=== PATIENT | male | born 1955 | race Caucasian/White ===

== ENCOUNTER 2018-03-16 06:50 | Inpatient (IN) | payer MEDICARE ==
--- NOTE | 2018-03-16 07:34 | ED ---
General Adult HPI - General Chief complaint: Shortness of Breath Stated complaint: SOB Source: patient, EMS Mode of arrival: EMS Limitations: no limitations - History of Present Illness Initial comments: Dictation was produced using [employer] dictation software. please excuse any grammatical, word or spelling errors. Chief Complaint: 62-year-old male past medical history of COPD, CHF, coronary artery disease, hypertension presents with shortness of breath times several days. History of Present Illness: She is 62-year-old male with chief complaint of shortness of breath. Patient states his symptoms have been ongoing for 4 days. Patient has history of CHF, COPD. Patient reports that his shortness of breath has been progressively worse prompting him all 911 today. Patient denies any pain complaints. He transferred to emergency department. EMS staff provide patient with treatment and Solu-Medrol. He does report that his symptoms improved after breathing treatment and steroid administration. Patient currently feels well at this time. Denies any pain complaints. Denies any constitutional symptoms. The ROS documented in this emergency department record has been reviewed and confirmed by me. Those systems with pertinent positive or negative responses have been documented in the HPI. All other systems are other negative and/or noncontributory. - Related Data Home Medications Medication Instructions Recorded Confirmed Albuterol Inhaler [Ventolin Hfa 2 puff INHALATION RT-Q4H PRN 01/21/15 03/16/18 Inhaler] Atorvastatin [Lipitor] 40 mg PO HS 01/21/15 03/16/18 Digoxin [Lanoxin] 125 mcg PO DAILY 01/21/15 03/16/18 Budesonide-Formot 160-4.5 Mcg 2 puff INHALATION RT-BID 03/16/18 03/16/18 [Symbicort 160-4.5 Mcg Inhaler] Captopril [Capoten] 25 mg PO BID 03/16/18 03/16/18 Carvedilol 25 mg PO BID 03/16/18 03/16/18 Cholecalciferol (Vitamin D3) 2,000 unit PO DAILY 03/16/18 03/16/18 [Vitamin D3] Divalproex [Depakote] 250 mg PO BID 03/16/18 03/16/18 Escitalopram [Lexapro] 20 mg PO DAILY 03/16/18 03/16/18 Furosemide [Lasix] 20 mg PO DAILY 03/16/18 03/16/18 Loratadine [Claritin] 10 mg PO DAILY 03/16/18 03/16/18 Allergies Allergy/AdvReac Type Severity Reaction Status Date / Time No Known Allergies Allergy Verified 03/16/18 08:32 Review of Systems ROS Statement: Those systems with pertinent positive or pertinent negative responses have been documented in the HPI. ROS Other: All systems not noted in ROS Statement are negative. Past Medical History Past Medical History: Asthma, Coronary Artery Disease (CAD), Heart Failure, COPD , Hypertension, Myocardial Infarction ([place]) Additional Past Medical History / Comment(s): SEE DR CAMPOVERDE'S H&P Last Myocardial Infarction Date:: 05/18/2000 History of Any Multi-Drug Resistant Organisms: None Reported Past Surgical History: AICD, Heart Catheterization With Stent Additional Past Surgical History / Comment(s): RT REVERSE SHOULDER REPLACEMENT, HT CATH X3 Past Anesthesia/Blood Transfusion Reactions: No Reported Reaction Date of Last Stent Placement:: UNKNOWN Type of Cardiac Device: AICD Device Placement Date:: 2005 Past Psychological History: Anxiety Smoking Status: Current some day smoker Past Alcohol Use History: Occasional Past Drug Use History: None Reported - Past Family History Father Family Medical History: Cancer Additional Family Medical History / Comment(s): LUNG General Exam - General Exam Comments Initial Comments: PHYSICAL EXAM: General Impression: Alert and oriented x3, not in acute distress HEENT: Normocephalic atraumatic, extra-ocular movements intact, pupils equal and reactive to light bilaterally, mucous membranes moist. Cardiovascular: Heart regular rate and rhythm, S1&S2 audible, no murmurs, rubs or gallops Chest: Bilateral lung wheezing worse in the left Abdomen: Bowel sounds present, abdomen soft, non-tender, non-distended, no organomegaly Musculoskeletal: Pulses present and equal in all extremities, no peripheral edema Motor: Power 5/5 bilaterally, no focal deficits noted Neurological: CN II-XII grossly intact, no focal motor or sensory deficits noted Skin: Intact with no visualized rashes Psych: Normal affect and mood Limitations: no limitations Course Vital Signs 03/16/18 03/16/18 03/16/18 06:58 08:44 08:52 Temperature 98.6 F Pulse Rate 78 78 82 Respiratory 18 Rate Blood Pressure 109/72 O2 Sat by Pulse 97 Oximetry Medical Decision Making - Medical Decision Making ED course:-year-old male with past medical history of COPD, CHF, coronary artery disease presents with acute dyspnea for 4 days. Vital signs upon arrival are within acceptable limits.Laboratory evaluation obtained. Patient is hemoglobin 11.2, MCV of 121.6, platelet 1 week, INR within acceptable limits. Metabolic panel shows normalkalemia, glucose of 71, magnesium 1.3, 0.058, brain natruretic peptide of 6000. Chest x-ray shows CHF exacerbation over there is findings of acute infiltrate. Given clinical presentation suspect CHF exacerbation instead of COPD exacerbation. Patient also has hypomagnesemia with prolonged QT. Patient given IV magnesium. Aspirin administered. Patient be admitted for the chocolate replacement, cardiac monitoring. Cardiology consulted. I believe the elevated troponin is likely secondary to troponin leak two-view history of CHF. Patient has her for serial troponins. At this point we will withhold any heparin at this time. EKG interpretation: Ventricular rate 71, H fibrillation, QRS 104, QTC 510. No VT prolongation, , no ST or T-wave changes noted. - Lab Data Result diagrams: 03/16/18 07:45 03/16/18 07:45 Lab Results 03/16/18 03/16/18 03/16/18 Range/Units 07:45 07:45 07:45 WBC 4.2 (3.8-10.6) k/uL RBC 2.87 L (4.30-5.90) m/uL Hgb 11.2 L (13.0-17.5) gm/dL Hct 34.9 L (39.0-53.0) % MCV 121.6 H (80.0-100.0) fL MCH 38.9 H (25.0-35.0) pg MCHC 32.0 (31.0-37.0) g/dL RDW 14.5 (11.5-15.5) % Plt Count 108 L (150-450) k/uL Neutrophils % 81 % Lymphocytes % 11 % Monocytes % 5 % Eosinophils % 2 % Basophils % 1 % Neutrophils # 3.4 (1.3-7.7) k/uL Lymphocytes # 0.5 L (1.0-4.8) k/uL Monocytes # 0.2 (0-1.0) k/uL Eosinophils # 0.1 (0-0.7) k/uL Basophils # 0.0 (0-0.2) k/uL Manual Slide Review Performed Macrocytosis Marked PT (9.0-12.0) sec INR (<1.2) APTT (22.0-30.0) sec Sodium 137 (137-145) mmol/L Potassium 4.1 (3.5-5.1) mmol/L Chloride 99 (98-107) mmol/L Carbon Dioxide 25 (22-30) mmol/L Anion Gap 13 mmol/L BUN 15 (9-20) mg/dL Creatinine 0.92 (0.66-1.25) mg/dL Est GFR (CKD-EPI)AfAm >90 (>60 ml/min/1.73 sqM) Est GFR (CKD-EPI)NonAf 88 (>60 ml/min/1.73 sqM) Glucose 71 L (74-99) mg/dL Calcium 8.8 (8.4-10.2) mg/dL Magnesium 1.3 L (1.6-2.3) mg/dL Total Bilirubin 3.7 H (0.2-1.3) mg/dL AST 135 H (17-59) U/L ALT 60 (21-72) U/L Alkaline Phosphatase 169 H (38-126) U/L Total Creatine Kinase 277 H (55-170) U/L CK-MB (CK-2) 4.9 H (0.0-2.4) ng/mL CK-MB (CK-2) Rel Index 1.8 Troponin I 0.058 H* (0.000-0.034) ng/mL NT-Pro-B Natriuret Pep pg/mL Total Protein 6.3 (6.3-8.2) g/dL Albumin 3.4 L (3.5-5.0) g/dL 03/16/18 03/16/18 Range/Units 07:45 07:45 WBC (3.8-10.6) k/uL RBC (4.30-5.90) m/uL Hgb (13.0-17.5) gm/dL Hct (39.0-53.0) % MCV (80.0-100.0) fL MCH (25.0-35.0) pg MCHC (31.0-37.0) g/dL RDW (11.5-15.5) % Plt Count (150-450) k/uL Neutrophils % % Lymphocytes % % Monocytes % % Eosinophils % % Basophils % % Neutrophils # (1.3-7.7) k/uL Lymphocytes # (1.0-4.8) k/uL Monocytes # (0-1.0) k/uL Eosinophils # (0-0.7) k/uL Basophils # (0-0.2) k/uL Manual Slide Review Macrocytosis PT 13.3 H (9.0-12.0) sec INR 1.3 H (<1.2) APTT 28.1 (22.0-30.0) sec Sodium (137-145) mmol/L Potassium (3.5-5.1) mmol/L Chloride (98-107) mmol/L Carbon Dioxide (22-30) mmol/L Anion Gap mmol/L BUN (9-20) mg/dL Creatinine (0.66-1.25) mg/dL Est GFR (CKD-EPI)AfAm (>60 ml/min/1.73 sqM) Est GFR (CKD-EPI)NonAf (>60 ml/min/1.73 sqM) Glucose (74-99) mg/dL Calcium (8.4-10.2) mg/dL Magnesium (1.6-2.3) mg/dL Total Bilirubin (0.2-1.3) mg/dL AST (17-59) U/L ALT (21-72) U/L Alkaline Phosphatase (38-126) U/L Total Creatine Kinase (55-170) U/L CK-MB (CK-2) (0.0-2.4) ng/mL CK-MB (CK-2) Rel Index Troponin I (0.000-0.034) ng/mL NT-Pro-B Natriuret Pep 6140 pg/mL Total Protein (6.3-8.2) g/dL Albumin (3.5-5.0) g/dL Disposition Clinical Impression: Congestive heart failure Disposition: ADMITTED IP TO THIS HOSP Condition: Fair Referrals: Bill Mari DO [Primary Care Provider] - 1-2 days Decision Time: 10:07
[2018-03-16] MEDS ORDERED: IPRATROPIUM-ALBUTEROL 3 ML NEB INHALATION STA (08:08)
--- NOTE | 2018-03-16 08:27 | XR ---
EXAMINATION TYPE: XR chest 2V DATE OF EXAM: 03/16/2018 COMPARISON: Chest x-ray from May 25, 2015 HISTORY: History of COPD and CHF presents with difficulty in breathing TECHNIQUE: Frontal and lateral views of the chest are obtained. FINDINGS: Metallic hardware from right shoulder surgery is partially imaged. There is cardiomegaly w ith single lead pacemaker/AICD. Small bilateral pleural effusions are felt present with blunting of p osterior costophrenic angles. Bibasilar opacity is noted. Mild central vascular congestion is seen. U pper lungs are clear without pneumothorax.. IMPRESSION: Suspect CHF exacerbation as there is cardiomegaly with mild central vascular congestion and small bilateral pleural effusions identified. Cannot exclude underlying bibasilar acute infiltrat e and/or atelectasis.
[2018-03-16 08:45] LABS: Basophils % (A) 1 %; Eosinophils # (A) 0.1 k/uL (0-0.7); Eosinophils % (A) 2 %; HCT 34.9 % (39.0-53.0); HGB 11.2 gm/dL (13.0-17.5); Lymphocytes # (A) 0.5 k/uL (1.0-4.8); Lymphocytes % (A) 11 %; MCH 38.9 pg (25.0-35.0); MCV 121.6 fL (80.0-100.0); Macrocytosis Marked; Mean Platelet Volume 8.7; Monocytes # (A) 0.2 k/uL (0-1.0); Monocytes % (A) 5 %; Neutrophils # (A) 3.4 k/uL (1.3-7.7); Neutrophils % (A) 81 %; Platelet Count 108 k/uL (150-450); RBC 2.87 m/uL (4.30-5.90); RDW 14.5 % (11.5-15.5); WBC 4.2 k/uL (3.8-10.6)
[2018-03-16 08:57] LABS: ALT 60 U/L (21-72); AST 135 U/L (17-59); Albumin 3.4 g/dL (3.5-5.0); Alkaline Phosphatase 169 U/L (38-126); Anion Gap 13 mmol/L; Blood Urea Nitrogen 15 mg/dL (9-20); Calcium 8.8 mg/dL (8.4-10.2); Carbon Dioxide 25 mmol/L (22-30); Chloride 99 mmol/L (98-107); Glucose 71 mg/dL (74-99); Magnesium 1.3 mg/dL (1.6-2.3); Potassium 4.1 mmol/L (3.5-5.1); Sodium 137 mmol/L (137-145); Total Bilirubin 3.7 mg/dL (0.2-1.3); Total Protein 6.3 g/dL (6.3-8.2)
[2018-03-16 09:00] LABS: INR 1.3 (<1.2)
[2018-03-16 09:01] LABS: Partial Thromboplastin Time 28.1 sec (22.0-30.0); Prothrombin Time 13.3 sec (9.0-12.0)
[2018-03-16 09:20] LABS: Creatine Kinase MB 4.9 ng/mL (0.0-2.4)
[2018-03-16 09:29] LABS: Troponin I 0.058 ng/mL (0.000-0.034)
[2018-03-16] MEDS ORDERED: FUROSEMIDE 10 MG/ML 4 ML VIAL IV STA (10:03)
[2018-03-16] MEDS ORDERED: NALOXONE 0.4 MG/ML 1 ML VIAL IV PRN (10:03)
[2018-03-16] MEDS: MAGNESIUM SULFATE-D5W PMX 1 GM in DEXTROSE/WATER 1 100ML.BAG IVPB SCH ×2 (11:14→19:32)
[2018-03-16] MEDS ORDERED: LORazepam 2 MG/ML INJ IV PRN (14:54)
[2018-03-16] MEDS: LORazepam 2 MG/ML INJ IV PRN ×2 (15:09→19:46)
[2018-03-16] MEDS ORDERED: IPRATROPIUM-ALBUTEROL 3 ML NEB INHALATION PRN (15:16)
[2018-03-16] MEDS ORDERED: HYDROcodone/APAP 5-325MG 1 EACH TAB PO PRN (15:17)
[2018-03-16] MEDS ORDERED: TEMAZEPAM 15 MG CAP PO PRN (15:17)
--- NOTE | 2018-03-16 16:39 | HP ---
HISTORY AND PHYSICAL CHIEF COMPLAINT: Shortness of breath. HISTORY OF PRESENT ILLNESS: This 62-year-old gentleman with a past medical history of multiple medical problems, CAD, history of CHF, COPD, history of AICD, myocardial infarction, CAD, stent being followed by Dr. Mari in the outpatient setting is apparently also drinking heavily. The patient was complaining of some shortness of breath with abdominal distention, bilateral leg edema. The patient came to [facility] and was admitted for further evaluation and treatment. The patient called 911 and the EMS administered some breathing treatments of Solu-Medrol with some improvement in symptoms. There is no history of fever, rigors or chills. No history of headache, loss of consciousness, seizures at this time. PAST MEDICAL HISTORY: History of COPD, CHF; myocardial infarction, CAD, stent, history of EtOH, history of AICD, anxiety. MEDICATIONS: Prior to admission include home medications are: 1. Claritin 10 mg p.o. daily. 2. Vitamin D3 2000 daily. 3. Lexapro 20 mg p.o. daily. 4. Symbicort 160/4.5 two puffs b.i.d. 5. Lasix 20 mg daily. 6. Depakote 250 mg b.i.d. 7. Lanoxin 180 mcg p.o. daily. 8. Coreg 25 mg p.o. b.i.d. 9. Capoten 25 mg p.o. b.i.d. 10.Lipitor 40 mg q.h.s. 11.Ventolin HFA 2 puffs q.4h p.r.n. ALLERGIES: None. FAMILY HISTORY: History of lung cancer in the family. SOCIAL HISTORY: History of smoking. History of alcohol as mentioned. REVIEW OF SYSTEMS: ENT: Diminished hearing and vision. CARDIOVASCULAR: As mentioned earlier. RESPIRATORY: As mentioned earlier. GI: No nausea or vomiting. no dysuria. Nervous system: No numbness, weakness. Allergy/immunology: No asthma or hayfever. MUSCULOSKELETAL as mentioned earlier. HEMATOLOGY/ONCOLOGY: No history of anemia. ENDOCRINE: No history of diabetes or hypothyroidism. CONSTITUTIONAL: As mentioned earlier. Dermatology: Negative. Rheumatology: Negative. Psychiatry: As mentioned earlier. PHYSICAL EXAMINATION: GENERAL: The patient is alert and oriented times three. Pulse is 78, blood pressure 119/84, respiration 18, temperature is normal, pulse ox 97% on 2 L. HEENT: Conjunctivae normal. Oral mucosa moist. NECK : Jugular venous distention at the root of the neck. Cardiovascular system: S1, S2. Ejection systolic murmur. No S3, no S4. RESPIRATORY: Breath sounds diminished in the bases. Bilateral scattered rhonchi and crackles. Breathing efforts are markedly increased. ABDOMEN: Soft, obese, tense. Ascites present. LEGS: Bilateral leg edema. Pulses diminished bilaterally. NERVOUS SYSTEM: Higher functions as mentioned earlier. Moves all four limbs. No focal motor or sensory deficits. LYMPHATICS: No lymph nodes palpable in the neck, axillae or groin. SKIN as mentioned earlier. JOINTS: No active deforming arthropathy. LAB STUDIES: WBC 4.8, hemoglobin 11.2, INR 1.33. Magnesium is 1.3. AST is 135, troponin 0.58. ASSESSMENT: 1. Shortness of breath, possibly congestive heart failure acute exacerbation with acute on chronic systolic dysfunction, ejection fraction 30-35 percent. 2. Chronic obstructive pulmonary disease acute exacerbation. 3. History of ETOH. 4. Troponin 0.05 indeterminate. 5. Alcohol intoxication, alcohol withdrawal, early delirium tremens. 6. Hypomagnesemia. 7. Alcoholic hepatitis with elevated bilirubin and as well as increased AST. 8. Mild coagulopathy secondary to chronic liver disease. 9. Thrombocytopenia. 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 11.History of coronary artery disease, stent. 12.History of AICD. 13.History of chronic obstructive pulmonary disease. 14.Hypertension. 15.Hyperlipidemia. 16.History of ischemic cardiomyopathy. 17.History of cellulitis. 18.History of anxiety. 19.History of nicotine dependence. 20.FULL CODE. RECOMMENDATIONS AND DISCUSSION: In this 62-year-old gentleman who presented with multiple complex medical issues, we will monitor the patient closely, continue the current medications, management and symptomatic treatment. We will initiate IV diuretics and also bronchodilators. We will also obtain Cardiology and pulmonology consultations. Otherwise monitor fluid and electrolytes balance closely. Fluid restriction about 100 mL for 24 hours. CIWA protocol. Continue the rest of medications. Ultrasound of the abdomen and possible abdomen tap if there is enough fluid for therapeutic and diagnostic purposes. Otherwise, overall prognosis guarded because of multiple complex medical issues as listed above. Further recommendations to follow. Copy of dictation being forwarded to Dr. Mari who is the primary physician. MMODL / IJN: [id number] /
[2018-03-16] MEDS: NICOTINE 14MG/24HR PATCH TRANSDERM SCH (17:53)
[2018-03-16] MEDS: FUROSEMIDE 10 MG/ML 4 ML VIAL IV SCH ×2 (17:53→23:15)
[2018-03-16] MEDS: methylPREDNISolone SOD SUCCI 125 MG/2 ML VIAL IV SCH ×2 (17:53→23:15)
[2018-03-16] MEDS: INSULIN ASPART 100 UNIT/ML 1 ML 10 ML VIAL SQ SCH ×2 (17:54→23:11)
[2018-03-16] MEDS: THIAMINE 100 MG TAB PO SCH (19:32)
[2018-03-16] MEDS: CARVEDILOL 12.5 MG TAB PO SCH (19:45)
[2018-03-16] MEDS: DIVALPROEX 250 MG TABLET.DR PO SCH (19:45)
[2018-03-16] MEDS: HEPARIN SODIUM,PORCINE 5,000 UNIT/ML 1 ML VIAL SQ SCH (19:45)
[2018-03-16] MEDS: ATORVASTATIN 40 MG TAB PO SCH (19:45)
[2018-03-16] MEDS: SYMBICORT 160-4.5 MCG INHALER INHALATION SCH (19:59)
[2018-03-16] MEDS: IPRATROPIUM-ALBUTEROL 3 ML NEB INHALATION SCH (19:59)
[2018-03-16 20:53] LABS: Glucose,Whole Blood 173 mg/dL (75-99)
[2018-03-16] MEDS ORDERED: SPIRONOLACTONE 25 MG TAB PO SCH (21:00)
[2018-03-16] MEDS: CAPTOPRIL 25 MG TAB PO SCH (23:11)
[2018-03-16 23:48] LABS: Appearance,Urine Clear (Clear); Bilirubin,Urine Negative (Negative); Blood,Urine Negative (Negative); Color,Urine Yellow; Glucose,Urine (UA) Negative (Negative); Ketones,Urine Negative (Negative); Leukocyte Esterase,Urine Negative (Negative); Nitrite,Urine Negative (Negative); PH, Urine 6.5 (5.0-8.0); Protein,Urine Negative (Negative); Specific Gravity,Urine 1.005 (1.001-1.035)
[2018-03-17] MEDS: LORazepam 2 MG/ML INJ IV PRN ×6 (02:30→22:32)
[2018-03-17] MEDS: TAMSULOSIN 0.4 MG CAP.ER.24H PO SCH (03:21)
[2018-03-17 03:52] LABS: Hemoglobin A1C 4.7 % (4.0-6.0)
[2018-03-17 05:36] LABS: Glucose,Whole Blood 221 mg/dL (75-99)
[2018-03-17] MEDS: PANTOPRAZOLE 40 MG TABLET PO SCH (05:37)
[2018-03-17] MEDS: methylPREDNISolone SOD SUCCI 125 MG/2 ML VIAL IV SCH ×4 (05:37→22:31)
[2018-03-17] MEDS: INSULIN ASPART 100 UNIT/ML 1 ML 10 ML VIAL SQ SCH ×4 (05:37→20:23)
[2018-03-17 06:31] LABS: Basophils % (A) 0 %; Eosinophils # (A) 0.1 k/uL (0-0.7); Eosinophils % (A) 1 %; HCT 35.6 % (39.0-53.0); HGB 11.9 gm/dL (13.0-17.5); Lymphocytes # (A) 0.3 k/uL (1.0-4.8); Lymphocytes % (A) 6 %; MCH 40.4 pg (25.0-35.0); MCHC 33.4 g/dL (31.0-37.0); MCV 121.1 fL (80.0-100.0); Macrocytosis Marked; Mean Platelet Volume 8.7; Monocytes # (A) 0.2 k/uL (0-1.0); Monocytes % (A) 3 %; Neutrophils # (A) 4.6 k/uL (1.3-7.7); Neutrophils % (A) 89 %; Platelet Count 118 k/uL (150-450); RBC 2.94 m/uL (4.30-5.90); RDW 14.2 % (11.5-15.5); WBC 5.2 k/uL (3.8-10.6)
[2018-03-17 06:45] LABS: ALT 58 U/L (21-72); AST 85 U/L (17-59); Albumin 3.1 g/dL (3.5-5.0); Alkaline Phosphatase 141 U/L (38-126); Anion Gap 9 mmol/L; Blood Urea Nitrogen 34 mg/dL (9-20); Calcium 7.9 mg/dL (8.4-10.2); Carbon Dioxide 34 mmol/L (22-30); Chloride 91 mmol/L (98-107); Glucose 180 mg/dL (74-99); Magnesium 1.5 mg/dL (1.6-2.3); Potassium 3.8 mmol/L (3.5-5.1); Sodium 134 mmol/L (137-145); Total Bilirubin 3.4 mg/dL (0.2-1.3); Total Protein 5.9 g/dL (6.3-8.2)
[2018-03-17] MEDS ORDERED: Magnesium Replacement Protocol 1 EACH MISC MISCELLANE PRN (06:48)
[2018-03-17] MEDS: IPRATROPIUM-ALBUTEROL 3 ML NEB INHALATION SCH ×3 (07:51→20:44)
[2018-03-17] MEDS: SYMBICORT 160-4.5 MCG INHALER INHALATION SCH ×2 (07:51→20:44)
[2018-03-17] MEDS ORDERED: DIGOXIN 125 MCG TAB PO SCH (09:00)
[2018-03-17] MEDS: MULTIVITAMINS, THERA 1 EACH TAB PO SCH (10:52)
[2018-03-17] MEDS: LORATADINE 10 MG TAB PO SCH (10:52)
[2018-03-17] MEDS: ESCITALOPRAM 20 MG TAB PO SCH (10:52)
[2018-03-17] MEDS: FUROSEMIDE 10 MG/ML 4 ML VIAL IV SCH (10:52)
[2018-03-17] MEDS: THIAMINE 100 MG TAB PO SCH ×2 (10:52→17:38)
[2018-03-17] MEDS: CHOLECALCIFEROL 1,000 UNIT TAB PO SCH (10:53)
[2018-03-17] MEDS: MAGNESIUM SULFATE-D5W PMX 1 GM in DEXTROSE/WATER 1 100ML.BAG IVPB SCH ×2 (10:53→12:11)
[2018-03-17] MEDS: CARVEDILOL 12.5 MG TAB PO SCH ×2 (10:53→20:49)
[2018-03-17] MEDS: SPIRONOLACTONE 25 MG TAB PO SCH (11:10)
[2018-03-17] MEDS: LOSARTAN 50 MG TAB PO SCH (11:10)
[2018-03-17] MEDS: APIXABAN 5 MG TAB PO SCH ×2 (11:11→20:49)
[2018-03-17] MEDS: DIVALPROEX 250 MG TABLET.DR PO SCH ×2 (11:18→20:49)
[2018-03-17] MEDS: CAPTOPRIL 25 MG TAB PO SCH (11:19)
[2018-03-17 11:52] LABS: Glucose,Whole Blood 191 mg/dL (75-99)
[2018-03-17] MEDS ORDERED: LIDOCAINE URO-JET JELLY 2% 5 ML KIT URETHRAL ONE (13:11)
--- NOTE | 2018-03-17 15:31 | CONS ---
CONSULTATION Mr. Yash Land is a 62-year-old gentleman who is very noncompliant with followups. He has ischemic cardiomyopathy, prior stenting of RCA. However, he has not followed up. He had a pulse generator change performed in March or so 2014 from a [employer] to [employer] device, but he has not had a check of the device since that time. 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 He came into the hospital with increasing episodes of shortness of breath going on for a week, progressively getting worse, culminating in his visit to the hospital. He was found to be in congestive heart failure with QT prolongation. He is also in atrial fibrillation and I went and looked at the previous records as far back as 2015 and I noted that he was in atrial fibrillation at that time, but patient is not on any anticoagulation and it is unclear as to the reason for his not being on anticoagulation. EKG from May of 2015 also revealed atrial fibrillation with a controlled ventricular rate with evidence of old anterior and inferior NC. After arrival to the hospital, he has received Lasix. He feels better. His breathing is easier. He denies any chest discomfort at the time of my evaluation. Patient continues to smoke on a regular basis and also drinks alcohol on a regular basis at least 3-4 drinks of whiskey on a daily basis. The patient's breathing has improved since arrival. PAST MEDICAL HISTORY: 1. Ischemic cardiomyopathy with previous stenting of LAD and RCA performed in 2000 with bare metal stents. Ejection fraction less than 35%. 2. History of AICD placement last was a pulse generator change in March 2015. 3. Bronchial asthma. 4. Smoking and chronic obstructive pulmonary disease. 5. Hypertension. 6. Alcoholism. MEDICATIONS: At home that he takes from his primary care physician include Lipitor 40 mg daily, digoxin 125 mcg daily, Capoten 25 mg b.i.d., Coreg 25 mg b.i.d., vitamin supplements, Lexapro, Lasix 20 mg daily, and Claritin. ALLERGIES: None. REVIEW OF SYSTEMS: Unremarkable other than above-mentioned facts. EKG performed in the emergency room revealed atrial fibrillation, controlled ventricular rate, evidence of old inferior and anterior NC with Q-waves seen in leads V1 to V5 and also in 2, 3 and AVF. There are no anterior forces. PHYSICAL EXAMINATION: Blood pressure is 120/70, pulse rate is about 84 per minute, irregular. HEENT: Unremarkable. Fundus was not examined by me. NECK: Supple, there is JVD of at least 1 cm or more. There is no carotid bruit. Heart exam reveals S1, S2 heard normally with a short systolic murmur. Irregularity in rhythm noted. There is a short systolic murmur audible. LUNGS: Revealed bilateral scattered rhonchi. There is evidence of fine rales over both bases. Abdomen is soft, nontender. Lower extremities reveal diminished pulses. There is bilateral trace, mild edema. Central nervous system is grossly within normal limits. IMPRESSION: 1. Exacerbation of systolic congestive heart failure. 2. Exacerbation of chronic obstructive pulmonary disease in a patient with known history of smoking. 3. Atrial fibrillation which is a chronic persistent rhythm abnormality which was noted as far back as 2016. 4. Alcoholism. 5. Ischemic cardiomyopathy with a prior multivessel stenting and ICD, which has not been checked for at least 3 years. 6. Hypomagnesemia with some QT prolongation, which I do not believe is clinically significant at this time. RECOMMENDATIONS: I explained to the patient that we will supplement his magnesium and potassium. I have counseled him regarding the need to quit smoking and alcohol, but he does not seem motivated or interested in doing this. I will reduce the Aldactone to 25 mg b.i.d., switch him to oral Lasix at 40 mg b.i.d., initiate Eliquis 5 mg b.i.d., discontinue Capoten and use losartan 100 mg daily and discontinue digoxin. We will perform a 12- lead EKG tomorrow and an echocardiogram today and based on clinical progress, I will make further recommendations. I would try and see if he can get his device interrogated today since it does not been done for at least 3 years. I discussed my thoughts and concerns and issues that patient has with him. He seems to comprehend them to some extent and wishes to take care of himself. Thank you very much for the consult. MMNALINIL / JENIFERN: [id number] /
[2018-03-17] MEDS: HEPARIN SODIUM,PORCINE 5,000 UNIT/ML 1 ML VIAL SQ SCH (15:57)
--- NOTE | 2018-03-17 15:59 | P.GSCN ---
History of Present Illness Consult date: 03/17/18 Reason for Consult: Urinary retention Requesting physician: Quincy Spann (\) History of present illness: The patient is a 62-year-old male admitted with congestive heart failure. He has a history of alcohol abuse. He has an unremarkable urologic history. He was straight catheterized overnight, and she reportedly had difficulty removing the catheter. Since that time, he has experienced voiding difficulty and urinary incontinence. I'm consulted for this reason. Bladder scan suggests that he is in urinary retention at this time. Review of Systems - Constitutional Denies chills, Denies fever - Respiratory Reports dyspnea - Gastrointestinal Denies nausea, Denies vomiting - Genitourinary Reports incontinence Past Medical History Past Medical History: Coronary Artery Disease (CAD), Heart Failure, COPD, Eye Disorder, Hearing Disorder / Deafness, Hyperlipidemia, Hypertension, Myocardial Infarction ([place]) Additional Past Medical History / Comment(s): Cardiomyopathy, bilateral pleural effusions, bilateral ear tinnitis/[place], bilateral cataracts, past R arm cellulitis, gait dysfunction, sinus problems, lower leg numbness and discolorated. Last Myocardial Infarction Date:: 05/18/2000 History of Any Multi-Drug Resistant Organisms: None Reported Past Surgical History: AICD, Heart Catheterization, Heart Catheterization With Stent Additional Past Surgical History / Comment(s): AICD, DFTs, PCI with stenting, cardiac cath, has had 5 R shoulder surgery and eventually had a reverse total shoulder-has metal in this arm, R leg surgery x 3 with marco, L wrist surgery, colonoscopy with benign polypectomy. Past Anesthesia/Blood Transfusion Reactions: No Reported Reaction Date of Last Stent Placement:: 2000 Type of Cardiac Device: AICD Device Placement Date:: 2005 Smoking Status: Light tobacco smoker - Past Family History Mother Family Medical History: Cancer, Dementia Additional Family Medical History / Comment(s): Mother is 91 yrs old. She has bowel cancer. Father Family Medical History: Cancer Additional Family Medical History / Comment(s): Father of lung cancer at the age of 73 yrs. Medications and Allergies Home Medications Medication Instructions Recorded Confirmed Type Albuterol Inhaler [Ventolin Hfa 2 puff INHALATION RT-Q4H PRN 01/21/15 03/16/18 History Inhaler] Atorvastatin [Lipitor] 40 mg PO HS 01/21/15 03/16/18 History Digoxin [Lanoxin] 125 mcg PO DAILY 10/20/15 12/13/18 History Budesonide-Formot 160-4.5 Mcg 2 puff INHALATION RT-BID 03/16/18 03/16/18 History [Symbicort 160-4.5 Mcg Inhaler] Captopril [Capoten] 25 mg PO BID 03/16/18 03/16/18 History Carvedilol 25 mg PO BID 03/16/18 03/16/18 History Cholecalciferol (Vitamin D3) 2,000 unit PO DAILY 03/16/18 03/16/18 History [Vitamin D3] Divalproex [Depakote] 250 mg PO BID 03/16/18 03/16/18 History Escitalopram [Lexapro] 20 mg PO DAILY 03/16/18 03/16/18 History Furosemide [Lasix] 20 mg PO DAILY 03/16/18 03/16/18 History Loratadine [Claritin] 10 mg PO DAILY 03/16/18 03/16/18 History Allergies Allergy/AdvReac Type Severity Reaction Status Date / Time No Known Allergies Allergy Verified 03/16/18 08:32 Surgical - Exam Vital Signs Temp Pulse Resp BP Pulse Ox 98.6 F 78 18 109/72 97 03/16/18 06:58 03/16/18 06:58 03/16/18 06:58 03/16/18 06:58 03/16/18 06:58 - General well developed, well nourished, no distress - Respiratory normal respiratory effort - Abdomen Abdomen: soft, non tender, no guarding, no rigid, no rebound - Genitourinary normal penis with no external lesions, testicles non-tender left: scrotal mass/hydrocele (3 cm left spermatocele) - Rectum Rectum: normal sphincter tone, no masses, other (Prostate 20-25 grams and smooth ) - Psychiatric oriented to time, oriented to person, oriented to place, speech is normal, memory intact Results - Labs 03/17/18 06:15 03/17/18 06:15 Abnormal Lab Results - Last 24 Hours (Table) 03/16/18 03/16/18 03/16/18 Range/Units 14:26 19:26 20:45 RBC (4.30-5.90) m/uL Hgb (13.0-17.5) gm/dL Hct (39.0-53.0) % MCV (80.0-100.0) fL MCH (25.0-35.0) pg Plt Count (150-450) k/uL Lymphocytes # (1.0-4.8) k/uL Sodium (137-145) mmol/L Chloride (98-107) mmol/L Carbon Dioxide (22-30) mmol/L BUN (9-20) mg/dL Glucose (74-99) mg/dL POC Glucose (mg/dL) 173 H (75-99) mg/dL Calcium (8.4-10.2) mg/dL Magnesium (1.6-2.3) mg/dL Total Bilirubin (0.2-1.3) mg/dL AST (17-59) U/L Alkaline Phosphatase (38-126) U/L Troponin I 0.047 H* 0.038 H* (0.000-0.034) ng/mL Total Protein (6.3-8.2) g/dL Albumin (3.5-5.0) g/dL 03/17/18 03/17/18 03/17/18 Range/Units 05:34 06:15 06:15 RBC 2.94 L (4.30-5.90) m/uL Hgb 11.9 L (13.0-17.5) gm/dL Hct 35.6 L (39.0-53.0) % MCV 121.1 H (80.0-100.0) fL MCH 40.4 H (25.0-35.0) pg Plt Count 118 L (150-450) k/uL Lymphocytes # 0.3 L (1.0-4.8) k/uL Sodium 134 L (137-145) mmol/L Chloride 91 L (98-107) mmol/L Carbon Dioxide 34 H (22-30) mmol/L BUN 34 H (9-20) mg/dL Glucose 180 H (74-99) mg/dL POC Glucose (mg/dL) 221 H (75-99) mg/dL Calcium 7.9 L (8.4-10.2) mg/dL Magnesium 1.5 L (1.6-2.3) mg/dL Total Bilirubin 3.4 H (0.2-1.3) mg/dL AST 85 H (17-59) U/L Alkaline Phosphatase 141 H (38-126) U/L Troponin I (0.000-0.034) ng/mL Total Protein 5.9 L (6.3-8.2) g/dL Albumin 3.1 L (3.5-5.0) g/dL 03/17/18 Range/Units 11:49 RBC (4.30-5.90) m/uL Hgb (13.0-17.5) gm/dL Hct (39.0-53.0) % MCV (80.0-100.0) fL MCH (25.0-35.0) pg Plt Count (150-450) k/uL Lymphocytes # (1.0-4.8) k/uL Sodium (137-145) mmol/L Chloride (98-107) mmol/L Carbon Dioxide (22-30) mmol/L BUN (9-20) mg/dL Glucose (74-99) mg/dL POC Glucose (mg/dL) 191 H (75-99) mg/dL Calcium (8.4-10.2) mg/dL Magnesium (1.6-2.3) mg/dL Total Bilirubin (0.2-1.3) mg/dL AST (17-59) U/L Alkaline Phosphatase (38-126) U/L Troponin I (0.000-0.034) ng/mL Total Protein (6.3-8.2) g/dL Albumin (3.5-5.0) g/dL Diabetes panel 03/16/18 03/17/18 Range/Units 07:45 06:15 Sodium 134 L (137-145) mmol/L Potassium 3.8 (3.5-5.1) mmol/L Chloride 91 L (98-107) mmol/L Carbon Dioxide 34 H (22-30) mmol/L BUN 34 H (9-20) mg/dL Creatinine 0.96 (0.66-1.25) mg/dL Glucose 180 H (74-99) mg/dL Hemoglobin A1c 4.7 (4.0-6.0) % Calcium 7.9 L (8.4-10.2) mg/dL AST 85 H (17-59) U/L ALT 58 (21-72) U/L Alkaline Phosphatase 141 H (38-126) U/L Total Protein 5.9 L (6.3-8.2) g/dL Albumin 3.1 L (3.5-5.0) g/dL Calcium panel 03/17/18 Range/Units 06:15 Calcium 7.9 L (8.4-10.2) mg/dL Albumin 3.1 L (3.5-5.0) g/dL Pituitary panel 03/17/18 Range/Units 06:15 Sodium 134 L (137-145) mmol/L Potassium 3.8 (3.5-5.1) mmol/L Chloride 91 L (98-107) mmol/L Carbon Dioxide 34 H (22-30) mmol/L BUN 34 H (9-20) mg/dL Creatinine 0.96 (0.66-1.25) mg/dL Glucose 180 H (74-99) mg/dL Calcium 7.9 L (8.4-10.2) mg/dL Adrenal panel 03/17/18 Range/Units 06:15 Sodium 134 L (137-145) mmol/L Potassium 3.8 (3.5-5.1) mmol/L Chloride 91 L (98-107) mmol/L Carbon Dioxide 34 H (22-30) mmol/L BUN 34 H (9-20) mg/dL Creatinine 0.96 (0.66-1.25) mg/dL Glucose 180 H (74-99) mg/dL Calcium 7.9 L (8.4-10.2) mg/dL Total Bilirubin 3.4 H (0.2-1.3) mg/dL AST 85 H (17-59) U/L ALT 58 (21-72) U/L Alkaline Phosphatase 141 H (38-126) U/L Total Protein 5.9 L (6.3-8.2) g/dL Albumin 3.1 L (3.5-5.0) g/dL Assessment and Plan (1) Urinary retention Current Visit: Yes Status: Acute Code(s): R33.9 - RETENTION OF URINE, UNSPECIFIED SNOMED Code(s): 529263374 Plan: The penis was prepped and draped sterilely. 2% lidocaine gel was administered intraurethrally. A 16-Tamazight coud-tip Fenton catheter was then placed, with return of 400-500 mL of clear yellow urine. It would be my recommendation that the catheter remain in place for a minimum of 48 hours. It may be removed when no longer medically needed. Please notify me if I can be of any further assistance.
[2018-03-17 16:41] LABS: Glucose,Whole Blood 200 mg/dL (75-99)
[2018-03-17] MEDS: NICOTINE 14MG/24HR PATCH TRANSDERM SCH (17:10)
--- NOTE | 2018-03-17 17:15 | P.CNPUL ---
History of Present Illness Consult date: 03/17/18 Requesting physician: Quincy Spann Reason for consult: dyspnea Chief complaint: Shortness of breath History of present illness: This is 62-year-old white male patient of Dr. Pacheco, who presented to the emergency department on 03/16/2018 or evaluation of worsening shortness of breath the past 4 days. Symptoms were progressive in nature. He denies any fever or chills, denied any chest pain. Patient was brought in by an ambulance. En route to the hospital patient was given treatment and IV Solu- Medrol, to which she started to respond. Patient is a current smoker, although he is down to 1 or 2 cigarettes per day, used to smoke up to 3 packs a day for last 50 years. Has daily EtOH use, he states he only has 2 drinks of gin and tonic a day, used to be a heavier drinker in the past. Patient was also complaining of abdominal distention, bilateral leg edema. Patient has a history of ischemic cardiomyopathy with previous stenting of LAD and RCA, with the ejection fraction of less than 35%, COPD, hypertension, chronic A. fib, patient is not on anticoagulation. Chest x-ray showed cardiac megaly with single-lead pacemaker/AICD. Small bilateral pleural effusions, mild central vascular congestion. Labs were negative for leukocytosis, WBC is 4.2, hemoglobin of 11.2, INR of 1.3, electrolytes and renal profile are within normal limits. ProBNP was 6140, troponins were elevated at 0.058, 0.047, and 0.038. UA was negative, serum alcohol level was 86. Patient was was given a dose of IV Lasix in the emergency department, started on oral Lasix, nebulized bronchodilators, and IV steroids, and admitted for further management. Review of Systems All systems: negative Constitutional: Denies chills, Denies fever Eyes: denies blurred vision, denies pain Ears, nose, mouth and throat: Denies headache, Denies sore throat Cardiovascular: Reports dyspnea on exertion, Reports edema, Reports leg edema, Denies chest pain, Denies shortness of breath Respiratory: Reports dyspnea, Denies cough Gastrointestinal: Denies abdominal pain, Denies diarrhea, Denies nausea, Denies vomiting Musculoskeletal: Denies myalgias Integumentary: Denies pruritus, Denies rash Neurological: Denies numbness, Denies weakness Psychiatric: Denies anxiety, Denies depression Endocrine: Denies fatigue, Denies weight change Past Medical History Past Medical History: Coronary Artery Disease (CAD), Heart Failure, COPD, Eye Disorder, Hearing Disorder / Deafness, Hyperlipidemia, Hypertension, Myocardial Infarction ([place]) Additional Past Medical History / Comment(s): Cardiomyopathy, bilateral pleural effusions, bilateral ear tinnitis/[place], bilateral cataracts, past R arm cellulitis, gait dysfunction, sinus problems, lower leg numbness and discolorated. Last Myocardial Infarction Date:: 05/18/2000 History of Any Multi-Drug Resistant Organisms: None Reported Past Surgical History: AICD, Heart Catheterization, Heart Catheterization With Stent Additional Past Surgical History / Comment(s): AICD, DFTs, PCI with stenting, cardiac cath, has had 5 R shoulder surgery and eventually had a reverse total shoulder-has metal in this arm, R leg surgery x 3 with marco, L wrist surgery, colonoscopy with benign polypectomy. Past Anesthesia/Blood Transfusion Reactions: No Reported Reaction Date of Last Stent Placement:: 2000 Type of Cardiac Device: AICD Device Placement Date:: 2005 Smoking Status: Light tobacco smoker - Past Family History Mother Family Medical History: Cancer, Dementia Additional Family Medical History / Comment(s): Mother is 91 yrs old. She has bowel cancer. Father Family Medical History: Cancer Additional Family Medical History / Comment(s): Father of lung cancer at the age of 73 yrs. Medications and Allergies Home Medications Medication Instructions Recorded Confirmed Type Albuterol Inhaler [Ventolin Hfa 2 puff INHALATION RT-Q4H PRN 01/21/15 03/16/18 History Inhaler] Atorvastatin [Lipitor] 40 mg PO HS 01/21/15 03/16/18 History Digoxin [Lanoxin] 125 mcg PO DAILY 01/21/15 03/16/18 History Budesonide-Formot 160-4.5 Mcg 2 puff INHALATION RT-BID 03/16/18 03/16/18 History [Symbicort 160-4.5 Mcg Inhaler] Captopril [Capoten] 25 mg PO BID 03/16/18 03/16/18 History Carvedilol 25 mg PO BID 03/16/18 03/16/18 History Cholecalciferol (Vitamin D3) 2,000 unit PO DAILY 03/16/18 03/16/18 History [Vitamin D3] Divalproex [Depakote] 250 mg PO BID 03/16/18 03/16/18 History Escitalopram [Lexapro] 20 mg PO DAILY 03/16/18 03/16/18 History Furosemide [Lasix] 20 mg PO DAILY 03/16/18 03/16/18 History Loratadine [Claritin] 10 mg PO DAILY 03/16/18 03/16/18 History Allergies Allergy/AdvReac Type Severity Reaction Status Date / Time No Known Allergies Allergy Verified 03/16/18 08:32 Physical Exam Vitals: Vital Signs Temp Pulse Pulse Resp BP Pulse Ox 03/17/18 16:00 96.9 F L 79 18 100/65 92 L 03/17/18 12:00 96.9 F L 70 16 111/60 97 03/17/18 08:08 88 03/17/18 08:00 96.9 F L 93 16 124/74 93 L 03/17/18 07:54 84 03/17/18 03:44 97.5 F L 95 18 129/78 96 03/16/18 23:21 97 F L 79 18 132/87 93 L 03/16/18 21:00 77 18 127/72 93 L 03/16/18 20:09 89 03/16/18 20:00 90 99 03/16/18 19:56 157/106 03/16/18 19:44 97.7 F 126 H 18 145/109 98 Intake and Output 03/17/18 03/17/18 03/17/18 06:59 14:59 22:59 Intake Total 90 480 Output Total 1025 474 Balance -935 6 Intake: IV 90 0.9 90 Oral 480 Output: Urine 1025 Post Void Residual 474 Other: Voiding Method Diaper Diaper Diaper Incontinent Incontinent Incontinent # Voids 3 Weight 72.2 kg GENERAL EXAM: Alert, 62-year-old white male comfortable in no apparent distress , fatigued and weak HEAD: Normocephalic/atraumatic. EYES: Normal reaction of pupils, equal size. Conjunctiva pink, sclera white. NOSE: Clear with pink turbinates. THROAT: No erythema or exudates. NECK: No masses, no JVD, no thyroid enlargement, no adenopathy. CHEST: No chest wall deformity. Symmetrical expansion. LUNGS: Equal air with bibasilar crackles CVS: Regular rate and rhythm, normal S1 and S2, no gallops, no murmurs, no rubs ABDOMEN: Soft, nontender. No hepatosplenomegaly, normal bowel sounds, no guarding or rigidity. EXTREMITIES: No clubbing, no edema, no cyanosis, 2+ pulses and upper and lower extremities. MUSCULOSKELETAL: Muscle strength and tone normal. SPINE: No scoliosis or deformity SKIN: No rashes CENTRAL NERVOUS SYSTEM: Alert and oriented -3. No focal deficits, tone is normal in all 4 extremities. PSYCHIATRIC: Alert and oriented -3. Appropriate affect. Intact judgment and insight. Results - Laboratory Findings CBC and BMP: 03/17/18 06:15 03/17/18 06:15 PT/INR, D-dimer PT 13.3 sec (9.0-12.0) H 03/16/18 07:45 INR 1.3 (<1.2) H 03/16/18 07:45 Abnormal lab findings: Abnormal Labs 03/16/18 03/16/18 03/16/18 07:45 07:45 07:45 RBC 2.87 L Hgb 11.2 L Hct 34.9 L MCV 121.6 H MCH 38.9 H Plt Count 108 L Lymphocytes # 0.5 L PT INR Sodium Chloride Carbon Dioxide BUN Glucose 71 L POC Glucose (mg/dL) Calcium Magnesium 1.3 L Total Bilirubin 3.7 H AST 135 H Alkaline Phosphatase 169 H Total Creatine Kinase 277 H CK-MB (CK-2) 4.9 H Troponin I 0.058 H* Total Protein Albumin 3.4 L 03/16/18 03/16/18 03/16/18 07:45 14:26 19:26 RBC Hgb Hct MCV MCH Plt Count Lymphocytes # PT 13.3 H INR 1.3 H Sodium Chloride Carbon Dioxide BUN Glucose POC Glucose (mg/dL) Calcium Magnesium Total Bilirubin AST Alkaline Phosphatase Total Creatine Kinase CK-MB (CK-2) Troponin I 0.047 H* 0.038 H* Total Protein Albumin 03/16/18 03/17/18 03/17/18 20:45 05:34 06:15 RBC 2.94 L Hgb 11.9 L Hct 35.6 L MCV 121.1 H MCH 40.4 H Plt Count 118 L Lymphocytes # 0.3 L PT INR Sodium Chloride Carbon Dioxide BUN Glucose POC Glucose (mg/dL) 173 H 221 H Calcium Magnesium Total Bilirubin AST Alkaline Phosphatase Total Creatine Kinase CK-MB (CK-2) Troponin I Total Protein Albumin 03/17/18 03/17/18 03/17/18 06:15 11:49 16:33 RBC Hgb Hct MCV MCH Plt Count Lymphocytes # PT INR Sodium 134 L Chloride 91 L Carbon Dioxide 34 H BUN 34 H Glucose 180 H POC Glucose (mg/dL) 191 H 200 H Calcium 7.9 L Magnesium 1.5 L Total Bilirubin 3.4 H AST 85 H Alkaline Phosphatase 141 H Total Creatine Kinase CK-MB (CK-2) Troponin I Total Protein 5.9 L Albumin 3.1 L - Diagnostic Findings Chest x-ray: report reviewed, image reviewed Additional studies: EKG reviewed Assessment and Plan Plan: Assessment: #1. Acute hypoxemic respiratory failure secondary to acute exacerbation of congestive heart failure with systolic dysfunction #2. Mild COPD exacerbation #3. Ischemic cardiomyopathy with previously documented left ventricular ejection fraction of less than 35% #4. Coronary artery disease with previous stenting #5. Chronic and ongoing nicotine dependence, carries [id number] smoking history of up to 3 packs a day, currently down to 2 cigarettes per day #6. Daily EtOH use #7. Urinary retention #8. Chronic atrial fibrillation not on any chronic anticoagulation #9. Retention, hyperlipidemia #10. Previous myocardial infarction Plan: Continue the oral diuretics, continue the IV steroids, nebulized bronchodilators , nicotine cessation counseling was done. She was started on oral anticoagulation by cardiology, rate is controlled. Continue following, patient already reports improvement with his breathing. Continue to follow I performed a history & physical examination of the patient and discussed their management with my nurse practitioner, Bing Ewing. I reviewed the nurse practitioner's note and agree with the documented findings and plan of care. Lung sounds are bilateral bases crackles. The findings and the impression was discussed with the patient. I attest to the documentation by the nurse practitioner. Time with Patient: Greater than 30
--- NOTE | 2018-03-17 17:29 | ECHOF ---
Referral Reason:Isch CM, assess LV Fx MEASUREMENTS -------- HEIGHT: 175.3 cm WEIGHT: 72.1 kg BP: RVIDd: 2.6 cm (< 3.3) IVSd: 0.8 cm (0.6 - 1.1) LVIDd: 5.7 cm (3.9 - 5.3) LVPWd: 1.1 cm (0.6 - 1.1) IVSs: 1.2 cm LVIDs: 4.7 cm LVPWs: 1.1 cm LA Diam: 3.9 cm (2.7 - 3.8) Ao Diam: 2.8 cm (2.0 - 3.7) AV Cusp: 1.4 cm (1.5 - 2.6) LA Diam: 4.4 cm (2.7 - 3.8) MV EXCURSION: 17.701 mm (> 18.000) MV EF SLOPE: 109 mm/s (70 - 150) EPSS: 1.7 cm MV E [place]mo: 0.99 m/s MV DecT: 167 ms MV A [place]mo: 0.35 m/s MV E/A Ratio: 2.81 RAP: 5.00 mmHg RVSP: 28.48 mmHg FINDINGS -------- Atrial fibrillation. Pacerwire seen in RV and RA. This was a techncally difficult study with suboptimal views, , Lumason utilized for enhancement of im ages. The left ventricular size is normal. Overall left ventricular systolic function is severely impaire d with, an EF < 20%. Mid anterior LV wall motion is akinetic. Mid anteroseptal LV wall motion is akinetic. Apical anterior LV wall motion is akinetic. Apical lateral LV wall motion is akineti c. Apical inferior LV wall motion is akinetic. Apical septum LV wall motion is akinetic. The right ventricle is normal in size. The left atrial size is normal. The right atrial size is normal. 5.0mg OF Lumason UTLIZED: 2 OR MORE WALL SEGMENTS NOT VISUALIZED. There is mild aortic valve sclerosis. Mild mitral annular calcification present. Mild mitral regurgitation is present. Mild tricuspid regurgitation present. Right ventricular systolic pressure is normal at < 35 mmHg. The right ventricular systolic pressure, as measured by Doppler, is 28.48mmHg. The pulmonic valve was not well visualized. The aortic root size is normal. There is no pericardial effusion. CONCLUSIONS -------- 1. Atrial fibrillation. 2. Pacerwire seen in RV and RA. 3. This was a techncally difficult study with suboptimal views, , Lumason utilized for enhancement of images. 4. The left ventricular size is normal. 5. Overall left ventricular systolic function is severely impaired with, an EF < 20%. 6. Mid anterior LV wall motion is akinetic. 7. Mid anteroseptal LV wall motion is akinetic. 8. Apical anterior LV wall motion is akinetic. 9. Apical lateral LV wall motion is akinetic. 10. Apical inferior LV wall motion is akinetic. 11. Apical septum LV wall motion is akinetic. 12. The left atrial size is normal. 13. 5.0mg OF Lumason UTLIZED: 2 OR MORE WALL SEGMENTS NOT VISUALIZED. 14. There is mild aortic valve sclerosis. 15. Mild mitral annular calcification present. 16. Mild mitral regurgitation is present. 17. Mild tricuspid regurgitation present. 18. Right ventricular systolic pressure is normal at < 35 mmHg. 19. The pulmonic valve was not well visualized. 20. The aortic root size is normal. 21. There is no pericardial effusion. GREASER OPERATOR: Ann Marie Govea RDCS
[2018-03-17] MEDS: FUROSEMIDE 40 MG TAB PO SCH (17:39)
--- NOTE | 2018-03-17 18:34 | PN ---
PROGRESS NOTE DATE OF SERVICE: 03/17/2018 This 62-year-old gentleman admitted with shortness of breath had possible CHF, acute exacerbation, with acute and chronic systolic dysfunction as well as COPD, acute exacerbation also. The patient is being closely monitored at this time. The patient was seen by Cardiology. The patient had ischemic cardiomyopathy and prior cardiac stents in cardiac history also. The patient has extensive EtOH history, also. The patient had urinary retention overnight. Urology is following the patient closely. Past medical history reviewed. Review of systems could not be taken; the patient is confused. CURRENT MEDICATIONS: Reviewed. They include: 1. [place] 5 mg q.6 p.r.n. 2. DuoNeb q.i.d. and p.r.n. 3. Eliquis 5 mg b.i.d. 4. Lipitor 40 mg at bedtime. 5. Symbicort 160/4.5 two puffs b.i.d. 6. Coreg. 7. Vitamin D3. 8. Depakote. 9. Lexapro. 10.Ativan. 11.CIWA protocol. 12.Solu-Medrol 60 IV q.6. 13.Multivitamins. 14.Habitrol 14. 15.Protonix. 16.Flomax. 17.Restoril. 18.Vitamin B1. PHYSICAL EXAMINATION: Patient is alert, oriented x2. Pulse 79, blood pressure 100/65, respiration 18, temperature 96.9, pulse ox 92% on 4 L. HEENT: Conjunctivae normal. Oral mucosa moist. NECK: No jugular venous distention. No carotid bruit. No lymph node enlargement. CARDIOVASCULAR SYSTEM: S1, S2 muffled. RESPIRATORY SYSTEM: Breath sounds diminished at the bases. A few scattered rhonchi and crackles. ABDOMEN: Soft, non-tender. No mass palpable. LEGS: No edema. No swelling. NERVOUS SYSTEM: Diffusely weak. LABS: WBC 5.2, hemoglobin 11.9, sodium 134, magnesium 1.5. Total bilirubin is 3.4. ASSESSMENT: 1. Shortness of breath, multifactorial, with congestive heart failure, acute exacerbation, with acute on chronic systolic dysfunction, ejection fraction 30% to 35%. 2. Chronic obstructive pulmonary disease, acute exacerbation. 3. History of ETOH. 4. Troponin 0.05, indeterminate. 5. Acute alcohol intoxication and delirium tremens. 6. Hypomagnesemia. 7. Alcoholic hepatitis with elevated bilirubin as well as increased AST. 8. Mild coagulopathy secondary to chronic liver disease, possibly. 9. Thrombocytopenia. 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 11.History of coronary artery disease and stent. 12.History of automated implantable cardioverter defibrillator. 13.Urinary retention. 14.History of chronic obstructive pulmonary disease. 15.Hypertension. 16.Hyperlipidemia. 17.History of ischemic cardiomyopathy. 18.History of cellulitis. 19.History of anxiety. 20.History of nicotine dependence. 21.FULL CODE. RECOMMENDATIONS AND DISCUSSION: I recommend to continue current medication, continue with the monitoring, symptomatic treatment. Continue with diuretics. Continue the bronchodilators. Continue the steroids. Continue the rest of the medications. Continue with Fenton catheter. Otherwise, DVT prophylaxis. Repeat labs. Guarded prognosis because of multiple complex medical issues. Further recommendations to follow. NICKOLAS / JESSICA: [id number] /
[2018-03-17 20:08] LABS: Glucose,Whole Blood 181 mg/dL (75-99)
[2018-03-17] MEDS: ATORVASTATIN 40 MG TAB PO SCH (20:49)
[2018-03-18] MEDS: LORazepam 2 MG/ML INJ IV PRN ×8 (03:19→23:24)
[2018-03-18] MEDS: methylPREDNISolone SOD SUCCI 125 MG/2 ML VIAL IV SCH ×4 (06:08→22:32)
[2018-03-18] MEDS: PANTOPRAZOLE 40 MG TABLET PO SCH (06:10)
[2018-03-18 06:11] LABS: Glucose,Whole Blood 239 mg/dL (75-99)
[2018-03-18] MEDS: INSULIN ASPART 100 UNIT/ML 1 ML 10 ML VIAL SQ SCH ×4 (06:17→20:58)
[2018-03-18 06:35] LABS: Basophils % (A) 0 %; Eosinophils % (A) 0 %; HCT 36.8 % (39.0-53.0); HGB 11.9 gm/dL (13.0-17.5); Lymphocytes # (A) 0.3 k/uL (1.0-4.8); Lymphocytes % (A) 4 %; MCH 39.7 pg (25.0-35.0); MCHC 32.5 g/dL (31.0-37.0); Macrocytosis Marked; Mean Platelet Volume 8.6; Monocytes # (A) 0.2 k/uL (0-1.0); Monocytes % (A) 3 %; Neutrophils # (A) 6.3 k/uL (1.3-7.7); Neutrophils % (A) 93 %; RDW 14.3 % (11.5-15.5); WBC 6.8 k/uL (3.8-10.6)
[2018-03-18 06:45] LABS: MCV 122.4 fL (80.0-100.0)
[2018-03-18 06:53] LABS: ALT 49 U/L (21-72); AST 59 U/L (17-59); Albumin 3.2 g/dL (3.5-5.0); Alkaline Phosphatase 138 U/L (38-126); Anion Gap 9 mmol/L; Blood Urea Nitrogen 33 mg/dL (9-20); Calcium 7.9 mg/dL (8.4-10.2); Carbon Dioxide 37 mmol/L (22-30); Chloride 87 mmol/L (98-107); Magnesium 1.5 mg/dL (1.6-2.3); Potassium 2.9 mmol/L (3.5-5.1); Sodium 133 mmol/L (137-145); Total Bilirubin 2.5 mg/dL (0.2-1.3); Total Protein 5.9 g/dL (6.3-8.2)
[2018-03-18 07:09] LABS: Glucose 147 mg/dL (74-99)
[2018-03-18] MEDS: SYMBICORT 160-4.5 MCG INHALER INHALATION SCH ×2 (08:45→21:24)
[2018-03-18] MEDS: IPRATROPIUM-ALBUTEROL 3 ML NEB INHALATION SCH ×3 (08:45→21:23)
[2018-03-18 09:02] LABS: Platelet Count 98 k/uL (150-450)
[2018-03-18] MEDS: POTASSIUM CHLORIDE ER 20 MEQ TAB.ER PO SCH ×3 (09:21→14:58)
[2018-03-18] MEDS: APIXABAN 5 MG TAB PO SCH (09:22)
[2018-03-18] MEDS: CARVEDILOL 12.5 MG TAB PO SCH ×2 (09:22→19:41)
[2018-03-18] MEDS: CHOLECALCIFEROL 1,000 UNIT TAB PO SCH (09:22)
[2018-03-18] MEDS: TAMSULOSIN 0.4 MG CAP.ER.24H PO SCH (09:22)
[2018-03-18] MEDS: FUROSEMIDE 40 MG TAB PO SCH ×2 (09:22→14:59)
[2018-03-18] MEDS: ESCITALOPRAM 20 MG TAB PO SCH (09:22)
[2018-03-18] MEDS: LOSARTAN 50 MG TAB PO SCH (09:22)
[2018-03-18] MEDS: LORATADINE 10 MG TAB PO SCH (09:23)
[2018-03-18] MEDS: DIVALPROEX 250 MG TABLET.DR PO SCH ×2 (09:24→19:41)
[2018-03-18] MEDS: MAGNESIUM SULFATE-D5W PMX 1 GM in DEXTROSE/WATER 1 100ML.BAG IVPB SCH ×2 (09:38→11:42)
[2018-03-18] MEDS ORDERED: POTASSIUM CHLORIDE 40 MEQ in WATER FOR INJECTION 1 100ML.BAG IVPB STA (11:21)
[2018-03-18] MEDS: MULTIVITAMINS, THERA 1 EACH TAB PO SCH (11:42)
[2018-03-18] MEDS: THIAMINE 100 MG TAB PO SCH ×2 (11:42→17:33)
[2018-03-18] MEDS: SPIRONOLACTONE 25 MG TAB PO SCH (11:46)
[2018-03-18 11:49] LABS: Glucose,Whole Blood 150 mg/dL (75-99)
[2018-03-18] MEDS: POTASSIUM CHLORIDE 20 MEQ in WATER FOR INJECTION 1 100ML.BAG IVPB SCH ×2 (12:32→14:54)
--- NOTE | 2018-03-18 14:20 | P.PN ---
Subjective Progress Note Date: 03/18/18 Principal diagnosis: Acute hypoxemic respiratory failure secondary to an acute exacerbation of systolic congestive heart failure. Ejection fraction 35% This is 62-year-old white male patient of Dr. Pacheco, who presented to the emergency department on 03/16/2018 or evaluation of worsening shortness of breath the past 4 days. Symptoms were progressive in nature. He denies any fever or chills, denied any chest pain. Patient was brought in by an ambulance. En route to the hospital patient was given treatment and IV Solu- Medrol, to which she started to respond. Patient is a current smoker, although he is down to 1 or 2 cigarettes per day, used to smoke up to 3 packs a day for last 50 years. Has daily EtOH use, he states he only has 2 drinks of gin and tonic a day, used to be a heavier drinker in the past. Patient was also complaining of abdominal distention, bilateral leg edema. Patient has a history of ischemic cardiomyopathy with previous stenting of LAD and RCA, with the ejection fraction of less than 35%, COPD, hypertension, chronic A. fib, patient is not on anticoagulation. Chest x-ray showed cardiac megaly with single-lead pacemaker/AICD. Small bilateral pleural effusions, mild central vascular congestion. Labs were negative for leukocytosis, WBC is 4.2, hemoglobin of 11.2, INR of 1.3, electrolytes and renal profile are within normal limits. ProBNP was 6140, troponins were elevated at 0.058, 0.047, and 0.038. UA was negative, serum alcohol level was 86. Patient was was given a dose of IV Lasix in the emergency department, started on oral Lasix, nebulized bronchodilators, and IV steroids, and admitted for further management. The patient is seen again today 03/18/2018 in follow-up on the selective care unit. He is awake and alert in no acute distress. He is breathing a bit better today compared to yesterday. Still not quite back to his baseline. He is maintaining O2 saturations in the mid 90s on 3 L high flow nasal cannula. He is afebrile. Hemodynamically stable. White count 6.8. Hemoglobin 11.9. Potassium 2.9. Bicarb 37. Creatinine 0.79. He remains on DuoNeb inhalations, Symbicort, IV Solu-Medrol. He is on a Habitrol patch. Objective - Vital Signs Vital signs: Vital Signs Temp 97.9 F 03/18/18 12:00 Pulse 70 03/18/18 13:12 Resp 18 03/18/18 12:00 BP 119/69 03/18/18 12:00 Pulse Ox 96 03/18/18 12:00 Intake & Output 03/17/18 03/18/18 03/18/18 18:59 06:59 18:59 Intake Total 480 180 120 Output Total 474 2725 Balance 6 -2545 120 Weight 60.1 kg Intake: Oral 480 180 120 Output: Urine 2725 Post Void Residual 474 Other: Voiding Method Diaper Indwelling Catheter Indwelling Catheter Incontinent # Voids 3 1 - Exam GENERAL EXAM: Alert, male appears older than his stated age, comfortable in no apparent distress, fatigued and weak HEAD: Normocephalic/atraumatic. EYES: Normal reaction of pupils, equal size. Conjunctiva pink, sclera white. NOSE: Clear with pink turbinates. THROAT: No erythema or exudates. NECK: No masses, no JVD, no thyroid enlargement, no adenopathy. CHEST: No chest wall deformity. Symmetrical expansion. LUNGS: Equal air with bibasilar crackles CVS: Regular rate and rhythm, normal S1 and S2, no gallops, no murmurs, no rubs ABDOMEN: Soft, nontender. No hepatosplenomegaly, normal bowel sounds, no guarding or rigidity. EXTREMITIES: No clubbing, no edema, no cyanosis, 2+ pulses and upper and lower extremities. MUSCULOSKELETAL: Muscle strength and tone normal. SPINE: No scoliosis or deformity SKIN: No rashes CENTRAL NERVOUS SYSTEM: Alert and oriented -3. No focal deficits, tone is normal in all 4 extremities. PSYCHIATRIC: Alert and oriented -3. Appropriate affect. Intact judgment and insight. - Labs CBC & Chem 7: 03/18/18 05:23 03/18/18 05:23 Labs: Abnormal Lab Results - Last 24 Hours (Table) 03/17/18 03/17/18 03/18/18 Range/Units 16:33 20:07 05:23 RBC 3.00 L (4.30-5.90) m/uL Hgb 11.9 L (13.0-17.5) gm/dL Hct 36.8 L (39.0-53.0) % MCV 122.4 H (80.0-100.0) fL MCH 39.7 H (25.0-35.0) pg Plt Count 98 L (150-450) k/uL Lymphocytes # 0.3 L (1.0-4.8) k/uL Sodium (137-145) mmol/L Potassium (3.5-5.1) mmol/L Chloride (98-107) mmol/L Carbon Dioxide (22-30) mmol/L BUN (9-20) mg/dL Glucose (74-99) mg/dL POC Glucose (mg/dL) 200 H 181 H (75-99) mg/dL Calcium (8.4-10.2) mg/dL Magnesium (1.6-2.3) mg/dL Total Bilirubin (0.2-1.3) mg/dL Alkaline Phosphatase (38-126) U/L Total Protein (6.3-8.2) g/dL Albumin (3.5-5.0) g/dL 03/18/18 03/18/18 03/18/18 Range/Units 05:23 06:10 11:39 RBC (4.30-5.90) m/uL Hgb (13.0-17.5) gm/dL Hct (39.0-53.0) % MCV (80.0-100.0) fL MCH (25.0-35.0) pg Plt Count (150-450) k/uL Lymphocytes # (1.0-4.8) k/uL Sodium 133 L (137-145) mmol/L Potassium 2.9 L (3.5-5.1) mmol/L Chloride 87 L (98-107) mmol/L Carbon Dioxide 37 H (22-30) mmol/L BUN 33 H (9-20) mg/dL Glucose 147 H (74-99) mg/dL POC Glucose (mg/dL) 239 H 150 H (75-99) mg/dL Calcium 7.9 L (8.4-10.2) mg/dL Magnesium 1.5 L (1.6-2.3) mg/dL Total Bilirubin 2.5 H (0.2-1.3) mg/dL Alkaline Phosphatase 138 H (38-126) U/L Total Protein 5.9 L (6.3-8.2) g/dL Albumin 3.2 L (3.5-5.0) g/dL Assessment and Plan Assessment: Assessment: #1. Acute hypoxemic respiratory failure secondary to acute exacerbation of congestive heart failure with systolic dysfunction #2. Mild COPD exacerbation #3. Ischemic cardiomyopathy with previously documented left ventricular ejection fraction of less than 35% #4. Coronary artery disease with previous stenting #5. Chronic and ongoing nicotine dependence, carries [id number] smoking history of up to 3 packs a day, currently down to 2 cigarettes per day #6. Daily EtOH use #7. Urinary retention #8. Chronic atrial fibrillation not on any chronic anticoagulation #9. Retention, hyperlipidemia #10. Previous myocardial infarction Plan: The patient was seen and evaluated by Dr. Hanks. We'll continue with the current treatment plan. He is again educated regarding the importance of complete smoking cessation. Replace electrolytes. Continue CIWAl protocol We will increase his activity. We'll continue to follow make further recommendations based on his clinical status. I, the cosigning physician, performed a history & physical examination of the patient. Lungs sounds with crackles in the bilateral posterior bases. Diminished.. Maintaining good O2 saturations in the 90s on 3 L/m per nasal cannula. I discussed the assessment and plan of care with my nurse practitioner , Asia Vazquez. I attest to the above note as dictated by her.
[2018-03-18] MEDS: NICOTINE 14MG/24HR PATCH TRANSDERM SCH (14:59)
[2018-03-18 17:11] LABS: Glucose,Whole Blood 223 mg/dL (75-99)
[2018-03-18 18:12] LABS: Anion Gap 5 mmol/L; Blood Urea Nitrogen 25 mg/dL (9-20); Calcium 8.2 mg/dL (8.4-10.2); Carbon Dioxide 35 mmol/L (22-30); Chloride 95 mmol/L (98-107); Glucose 138 mg/dL (74-99); Potassium 4.1 mmol/L (3.5-5.1); Sodium 135 mmol/L (137-145)
[2018-03-18] MEDS: ATORVASTATIN 40 MG TAB PO SCH (19:41)
[2018-03-18 19:55] LABS: Glucose,Whole Blood 406 mg/dL (75-99)
--- NOTE | 2018-03-18 20:44 | PN ---
PROGRESS NOTE DATE OF SERVICE: 03/18/2018 This 62-year-old gentleman who was admitted with shortness of breath, CHF acute exacerbation, also had COPD acute exacerbation. The patient is being closely monitored at this time. Patient has significant history of EtOH also. No chest pain. No palpitations. No fever. PAST MEDICAL HISTORY: Reviewed. REVIEW OF SYSTEMS: CARDIOVASCULAR: No angina or palpitations. Respiration: As mentioned earlier. GI as mentioned earlier. : No dysuria. CENTRAL NERVOUS SYSTEM: No numbness, weakness. MEDS: The current medications are reviewed and include [place] 5 mg q.6h p.r.n., DuoNeb q.i.d. and p.r.n., aspirin 81 mg daily, Lipitor 40 mg, Symbicort 160/4.5, Coreg 25 mg b.i.d., Vitamin D3 2000 daily, Depakote 250 mg p.o. b.i.d., Lexapro 20 mg daily, Lasix 40 mg p.o. b.i.d., Norvasc, Claritin, Ativan. [facility] protocol. Solu-Medrol 60 IV q.6h. Multivitamins, Habitrol, Aldactone, Vitamin B1. EXAM: Alert and oriented times three. Pulse 73, blood pressure 147/67, respirations 18, temperature 97.9, pulse ox 98% on 3 L. HEENT is conjunctivae normal. Oral mucosa moist. Neck is no jugular venous distention. Cardiovascular: S1, S2 muffled. Respiratory: Breath sounds diminished in the bases. A few scattered rhonchi and crackles. Abdomen is soft, nontender. Nervous system: No focal deficits. LAB STUDIES: WBC 6.8, hemoglobin 11.9, MCV 22.4. Sodium 133, potassium 2.9, magnesium is 1.5. ASSESSMENT: 1. Shortness of breath, multifactorial, congestive heart failure acute exacerbation with acute on chronic systolic dysfunction ejection fraction 30-35 percent. 2. Severe hypokalemia. 3. Severe hypomagnesemia. 4. Chronic obstructive pulmonary disease acute exacerbation. 5. History of ETOH. 6. Troponin 0.05 indeterminate. 7. Acute alcohol intoxication delirium tremens. 8. Hypomagnesemia. 9. Alcoholic hepatitis with elevated bilirubin as well as increased AST. 10.Mild coagulopathy secondary to chronic liver disease, possibly. 11.Thrombocytopenia. 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 13.History of coronary artery disease stent. 14.History of AICD. 15.History of urinary retention. 16.History of chronic obstructive pulmonary disease. 17.History of hypertension. 18.Hyperlipidemia. 19.History of ischemic cardiomyopathy. 20.History of cellulitis. 21.History of anxiety. 22.Nicotine dependence. 23.FULL CODE. RECOMMENDATIONS AND DISCUSSION: I recommend to continue current medications, management and symptomatic treatment. Otherwise, at this time, I recommend continue current medications, potassium, magnesium supplementation, repeat lytes. Monitor blood sugars closely. Increase ambulation. Continue with CIWA protocol. Prognosis guarded because of multiple complex medical issues. electric utility lineworker to evaluate the home situation. Apparently the sister is planned to take him home to [place] eventually. Further recommendation to follow. MMODL / IJN: [id number] /
[2018-03-18] MEDS ORDERED: INSULIN ASPART 100 UNIT/ML 1 ML 10 ML VIAL SQ ONE (21:00)
[2018-03-18] MEDS: INSULIN DETEMIR 100 UNIT/ML 10 ML VIAL SQ SCH (21:26)
--- NOTE | 2018-03-18 22:29 | PN ---
PROGRESS NOTE Mr. Yash Land is a gentleman with ischemic cardiomyopathy. He has also history of alcoholism. He seems to be going through early alcohol withdrawal type symptoms. This gentleman's alcoholism prevents us from anticoagulating him on a regular basis because of the risk of fall. Patient has had history of alcohol binges and falls and hurt himself on multiple occasions. Given this, I will discontinue Eliquis, place him on aspirin 81 mg daily. His potassium is low. We will supplement the potassium and magnesium aggressively. Ejection fraction is less than 20%. Patient has an ICD that has not been interrogated for 3 years. I will request [employer] to interrogator his pacemaker on Tuesday. We will supplement magnesium and potassium levels and see how he does. Vitals are stable. S1, S2 heard normally with irregular rhythm, short systolic murmur noted. Lungs reveal improved air entry. Abdomen and extremity exam is unchanged. Plan is to continue current medications including Lasix, supplement magnesium, check BMP in the morning and also his alcohol withdrawal is being treated by the admitting doctor. Prognosis remains poor overall for this patient. Pain is MMODL / IJN: [id number] /
[2018-03-18] MEDS ORDERED: HALOPERIDOL LACTATE 5 MG/ML 1 ML VIAL IVP PRN (23:37)
[2018-03-18] MEDS ORDERED: LORazepam 2 MG/ML INJ IV PRN (23:41)
[2018-03-19] MEDS: LORazepam 2 MG/ML INJ IV PRN ×6 (03:25→23:02)
[2018-03-19 05:57] LABS: Glucose,Whole Blood 110 mg/dL (75-99)
[2018-03-19] MEDS: INSULIN ASPART 100 UNIT/ML 1 ML 10 ML VIAL SQ SCH ×4 (06:02→21:35)
[2018-03-19] MEDS: methylPREDNISolone SOD SUCCI 125 MG/2 ML VIAL IV SCH ×2 (06:15→11:16)
[2018-03-19] MEDS: PANTOPRAZOLE 40 MG TABLET PO SCH (06:43)
[2018-03-19 07:08] LABS: Basophils % (A) 0 %; Eosinophils % (A) 0 %; HCT 38.7 % (39.0-53.0); HGB 12.8 gm/dL (13.0-17.5); Lymphocytes # (A) 0.3 k/uL (1.0-4.8); Lymphocytes % (A) 4 %; MCH 40.7 pg (25.0-35.0); MCHC 33.1 g/dL (31.0-37.0); MCV 122.7 fL (80.0-100.0); Macrocytosis Marked; Mean Platelet Volume 8.6; Monocytes # (A) 0.3 k/uL (0-1.0); Monocytes % (A) 3 %; Neutrophils # (A) 6.9 k/uL (1.3-7.7); Neutrophils % (A) 92 %; RBC 3.15 m/uL (4.30-5.90); RDW 14.4 % (11.5-15.5); WBC 7.5 k/uL (3.8-10.6)
[2018-03-19 07:25] LABS: Platelet Count 93 k/uL (150-450)
[2018-03-19 07:54] LABS: ALT 51 U/L (21-72); AST 60 U/L (17-59); Albumin 2.9 g/dL (3.5-5.0); Alkaline Phosphatase 116 U/L (38-126); Anion Gap 4 mmol/L; Blood Urea Nitrogen 25 mg/dL (9-20); Carbon Dioxide 38 mmol/L (22-30); Chloride 95 mmol/L (98-107); Glucose 103 mg/dL (74-99); Magnesium 1.7 mg/dL (1.6-2.3); Potassium 3.6 mmol/L (3.5-5.1); Sodium 137 mmol/L (137-145); Total Protein 5.7 g/dL (6.3-8.2)
[2018-03-19] MEDS: IPRATROPIUM-ALBUTEROL 3 ML NEB INHALATION SCH ×3 (08:28→20:39)
[2018-03-19] MEDS: SYMBICORT 160-4.5 MCG INHALER INHALATION SCH ×2 (08:28→20:41)
[2018-03-19] MEDS: CHOLECALCIFEROL 1,000 UNIT TAB PO SCH (08:58)
[2018-03-19] MEDS: LOSARTAN 50 MG TAB PO SCH (08:58)
[2018-03-19] MEDS: CARVEDILOL 12.5 MG TAB PO SCH ×2 (08:59→23:01)
[2018-03-19] MEDS: ASPIRIN 81 MG PO SCH (08:59)
[2018-03-19] MEDS: TAMSULOSIN 0.4 MG CAP.ER.24H PO SCH (08:59)
[2018-03-19] MEDS: DIVALPROEX 250 MG TABLET.DR PO SCH ×2 (08:59→23:01)
[2018-03-19] MEDS: SPIRONOLACTONE 25 MG TAB PO SCH (08:59)
[2018-03-19] MEDS: ESCITALOPRAM 20 MG TAB PO SCH (08:59)
[2018-03-19] MEDS: FUROSEMIDE 40 MG TAB PO SCH ×2 (08:59→16:08)
[2018-03-19] MEDS: LORATADINE 10 MG TAB PO SCH (08:59)
[2018-03-19] MEDS ORDERED: SPIRONOLACTONE 25 MG TAB PO STA (10:44)
[2018-03-19] MEDS ORDERED: POTASSIUM CHLORIDE ER 20 MEQ TAB.ER PO STA (10:55)
[2018-03-19] MEDS: MULTIVITAMINS, THERA 1 EACH TAB PO SCH (11:19)
[2018-03-19] MEDS: THIAMINE 100 MG TAB PO SCH ×2 (11:19→16:08)
[2018-03-19 11:38] LABS: Glucose,Whole Blood 223 mg/dL (75-99)
[2018-03-19 12:40] LABS: Poikilocytosis (M) Present
--- NOTE | 2018-03-19 13:05 | P.PN ---
Subjective Progress Note Date: 03/19/18 Principal diagnosis: Acute exacerbation of congestive heart failure with systolic dysfunction This is 62-year-old white male patient of Dr. Pacheco, who presented to the emergency department on 03/16/2018 or evaluation of worsening shortness of breath the past 4 days. Symptoms were progressive in nature. He denies any fever or chills, denied any chest pain. Patient was brought in by an ambulance. En route to the hospital patient was given treatment and IV Solu- Medrol, to which she started to respond. Patient is a current smoker, although he is down to 1 or 2 cigarettes per day, used to smoke up to 3 packs a day for last 50 years. Has daily EtOH use, he states he only has 2 drinks of gin and tonic a day, used to be a heavier drinker in the past. Patient was also complaining of abdominal distention, bilateral leg edema. Patient has a history of ischemic cardiomyopathy with previous stenting of LAD and RCA, with the ejection fraction of less than 35%, COPD, hypertension, chronic A. fib, patient is not on anticoagulation. Chest x-ray showed cardiac megaly with single-lead pacemaker/AICD. Small bilateral pleural effusions, mild central vascular congestion. Labs were negative for leukocytosis, WBC is 4.2, hemoglobin of 11.2, INR of 1.3, electrolytes and renal profile are within normal limits. ProBNP was 6140, troponins were elevated at 0.058, 0.047, and 0.038. UA was negative, serum alcohol level was 86. Patient was was given a dose of IV Lasix in the emergency department, started on oral Lasix, nebulized bronchodilators, and IV steroids, and admitted for further management. On 03/19/2018 patient seen in follow-up on selective care unit. He is sedated, patient did receive Ativan last night, for acute alcohol withdrawal symptoms, patient was apparently confused, agitated. Now seems to be calm and comfortable , on 2 L per nasal cannula his pulse ox is 98%, vitals are stable. Today's lab work has been reviewed, WBC is 7.5, hemoglobin is 12.8, serum sodium is 137, potassium 3.6, chloride is 95, CO2 38, and renal profile remains stable, B1 is 25 and creatinine 0.80. Patient is oral Lasix, he is maintaining negative fluid balance. Lung sounds are diminished, with some limited crackles at bilateral bases. Objective - Vital Signs Vital signs: Vital Signs Temp 96.8 F L 03/19/18 11:30 Pulse 72 03/19/18 12:33 Resp 20 03/19/18 11:30 BP 104/73 03/19/18 11:30 Pulse Ox 98 03/19/18 11:30 Intake & Output 03/18/18 03/19/18 03/19/18 18:59 06:59 18:59 Intake Total 240 120 Output Total 1600 1925 Balance -1360 -1925 120 Weight 60.4 kg Intake: Oral 240 120 Output: Urine 1600 1925 Other: Voiding Method Indwelling Catheter Indwelling Catheter Indwelling Catheter - Exam GENERAL EXAM: Alert, male appears older than his stated age, comfortable in no apparent distress, sedated HEAD: Normocephalic/atraumatic. EYES: Normal reaction of pupils, equal size. Conjunctiva pink, sclera white. NOSE: Clear with pink turbinates. THROAT: No erythema or exudates. NECK: No masses, no JVD, no thyroid enlargement, no adenopathy. CHEST: No chest wall deformity. Symmetrical expansion. LUNGS: Equal air with bibasilar crackles CVS: Regular rate and rhythm, normal S1 and S2, no gallops, no murmurs, no rubs ABDOMEN: Soft, nontender. No hepatosplenomegaly, normal bowel sounds, no guarding or rigidity. EXTREMITIES: No clubbing, no edema, no cyanosis, 2+ pulses and upper and lower extremities. MUSCULOSKELETAL: Muscle strength and tone normal. SPINE: No scoliosis or deformity SKIN: No rashes CENTRAL NERVOUS SYSTEM: Alert and oriented -3. No focal deficits, tone is normal in all 4 extremities. PSYCHIATRIC: Alert and oriented -3. Appropriate affect. Intact judgment and insight. - Labs CBC & Chem 7: 03/19/18 06:30 03/19/18 06:30 Labs: Abnormal Lab Results - Last 24 Hours (Table) 03/18/18 03/18/18 03/18/18 Range/Units 17:07 17:27 19:53 RBC (4.30-5.90) m/uL Hgb (13.0-17.5) gm/dL Hct (39.0-53.0) % MCV (80.0-100.0) fL MCH (25.0-35.0) pg Plt Count (150-450) k/uL Lymphocytes # (1.0-4.8) k/uL Sodium 135 L (137-145) mmol/L Chloride 95 L (98-107) mmol/L Carbon Dioxide 35 H (22-30) mmol/L BUN 25 H (9-20) mg/dL Glucose 138 H (74-99) mg/dL POC Glucose (mg/dL) 223 H 406 H (75-99) mg/dL Calcium 8.2 L (8.4-10.2) mg/dL Total Bilirubin (0.2-1.3) mg/dL AST (17-59) U/L Total Protein (6.3-8.2) g/dL Albumin (3.5-5.0) g/dL 03/19/18 03/19/18 03/19/18 Range/Units 05:56 06:30 06:30 RBC 3.15 L (4.30-5.90) m/uL Hgb 12.8 L (13.0-17.5) gm/dL Hct 38.7 L (39.0-53.0) % MCV 122.7 H (80.0-100.0) fL MCH 40.7 H (25.0-35.0) pg Plt Count 93 L (150-450) k/uL Lymphocytes # 0.3 L (1.0-4.8) k/uL Sodium (137-145) mmol/L Chloride 95 L (98-107) mmol/L Carbon Dioxide 38 H (22-30) mmol/L BUN 25 H (9-20) mg/dL Glucose 103 H (74-99) mg/dL POC Glucose (mg/dL) 110 H (75-99) mg/dL Calcium 8.0 L (8.4-10.2) mg/dL Total Bilirubin 2.0 H (0.2-1.3) mg/dL AST 60 H (17-59) U/L Total Protein 5.7 L (6.3-8.2) g/dL Albumin 2.9 L (3.5-5.0) g/dL 03/19/18 Range/Units 11:27 RBC (4.30-5.90) m/uL Hgb (13.0-17.5) gm/dL Hct (39.0-53.0) % MCV (80.0-100.0) fL MCH (25.0-35.0) pg Plt Count (150-450) k/uL Lymphocytes # (1.0-4.8) k/uL Sodium (137-145) mmol/L Chloride (98-107) mmol/L Carbon Dioxide (22-30) mmol/L BUN (9-20) mg/dL Glucose (74-99) mg/dL POC Glucose (mg/dL) 223 H (75-99) mg/dL Calcium (8.4-10.2) mg/dL Total Bilirubin (0.2-1.3) mg/dL AST (17-59) U/L Total Protein (6.3-8.2) g/dL Albumin (3.5-5.0) g/dL Assessment and Plan Plan: Assessment: #1. Acute hypoxemic respiratory failure secondary to acute exacerbation of congestive heart failure with systolic dysfunction #2. Mild COPD exacerbation #3. Delirium, likely due to ACUTE alcohol withdrawal symptoms #4. Ischemic cardiomyopathy with previously documented left ventricular ejection fraction of less than 20% #5. Coronary artery disease with previous stenting #6. Chronic and ongoing nicotine dependence, carries [id number] smoking history of up to 3 packs a day, currently down to 2 cigarettes per day #7. Daily EtOH use #8. Urinary retention #9. Chronic atrial fibrillation not on any chronic anticoagulation #10. Retention, hyperlipidemia #11. Previous myocardial infarction Plan: Continue current medical treatment, continue oral diuretics, bronchodilators, we can transition the IV steroids to oral prednisone. Maintain [facility] protocol, safety precautions. Continue to follow I performed a history & physical examination of the patient and discussed their management with my nurse practitioner, Bing Ewing. I reviewed the nurse practitioner's note and agree with the documented findings and plan of care. Lung sounds are bilateral bases crackles. The findings and the impression was discussed with the patient. I attest to the documentation by the nurse practitioner. Time with Patient: Less than 30
--- NOTE | 2018-03-19 14:29 | PN ---
PROGRESS NOTE Mr. Land is not very communicative today. He is still having alcohol withdrawal. Denies chest pain. He is in a atrial fib rate is controlled yesterday. We made the decision not to anticoagulate him given his fall risk. However, he is not in heart failure. He is tolerating the current medications well. I will give him some potassium supplements and increase Aldactone from 25-50 mg daily. Vital signs stable. S1-S2 heard normally. Irregular rhythm noted. Short systolic murmur noted. Lungs reveal improved air entry. Abdomen and lower extremity exam unchanged. Patient is still going through withdrawal. We will continue current medications. Hopefully we can check his device tomorrow by [employer] MMODL / IJN: [id number] /
[2018-03-19] MEDS: NICOTINE 14MG/24HR PATCH TRANSDERM SCH (16:08)
[2018-03-19 16:58] LABS: Glucose,Whole Blood 168 mg/dL (75-99)
--- NOTE | 2018-03-19 19:03 | PN ---
PROGRESS NOTE DATE OF SERVICE: 03/19/2018 This 62-year-old gentleman who was admitted shortness with multifactorial,is being closely monitored at this time. No chest pain. No palpitations. The patient is much more alert but slightly confused. EXAM: Pulse is78, blood pressure 118/78, respirations 18, temperature 99.9, pulse 76, pulse ox 100% on 2 L. HEENT: Conjunctivae normal. Oral mucosa moist. NECK: No jugular venous distention. No lymph node enlargement. CARDIOVASCULAR: S1, S2. RESPIRATORY: Diminished breath sounds at the bases. Bilateral scattered rhonchi, no crackles. ABDOMEN: Soft, nontender. LEGS: No swelling. NERVOUS SYSTEM: No focal deficits. LABS: At this time WBC 7.2, hemoglobin 12.8. Otherwise, the glucose 223. ASSESSMENT: 1. Shortness of breath multifactorial with congestive heart failure acute exacerbation with acute on chronic systolic dysfunction, EF 30-35 percent as well as chronic obstructive pulmonary disease acute exacerbation. 2. Severe hypokalemia. 3. Severe hypomagnesemia. 4. History of ETOH. 5. Troponin 0.05 indeterminate. 6. Acute alcohol intoxication with delirium tremens. 7. Hypomagnesemia. 8. Alcoholic hepatitis with elevated bilirubin as well as AST. 9. Mild coagulopathy secondary to chronic liver disease, possibly. 10.Gait dysfunction. 11.Thrombocytopenia. 12.History of anemia secondary to alcohol. 13.History of coronary artery disease. 14.History of hypertension. 15.History of hyperlipidemia. 16.History of ischemic cardiomyopathy. 17.History of cellulitis. 18.History of anxiety. 19.History of nicotine dependence. 20.FULL CODE. RECOMMENDATIONS: Recommend to continue current medication, continue to monitor, continue symptomatic treatment. Continue the bronchodilators and monitor fluid status closely. Increase ambulation. Possible ECF rehab. Guarded prognosis. Further recommendations to follow. MMODL / IJN: [id number] /
[2018-03-19 21:04] LABS: Glucose,Whole Blood 227 mg/dL (75-99)
[2018-03-19] MEDS: INSULIN DETEMIR 100 UNIT/ML 10 ML VIAL SQ SCH (21:35)
[2018-03-19] MEDS: ATORVASTATIN 40 MG TAB PO SCH (23:01)
[2018-03-20] MEDS: LORazepam 2 MG/ML INJ IV PRN ×4 (03:59→22:47)
[2018-03-20 06:18] LABS: Glucose,Whole Blood 322 mg/dL (75-99)
[2018-03-20] MEDS: INSULIN ASPART 100 UNIT/ML 1 ML 10 ML VIAL SQ SCH ×4 (06:41→20:45)
[2018-03-20] MEDS: PANTOPRAZOLE 40 MG TABLET PO SCH ×2 (06:41→10:31)
[2018-03-20 08:02] LABS: Basophils % (A) 0 %; Eosinophils % (A) 1 %; HCT 38.2 % (39.0-53.0); Lymphocytes # (A) 0.4 k/uL (1.0-4.8); Lymphocytes % (A) 5 %; MCH 41.3 pg (25.0-35.0); Macrocytosis Marked; Mean Platelet Volume 8.8; Monocytes # (A) 0.4 k/uL (0-1.0); Monocytes % (A) 5 %; Neutrophils # (A) 7.2 k/uL (1.3-7.7); Neutrophils % (A) 89 %; RBC 3.15 m/uL (4.30-5.90); RDW 14.3 % (11.5-15.5); WBC 8.1 k/uL (3.8-10.6)
[2018-03-20] MEDS: IPRATROPIUM-ALBUTEROL 3 ML NEB INHALATION SCH ×3 (08:05→19:53)
[2018-03-20] MEDS: SYMBICORT 160-4.5 MCG INHALER INHALATION SCH ×2 (08:05→19:53)
[2018-03-20 08:09] LABS: MCV 121.5 fL (80.0-100.0); Platelet Count 95 k/uL (150-450)
[2018-03-20 08:13] LABS: ALT 56 U/L (21-72); AST 61 U/L (17-59); Alkaline Phosphatase 110 U/L (38-126); Anion Gap 6 mmol/L; Blood Urea Nitrogen 29 mg/dL (9-20); Calcium 7.7 mg/dL (8.4-10.2); Carbon Dioxide 40 mmol/L (22-30); Chloride 91 mmol/L (98-107); Glucose 101 mg/dL (74-99); Potassium 3.2 mmol/L (3.5-5.1); Sodium 137 mmol/L (137-145); Total Bilirubin 1.8 mg/dL (0.2-1.3); Total Protein 5.8 g/dL (6.3-8.2)
[2018-03-20] MEDS: CHOLECALCIFEROL 1,000 UNIT TAB PO SCH (09:25)
[2018-03-20] MEDS: ESCITALOPRAM 20 MG TAB PO SCH (09:25)
[2018-03-20] MEDS: TAMSULOSIN 0.4 MG CAP.ER.24H PO SCH (09:25)
[2018-03-20] MEDS: CARVEDILOL 12.5 MG TAB PO SCH ×2 (09:25→20:44)
[2018-03-20] MEDS: SPIRONOLACTONE 25 MG TAB PO SCH (09:25)
[2018-03-20] MEDS: LORATADINE 10 MG TAB PO SCH (09:25)
[2018-03-20] MEDS: predniSONE 20 MG TAB PO SCH (09:25)
[2018-03-20] MEDS: LOSARTAN 50 MG TAB PO SCH (09:25)
[2018-03-20] MEDS: FUROSEMIDE 40 MG TAB PO SCH ×2 (09:25→17:10)
[2018-03-20] MEDS: ASPIRIN 81 MG PO SCH (09:25)
[2018-03-20] MEDS: DIVALPROEX 250 MG TABLET.DR PO SCH ×2 (09:26→20:46)
[2018-03-20] MEDS: THIAMINE 100 MG TAB PO SCH ×2 (09:26→17:10)
[2018-03-20] MEDS: MULTIVITAMINS, THERA 1 EACH TAB PO SCH (09:26)
[2018-03-20] MEDS: NICOTINE 14MG/24HR PATCH TRANSDERM SCH (09:27)
[2018-03-20 12:17] LABS: Glucose,Whole Blood 167 mg/dL (75-99)
--- NOTE | 2018-03-20 13:58 | P.PN ---
Subjective Progress Note Date: 03/20/18 Principal diagnosis: Acute exacerbation of congestive heart failure with systolic dysfunction This is 62-year-old white male patient of Dr. Pacheco, who presented to the emergency department on 03/16/2018 or evaluation of worsening shortness of breath the past 4 days. Symptoms were progressive in nature. He denies any fever or chills, denied any chest pain. Patient was brought in by an ambulance. En route to the hospital patient was given treatment and IV Solu- Medrol, to which she started to respond. Patient is a current smoker, although he is down to 1 or 2 cigarettes per day, used to smoke up to 3 packs a day for last 50 years. Has daily EtOH use, he states he only has 2 drinks of gin and tonic a day, used to be a heavier drinker in the past. Patient was also complaining of abdominal distention, bilateral leg edema. Patient has a history of ischemic cardiomyopathy with previous stenting of LAD and RCA, with the ejection fraction of less than 35%, COPD, hypertension, chronic A. fib, patient is not on anticoagulation. Chest x-ray showed cardiac megaly with single-lead pacemaker/AICD. Small bilateral pleural effusions, mild central vascular congestion. Labs were negative for leukocytosis, WBC is 4.2, hemoglobin of 11.2, INR of 1.3, electrolytes and renal profile are within normal limits. ProBNP was 6140, troponins were elevated at 0.058, 0.047, and 0.038. UA was negative, serum alcohol level was 86. Patient was was given a dose of IV Lasix in the emergency department, started on oral Lasix, nebulized bronchodilators, and IV steroids, and admitted for further management. On 03/19/2018 patient seen in follow-up on selective care unit. He is sedated, patient did receive Ativan last night, for acute alcohol withdrawal symptoms, patient was apparently confused, agitated. Now seems to be calm and comfortable , on 2 L per nasal cannula his pulse ox is 98%, vitals are stable. Today's lab work has been reviewed, WBC is 7.5, hemoglobin is 12.8, serum sodium is 137, potassium 3.6, chloride is 95, CO2 38, and renal profile remains stable, B1 is 25 and creatinine 0.80. Patient is oral Lasix, he is maintaining negative fluid balance. Lung sounds are diminished, with some limited crackles at bilateral bases. On 03/20/2018 patient seen in follow-up on selective care unit. He is lethargic , patient has been receiving doses of Ativan for symptoms of alcohol withdrawal. Seems fairly comfortable at rest, no signs of distress, lung sounds are positive for some bibasilar crackles, no use of accessory muscles. Pulse ox on 2 L per nasal cannula is 99%, patient is afebrile, patient continues on oral diuretics, oral prednisone, nebulized bronchodilators. Objective - Vital Signs Vital signs: Vital Signs Temp 96.9 F L 03/20/18 04:00 Pulse 84 03/20/18 08:18 Resp 20 03/20/18 04:00 BP 100/68 03/20/18 04:00 Pulse Ox 99 03/20/18 04:00 Intake & Output 03/19/18 03/20/18 03/20/18 18:59 06:59 18:59 Intake Total 120 240 Output Total 1500 1500 600 Balance -1380 -1500 -360 Weight 60.4 kg Intake: Oral 120 240 Output: Urine 1500 1500 600 Other: Voiding Method Indwelling Catheter Indwelling Catheter - Exam GENERAL EXAM: Alert, male appears older than his stated age, comfortable in no apparent distress, sedated HEAD: Normocephalic/atraumatic. EYES: Normal reaction of pupils, equal size. Conjunctiva pink, sclera white. NOSE: Clear with pink turbinates. THROAT: No erythema or exudates. NECK: No masses, no JVD, no thyroid enlargement, no adenopathy. CHEST: No chest wall deformity. Symmetrical expansion. LUNGS: Equal air with bibasilar crackles CVS: Regular rate and rhythm, normal S1 and S2, no gallops, no murmurs, no rubs ABDOMEN: Soft, nontender. No hepatosplenomegaly, normal bowel sounds, no guarding or rigidity. EXTREMITIES: No clubbing, no edema, no cyanosis, 2+ pulses and upper and lower extremities. MUSCULOSKELETAL: Muscle strength and tone normal. SPINE: No scoliosis or deformity SKIN: No rashes CENTRAL NERVOUS SYSTEM: Alert and oriented -3. No focal deficits, tone is normal in all 4 extremities. PSYCHIATRIC: Alert and oriented -3. Appropriate affect. Intact judgment and insight. - Labs CBC & Chem 7: 03/20/18 07:24 03/20/18 07:24 Labs: Abnormal Lab Results - Last 24 Hours (Table) 03/19/18 03/19/18 03/20/18 Range/Units 16:57 21:02 06:16 RBC (4.30-5.90) m/uL Hct (39.0-53.0) % MCV (80.0-100.0) fL MCH (25.0-35.0) pg Plt Count (150-450) k/uL Lymphocytes # (1.0-4.8) k/uL Potassium (3.5-5.1) mmol/L Chloride (98-107) mmol/L Carbon Dioxide (22-30) mmol/L BUN (9-20) mg/dL Glucose (74-99) mg/dL POC Glucose (mg/dL) 168 H 227 H 322 H (75-99) mg/dL Calcium (8.4-10.2) mg/dL Total Bilirubin (0.2-1.3) mg/dL AST (17-59) U/L Total Protein (6.3-8.2) g/dL Albumin (3.5-5.0) g/dL 03/20/18 03/20/18 03/20/18 Range/Units 07:24 07:24 11:58 RBC 3.15 L (4.30-5.90) m/uL Hct 38.2 L (39.0-53.0) % MCV 121.5 H (80.0-100.0) fL MCH 41.3 H (25.0-35.0) pg Plt Count 95 L (150-450) k/uL Lymphocytes # 0.4 L (1.0-4.8) k/uL Potassium 3.2 L (3.5-5.1) mmol/L Chloride 91 L (98-107) mmol/L Carbon Dioxide 40 H (22-30) mmol/L BUN 29 H (9-20) mg/dL Glucose 101 H (74-99) mg/dL POC Glucose (mg/dL) 167 H (75-99) mg/dL Calcium 7.7 L (8.4-10.2) mg/dL Total Bilirubin 1.8 H (0.2-1.3) mg/dL AST 61 H (17-59) U/L Total Protein 5.8 L (6.3-8.2) g/dL Albumin 3.0 L (3.5-5.0) g/dL Assessment and Plan Plan: Assessment: #1. Acute hypoxemic respiratory failure secondary to acute exacerbation of congestive heart failure with systolic dysfunction #2. Mild COPD exacerbation #3. Delirium, likely due to ACUTE alcohol withdrawal symptoms #4. Ischemic cardiomyopathy with previously documented left ventricular ejection fraction of less than 20% #5. Coronary artery disease with previous stenting #6. Chronic and ongoing nicotine dependence, carries [id number] smoking history of up to 3 packs a day, currently down to 2 cigarettes per day #7. Daily EtOH use #8. Urinary retention #9. Chronic atrial fibrillation not on any chronic anticoagulation #10. Retention, hyperlipidemia #11. Previous myocardial infarction Plan: Patient lethargic on today's exam, on [facility] protocol for acute alcohol withdrawal symptoms. Pulmonary perspective he stable, in no acute distress, maintaining good oxygenation is on 3 L per nasal cannula, vital signs are stable. Patient can continue on oral steroids, nebulized bronchodilators. No significant wheezing or chest congestion. We'll follow on as-needed basis. I performed a history & physical examination of the patient and discussed their management with my nurse practitioner, Bing Ewing. I reviewed the nurse practitioner's note and agree with the documented findings and plan of care. Lung sounds are bilateral bases crackles. The findings and the impression was discussed with the patient. I attest to the documentation by the nurse practitioner. Time with Patient: Less than 30
[2018-03-20] MEDS ORDERED: POTASSIUM CHLORIDE 20 MEQ in WATER FOR INJECTION 1 100ML.BAG IVPB SCH (14:00)
[2018-03-20 16:51] LABS: Glucose,Whole Blood 220 mg/dL (75-99)
[2018-03-20] MEDS: POTASSIUM CHLORIDE 20 MEQ in WATER FOR INJECTION 1 100ML.BAG IVPB SCH ×3 (17:07→22:51)
--- NOTE | 2018-03-20 20:04 | PN ---
PROGRESS NOTE HISTORY: Mr. Land is in atrial fib, rate is controlled, he is breathing better. He is not as tremulous. His alcohol withdrawals seem to have settled down. He has significant LV dysfunction and has ischemic cardiomyopathy. We will try to interrogate his device today which has never been done before. PHYSICAL EXAM: Vital signs are stable. S1 and S2 heard normally. Short systolic murmur noted. Lungs reveal improved air entry. Abdomen and lower extremity exams unchanged. PLAN: Continue current medications, device check and plan for discharge and have social service see the patient so that we can find a place for him. MMODL / IJN: [id number] /
[2018-03-20 20:42] LABS: Glucose,Whole Blood 205 mg/dL (75-99)
[2018-03-20] MEDS: ATORVASTATIN 40 MG TAB PO SCH (20:44)
[2018-03-20] MEDS: INSULIN DETEMIR 100 UNIT/ML 10 ML VIAL SQ SCH (20:49)
[2018-03-21 06:08] LABS: Glucose,Whole Blood 99 mg/dL (75-99)
[2018-03-21] MEDS: INSULIN ASPART 100 UNIT/ML 1 ML 10 ML VIAL SQ SCH ×4 (06:09→21:12)
[2018-03-21] MEDS: PANTOPRAZOLE 40 MG TABLET PO SCH (06:16)
[2018-03-21] MEDS: IPRATROPIUM-ALBUTEROL 3 ML NEB INHALATION SCH ×3 (07:27→19:58)
[2018-03-21] MEDS: SYMBICORT 160-4.5 MCG INHALER INHALATION SCH ×2 (07:27→19:58)
[2018-03-21 08:30] LABS: Basophils % (A) 0 %; Eosinophils % (A) 0 %; HCT 39.5 % (39.0-53.0); HGB 13.2 gm/dL (13.0-17.5); Lymphocytes # (A) 0.8 k/uL (1.0-4.8); Lymphocytes % (A) 10 %; MCH 40.4 pg (25.0-35.0); MCHC 33.5 g/dL (31.0-37.0); MCV 120.4 fL (80.0-100.0); Macrocytosis Marked; Mean Platelet Volume 8.8; Monocytes # (A) 0.5 k/uL (0-1.0); Monocytes % (A) 7 %; Neutrophils # (A) 6.6 k/uL (1.3-7.7); Neutrophils % (A) 82 %; RBC 3.28 m/uL (4.30-5.90); RDW 14.1 % (11.5-15.5)
[2018-03-21 08:36] LABS: Platelet Count 86 k/uL (150-450)
[2018-03-21] MEDS: ESCITALOPRAM 20 MG TAB PO SCH (08:40)
[2018-03-21] MEDS: SPIRONOLACTONE 25 MG TAB PO SCH (08:40)
[2018-03-21] MEDS: LOSARTAN 50 MG TAB PO SCH (08:40)
[2018-03-21] MEDS: predniSONE 20 MG TAB PO SCH (08:40)
[2018-03-21] MEDS: CHOLECALCIFEROL 1,000 UNIT TAB PO SCH (08:40)
[2018-03-21] MEDS: FUROSEMIDE 40 MG TAB PO SCH ×2 (08:40→17:06)
[2018-03-21] MEDS: LORATADINE 10 MG TAB PO SCH (08:40)
[2018-03-21] MEDS: ASPIRIN 81 MG PO SCH (08:40)
[2018-03-21] MEDS: TAMSULOSIN 0.4 MG CAP.ER.24H PO SCH (08:41)
[2018-03-21] MEDS: DIVALPROEX 250 MG TABLET.DR PO SCH ×2 (08:41→21:12)
[2018-03-21] MEDS: THIAMINE 100 MG TAB PO SCH ×2 (08:41→17:06)
[2018-03-21] MEDS: CARVEDILOL 12.5 MG TAB PO SCH ×2 (08:41→21:11)
[2018-03-21] MEDS: MULTIVITAMINS, THERA 1 EACH TAB PO SCH (08:41)
[2018-03-21 08:42] LABS: ALT 60 U/L (21-72); AST 62 U/L (17-59); Albumin 2.8 g/dL (3.5-5.0); Alkaline Phosphatase 120 U/L (38-126); Anion Gap 3 mmol/L; Blood Urea Nitrogen 29 mg/dL (9-20); Calcium 8.4 mg/dL (8.4-10.2); Carbon Dioxide 39 mmol/L (22-30); Chloride 92 mmol/L (98-107); Glucose 86 mg/dL (74-99); Potassium 3.5 mmol/L (3.5-5.1); Sodium 134 mmol/L (137-145); Total Bilirubin 1.6 mg/dL (0.2-1.3); Total Protein 5.6 g/dL (6.3-8.2)
[2018-03-21] MEDS ORDERED: Potassium Replacement Protocol 1 EACH MISC MISCELLANE PRN (09:33)
[2018-03-21] MEDS: LORazepam 2 MG/ML INJ IV PRN (11:50)
[2018-03-21 11:53] LABS: Glucose,Whole Blood 109 mg/dL (75-99)
[2018-03-21] MEDS ORDERED: LORazepam 1 MG TAB PO PRN ×2 (14:06→14:30)
[2018-03-21] MEDS ORDERED: Magnesium Replacement Protocol 1 EACH MISC MISCELLANE PRN (14:50)
--- NOTE | 2018-03-21 14:53 | P.PN ---
Subjective Progress Note Date: 03/20/18 Progress note being dictated for Dr. Spann. Interval history: This is a 62-year-old gentleman admitted with multiple medical issues including acute CHF exacerbation, acute alcohol intoxication with DTs, generalized weakness. Maintained on CIWA protocol, nebulized bronchodilators, oral steroids, diuretics. Recently received IV Ativan, lethargic, arousable. Maintaining O2 sats in the high 90s on 2 L nasal cannula. Afebrile. Receiving supplements for potassium 3.2. Objective - Vital Signs Vital signs: Vital Signs Temp 97.0 F L 03/20/18 08:00 Pulse 74 03/20/18 12:00 Resp 20 03/20/18 12:00 BP 133/84 03/20/18 12:00 Pulse Ox 98 03/20/18 12:00 Intake & Output 03/19/18 03/20/18 03/20/18 18:59 06:59 18:59 Intake Total 120 240 Output Total 1500 1500 600 Balance -1380 -1500 -360 Weight 60.4 kg Intake: Oral 120 240 Output: Urine 1500 1500 600 Other: Voiding Method Indwelling Catheter Indwelling Catheter Indwelling Catheter - Exam PHYSICAL EXAM: VITAL SIGNS: As above GENERAL: Sitting up in bed, no acute distress. Sleepy HEENT: Conjunctivae normal. eyes normal. NECK: No JVD. No thyroid enlargement. No LNs CARDIOVASCULAR: S1, S2 muffled. No murmur RESPIRATION: Breath sounds diminished in the bases with fine bibasilar crackles. No wheezing. ABDOMEN: Soft, nontender . No guarding. no masses palpable.Bowel sounds heard. LEGS: No edema. no swelling PSYCHIATRY: Alert and oriented -3, mood and affect normal. NERVOUS SYSTEM: Cranial N 2-12 grossly normal. Moves all 4 limbs. Diffuse weakness No focal deficits. Skin: no ulcer no rash Joints: No active swelling. No inflammation. Lymphatic system. No LN neck axilla or groin. - Labs CBC & Chem 7: 03/21/18 07:51 03/21/18 07:51 Labs: Abnormal Lab Results - Last 24 Hours (Table) 03/19/18 03/19/18 03/20/18 Range/Units 16:57 21:02 06:16 RBC (4.30-5.90) m/uL Hct (39.0-53.0) % MCV (80.0-100.0) fL MCH (25.0-35.0) pg Plt Count (150-450) k/uL Lymphocytes # (1.0-4.8) k/uL Potassium (3.5-5.1) mmol/L Chloride (98-107) mmol/L Carbon Dioxide (22-30) mmol/L BUN (9-20) mg/dL Glucose (74-99) mg/dL POC Glucose (mg/dL) 168 H 227 H 322 H (75-99) mg/dL Calcium (8.4-10.2) mg/dL Total Bilirubin (0.2-1.3) mg/dL AST (17-59) U/L Total Protein (6.3-8.2) g/dL Albumin (3.5-5.0) g/dL 03/20/18 03/20/18 03/20/18 Range/Units 07:24 07:24 11:58 RBC 3.15 L (4.30-5.90) m/uL Hct 38.2 L (39.0-53.0) % MCV 121.5 H (80.0-100.0) fL MCH 41.3 H (25.0-35.0) pg Plt Count 95 L (150-450) k/uL Lymphocytes # 0.4 L (1.0-4.8) k/uL Potassium 3.2 L (3.5-5.1) mmol/L Chloride 91 L (98-107) mmol/L Carbon Dioxide 40 H (22-30) mmol/L BUN 29 H (9-20) mg/dL Glucose 101 H (74-99) mg/dL POC Glucose (mg/dL) 167 H (75-99) mg/dL Calcium 7.7 L (8.4-10.2) mg/dL Total Bilirubin 1.8 H (0.2-1.3) mg/dL AST 61 H (17-59) U/L Total Protein 5.8 L (6.3-8.2) g/dL Albumin 3.0 L (3.5-5.0) g/dL 03/20/18 Range/Units 16:40 RBC (4.30-5.90) m/uL Hct (39.0-53.0) % MCV (80.0-100.0) fL MCH (25.0-35.0) pg Plt Count (150-450) k/uL Lymphocytes # (1.0-4.8) k/uL Potassium (3.5-5.1) mmol/L Chloride (98-107) mmol/L Carbon Dioxide (22-30) mmol/L BUN (9-20) mg/dL Glucose (74-99) mg/dL POC Glucose (mg/dL) 220 H (75-99) mg/dL Calcium (8.4-10.2) mg/dL Total Bilirubin (0.2-1.3) mg/dL AST (17-59) U/L Total Protein (6.3-8.2) g/dL Albumin (3.5-5.0) g/dL Assessment and Plan Assessment: -Acute on chronic CHF exacerbation, systolic dysfunction, EF 30-35% -Severe hypokalemia, improving -Acute alcohol intoxication with DTs, improving -Severe hypomagnesemia -Troponin 0.05, indeterminate -Alcoholic hepatitis -Gait dysfunction Plan: Continue on current medication regime ,monitoring and symptomatic treatment. Potassium currently being supplemented, close monitoring of electrolytes, renal function with repeat labs ordered for a.m. Maintain CIWA protocol. Increased sedimentation as tolerated. Discharge planning in progress for tomorrow for subacute rehab. Prognosis guarded given multiple complex medical issues. The impression and plan of care has been dictated as directed. : I performed a history and examination of this patient, discussed the same with the dictator. I agree with the dictator's note ,documented as a scribe. Any additional findings or plans will be noted.
--- NOTE | 2018-03-21 15:16 | P.PN ---
Subjective Progress Note Date: 03/21/18 Progress note being dictated for Dr. Spann. Interval history: This is a 62-year-old gentleman admitted with multiple medical issues including acute CHF exacerbation, acute alcohol intoxication with DTs, generalized weakness. Maintained on CIWA protocol, nebulized bronchodilators, oral steroids, diuretics. Recently received IV Ativan, lethargic, arousable. Maintaining O2 sats in the high 90s on 2 L nasal cannula. Afebrile. Receiving supplements for potassium 3.2. 03/21/2018 more alert today, cooperative. Device check ordered, meds adjusted as per cardiology. Currently has Fenton, inserted per urology for urinary retention. Denies chest pain, palpitations or increasing shortness of breath. Afebrile. Objective - Vital Signs Vital signs: Vital Signs Temp 96.1 F L 03/21/18 06:37 Pulse 76 03/21/18 08:00 Resp 16 03/21/18 08:00 BP 116/69 03/21/18 06:37 Pulse Ox 99 03/21/18 06:37 Intake & Output 03/20/18 03/21/18 03/21/18 18:59 06:59 18:59 Intake Total 240 1350 600 Output Total 600 1000 Balance -360 350 600 Intake: Intake, IV Titration 200 Amount Potassium Chloride 20 meq 200 In Water For Injection 1 100ml.bag @ 50 mls/hr IVPB Q2H VICTORIA Rx#: [id number] Oral 240 1150 600 Output: Urine 600 1000 Other: Voiding Method Indwelling Catheter Indwelling Catheter Indwelling Catheter # Voids 1 - Exam PHYSICAL EXAM: VITAL SIGNS: As above GENERAL: Sitting up in bed, no acute distress. Cooperative HEENT: Conjunctivae normal. eyes normal. Oral mucosa moist NECK: No JVD. No thyroid enlargement. No LNs CARDIOVASCULAR: S1, S2 muffled. No murmur RESPIRATION: Breath sounds diminished in the bases with fine bibasilar crackles. Occasional scattered rhonchi ABDOMEN: Soft, nontender . No guarding. no masses palpable.positive bowel sounds. LEGS: No edema. no swelling PSYCHIATRY: Alert and oriented -3, mood and affect normal. NERVOUS SYSTEM: Cranial N 2-12 grossly normal. Moves all 4 limbs. Diffuse weakness No focal deficits. Skin: no ulcer no rash - Labs CBC & Chem 7: 03/21/18 07:51 03/21/18 07:51 Labs: Abnormal Lab Results - Last 24 Hours (Table) 03/20/18 03/20/18 03/21/18 Range/Units 16:40 20:40 07:51 RBC 3.28 L (4.30-5.90) m/uL MCV 120.4 H (80.0-100.0) fL MCH 40.4 H (25.0-35.0) pg Plt Count 86 L (150-450) k/uL Lymphocytes # 0.8 L (1.0-4.8) k/uL Sodium (137-145) mmol/L Chloride (98-107) mmol/L Carbon Dioxide (22-30) mmol/L BUN (9-20) mg/dL POC Glucose (mg/dL) 220 H 205 H (75-99) mg/dL Total Bilirubin (0.2-1.3) mg/dL AST (17-59) U/L Total Protein (6.3-8.2) g/dL Albumin (3.5-5.0) g/dL 03/21/18 03/21/18 Range/Units 07:51 11:51 RBC (4.30-5.90) m/uL MCV (80.0-100.0) fL MCH (25.0-35.0) pg Plt Count (150-450) k/uL Lymphocytes # (1.0-4.8) k/uL Sodium 134 L (137-145) mmol/L Chloride 92 L (98-107) mmol/L Carbon Dioxide 39 H (22-30) mmol/L BUN 29 H (9-20) mg/dL POC Glucose (mg/dL) 109 H (75-99) mg/dL Total Bilirubin 1.6 H (0.2-1.3) mg/dL AST 62 H (17-59) U/L Total Protein 5.6 L (6.3-8.2) g/dL Albumin 2.8 L (3.5-5.0) g/dL Assessment and Plan Assessment: -Acute on chronic CHF exacerbation, systolic dysfunction, EF 30-35% -Severe hypokalemia, improving -Acute alcohol intoxication with DTs, improving -Severe hypomagnesemia -Troponin 0.05, indeterminate -Alcoholic hepatitis -Gait dysfunction -Urinary retention, Fenton catheter inserted as per urology. Plan: Continue on current medication regime ,monitoring and symptomatic treatment. Increase ambulation as tolerated. Obtain O2 sat on room air after ambulation for discharge planning. Close monitoring of electrolytes, renal function with repeat labs ordered for a.m. oral Ativan prn.LINDSEY protocol dc'd. Discharge planning in progress for tomorrow for subacute rehab. Prognosis guarded given multiple complex medical issues. The impression and plan of care has been dictated as directed. : I performed a history and examination of this patient, discussed the same with the dictator. I agree with the dictator's note ,documented as a scribe. Any additional findings or plans will be noted.
[2018-03-21] MEDS: NICOTINE 14MG/24HR PATCH TRANSDERM SCH (17:06)
[2018-03-21 17:34] LABS: Glucose,Whole Blood 164 mg/dL (75-99)
[2018-03-21 20:14] LABS: Glucose,Whole Blood 207 mg/dL (75-99)
[2018-03-21] MEDS: ATORVASTATIN 40 MG TAB PO SCH (21:11)
[2018-03-21] MEDS: INSULIN DETEMIR 100 UNIT/ML 10 ML VIAL SQ SCH (22:37)
[2018-03-22 07:07] LABS: Glucose,Whole Blood 89 mg/dL (75-99)
[2018-03-22] MEDS: IPRATROPIUM-ALBUTEROL 3 ML NEB INHALATION SCH ×3 (07:30→19:32)
[2018-03-22] MEDS: SYMBICORT 160-4.5 MCG INHALER INHALATION SCH ×2 (07:30→19:30)
[2018-03-22] MEDS: INSULIN ASPART 100 UNIT/ML 1 ML 10 ML VIAL SQ SCH ×4 (08:34→21:02)
[2018-03-22] MEDS: SPIRONOLACTONE 25 MG TAB PO SCH (08:34)
[2018-03-22] MEDS: FUROSEMIDE 40 MG TAB PO SCH (08:35)
[2018-03-22] MEDS: ESCITALOPRAM 20 MG TAB PO SCH (08:35)
[2018-03-22] MEDS: DIVALPROEX 250 MG TABLET.DR PO SCH ×2 (08:35→21:02)
[2018-03-22] MEDS: LORATADINE 10 MG TAB PO SCH (08:35)
[2018-03-22] MEDS: LOSARTAN 50 MG TAB PO SCH (08:35)
[2018-03-22] MEDS: CHOLECALCIFEROL 1,000 UNIT TAB PO SCH (08:35)
[2018-03-22] MEDS: predniSONE 20 MG TAB PO SCH (08:35)
[2018-03-22] MEDS: CARVEDILOL 12.5 MG TAB PO SCH (08:35)
[2018-03-22] MEDS: TAMSULOSIN 0.4 MG CAP.ER.24H PO SCH (08:36)
[2018-03-22] MEDS: PANTOPRAZOLE 40 MG TABLET PO SCH (08:36)
[2018-03-22] MEDS: ASPIRIN 81 MG PO SCH (08:36)
--- NOTE | 2018-03-22 10:43 | P.DS ---
Providers Date of admission: 03/16/18 10:05 Expected date of discharge: 03/22/18 Attending physician: Quincy Spann Consults: 03/16/18 10:02 Consult Physician Routine Consulting Provider: [employer] Consult Reason/Comments: chf exacerbation, prolonged qt Do you want consulting provider notified?: Yes 03/16/18 15:20 Consult Physician Routine Consulting Provider: Danny Hanks Consult Reason/Comments: copd Do you want consulting provider notified?: Yes 03/17/18 06:45 Consult Physician Stat Consulting Provider: Migue Guajardo Consult Reason/Comments: Urinary retention; unable to place urinary catheter Do you want consulting provider notified?: Yes [facility] Course: Final Diagnoses: -Acute on chronic CHF exacerbation, systolic dysfunction, EF 30-35% -Severe hypokalemia, improving -Acute alcohol intoxication with DTs, improving -Severe hypomagnesemia -Troponin 0.05, indeterminate -Alcoholic hepatitis -Gait dysfunction -Urinary retention, S/P Fenton catheter inserted as per urology,. Hospital COurse:This is a 62-year-old gentleman admitted with multiple medical issues including acute CHF exacerbation, acute alcohol intoxication with DTs, generalized weakness. Evalulated by Cardiology,Pulmonary, Urology. Maintained on CIWA protocol, nebulized bronchodilators, oral steroids, diuretics. Significant Clinical Improvement. Patient has been cleared by all consults for dc. Patient is being discharged to [facility] sub- acute rehab. in a stable condition with Guarded prognosis. EXAM: GENERAL: Alert & oriented x 2,no acute distress. Cooperative CARDIOVASCULAR: S1, S2 muffled. No murmur RESPIRATION: Breath sounds diminished in the bases with fine bibasilar crackles. Occasional scattered rhonchi ABDOMEN: Soft, nontender . No guarding. no masses palpable.positive bowel sound NERVOUS SYSTEM: No focal deficits. The impression and plan of care has been dictated as directed. : I performed a history and examination of this patient, discussed the same with the dictator. I agree with the dictator's note ,documented as a scribe. Any additional findings or plans will be noted. TIme taken: 35 min Patient Condition at Discharge: Stable Plan - Discharge Summary Discharge Rx Participant: No New Discharge Prescriptions: No Action Digoxin [Lanoxin] 125 mcg PO DAILY Atorvastatin [Lipitor] 40 mg PO HS Albuterol Inhaler [Ventolin Hfa Inhaler] 2 puff INHALATION RT-Q4H PRN PRN Reason: Shortness Of Breath Divalproex [Depakote] 250 mg PO BID Carvedilol 25 mg PO BID Captopril [Capoten] 25 mg PO BID Furosemide [Lasix] 20 mg PO DAILY Loratadine [Claritin] 10 mg PO DAILY Escitalopram [Lexapro] 20 mg PO DAILY Budesonide-Formot 160-4.5 Mcg [Symbicort 160-4.5 Mcg Inhaler] 2 puff INHALATION RT-BID Cholecalciferol (Vitamin D3) [Vitamin D3] 2,000 unit PO DAILY Discharge Medication List Albuterol Inhaler [Ventolin Hfa Inhaler] 2 puff INHALATION RT-Q4H PRN 01/21/15 [ History] Atorvastatin [Lipitor] 40 mg PO HS 01/21/15 [History] Digoxin [Lanoxin] 125 mcg PO DAILY 01/21/15 [History] Budesonide-Formot 160-4.5 Mcg [Symbicort 160-4.5 Mcg Inhaler] 2 puff INHALATION RT-BID 03/16/18 [History] Captopril [Capoten] 25 mg PO BID 03/16/18 [History] Carvedilol 25 mg PO BID 03/16/18 [History] Cholecalciferol (Vitamin D3) [Vitamin D3] 2,000 unit PO DAILY 03/16/18 [History] Divalproex [Depakote] 250 mg PO BID 03/16/18 [History] Escitalopram [Lexapro] 20 mg PO DAILY 03/16/18 [History] Furosemide [Lasix] 20 mg PO DAILY 03/16/18 [History] Loratadine [Claritin] 10 mg PO DAILY 03/16/18 [History] Follow up Appointment(s)/Referral(s): Bill Mari DO [Primary Care Provider] - 1-2 days Activity/Diet/Wound Care/Special Instructions: possible ecf
[2018-03-22 11:45] LABS: Glucose,Whole Blood 148 mg/dL (75-99)
[2018-03-22] MEDS: THIAMINE 100 MG TAB PO SCH ×2 (12:51→19:00)
[2018-03-22] MEDS: MULTIVITAMINS, THERA 1 EACH TAB PO SCH (12:51)
[2018-03-22 17:20] LABS: Glucose,Whole Blood 296 mg/dL (75-99)
[2018-03-22] MEDS: NICOTINE 14MG/24HR PATCH TRANSDERM SCH (17:37)
[2018-03-22] MEDS: MAGNESIUM SULFATE-D5W PMX 1 GM in DEXTROSE/WATER 1 100ML.BAG IVPB SCH ×2 (17:37→19:00)
[2018-03-22 20:44] LABS: Glucose,Whole Blood 172 mg/dL (75-99)
[2018-03-22] MEDS: INSULIN DETEMIR 100 UNIT/ML 10 ML VIAL SQ SCH (21:02)
[2018-03-22] MEDS: ATORVASTATIN 40 MG TAB PO SCH (21:02)
--- NOTE | 2018-03-22 23:50 | P.PN ---
Subjective Progress Note Date: 03/22/18 Progress note being dictated for Dr. Spann. Interval history: This is a 62-year-old gentleman admitted with multiple medical issues including acute CHF exacerbation, acute alcohol intoxication with DTs, generalized weakness. Maintained on CIWA protocol, nebulized bronchodilators, oral steroids, diuretics. Recently received IV Ativan, lethargic, arousable. Maintaining O2 sats in the high 90s on 2 L nasal cannula. Afebrile. Receiving supplements for potassium 3.2. 03/21/2018 more alert today, cooperative. Device check ordered, meds adjusted as per cardiology. Currently has Fenton, inserted per urology for urinary retention. Denies chest pain, palpitations or increasing shortness of breath. Afebrile. 03/22/2018 has not required any Ativan today. Alert and oriented x 2, conversing appropriately. Cooperative. Hypertensive earlier today.Coreg and Cozaar doses decreased. Fenton catheter DC'd yesterday, tolerating well with minimal postvoid residuals reported. Afebrile. Maintaining O2 sats of 100% on room air. Review of systems: CONSTITUTIONAL: No fever, mild fatigue. HEENT: No recent visual problems or hearing problems. Denied any sore throat. CARDIOVASCULAR: No chest pain, orthopnea, PND, no palpitations, no syncope. PULMONARY: No shortness of breath, no cough, no hemoptysis. GASTROINTESTINAL: No diarrhea, no nausea, no vomiting, no abdominal pain. Normoactive bowel sounds. NEUROLOGICAL: No headaches, no weakness, no numbness. HEMATOLOGICAL: Denies any bleeding or petechiae. GENITOURINARY: Denies any burning micturition, frequency, or urgency. MUSCULOSKELETAL/RHEUMATOLOGICAL: Denies any joint pain, swelling, or any muscle pain. ENDOCRINE: Denies any polyuria or polydipsia. PSYCHIATRIC: No anxiety, no depression The rest of the 14 point review of systems is negative Active Medications Hydrocodone Bitart/Acetaminophen ([place] 5-325) 1 each PO Q6HR PRN PRN Reason: Pain Albuterol/Ipratropium (Duoneb 0.5 Mg-3 Mg/3 Ml Soln) 3 ml INHALATION RT-TID [facility] Last Admin: 03/22/18 19:32 Dose: 3 ml Albuterol/Ipratropium (Duoneb 0.5 Mg-3 Mg/3 Ml Soln) 3 ml INHALATION RT-TID PRN PRN Reason: Shortness Of Breath Or Wheezing Aspirin (Aspirin) 81 mg PO DAILY [facility] Last Admin: 03/22/18 08:36 Dose: 81 mg Atorvastatin Calcium (Lipitor) 40 mg PO HS [facility] Last Admin: 03/22/18 21:02 Dose: 40 mg Budesonide/Formoterol Fumarate (Symbicort 160-4.5 Mcg Inhaler) 2 puff INHALATION RT-BID [facility] Last Admin: 03/22/18 19:30 Dose: 2 puff Carvedilol (Coreg) 6.25 mg PO BID-W/MEALS [facility] Cholecalciferol (Vitamin D3) 2,000 unit PO DAILY [facility] Last Admin: 03/22/18 08:35 Dose: 2,000 unit Divalproex Sodium (Depakote) 250 mg PO BID [facility] Last Admin: 03/22/18 21:02 Dose: 250 mg Escitalopram Oxalate (Lexapro) 20 mg PO DAILY [facility] Last Admin: 03/22/18 08:35 Dose: 20 mg Furosemide (Lasix) 20 mg PO DAILY [facility] Insulin Aspart (Novolog) 0 unit SQ [facility]; Protocol Last Admin: 03/22/18 21:02 Dose: 2 unit Insulin Detemir (Levemir) 10 unit SQ [facility] Last Admin: 03/22/18 21:02 Dose: 10 unit Loratadine (Claritin) 10 mg PO DAILY [facility] Last Admin: 03/22/18 08:35 Dose: 10 mg Lorazepam (Ativan) 1 mg PO Q6H PRN PRN Reason: Anxiety Last Admin: 03/21/18 22:27 Dose: 1 mg Losartan Potassium (Cozaar) 50 mg PO DAILY [facility] Miscellaneous Information (Magnesium Per Protocol) 1 each MISCELLANE DAILY PRN ; Protocol PRN Reason: Per Protocol Miscellaneous Information (Potassium Per Protocol) 1 each MISCELLANE DAILY PRN ; Protocol PRN Reason: Per Protocol Miscellaneous Information (Magnesium Per Protocol) 1 each MISCELLANE DAILY PRN ; Protocol PRN Reason: Per Protocol Multivitamins (Theragran) 1 each PO DAILY@1200 [facility] Last Admin: 03/22/18 12:51 Dose: 1 each Naloxone HCl (Narcan) 0.2 mg IV Q2M PRN PRN Reason: Opioid Reversal Nicotine (Habitrol 14mg/24hr Patch) 1 patch TRANSDERM Q24H [facility] Last Admin: 03/22/18 17:37 Dose: 1 patch Pantoprazole Sodium (Protonix) 40 mg PO AC-BRKFST [facility] Last Admin: 03/22/18 08:36 Dose: 40 mg Prednisone () 40 mg PO DAILY [facility] Last Admin: 03/22/18 08:35 Dose: 40 mg Spironolactone (Aldactone) 50 mg PO DAILY [facility] Last Admin: 03/22/18 08:34 Dose: 50 mg Tamsulosin HCl (Flomax) 0.4 mg PO PC-BRKFST [facility] Last Admin: 03/22/18 08:36 Dose: 0.4 mg Temazepam (Restoril) 15 mg PO HS PRN PRN Reason: Insomnia Last Admin: 03/20/18 23:15 Dose: 15 mg Thiamine HCl (Vitamin B-1) 100 mg PO BID@1200,1700 [facility] Last Admin: 03/22/18 19:00 Dose: 100 mg Objective - Vital Signs Vital signs: Vital Signs Temp 97.6 F 03/22/18 21:00 Pulse 82 03/22/18 21:00 Resp 18 03/22/18 21:00 BP 108/59 03/22/18 21:00 Pulse Ox 100 03/22/18 21:00 Intake & Output 03/22/18 03/22/18 03/23/18 06:59 18:59 06:59 Intake Total 680 Output Total 38 Balance 680 -38 Intake: Oral 680 Output: Post Void Residual 38 Other: Voiding Method Indwelling Catheter Bedside Commode Bedside Commode # Voids 1 1 1 # Bowel Movements 1 - Exam PHYSICAL EXAM: VITAL SIGNS: As above GENERAL: Sitting up in bed, alert and oriented 2 ,no acute distress. HEENT: Conjunctivae normal. eyes normal. Oral mucosa moist NECK: No JVD. No thyroid enlargement. No LNs CARDIOVASCULAR: S1, S2 muffled. Regular, No murmur RESPIRATION: Bilateral bases diminished with fine bibasilar crackles. ABDOMEN: Soft, nontender . No guarding. no masses palpable.positive bowel sounds. LEGS: No edema. no swelling PSYCHIATRY: Alert and oriented -2, mood and affect normal. NERVOUS SYSTEM: Cranial N 2-12 grossly normal. Moves all 4 limbs. Diffuse weakness No focal deficits. Skin: no rash - Labs CBC & Chem 7: 03/21/18 07:51 03/21/18 07:51 Labs: Abnormal Lab Results - Last 24 Hours (Table) 03/22/18 03/22/18 03/22/18 Range/Units 07:53 11:43 17:18 POC Glucose (mg/dL) 148 H 296 H (75-99) mg/dL Magnesium 1.5 L (1.6-2.3) mg/dL 03/22/18 Range/Units 20:43 POC Glucose (mg/dL) 172 H (75-99) mg/dL Magnesium (1.6-2.3) mg/dL Assessment and Plan Assessment: -Acute on chronic CHF exacerbation, systolic dysfunction, EF 30-35% -Severe hypokalemia, improved -Acute alcohol intoxication with DTs, improving -Severe hypomagnesemia, improved -Troponin 0.05, indeterminate -Alcoholic hepatitis -Gait dysfunction -Urinary retention,S/P Fenton catheter inserted as per urology. Plan: Continue on current medication regime ,monitoring and symptomatic treatment. Continue with post void residuals.Increase ambulation as tolerated. Close monitoring of electrolytes with repeat labs ordered for a.m. Initially had planned for discharge today; meds further adjusted for mild asymptomatic hypotension. Continue monitoring overnight. Discharge planning in progress for tomorrow for subacute rehab. The impression and plan of care has been dictated as directed. : I performed a history and examination of this patient, discussed the same with the dictator. I agree with the dictator's note ,documented as a scribe. Any additional findings or plans will be noted.
[2018-03-23 07:13] LABS: Glucose,Whole Blood 121 mg/dL (75-99)
[2018-03-23] MEDS: IPRATROPIUM-ALBUTEROL 3 ML NEB INHALATION SCH ×3 (07:20→19:29)
[2018-03-23] MEDS: SYMBICORT 160-4.5 MCG INHALER INHALATION SCH ×2 (07:20→19:29)
[2018-03-23] MEDS: INSULIN ASPART 100 UNIT/ML 1 ML 10 ML VIAL SQ SCH ×4 (07:53→20:26)
[2018-03-23] MEDS: LORATADINE 10 MG TAB PO SCH (07:54)
[2018-03-23] MEDS: predniSONE 20 MG TAB PO SCH (07:54)
[2018-03-23] MEDS: SPIRONOLACTONE 25 MG TAB PO SCH (07:54)
[2018-03-23] MEDS: DIVALPROEX 250 MG TABLET.DR PO SCH ×2 (07:55→20:23)
[2018-03-23] MEDS: CARVEDILOL 6.25 MG TAB PO SCH ×2 (07:55→18:59)
[2018-03-23] MEDS: TAMSULOSIN 0.4 MG CAP.ER.24H PO SCH (07:55)
[2018-03-23] MEDS: CHOLECALCIFEROL 1,000 UNIT TAB PO SCH (07:55)
[2018-03-23] MEDS: ASPIRIN 81 MG PO SCH (07:55)
[2018-03-23] MEDS: ESCITALOPRAM 20 MG TAB PO SCH (07:55)
[2018-03-23] MEDS: PANTOPRAZOLE 40 MG TABLET PO SCH (07:55)
[2018-03-23 08:05] LABS: Basophils % (A) 0 %; Eosinophils # (A) 0.1 k/uL (0-0.7); Eosinophils % (A) 1 %; HCT 38.7 % (39.0-53.0); Lymphocytes # (A) 1.2 k/uL (1.0-4.8); Lymphocytes % (A) 14 %; MCH 39.9 pg (25.0-35.0); MCHC 33.5 g/dL (31.0-37.0); MCV 119.2 fL (80.0-100.0); Macrocytosis Marked; Mean Platelet Volume 9.1; Monocytes # (A) 0.6 k/uL (0-1.0); Monocytes % (A) 7 %; Neutrophils # (A) 6.6 k/uL (1.3-7.7); Neutrophils % (A) 77 %; RBC 3.25 m/uL (4.30-5.90); RDW 13.7 % (11.5-15.5); WBC 8.6 k/uL (3.8-10.6)
[2018-03-23 08:06] LABS: Platelet Count 81 k/uL (150-450)
[2018-03-23 08:21] LABS: Anion Gap 5 mmol/L; Blood Urea Nitrogen 39 mg/dL (9-20); Calcium 8.9 mg/dL (8.4-10.2); Carbon Dioxide 37 mmol/L (22-30); Chloride 90 mmol/L (98-107); Glucose 87 mg/dL (74-99); Magnesium 1.7 mg/dL (1.6-2.3); Potassium 3.2 mmol/L (3.5-5.1); Sodium 132 mmol/L (137-145)
[2018-03-23] MEDS ORDERED: FUROSEMIDE 20 MG TAB PO SCH (09:00)
[2018-03-23] MEDS ORDERED: LOSARTAN 50 MG TAB PO SCH (09:00)
[2018-03-23] MEDS: POTASSIUM CHLORIDE ER 20 MEQ TAB.ER PO SCH ×2 (10:29→12:14)
[2018-03-23] MEDS: MAGNESIUM SULFATE-D5W PMX 1 GM in DEXTROSE/WATER 1 100ML.BAG IVPB SCH ×2 (10:29→12:13)
[2018-03-23 11:49] LABS: Glucose,Whole Blood 135 mg/dL (75-99)
[2018-03-23] MEDS: MULTIVITAMINS, THERA 1 EACH TAB PO SCH (12:14)
[2018-03-23] MEDS: THIAMINE 100 MG TAB PO SCH ×2 (12:14→17:42)
[2018-03-23 14:21] VITALS: BMI 19.6
[2018-03-23 17:39] LABS: Glucose,Whole Blood 160 mg/dL (75-99)
[2018-03-23] MEDS: NICOTINE 14MG/24HR PATCH TRANSDERM SCH (17:42)
--- NOTE | 2018-03-23 18:51 | P.PN ---
Subjective Progress Note Date: 03/23/18 Progress note being dictated for Dr. Arrington Interval history: This is a 62-year-old gentleman admitted with multiple medical issues including acute CHF exacerbation, acute alcohol intoxication with DTs, generalized weakness. Maintained on CIWA protocol, nebulized bronchodilators, oral steroids, diuretics. Recently received IV Ativan, lethargic, arousable. Maintaining O2 sats in the high 90s on 2 L nasal cannula. Afebrile. Receiving supplements for potassium 3.2. 03/21/2018 more alert today, cooperative. Device check ordered, meds adjusted as per cardiology. Currently has Fenton, inserted per urology for urinary retention. Denies chest pain, palpitations or increasing shortness of breath. Afebrile. 03/22/2018 has not required any Ativan today. Alert and oriented x 2, conversing appropriately. Cooperative. Hypertensive earlier today.Coreg and Cozaar doses decreased. Fenton catheter DC'd yesterday, tolerating well with minimal postvoid residuals reported. Afebrile. Maintaining O2 sats of 100% on room air. 03/23/2018 has not required Ativan in nearly 48 hours. Yesterday became hypotensive, meds adjusted. Developed re-current hypotension again this morning , symptomatic. Tired appearing. Discontinued Lasix, Aldactone, decreased Cozaar dose further. Cardiology notified, further recommendations pending. Denies chest pain, palpitations or increased shortness of breath. Maintaining O2 sats in the high 90s on room air. Potassium 3.2, magnesium 1.7, receiving supplementation. Consumed 100% of breakfast, 0% at lunch. Sodium trending down , 132. Objective - Vital Signs Vital signs: Vital Signs Temp 98.3 F 03/23/18 11:31 Pulse 78 03/23/18 18:11 Resp 16 03/23/18 11:31 BP 114/67 03/23/18 18:11 Pulse Ox 96 03/23/18 13:54 Intake & Output 03/22/18 03/23/18 03/23/18 18:59 06:59 18:59 Intake Total 360 Output Total 38 Balance -38 360 Weight 60.4 kg Intake: Oral 360 Output: Post Void Residual 38 Other: Voiding Method Bedside Commode Bedside Commode Bedside Commode # Voids 1 4 3 # Bowel Movements 1 - Exam PHYSICAL EXAM: VITAL SIGNS: As above GENERAL: Sitting up in bed, sleepy, tired appearing, no acute distress HEENT: Conjunctivae normal. eyes normal. Oral mucosa moist NECK: No JVD. No thyroid enlargement. No LNs CARDIOVASCULAR: S1, S2 muffled. Regular, No murmur RESPIRATION: Bilateral bases diminished with fine bibasilar crackles. ABDOMEN: Soft, nontender . No guarding. no masses palpable.positive bowel sounds. LEGS: No edema. no swelling PSYCHIATRY: Alert and oriented -2, mood and affect normal. NERVOUS SYSTEM: Cranial N 2-12 grossly normal. Diffuse weakness No focal deficits. - Labs CBC & Chem 7: 03/23/18 06:53 03/23/18 06:53 Labs: Abnormal Lab Results - Last 24 Hours (Table) 03/22/18 03/23/18 03/23/18 Range/Units 20:43 06:53 06:53 RBC 3.25 L (4.30-5.90) m/uL Hct 38.7 L (39.0-53.0) % MCV 119.2 H (80.0-100.0) fL MCH 39.9 H (25.0-35.0) pg Plt Count 81 L (150-450) k/uL Sodium 132 L (137-145) mmol/L Potassium 3.2 L (3.5-5.1) mmol/L Chloride 90 L (98-107) mmol/L Carbon Dioxide 37 H (22-30) mmol/L BUN 39 H (9-20) mg/dL POC Glucose (mg/dL) 172 H (75-99) mg/dL 03/23/18 03/23/18 03/23/18 Range/Units 07:01 11:37 17:36 RBC (4.30-5.90) m/uL Hct (39.0-53.0) % MCV (80.0-100.0) fL MCH (25.0-35.0) pg Plt Count (150-450) k/uL Sodium (137-145) mmol/L Potassium (3.5-5.1) mmol/L Chloride (98-107) mmol/L Carbon Dioxide (22-30) mmol/L BUN (9-20) mg/dL POC Glucose (mg/dL) 121 H 135 H 160 H (75-99) mg/dL Assessment and Plan Assessment: -Acute on chronic CHF exacerbation, systolic dysfunction, EF 30-35% -Severe hypokalemia, improved -Acute alcohol intoxication with DTs, improving -Severe hypomagnesemia, improved -Troponin 0.05, indeterminate -Alcoholic hepatitis -Gait dysfunction -Urinary retention,S/P Fenton catheter inserted as per urology. Plan: Continue on current medication regime ,monitoring and symptomatic treatment. Encourage oral intake .recurrent hypotension, med regime further adjusted, cardiology notified with further recommendations pending. Potassium and magnesium being supplemented with replacement protocols. Close monitoring of electrolytes with repeat labs ordered for a.m. Continue monitoring overnight. Discharge planning in progress for tomorrow for subacute rehab. The impression and plan of care has been dictated as directed. : I performed a history and examination of this patient, discussed the same with the dictator. I agree with the dictator's note ,documented as a scribe. Any additional findings or plans will be noted.
[2018-03-23 20:14] LABS: Glucose,Whole Blood 125 mg/dL (75-99)
[2018-03-23] MEDS: ATORVASTATIN 40 MG TAB PO SCH (20:23)
[2018-03-23] MEDS: INSULIN DETEMIR 100 UNIT/ML 10 ML VIAL SQ SCH (20:23)
[2018-03-24] MEDS: IPRATROPIUM-ALBUTEROL 3 ML NEB INHALATION SCH (08:40)
[2018-03-24] MEDS: SYMBICORT 160-4.5 MCG INHALER INHALATION SCH (08:41)
[2018-03-24] MEDS ORDERED: LOSARTAN 25 MG TAB PO SCH (09:00)
[2018-03-24] MEDS: INSULIN ASPART 100 UNIT/ML 1 ML 10 ML VIAL SQ SCH ×2 (09:15→12:39)
[2018-03-24] MEDS: CARVEDILOL 6.25 MG TAB PO SCH (09:15)
[2018-03-24] MEDS: PANTOPRAZOLE 40 MG TABLET PO SCH (09:19)
[2018-03-24] MEDS: TAMSULOSIN 0.4 MG CAP.ER.24H PO SCH (09:19)
[2018-03-24] MEDS: CHOLECALCIFEROL 1,000 UNIT TAB PO SCH (09:19)
[2018-03-24] MEDS: DIVALPROEX 250 MG TABLET.DR PO SCH (09:20)
[2018-03-24] MEDS: ESCITALOPRAM 20 MG TAB PO SCH (09:20)
[2018-03-24] MEDS: ASPIRIN 81 MG PO SCH (09:20)
[2018-03-24] MEDS: predniSONE 20 MG TAB PO SCH (09:21)
[2018-03-24] MEDS: LORATADINE 10 MG TAB PO SCH (09:25)
[2018-03-24 09:28] LABS: Glucose,Whole Blood 97 mg/dL (75-99)
[2018-03-24 11:53] LABS: Glucose,Whole Blood 89 mg/dL (75-99)
[2018-03-24] MEDS: THIAMINE 100 MG TAB PO SCH (12:44)
--- NOTE | 2018-03-24 12:45 | P.DS ---
Providers Date of admission: 03/16/18 10:05 Attending physician: Quincy Spann Consults: 03/16/18 10:02 Consult Physician Routine Consulting Provider: [employer] Consult Reason/Comments: chf exacerbation, prolonged qt Do you want consulting provider notified?: Yes 03/16/18 15:20 Consult Physician Routine Consulting Provider: Danny Hanks Consult Reason/Comments: copd Do you want consulting provider notified?: Yes 03/17/18 06:45 Consult Physician Stat Consulting Provider: Migue Guajardo Consult Reason/Comments: Urinary retention; unable to place urinary catheter Do you want consulting provider notified?: Yes Primary care physician: [facility] Course: 61-year-old gentleman admitted with the acute hypoxic and hypercapnic respiratory failure secondary to CHF and COPD exacerbations. Patient was treated for these 2. Patient is clinically doing well off oxygen at this time. Patient's Lasix was held yesterday because of severe hyponatremia do not have any labs from today basic metabolic profile need to be repeated in the about 3 days. I will resume his Lasix at a low dose of 20 mg patient is not in heart failure exacerbation. Patient blood pressure is borderline and low at around 90 systolic because of which losartan dose was decreased to 25 mg. Beta pau was switched to metoprolol from Coreg because of the low blood pressure. If his blood pressure improves we can optimize Lasix dose to little higher than 20 mg depending on his volume status and increase the dose of losartan along with beta pau. patient need to be eventually started on Aldactone if his blood pressure can tolerate that eventually as an outpatient. She was also treated for alcohol withdrawal no more withdrawals will not require any Ativan at this time. Patient is also being discharged on weaning doses of steroids patient doesn't have any symptoms of shortness of breath lightheadedness at this time. Patient's last ejection fraction was less than 20 % PHYSICAL EXAMINATION: GENERAL: The patient is alert and oriented x3, not in any acute distress. Well developed, well nourished. HEENT: Pupils are round and equally reacting to light. EOMI. No scleral icterus. No conjunctival pallor. Normocephalic, atraumatic. No pharyngeal erythema. No thyromegaly. CARDIOVASCULAR: S1 and S2 present. No murmurs, rubs, or gallops. PULMONARY: Chest is clear to auscultation, no wheezing or crackles. ABDOMEN: Soft, nontender, nondistended, normoactive bowel sounds. No palpable organomegaly. MUSCULOSKELETAL: No joint swelling or deformity. EXTREMITIES: No cyanosis, clubbing, or pedal edema. NEUROLOGICAL: Gross neurological examination did not reveal any focal deficits. SKIN: No rashes. Assessment and Plan -Acute on chronic CHF exacerbation, systolic dysfunction, EF is than 20% -Severe hypokalemia, improved -Acute alcohol intoxication with DTs, improved -Severe hypomagnesemia, improved -Troponin 0.05, indeterminate -Alcoholic hepatitis -Gait dysfunction Patient Condition at Discharge: Stable Plan - Discharge Summary Discharge Rx Participant: No New Discharge Prescriptions: New Aspirin 81 mg PO DAILY chew Insulin Detemir [Levemir] 10 unit SQ HS syr INSULIN LISPRO (HumaLOG) [humaLOG] 0 unit SQ ACHS #1 vial Ipratropium-Albuterol Nebulize [Duoneb 0.5 mg-3 mg/3 ml Soln] 3 ml INHALATION RT-TID ampul.neb Ipratropium-Albuterol Nebulize [Duoneb 0.5 mg-3 mg/3 ml Soln] 3 ml INHALATION Q4H PRN ampul.neb PRN Reason: Shortness Of Breath Or Wheezing Multivitamins, Thera [Multivitamin (formulary)] 1 each PO DAILY@1200 tab Nicotine 14Mg/24Hr Patch [Habitrol] 1 patch TRANSDERM Q24H patch Pantoprazole [Protonix] 40 mg PO AC-BRKFST tablet.dr predniSONE 10 mg PO DIRECTED #30 tab Tamsulosin [Flomax] 0.4 mg PO PC-BRKFST cap.er.24h Thiamine [Vitamin B-1] 100 mg PO DAILY #1 tab Metoprolol Tartrate [Lopressor] 25 mg PO BID #30 tablet Furosemide [Lasix] 20 mg PO DAILY #30 tab Continue Atorvastatin [Lipitor] 40 mg PO HS Divalproex [Depakote] 250 mg PO BID Loratadine [Claritin] 10 mg PO DAILY Escitalopram [Lexapro] 20 mg PO DAILY Budesonide-Formot 160-4.5 Mcg [Symbicort 160-4.5 Mcg Inhaler] 2 puff INHALATION RT-BID Cholecalciferol (Vitamin D3) [Vitamin D3] 2,000 unit PO DAILY Discontinued Digoxin [Lanoxin] 125 mcg PO DAILY Albuterol Inhaler [Ventolin Hfa Inhaler] 2 puff INHALATION RT-Q4H PRN PRN Reason: Shortness Of Breath Carvedilol 25 mg PO BID Captopril [Capoten] 25 mg PO BID Furosemide [Lasix] 20 mg PO DAILY Discharge Medication List Atorvastatin [Lipitor] 40 mg PO HS 01/21/15 [History] Budesonide-Formot 160-4.5 Mcg [Symbicort 160-4.5 Mcg Inhaler] 2 puff INHALATION RT-BID 03/16/18 [History] Cholecalciferol (Vitamin D3) [Vitamin D3] 2,000 unit PO DAILY 03/16/18 [History] Divalproex [Depakote] 250 mg PO BID 03/16/18 [History] Escitalopram [Lexapro] 20 mg PO DAILY 03/16/18 [History] Loratadine [Claritin] 10 mg PO DAILY 03/16/18 [History] Aspirin 81 mg PO DAILY chew 03/22/18 [Rx] INSULIN LISPRO (HumaLOG) [humaLOG] 0 unit SQ ACHS #1 vial 03/22/18 [Rx] Insulin Detemir [Levemir] 10 unit SQ HS syr 03/22/18 [Rx] Ipratropium-Albuterol Nebulize [Duoneb 0.5 mg-3 mg/3 ml Soln] 3 ml INHALATION Q4H PRN ampul.neb 03/22/18 [Rx] Ipratropium-Albuterol Nebulize [Duoneb 0.5 mg-3 mg/3 ml Soln] 3 ml INHALATION RT -TID ampul.neb 03/22/18 [Rx] Multivitamins, Thera [Multivitamin (formulary)] 1 each PO DAILY@1200 tab [Rx] Nicotine 14Mg/24Hr Patch [Habitrol] 1 patch TRANSDERM Q24H patch 03/22/18 [Rx] Pantoprazole [Protonix] 40 mg PO AC-BRKFST tablet. 03/22/18 [Rx] Tamsulosin [Flomax] 0.4 mg PO PC-BRKFST cap.er.24h 03/22/18 [Rx] Thiamine [Vitamin B-1] 100 mg PO DAILY #1 tab 03/22/18 [Rx] predniSONE 10 mg PO DIRECTED #30 tab 03/22/18 [Rx] Furosemide [Lasix] 20 mg PO DAILY #30 tab 03/24/18 [Rx] Metoprolol Tartrate [Lopressor] 25 mg PO BID #30 tablet 03/24/18 [Rx] Follow up Appointment(s)/Referral(s): Danny Hanks MD [STAFF PHYSICIAN] - 2 Weeks Elton Sorenson DO [STAFF PHYSICIAN] - 3 Days Jarod Newman MD [STAFF PHYSICIAN] - As Needed Bill Mari DO [Primary Care Provider] - 1 Week (AFTER DC FROM [facility]) Activity/Diet/Wound Care/Special Instructions: [facility] COnfirm Cardiology F/U visit prior to dc Diet: consist.carb Activity: as tolerated cbc,bmp, magnesium in 3 days
[2018-03-24] MEDS: MULTIVITAMINS, THERA 1 EACH TAB PO SCH (12:46)
[2018-03-24 13:17] LABS: Anion Gap 3 mmol/L; Blood Urea Nitrogen 30 mg/dL (9-20); Calcium 8.9 mg/dL (8.4-10.2); Carbon Dioxide 34 mmol/L (22-30); Chloride 94 mmol/L (98-107); Glucose 71 mg/dL (74-99); Sodium 131 mmol/L (137-145)
[2018-03-24 14:18] VITALS: BP 99/56; PULSE 77; RESP 16; TEMP 97.8
== END 2018-03-24 14:45 | DRG 291 ==
LOC: EC 06:50 → 3SCARD 10:05 → 3NMEDONC 03-21 18:22
PROVIDERS: ADMIT Hospitalist; ATTEND Hospitalist
DX: I11.0 Hypertensive heart disease with heart failure (principal); J96.01 Acute respiratory failure with hypoxia; J96.02 Acute respiratory failure with hypercapnia; J44.1 Chronic obstructive pulmonary disease with (acute) exacerbation; D68.4 Acquired coagulation factor deficiency; E87.1 Hypo-osmolality and hyponatremia; F10.221 Alcohol dependence with intoxication delirium; I50.23 Acute on chronic systolic (congestive) heart failure; I48.2 Chronic atrial fibrillation; I25.5 Ischemic cardiomyopathy; Z96.611 Presence of right artificial shoulder joint; D69.6 Thrombocytopenia, unspecified; E78.5 Hyperlipidemia, unspecified; E83.42 Hypomagnesemia; E87.6 Hypokalemia; F17.210 Nicotine dependence, cigarettes, uncomplicated; H91.90 Unspecified hearing loss, unspecified ear; I25.10 Atherosclerotic heart disease of native coronary artery without angina pectoris; K70.10 Alcoholic hepatitis without ascites; R32 Unspecified urinary incontinence; I25.2 Old myocardial infarction; Z95.810 Presence of automatic (implantable) cardiac defibrillator; Z95.5 Presence of coronary angioplasty implant and graft; Z91.19 Patient's noncompliance with other medical treatment and regimen; Z80.1 Family history of malignant neoplasm of trachea, bronchus and lung; Z79.899 Other long term (current) drug therapy; Z79.51 Long term (current) use of inhaled steroids
CPT/HCPCS: 36415; 71046; 80048; 80053; 80320; 81003; 82550; 82553; 83036; 83735; 83880; 84132; 84484; 85025; 85610; 85730; 93005; 93306; 94640; 94760; 96365; 96375; 99285

== ENCOUNTER 2018-08-22 07:27 | Day surgery (SDC) | payer MEDICARE, OTHER ==
[2018-08-18 11:33] VITALS: BMI 22.8
[~2018-08-22 07:27] MED LIST: LACTATED RINGERS 1,000 ML IV SCH; LIDOCAINE 1% 20 ML VIAL (10MG/ML) FOR IV START INTRADERMA PRN; TOBRA-DEXAMET 0.3-0.1% OPHTH OINT 3.5 GM TUBE OPHTHALMIC ONE
[2018-08-22 07:53] VITALS: RESP 16
[2018-08-22] MEDS: CYCLOPENTOLATE 1% OPHTH SOLN 2 ML BTL OP ONE ×3 (07:56→08:08)
[2018-08-22] MEDS: KETOROLAC 0.5% OPHTH DROPS 5 ML BTL OP ONE ×3 (07:58→08:12)
[2018-08-22] MEDS: PHENYLEPHRINE 10% OPHTH DROPS 5 ML BTL OP ONE ×3 (08:00→08:15)
[2018-08-22] MEDS: TIMOLOL 0.5% OPHTH DROPS 5 ML BTL OP ONE ×2 (08:33→09:03)
[2018-08-22] MEDS: GENTAMICIN/PREDNISOL AC OPHTH OINT 3.5GM OPHTHALMIC ONE ×2 (08:33→09:03)
[2018-08-22] MEDS ORDERED: BALANCED SALT IRRIG SOLN COMB2 15 ML IRRIG.SOLN INTRAOCULA ONE ×2 (08:34→09:04)
[2018-08-22] MEDS ORDERED: HYALURONATE SODIUM INTRAOCULAR 1 EACH SYRINGE (10MG/ML) INTRAOCULA ONE ×2 (08:34→09:04)
[2018-08-22] MEDS: BUPIVACAINE (PF) 0.75% 5 ML, HYALURONIDASE, HUMAN RECOMB 150 UNIT, LIDOCAINE 2% (PF) 10... MISCELLANE ONE ×6 (08:35→09:04)
[2018-08-22] MEDS ORDERED: LIDOCAINE 1% INJ 10MG/ML (20 ML MDV) ONE (08:44)
[2018-08-22] MEDS ORDERED: PROPOFOL 10 MG/ML 20 ML VIAL IV ONE (08:44)
[2018-08-22] MEDS ORDERED: EPINEPHrine (PF) 0.5 ML in BALANCED SALT IRRIG SOLN COMB2 500 ML IRRIGATION ONE (09:03)
--- NOTE | 2018-08-22 09:18 | P.OP ---
Date of Procedure: 08/22/18 Procedure(s) Performed: PREOPERATIVE DIAGNOSIS: Cataract, right eye. POSTOPERATIVE DIAGNOSIS: Cataract, right eye. OPERATION: Phacoemulsification of cataract, intraocular lens placement, right eye. DESCRIPTION OF PROCEDURE: The patient was taken to the operating room. Intravenous Propofol was given so as to bring about sedation. The following mixture was given for local anesthesia: 5 mL of 2% lidocaine, 5 mL of 0.75% Marcaine, and 1 mL of Wydase. Approximately 4 mL was injected in the retrobu lbar space of the surgical eye. Additional 1 mL was then directed to the temporal area of the surgical eye. This was performed to allow adequate neurological block of the facial muscles. The patient was revived. The patient was prepped and draped in the usual sterile manner for the operative eye. A lid speculum was put into position. The conjunctiva was resected back from the limbus in the 12 o'clock position. Bleeding was controlled with electrocautery. A #69 blade was then used and a half-thickness scleral incision approximately 1-mm posterior to the limbus was made on bare sclera. This was shelved in the clear cornea using a crescent knife. Next a 15-degree blade was used to make a stab incision at the 3 o'clock position at the corneolimbal interface. A keratome blade was then used and the superior wound was extended into the anterior chamber. Viscoelastic was injected into the anterior chamber to maintain its form. A cystotome was used and a continuous anterior capsu lotomy was made. Hydrodissection of the lens cortex using a blunt cannula and BSS was performed. A phaco probe was then introduced and a groove extending from 12 to 6 o'clock in the lens was created. A Ashwin wand was used through the stab incision and used to perform a divide and conquer dismantling of the cataract. An irrigation aspiration probe was utilized and any residual cortex was removed from the eye. Again, viscoelastic was injected into the anterior chamber. An Rodrigo posterior chamber lens implant was placed in a delivery cartridge and injected into the anterior chamber. A Sinskey hook was utilized to spin the lens into position within the capsular bag. The irrigation and aspiration probe was again introduced and any residual viscoelastic was removed from the eye. BSS was injected via blunt canula into the limbal stab incision and the anterior chamber was re-inflated. The conjunctiva was reapproximated using electrocautery. One drop of 0.25% Timoptic was placed over the corneal along with an antibiotic ophthalmic ointment. Two sterile patches and a Mejia eye shield were taped into position. The patient was transported to the recovery room in stable condition. Pathology: none sent Condition: stable Disposition: same day
[2018-08-22 09:35] VITALS: PULSE 90
[2018-08-22 09:49] VITALS: BP 152/84
== END 2018-08-22 09:55 | disposition home or self-care (01) ==
LOC: OR 07:27
PROVIDERS: ATTEND Ophthalmology
DX: H25.13 Age-related nuclear cataract, bilateral (principal); J44.9 Chronic obstructive pulmonary disease, unspecified; F41.9 Anxiety disorder, unspecified; N40.0 Benign prostatic hyperplasia without lower urinary tract symptoms; Z83.3 Family history of diabetes mellitus; I25.10 Atherosclerotic heart disease of native coronary artery without angina pectoris; I11.0 Hypertensive heart disease with heart failure; I50.9 Heart failure, unspecified; F17.200 Nicotine dependence, unspecified, uncomplicated; Z95.5 Presence of coronary angioplasty implant and graft; Z95.810 Presence of automatic (implantable) cardiac defibrillator; I25.2 Old myocardial infarction; Z79.82 Long term (current) use of aspirin; Z79.899 Other long term (current) drug therapy
CPT/HCPCS: 66984; V2632; J3470; J2001 ×2; J0171; J2704

== ENCOUNTER 2018-10-17 17:05 | Emergency (ER) | payer MEDICARE, OTHER ==
[2018-10-17 17:08] VITALS: RESP 16
[2018-10-17 18:38] LABS: Basophils % (A) 1 %; Eosinophils # (A) 0.4 k/uL (0-0.7); Eosinophils % (A) 5 %; HCT 45.2 % (39.0-53.0); Lymphocytes # (A) 2.3 k/uL (1.0-4.8); Lymphocytes % (A) 29 %; MCH 35.3 pg (25.0-35.0); MCHC 33.1 g/dL (31.0-37.0); MCV 106.8 fL (80.0-100.0); Macrocytosis Moderate; Mean Platelet Volume 8.1; Monocytes # (A) 0.4 k/uL (0-1.0); Monocytes % (A) 5 %; Neutrophils # (A) 4.6 k/uL (1.3-7.7); Neutrophils % (A) 57 %; Platelet Count 177 k/uL (150-450); RBC 4.23 m/uL (4.30-5.90); RDW 14.7 % (11.5-15.5); WBC 7.9 k/uL (3.8-10.6)
[2018-10-17 18:46] LABS: ALT 18 U/L (21-72); AST 49 U/L (17-59); African American GFR (CKD) >90 (>60 ml/min/1.73 sqM); Albumin 4.2 g/dL (3.5-5.0); Alkaline Phosphatase 69 U/L (38-126); Anion Gap 12 mmol/L; Blood Urea Nitrogen 19 mg/dL (9-20); Calcium 9.6 mg/dL (8.4-10.2); Carbon Dioxide 26 mmol/L (22-30); Chloride 99 mmol/L (98-107); Glucose 77 mg/dL (74-99); Magnesium 1.8 mg/dL (1.6-2.3); Partial Thromboplastin Time 24.8 sec (22.0-30.0); Phosphorus 3.1 mg/dL (2.5-4.5); Potassium 4.4 mmol/L (3.5-5.1); Prothrombin Time 10.5 sec (9.0-12.0); Sodium 137 mmol/L (137-145); Total Bilirubin 0.9 mg/dL (0.2-1.3); Total Protein 6.9 g/dL (6.3-8.2)
[2018-10-17 18:51] LABS: Valproic Acid (Depakene) 84.5 ug/mL
--- NOTE | 2018-10-17 19:30 | ED ---
General Adult HPI - General Chief complaint: Neuro Symptoms/Deficit Stated complaint: Feet numbness Time Seen by Provider: 10/17/18 17:33 Source: patient, EMS Mode of arrival: EMS Limitations: no limitations - History of Present Illness Initial comments: This 63-year-old white male presents complaining of bilateral foot and ankle numbness which is been going on for the past couple of weeks. He states that his legs feel weak at times as well. He denies any actual injuries. There's been no fevers or chills. He does not believe that he is diabetic. He denies any previous similar incidents. There is no chest pain or shortness of breath. No other complaints or modifying factors. - Related Data Home Medications Medication Instructions Recorded Confirmed Atorvastatin [Lipitor] 40 mg PO HS 01/21/15 10/17/18 Cholecalciferol (Vitamin D3) 2,000 unit PO DAILY 03/16/18 10/17/18 [Vitamin D3] Cetirizine HCl [Zyrtec] 10 mg PO DAILY 08/18/18 10/17/18 Fluticasone/Vilanterol [Breo 1 puff INHALATION RT-BID 08/18/18 10/17/18 Ellipta 200-25 Mcg INH] Ipratropium-Albuterol Nebulize 3 ml INHALATION RT-BID 08/18/18 10/17/18 [Duoneb 0.5 mg-3 mg/3 ml Soln] Tamsulosin [Flomax] 0.4 mg PO DAILY 08/18/18 10/17/18 Chlorhexidine Gluconate [Peridex] 15 ml PO BID 10/17/18 10/17/18 Desvenlafaxine [Pristiq ER] 100 mg PO DAILY 10/17/18 10/17/18 Digoxin [Lanoxin] 125 mcg PO DAILY 10/17/18 10/17/18 Divalproex Sodium [Depakote ER] 500 mg PO BID 10/17/18 10/17/18 Lisinopril [Prinivil] 5 mg PO DAILY 10/17/18 10/17/18 Multivitamins, Thera [Multivitamin 1 tab PO DAILY 10/17/18 10/17/18 (formulary)] Previous Rx's Medication Instructions Recorded Aspirin 81 mg PO DAILY chew 03/22/18 Furosemide [Lasix] 20 mg PO DAILY #30 tab 03/24/18 Metoprolol Tartrate [Lopressor] 25 mg PO BID #30 tablet 03/24/18 Allergies Allergy/AdvReac Type Severity Reaction Status Date / Time No Known Allergies Allergy Verified 10/17/18 17:37 Review of Systems ROS Statement: Those systems with pertinent positive or pertinent negative responses have been documented in the HPI. ROS Other: All systems not noted in ROS Statement are negative. Past Medical History Past Medical History: Coronary Artery Disease (CAD), Heart Failure, COPD, Eye Disorder, Hyperlipidemia, Hypertension, Myocardial Infarction ([place]), Osteoarthritis (OA) Additional Past Medical History / Comment(s): Cardiomyopathy, bilateral ear tinnitis/, bilateral cataracts, sinus problems, lower leg numbness Last Myocardial Infarction Date:: 05/18/2000 History of Any Multi-Drug Resistant Organisms: None Reported Past Surgical History: AICD, Heart Catheterization, Heart Catheterization With Stent Additional Past Surgical History / Comment(s): AICD, DFTs, PCI with stenting, Rt shoulder surgery and eventually had a reverse total shoulder-has metal in this arm, R leg surgery x 3 with marco, L wrist surgery, colonoscopy Past Anesthesia/Blood Transfusion Reactions: No Reported Reaction Date of Last Stent Placement:: 2000 Type of Cardiac Device: AICD Device Placement Date:: 2005 Past Psychological History: Anxiety, Depression Smoking Status: Light tobacco smoker - Past Family History Mother Family Medical History: Cancer, Dementia Additional Family Medical History / Comment(s): She has bowel cancer. Father Family Medical History: Cancer General Exam - General Exam Comments Initial Comments: GENERAL: The patient is well nourished and well hydrated. VITAL SIGNS: Heart rate, blood pressure, respiratory rate reviewed as recorded in nurse's notes. EYES: Pupils are round and reactive. Extraocular movements are intact. No conjunctival / lid redness or swelling. ENT: No external evidence of injury, swelling, or ecchymosis. Airway is patent. Throat is clear. NECK: Nontender. No swelling or evidence of injury. No subcutaneous emphysema. Trachea is midline. No thyroid mass. HEART: Regular rate and rhythm. Good peripheral pulses. LUNGS/CHEST: Breath sounds clear and equal bilaterally. No rales, rhonchi, or wheezes. No ecchymosis, subcutaneous emphysema, or tenderness. ABDOMEN: Abdomen soft without tenderness. No palpable masses or organomegaly. No peritoneal signs. No abdominal wall swelling or ecchymosis. EXTREMITIES: No extremity tenderness. Normal muscle tone and function. No thorac olumbar tenderness. NEUROLOGIC: The patient has subjective numbness to his bilateral feet and distal ankle regions. Cranial nerve exam reveals face is symmetrical, tongue is midline, speech is clear. SKIN: No abrasions or ecchymosis is noted. No induration or masses noted. PSYCHIATRIC: Alert and oriented. Appropriate behavior and judgment. Limitations: no limitations Course Vital Signs 10/17/18 10/17/18 17:06 17:10 Temperature 98.6 F 98.6 F Pulse Rate 80 77 Respiratory 16 16 Rate Blood Pressure 115/74 115/74 O2 Sat by Pulse 100 99 Oximetry Medical Decision Making - Medical Decision Making The patient was seen and examined. All diagnostics are reviewed and the labs are unremarkable. The EKG shows atrial fibrillation at a rate of 59. There is no acute ST T-wave changes identified. The QRS duration is 102 and the QTC intervals 429. It is felt as though this is chronic in nature as his last 3 EKGs also show atrial fibrillation or atrial flutter. He does have a long- standing cardiac history. The exact cause of his numbness in lower extremity weakness are not definitively determined. It is felt as though he stable for discharge. He is following up with his doctor tomorrow. He is instructed to stop drinking altogether this potentially concussions deficiencies. He is instructed to follow-up with his doctor tomorrow as scheduled and he may need some additional vitamin B or other supplements. - Lab Data Result diagrams: 10/17/18 18:20 10/17/18 18:20 Lab Results 10/17/18 10/17/18 10/17/18 Range/Units 18:20 18:20 18:20 WBC 7.9 (3.8-10.6) k/uL RBC 4.23 L (4.30-5.90) m/uL Hgb 15.0 (13.0-17.5) gm/dL Hct 45.2 (39.0-53.0) % MCV 106.8 H (80.0-100.0) fL MCH 35.3 H (25.0-35.0) pg MCHC 33.1 (31.0-37.0) g/dL RDW 14.7 (11.5-15.5) % Plt Count 177 (150-450) k/uL Neutrophils % 57 % Lymphocytes % 29 % Monocytes % 5 % Eosinophils % 5 % Basophils % 1 % Neutrophils # 4.6 (1.3-7.7) k/uL Lymphocytes # 2.3 (1.0-4.8) k/uL Monocytes # 0.4 (0-1.0) k/uL Eosinophils # 0.4 (0-0.7) k/uL Basophils # 0.0 (0-0.2) k/uL Macrocytosis Moderate PT 10.5 (9.0-12.0) sec INR 1.0 (<1.2) APTT 24.8 (22.0-30.0) sec Sodium 137 (137-145) mmol/L Potassium 4.4 (3.5-5.1) mmol/L Chloride 99 (98-107) mmol/L Carbon Dioxide 26 (22-30) mmol/L Anion Gap 12 mmol/L BUN 19 (9-20) mg/dL Creatinine 0.91 (0.66-1.25) mg/dL Est GFR (CKD-EPI)AfAm >90 (>60 ml/min/1.73 sqM) Est GFR (CKD-EPI)NonAf 89 (>60 ml/min/1.73 sqM) Glucose 77 (74-99) mg/dL Calcium 9.6 (8.4-10.2) mg/dL Phosphorus 3.1 (2.5-4.5) mg/dL Magnesium 1.8 (1.6-2.3) mg/dL Total Bilirubin 0.9 (0.2-1.3) mg/dL AST 49 (17-59) U/L ALT 18 L (21-72) U/L Alkaline Phosphatase 69 (38-126) U/L Total Protein 6.9 (6.3-8.2) g/dL Albumin 4.2 (3.5-5.0) g/dL TSH 1.870 (0.465-4.680) mIU/L Valproic Acid 84.5 ug/mL Disposition Clinical Impression: Numbness in feet, Lower extremity weakness Disposition: HOME SELF-CARE Condition: Good Instructions (If sedation given, give patient instructions): Peripheral Neuropathy (ED) Is patient prescribed a controlled substance at d/c from ED?: No Referrals: Bill Mari DO [Primary Care Provider] - 1-2 days Time of Disposition: 19:29
[2018-10-17 20:12] VITALS: BP 118/78; PULSE 71; TEMP 98.2
== END 2018-10-17 20:11 | disposition home or self-care (01) ==
LOC: EC 17:05
DX: R20.0 Anesthesia of skin (principal); R29.898 Other symptoms and signs involving the musculoskeletal system; I48.91 Unspecified atrial fibrillation; I25.2 Old myocardial infarction; I25.10 Atherosclerotic heart disease of native coronary artery without angina pectoris; J44.9 Chronic obstructive pulmonary disease, unspecified; I11.0 Hypertensive heart disease with heart failure; I50.9 Heart failure, unspecified; F41.9 Anxiety disorder, unspecified; F32.9 Major depressive disorder, single episode, unspecified; E78.5 Hyperlipidemia, unspecified; F17.200 Nicotine dependence, unspecified, uncomplicated; Z79.51 Long term (current) use of inhaled steroids; Z79.899 Other long term (current) drug therapy; Z95.810 Presence of automatic (implantable) cardiac defibrillator; Z95.5 Presence of coronary angioplasty implant and graft
CPT/HCPCS: 36415; 80053; 80164; 83735; 84100; 84443; 85025; 85610; 85730; 93005; 99284

== ENCOUNTER 2018-11-22 20:26 | Emergency (ER) | payer MEDICARE, OTHER ==
[2018-11-22 20:51] VITALS: BP 111/65; TEMP 98.3
[2018-11-22 21:15] LABS: Basophils % (A) 0 %; Eosinophils # (A) 0.2 k/uL (0-0.7); Eosinophils % (A) 4 %; HCT 43.8 % (39.0-53.0); HGB 14.8 gm/dL (13.0-17.5); Lymphocytes % (A) 17 %; MCH 36.9 pg (25.0-35.0); MCHC 33.9 g/dL (31.0-37.0); Macrocytosis Marked; Mean Platelet Volume 7.7; Monocytes # (A) 0.3 k/uL (0-1.0); Monocytes % (A) 5 %; Neutrophils # (A) 4.1 k/uL (1.3-7.7); Neutrophils % (A) 72 %; Platelet Count 133 k/uL (150-450); RBC 4.02 m/uL (4.30-5.90); RDW 13.8 % (11.5-15.5); WBC 5.6 k/uL (3.8-10.6)
[2018-11-22 21:19] LABS: Albumin 4.2 g/dL (3.5-5.0); Calcium 9.2 mg/dL (8.4-10.2); Magnesium 1.7 mg/dL (1.6-2.3); Potassium 5.4 mmol/L (3.5-5.1); Total Protein 7.3 g/dL (6.3-8.2)
--- NOTE | 2018-11-22 21:25 | XR ---
EXAM: XR Chest, 2 Views CLINICAL HISTORY: syncope TECHNIQUE: Frontal and lateral views of the chest. COMPARISON: 03/16/2018 FINDINGS: Lungs: Unremarkable. No consolidation. Pleural space: Unremarkable. No pneumothorax. Heart: Stable cardiomediastinal silhouette. Mediastinum: See above. Bones/joints: No acute osseous abnormality. Right shoulder arthroplasty. Tubes, lines and devices: Stable left chest wall AICD. Telemetry leads overlie the patient. IMPRESSION: No acute cardiopulmonary process.
[2018-11-22 21:32] LABS: INR 1.1 (<1.2); Prothrombin Time 11.4 sec (9.0-12.0)
[2018-11-22 21:34] LABS: D-Dimer 2.41 mg/L FEU (<0.60); Partial Thromboplastin Time 22.5 sec (22.0-30.0)
--- NOTE | 2018-11-22 21:35 | ED ---
Syncope HPI - General Chief Complaint: Syncope Stated Complaint: Syncope Time Seen by Provider: 11/22/18 20:57 Source: patient, EMS Mode of arrival: EMS Limitations: no limitations - History of Present Illness Initial Comments: Yash is a 63-year-old male with a history of alcohol abuse, significant cardiac history and history of multiple syncopal episodes in the past presents the ED today via EMS after an apparent syncopal episode at the grocery store. Patient reports that he hasn't been eating or drinking well for approximately 2 days, he states that he did drink some water today. He states that this evening he was at the grocery store he was standing in line when he must have passed out. Patient denies any injury. He reports this is happened in the past when he doesn't eat or drink well and he's been told that because his sugar gets low. Patient denies any chest pain palpitations or lightheadedness preceding the event. He reports that he is feeling better now. - Related Data Home Medications Medication Instructions Recorded Confirmed Atorvastatin [Lipitor] 40 mg PO HS 01/21/15 11/22/18 Cholecalciferol (Vitamin D3) 2,000 unit PO DAILY 03/16/18 11/22/18 [Vitamin D3] Cetirizine HCl [Zyrtec] 10 mg PO DAILY 08/18/18 11/22/18 Fluticasone/Vilanterol [Breo 1 puff INHALATION RT-BID 08/18/18 11/22/18 Ellipta 200-25 Mcg INH] Ipratropium-Albuterol Nebulize 3 ml INHALATION RT-BID 08/18/18 11/22/18 [Duoneb 0.5 mg-3 mg/3 ml Soln] Tamsulosin [Flomax] 0.4 mg PO DAILY 08/18/18 11/22/18 Chlorhexidine Gluconate [Peridex] 15 ml PO BID 10/17/18 11/22/18 Desvenlafaxine [Pristiq ER] 100 mg PO DAILY 10/17/18 11/22/18 Digoxin [Lanoxin] 125 mcg PO DAILY 10/17/18 11/22/18 Divalproex Sodium [Depakote ER] 500 mg PO BID 10/17/18 11/22/18 Lisinopril [Prinivil] 5 mg PO DAILY 10/17/18 11/22/18 Multivitamins, Thera [Multivitamin 1 tab PO DAILY 10/17/18 11/22/18 (formulary)] Previous Rx's Medication Instructions Recorded Aspirin 81 mg PO DAILY chew 03/22/18 Furosemide [Lasix] 20 mg PO DAILY #30 tab 03/24/18 Metoprolol Tartrate [Lopressor] 25 mg PO BID #30 tablet 03/24/18 Allergies Allergy/AdvReac Type Severity Reaction Status Date / Time No Known Allergies Allergy Verified 11/22/18 20:42 Review of Systems ROS Statement: Those systems with pertinent positive or pertinent negative responses have been documented in the HPI. ROS Other: All systems not noted in ROS Statement are negative. Past Medical History Past Medical History: Coronary Artery Disease (CAD), Heart Failure, COPD, Eye Disorder, Hyperlipidemia, Hypertension, Myocardial Infarction ([place]), Osteoarthritis (OA) Additional Past Medical History / Comment(s): Cardiomyopathy, bilateral ear tinnitis/, bilateral cataracts, sinus problems, lower leg numbness Last Myocardial Infarction Date:: 05/18/2000 History of Any Multi-Drug Resistant Organisms: None Reported Past Surgical History: AICD, Heart Catheterization, Heart Catheterization With Stent Additional Past Surgical History / Comment(s): AICD, DFTs, PCI with stenting, Rt shoulder surgery and eventually had a reverse total shoulder-has metal in this arm, R leg surgery x 3 with marco, L wrist surgery, colonoscopy Past Anesthesia/Blood Transfusion Reactions: No Reported Reaction Date of Last Stent Placement:: 2000 Type of Cardiac Device: AICD Device Placement Date:: 2005 Past Psychological History: Anxiety, Depression Smoking Status: Light tobacco smoker - Past Family History Mother Family Medical History: Cancer, Dementia Additional Family Medical History / Comment(s): She has bowel cancer. Father Family Medical History: Cancer General Exam - General Exam Comments Initial Comments: Physical Exam GENERAL: Patient is well-developed and well-nourished. Patient is nontoxic and well-hydr ated and is in no distress. Appears older than stated age HENT: Normocephalic, Atraumatic. Poor dentition EYES: PERRL, EOMI PULMONARY: Unlabored respirations. No audible rales rhonchi or wheezing was noted. CARDIOVASCULAR: There is a regular rate and rhythm without any murmurs gallops or rubs. ABDOMEN: Soft and nontender with normal bowel sounds. SKIN: Skin is clear with no lesions or rashes and otherwise unremarkable. : Deferred NEUROLOGIC: Patient is alert and oriented x3. Moving all extremities spontaneously MUSCULOSKELETAL: Normal extremities with adequate strength and full range of motion. No lower extremity swelling or edema. No calf tenderness. PSYCHIATRIC: Normal psychiatric evaluation. Limitations: no limitations Course Vital Signs 11/22/18 20:32 Temperature 98.3 F Pulse Rate 100 Respiratory 18 Rate Blood Pressure 111/65 O2 Sat by Pulse 98 Oximetry EKG Findings - EKG Comments: EKG Findings:: EKG was obtained due to playing of syncope, EKG was obtained at 2040, rate is 96 rhythm is sinus with first-degree AV block, NC is prolonged at 212, QRS is 112, QTC is 480 there is no acute ST elevations or depressions there is no evidence of acute ischemia or infarction. Medical Decision Making - Medical Decision Making The patient was seen and evaluated history is obtained from the patient is a pleasant 63-year-old gentleman presented for evaluation of unprovoked syncopal episode. Patient reports this is happening multiple times in the past especially when he is not eating or drinking well. Patient reports that he hasn't been eating or drinking for 2 days. Patient does admit to being a previous heart but reports he hasn't had any alcohol in about a month. Labs and imaging were ordered, labs resulted with an elevated d-dimer and thus a computed tomography scan was ordered which resulted with no evidence of pulmonary embolism. No evidence of a cardiac arrhythmia such as Brugada, WPW, HOCM, Long or short QT. Neurologic exam is nonfocal, not consistent with CVA or primary neurologic abnormality. Patient was given a meal, lab evaluations were discussed with the patient including elevated transaminases and macrocytosis as well as elevated d-dimer level. This time patient reports he is feeling well and would like to be discharged home. All questions pertaining care were answered the best my ability return parameters were discussed, option for observation for further evaluation by cardiology was offered patient's comfortable with plan for discharge home at this time. - Lab Data Result diagrams: 11/22/18 20:59 11/22/18 20:59 Lab Results 11/22/18 11/22/18 11/22/18 Range/Units 20:59 20:59 20:59 WBC 5.6 (3.8-10.6) k/uL RBC 4.02 L (4.30-5.90) m/uL Hgb 14.8 (13.0-17.5) gm/dL Hct 43.8 (39.0-53.0) % MCV 109.0 H (80.0-100.0) fL MCH 36.9 H (25.0-35.0) pg MCHC 33.9 (31.0-37.0) g/dL RDW 13.8 (11.5-15.5) % Plt Count 133 L (150-450) k/uL Neutrophils % 72 % Lymphocytes % 17 % Monocytes % 5 % Eosinophils % 4 % Basophils % 0 % Neutrophils # 4.1 (1.3-7.7) k/uL Lymphocytes # 1.0 (1.0-4.8) k/uL Monocytes # 0.3 (0-1.0) k/uL Eosinophils # 0.2 (0-0.7) k/uL Basophils # 0.0 (0-0.2) k/uL Manual Slide Review Performed Macrocytosis Marked A PT 11.4 (9.0-12.0) sec INR 1.1 (<1.2) APTT 22.5 (22.0-30.0) sec D-Dimer 2.41 H (<0.60) mg/L FEU Sodium 136 L (137-145) mmol/L Potassium 5.4 H (3.5-5.1) mmol/L Chloride 104 (98-107) mmol/L Carbon Dioxide 22 (22-30) mmol/L Anion Gap 10 mmol/L BUN 16 (9-20) mg/dL Creatinine 1.08 (0.66-1.25) mg/dL Est GFR (CKD-EPI)AfAm 83 (>60 ml/min/1.73 sqM) Est GFR (CKD-EPI)NonAf 72 (>60 ml/min/1.73 sqM) Glucose 109 H (74-99) mg/dL Calcium 9.2 (8.4-10.2) mg/dL Magnesium 1.7 (1.6-2.3) mg/dL Total Bilirubin 2.0 H (0.2-1.3) mg/dL AST 64 H (17-59) U/L ALT 11 L (21-72) U/L Alkaline Phosphatase 77 (38-126) U/L Troponin I (0.000-0.034) ng/mL Total Protein 7.3 (6.3-8.2) g/dL Albumin 4.2 (3.5-5.0) g/dL 11/22/18 Range/Units 20:59 WBC (3.8-10.6) k/uL RBC (4.30-5.90) m/uL Hgb (13.0-17.5) gm/dL Hct (39.0-53.0) % MCV (80.0-100.0) fL MCH (25.0-35.0) pg MCHC (31.0-37.0) g/dL RDW (11.5-15.5) % Plt Count (150-450) k/uL Neutrophils % % Lymphocytes % % Monocytes % % Eosinophils % % Basophils % % Neutrophils # (1.3-7.7) k/uL Lymphocytes # (1.0-4.8) k/uL Monocytes # (0-1.0) k/uL Eosinophils # (0-0.7) k/uL Basophils # (0-0.2) k/uL Manual Slide Review Macrocytosis PT (9.0-12.0) sec INR (<1.2) APTT (22.0-30.0) sec D-Dimer (<0.60) mg/L FEU Sodium (137-145) mmol/L Potassium (3.5-5.1) mmol/L Chloride (98-107) mmol/L Carbon Dioxide (22-30) mmol/L Anion Gap mmol/L BUN (9-20) mg/dL Creatinine (0.66-1.25) mg/dL Est GFR (CKD-EPI)AfAm (>60 ml/min/1.73 sqM) Est GFR (CKD-EPI)NonAf (>60 ml/min/1.73 sqM) Glucose (74-99) mg/dL Calcium (8.4-10.2) mg/dL Magnesium (1.6-2.3) mg/dL Total Bilirubin (0.2-1.3) mg/dL AST (17-59) U/L ALT (21-72) U/L Alkaline Phosphatase (38-126) U/L Troponin I 0.015 (0.000-0.034) ng/mL Total Protein (6.3-8.2) g/dL Albumin (3.5-5.0) g/dL Disposition Clinical Impression: Fainting spell Disposition: HOME SELF-CARE Condition: Stable Instructions (If sedation given, give patient instructions): Syncope (DC) Additional Instructions: HOME CARE INSTRUCTIONS: Have someone stay with you until you feel stable. Do not drive, operate machinery, or play sports until your caregiver says it is okay. Keep all follow-up appointments as directed by your caregiver. Lie down right away if you start feeling like you might faint. Breathe deeply and steadily. Wait until all the symptoms have passed.Drink enough fluids to keep your urine clear or pale yellow. If you are taking blood pressure or heart medicine, get up slowly, taking several minutes to sit and then stand. This can reduce dizziness. SEEK IMMEDIATE MEDICAL CARE IF: You have a severe headache. You have unusual pain in the chest, abdomen, or back. You are bleeding from the mouth or rectum, or you have a black or tarry stool. You have an irregular or very fast heartbeat. You have pain with breathing. You have repeated fainting or seizure- like jerking during an episode. You faint when sitting or lying down. You have confusion. You have difficulty walking. You have severe weakness. You have vision problems. If you fainted, call your local emergency services - do not drive yourself to the hospital. Is patient prescribed a controlled substance at d/c from ED?: No Referrals: Bill Mari DO [Primary Care Provider] - 1-2 days
--- NOTE | 2018-11-22 23:08 | CT ---
EXAM: CT Angiography Chest With Intravenous Contrast CLINICAL HISTORY: Pain TECHNIQUE: Axial computed tomographic angiography images of the chest with intravenous contrast using pulmonary embolism protocol. CTDI is 0.085, 0. 085, 1.5, 1.5 x 5, 9.3 mGy and DLP is 363.2 mGy-cm. This CT exam was performed using one or more of the following dose reduction techniques: automated exposure control, adjustment of the mA and/or kV according to patient size, and/or use of iterative reconstruction technique. MIP reconstructed images were created and reviewed. COMPARISON: No relevant prior studies available. FINDINGS: Artifacts: Motion. Pulmonary arteries: No central pulmonary embolus. Aorta: Aortic atherosclerosis. No thoracic aortic aneurysm or dissection. Lungs: Mild bilateral peribronchial thickening and emphysematous changes. No mass. Pleural space: Unremarkable. No significant effusion. No pneumothorax. Heart: Calcification of the coronary arteries. Bones/joints: Right shoulder arthroplasty. No acute osseous abnormality. Soft tissues: Unremarkable. Lymph nodes: Unremarkable. No enlarged lymph nodes. Tubes, lines and devices: Left chest wall cardiac pacemaker. IMPRESSION: No central pulmonary embolus.
[2018-11-23 02:07] VITALS: PULSE 85; RESP 16
== END 2018-11-23 02:10 | disposition home or self-care (01) ==
LOC: EC 20:26
DX: R55 Syncope and collapse (principal); R74.0 Nonspecific elevation of levels of transaminase and lactic acid dehydrogenase [LDH]; D75.89 Other specified diseases of blood and blood-forming organs; R79.1 Abnormal coagulation profile; I25.10 Atherosclerotic heart disease of native coronary artery without angina pectoris; I11.0 Hypertensive heart disease with heart failure; I42.9 Cardiomyopathy, unspecified; I50.9 Heart failure, unspecified; I25.2 Old myocardial infarction; E78.5 Hyperlipidemia, unspecified; F32.9 Major depressive disorder, single episode, unspecified; J44.9 Chronic obstructive pulmonary disease, unspecified; F17.210 Nicotine dependence, cigarettes, uncomplicated; Z79.51 Long term (current) use of inhaled steroids; Z79.899 Other long term (current) drug therapy; Z95.810 Presence of automatic (implantable) cardiac defibrillator
CPT/HCPCS: 36415; 93005; 85379; 80053; 83735; 84484; 85025; 85610; 85730; 71046; 71275; 99285; Q9967

== ENCOUNTER 2019-03-31 18:24 | Inpatient (IN) | payer MEDICARE, OTHER ==
[2019-03-31] MEDS ORDERED: DILTIAZEM DRIP BOLUS FROM BAG 1 MG SOLN IV ONE (18:35)
[2019-03-31] MEDS ORDERED: MAGNESIUM SULFATE-D5W PMX 1 GM in DEXTROSE/WATER 1 100ML.BAG IVPB STA (18:39)
[2019-03-31] MEDS ORDERED: SODIUM CHLORIDE 0.9% 1,000 ML IV STA (18:39)
[2019-03-31] MEDS ORDERED: DILTIAZEM 125 MG in SODIUM CHLORIDE 0.9% 100 ML IV SCH (18:45)
[2019-03-31 19:17] LABS: Partial Thromboplastin Time 24.3 sec (22.0-30.0); Prothrombin Time 10.6 sec (9.0-12.0)
[2019-03-31 19:22] LABS: ALT 14 U/L (4-49); AST 39 U/L (17-59); African American GFR (CKD) 79 (>60 ml/min/1.73 sqM); Albumin 4.3 g/dL (3.5-5.0); Alcohol <10 mg/dL; Alkaline Phosphatase 111 U/L (38-126); Anion Gap 11 mmol/L; Blood Urea Nitrogen 11 mg/dL (9-20); Calcium 9.6 mg/dL (8.4-10.2); Carbon Dioxide 22 mmol/L (22-30); Chloride 101 mmol/L (98-107); Creatine Kinase 146 U/L (55-170); Glucose 104 mg/dL (74-99); Magnesium 1.8 mg/dL (1.6-2.3); Non-African American GFR(CKD) 69 (>60 ml/min/1.73 sqM); Potassium 4.2 mmol/L (3.5-5.1); Sodium 134 mmol/L (137-145); Total Bilirubin 1.2 mg/dL (0.2-1.3); Total Protein 7.7 g/dL (6.3-8.2)
[2019-03-31 19:24] LABS: Basophils % (A) 0 %; Eosinophils # (A) 0.2 k/uL (0-0.7); Eosinophils % (A) 2 %; HCT 46.4 % (39.0-53.0); HGB 15.9 gm/dL (13.0-17.5); Lymphocytes # (A) 3.1 k/uL (1.0-4.8); Lymphocytes % (A) 28 %; MCH 37.5 pg (25.0-35.0); MCHC 34.2 g/dL (31.0-37.0); MCV 109.6 fL (80.0-100.0); Macrocytosis Marked; Mean Platelet Volume 8.9; Monocytes # (A) 0.7 k/uL (0-1.0); Monocytes % (A) 6 %; Neutrophils # (A) 6.8 k/uL (1.3-7.7); Neutrophils % (A) 61 %; Platelet Count 213 k/uL (150-450); RBC 4.23 m/uL (4.30-5.90); RDW 13.3 % (11.5-15.5); WBC 11.1 k/uL (3.8-10.6)
[2019-03-31 19:27] LABS: Valproic Acid (Depakene) 16.4 ug/mL
--- NOTE | 2019-03-31 19:47 | XR ---
EXAMINATION TYPE: XR chest 2V DATE OF EXAM: 03/31/2019 COMPARISON: 11/22/2018 HISTORY: Syncope There is no heart failure nor confluent pneumonic infiltrate. There is right shoulder prosthesis. The re is left axillary pacemaker. There is no pleural effusion. Thoracic aorta is atheromatous. Bony tho rax is intact. IMPRESSION: No active cardiopulmonary disease. No change.
[2019-03-31 20:11] LABS: Appearance,Urine Clear (Clear); Bilirubin,Urine Negative (Negative); Blood,Urine Negative (Negative); Color,Urine Yellow; Glucose,Urine (UA) Negative (Negative); Ketones,Urine Negative (Negative); Leukocyte Esterase,Urine Negative (Negative); Nitrite,Urine Negative (Negative); Protein,Urine Negative (Negative); Specific Gravity,Urine 1.006 (1.001-1.035); Urobilinogen,Urine <2.0 mg/dL (<2.0)
[2019-03-31 20:22] LABS: Amphetamine Screen,Urine Not Detected (NotDetected); Benzodiazepines Screen,Urine Not Detected (NotDetected); Cocaine Screen,Urine Not Detected (NotDetected); Opiate Screen,Urine Not Detected (NotDetected); Phencyclidine Screen,Urine Not Detected (NotDetected); Urn Cannabinoid Scrn Detected (NotDetected)
[2019-03-31 20:23] LABS: Barbiturate Screen,Urine Not Detected (NotDetected); Methadone Screen, Urine Not Detected (NotDetected); Oxycodone Screen, Urine Not Detected (NotDetected); Tricyclic Antidepressant,Urine Detected (NotDetected)
[2019-03-31] MEDS ORDERED: HEPARIN SODIUM,PORCINE 5,000 UNIT/ML 1 ML VIAL IV PRN (20:37)
[2019-03-31] MEDS ORDERED: HEPARIN SODIUM,PORCINE 5,000 UNIT/ML 1 ML VIAL IV ONE (20:37)
[2019-03-31] MEDS ORDERED: NALOXONE 0.4 MG/ML 1 ML VIAL IV PRN (20:37)
--- NOTE | 2019-03-31 20:37 | ED ---
Arrhythmia/Palpitations HPI - General Chief Complaint: Arrhythmia/Palpitations Stated Complaint: pacemaker firing Time Seen by Provider: 03/31/19 18:25 Source: RN/ Mode of arrival: EMS Limitations: no limitations - History of Present Illness Initial Comments: The patient is a 63-year-old male with past medical history of ischemic cardiomyopathy with AICD placement who presents emergency department after he had onset of palpitations and multiple AICD shocks. He states that around 4:30 he was at home when he had sudden onset of palpitations. His AICD started firing on him and therefore he called EMS. When EMS arrived they noted a heart rate 210. They thought the patient may have been in SVT and therefore provided him with 6 kg of adenosine. The patient did have slowing of his heart rate however did not convert. They followed this by 2 additional 12 mg doses. Patient reports to a history of A. fib. He is on metoprolol and states he has been taking his medications as directed. Denies any missed doses. He is not on any anticoagulation. He admits to associated shortness of breath. No recent illnesses. Admits to chest pressure. Denies any abdominal pain. No ripping or tearing sensation to his back. Denies any nausea or vomiting. Patient does report that he will occasionally drink. Last drink was approximately one week ago. Denies alcohol dependence. No recent fevers or chills. Patient does currently smoke. Denies any calf pain or swelling. No lower extremity edema. There are no alleviating, precipitating or modifying factors - Related Data Home Medications Medication Instructions Recorded Confirmed Atorvastatin [Lipitor] 40 mg PO HS 01/21/15 03/31/19 Cholecalciferol (Vitamin D3) 2,000 unit PO DAILY 03/16/18 03/31/19 [Vitamin D3] Fluticasone/Vilanterol [Breo 1 puff INHALATION RT-BID 08/18/18 03/31/19 Ellipta 200-25 Mcg INH] Ipratropium-Albuterol Nebulize 3 ml INHALATION RT-BID PRN 08/18/18 03/31/19 [Duoneb 0.5 mg-3 mg/3 ml Soln] Tamsulosin [Flomax] 0.4 mg PO HS 08/18/18 03/31/19 Divalproex Sodium [Depakote ER] 500 mg PO BID 10/17/18 03/31/19 Lisinopril [Prinivil] 5 mg PO DAILY 10/17/18 03/31/19 Multivitamins, Thera [Multivitamin 1 tab PO DAILY 10/17/18 03/31/19 (formulary)] Amitriptyline HCl 25 mg PO HS 03/31/19 03/31/19 Gabapentin [Neurontin] 600 mg PO HS 03/31/19 03/31/19 Previous Rx's Medication Instructions Recorded Furosemide [Lasix] 20 mg PO DAILY #30 tab 03/24/18 Metoprolol Tartrate [Lopressor] 25 mg PO BID #30 tablet 03/24/18 Allergies Allergy/AdvReac Type Severity Reaction Status Date / Time No Known Allergies Allergy Verified 03/31/19 21:56 Review of Systems ROS Statement: Those systems with pertinent positive or pertinent negative responses have been documented in the HPI. ROS Other: All systems not noted in ROS Statement are negative. Past Medical History Past Medical History: Coronary Artery Disease (CAD), Heart Failure, COPD, Eye Disorder, Hyperlipidemia, Hypertension, Myocardial Infarction (ND), Osteoarthritis (OA) Additional Past Medical History / Comment(s): Cardiomyopathy, bilateral ear tinnitis/, bilateral cataracts, sinus problems, lower leg numbness Last Myocardial Infarction Date:: 05/18/2000 History of Any Multi-Drug Resistant Organisms: None Reported Past Surgical History: AICD, Heart Catheterization, Heart Catheterization With Stent Additional Past Surgical History / Comment(s): AICD, DFTs, PCI with stenting, Rt shoulder surgery and eventually had a reverse total shoulder-has metal in this arm, R leg surgery x 3 with marco, L wrist surgery, colonoscopy Past Anesthesia/Blood Transfusion Reactions: No Reported Reaction Date of Last Stent Placement:: 2000 Type of Cardiac Device: AICD Device Placement Date:: 2005 Past Psychological History: Anxiety, Depression Smoking Status: Light tobacco smoker Past Alcohol Use History: Occasional Past Drug Use History: None Reported - Past Family History Mother Family Medical History: Cancer, Dementia Additional Family Medical History / Comment(s): She has bowel cancer. Father Family Medical History: Cancer General Exam Limitations: no limitations General appearance: alert, in distress Head exam: Present: atraumatic, normocephalic, normal inspection Eye exam: Present: normal appearance, PERRL, EOMI. Absent: scleral icterus, conjunctival injection, periorbital swelling ENT exam: Present: normal exam, mucous membranes moist Neck exam: Present: normal inspection. Absent: tenderness, meningismus, lymphadenopathy Respiratory exam: Present: normal lung sounds bilaterally. Absent: respiratory distress, wheezes, rales, rhonchi, stridor Cardiovascular Exam: Present: tachycardia, irregular rhythm, normal heart sounds. Absent: systolic murmur, diastolic murmur, rubs, gallop, clicks GI/Abdominal exam: Present: soft, normal bowel sounds. Absent: distended, tenderness, guarding, rebound, rigid Extremities exam: Present: normal inspection, full ROM, normal capillary refill. Absent: tenderness, pedal edema, joint swelling, calf tenderness Back exam: Present: normal inspection Neurological exam: Present: alert, oriented X3, CN II-XII intact Psychiatric exam: Present: normal affect, normal mood Skin exam: Present: warm, dry, intact, normal color. Absent: rash Course Vital Signs 03/31/19 03/31/19 03/31/19 18:28 18:36 18:56 Temperature 98.7 F Pulse Rate 142 H 96 Pulse Rate [ 158 H Piercing Artist ] Respiratory 18 18 Rate Blood Pressure 126/87 131/64 O2 Sat by Pulse 96 100 Oximetry 03/31/19 03/31/19 03/31/19 19:08 19:58 21:45 Temperature 98.1 F 98.2 F Pulse Rate 77 83 76 Pulse Rate [ Piercing Artist ] Respiratory 18 18 18 Rate Blood Pressure 127/68 134/82 119/73 O2 Sat by Pulse 100 98 95 Oximetry 04/01/19 04/01/19 04/01/19 00:01 00:40 01:56 Temperature 97.9 F Pulse Rate 62 59 L 57 L Pulse Rate [ Piercing Artist ] Respiratory 16 16 16 Rate Blood Pressure 98/65 98/67 110/66 O2 Sat by Pulse 99 98 99 Oximetry 04/01/19 04/01/19 04/01/19 04:05 05:30 06:48 Temperature 97.8 F Pulse Rate 56 L 65 61 Pulse Rate [ Piercing Artist ] Respiratory 18 16 Rate Blood Pressure 121/86 120/66 O2 Sat by Pulse 100 98 100 Oximetry 04/01/19 04/01/19 04/01/19 07:23 10:54 12:03 Temperature 97.8 F Pulse Rate 56 L 60 60 Pulse Rate [ Piercing Artist ] Respiratory 18 18 18 Rate Blood Pressure 101/66 114/62 105/78 O2 Sat by Pulse 100 100 100 Oximetry EKG Findings - EKG Comments: EKG Findings:: EKG done at 182 demonstrates atrial flutter with a variable AV block. Rate of 163. QRS 110. QTC of 510. No acute ST segment elevations or depressions. EKG done and its 1901 demonstrates a flutter with a variable block. Rate of 93. QRS 108. QTC of 465. No acute ST segment elevations or depressions. EKG done at 2031 demonstrates a sinus rhythm with first-degree AV block. PACs present. Rate of 83. HI interval 220. QRS was 6. QTC of 453. Q waves in the inferior leads. Mild ST depression 1 [address] aVL. No acute ST segment elevations. EKG done at 1:49 AM demonstrates a sinus bradycardic with a ventricular rate of 59. HI interval is 210. QRS 118. QTC of 455. Q waves persisting in leads 2, 3, aVF. No acute ST segment elevations Medical Decision Making - Medical Decision Making Upon arrival the patient is placed promptly in the trauma bay 2. He is hooked to continuous pulse ox and cardiac monitoring. Peripheral IV had been established by EMS. He was already given 3 doses of adenosine. We did complete a 12-lead EKG which demonstrates a flutter with a rapid ventricular response. The patient does receive 1 AICD shock while in the trauma bay. Because of the patient's A. fib with RVR I did place the patient on a Cardizem drip and gave him a 10 mg He is also heparinized. He has no contraindications. The patient does have near immediate improvement in his heart rate. I did recommend laboratory studies and a chest x-ray. The patient's [employer] devices interrogated. Laboratory studies demonstrate a normal CBC. Coags are normal. CMP shows a glucose of 104. Troponin is mildly elevated at 0.0 88. TSH is 5.1. Urinalysis is negative. Valproic acid is 16.4. UDS detects tricyclic antidepressants and marijuana. Chest x-ray demonstrates no active cardiopulmonary disease. I did reevaluate the patient appears resting comfortab ly in exam room. I did recommend hospital admission. The patient was admitted to Dr. Spann. I will place cardiology consult. The patient's devices interrogated. [employer] faxes not working and therefore they did call the results to me. They state that around 1630 the patient did have an episode of A. fib with rapid ventricular rate for which she received multiple shocks. They were not successful. The patient then had an episode of V. tach which she did receive a shock which was successful in converting him back into A. fib. The patient then had a second episode at 1730 of V. tach for which the patient was successfully cardioverted. The results were discussed to the patient's and he is currently awaiting a bed on the floor - Lab Data Result diagrams: 04/02/19 05:50 04/02/19 05:50 Lab Results 03/31/19 03/31/19 03/31/19 Range/Units 18:32 18:32 18:32 WBC 11.1 H (3.8-10.6) k/uL RBC 4.23 L (4.30-5.90) m/uL Hgb 15.9 (13.0-17.5) gm/dL Hct 46.4 (39.0-53.0) % MCV 109.6 H (80.0-100.0) fL MCH 37.5 H (25.0-35.0) pg MCHC 34.2 (31.0-37.0) g/dL RDW 13.3 (11.5-15.5) % Plt Count 213 (150-450) k/uL Neutrophils % 61 % Lymphocytes % 28 % Monocytes % 6 % Eosinophils % 2 % Basophils % 0 % Neutrophils # 6.8 (1.3-7.7) k/uL Lymphocytes # 3.1 (1.0-4.8) k/uL Monocytes # 0.7 (0-1.0) k/uL Eosinophils # 0.2 (0-0.7) k/uL Basophils # 0.0 (0-0.2) k/uL Manual Slide Review Performed Large Platelets Present Polychromasia Present Anisocytosis (manual) Present Macrocytosis Marked A PT 10.6 (9.0-12.0) sec INR 1.0 (<1.2) APTT 24.3 (22.0-30.0) sec Sodium 134 L (137-145) mmol/L Potassium 4.2 (3.5-5.1) mmol/L Chloride 101 (98-107) mmol/L Carbon Dioxide 22 (22-30) mmol/L Anion Gap 11 mmol/L BUN 11 (9-20) mg/dL Creatinine 1.13 (0.66-1.25) mg/dL Est GFR (CKD-EPI)AfAm 79 (>60 ml/min/1.73 sqM) Est GFR (CKD-EPI)NonAf 69 (>60 ml/min/1.73 sqM) Glucose 104 H (74-99) mg/dL Calcium 9.6 (8.4-10.2) mg/dL Magnesium 1.8 (1.6-2.3) mg/dL Total Bilirubin 1.2 (0.2-1.3) mg/dL AST 39 (17-59) U/L ALT 14 (4-49) U/L Alkaline Phosphatase 111 (38-126) U/L Creatine Kinase 146 (55-170) U/L Troponin I (0.000-0.034) ng/mL Total Protein 7.7 (6.3-8.2) g/dL Albumin 4.3 (3.5-5.0) g/dL TSH 5.170 H (0.465-4.680) mIU/L Urine Color Urine Appearance (Clear) Urine pH (5.0-8.0) Ur Specific [place] (1.001-1.035) Urine Protein (Negative) Urine Glucose (UA) (Negative) Urine Ketones (Negative) Urine Blood (Negative) Urine Nitrite (Negative) Urine Bilirubin (Negative) Urine Urobilinogen (<2.0) mg/dL Ur Leukocyte Esterase (Negative) Urine Opiates Screen (NotDetected) Ur Oxycodone Screen (NotDetected) Urine Methadone Screen (NotDetected) Ur Propoxyphene Screen (NotDetected) Ur Barbiturates Screen (NotDetected) Valproic Acid 16.4 ug/mL U Tricyclic Antidepress (NotDetected) Ur Phencyclidine Scrn (NotDetected) Ur Amphetamines Screen (NotDetected) U Methamphetamines Scrn (NotDetected) U Benzodiazepines Scrn (NotDetected) Urine Cocaine Screen (NotDetected) U Marijuana (THC) Screen (NotDetected) Serum Alcohol <10 mg/dL 03/31/19 03/31/19 Range/Units 18:32 19:55 WBC (3.8-10.6) k/uL RBC (4.30-5.90) m/uL Hgb (13.0-17.5) gm/dL Hct (39.0-53.0) % MCV (80.0-100.0) fL MCH (25.0-35.0) pg MCHC (31.0-37.0) g/dL RDW (11.5-15.5) % Plt Count (150-450) k/uL Neutrophils % % Lymphocytes % % Monocytes % % Eosinophils % % Basophils % % Neutrophils # (1.3-7.7) k/uL Lymphocytes # (1.0-4.8) k/uL Monocytes # (0-1.0) k/uL Eosinophils # (0-0.7) k/uL Basophils # (0-0.2) k/uL Manual Slide Review Large Platelets Polychromasia Anisocytosis (manual) Macrocytosis PT (9.0-12.0) sec INR (<1.2) APTT (22.0-30.0) sec Sodium (137-145) mmol/L Potassium (3.5-5.1) mmol/L Chloride (98-107) mmol/L Carbon Dioxide (22-30) mmol/L Anion Gap mmol/L BUN (9-20) mg/dL Creatinine (0.66-1.25) mg/dL Est GFR (CKD-EPI)AfAm (>60 ml/min/1.73 sqM) Est GFR (CKD-EPI)NonAf (>60 ml/min/1.73 sqM) Glucose (74-99) mg/dL Calcium (8.4-10.2) mg/dL Magnesium (1.6-2.3) mg/dL Total Bilirubin (0.2-1.3) mg/dL AST (17-59) U/L ALT (4-49) U/L Alkaline Phosphatase (38-126) U/L Creatine Kinase (55-170) U/L Troponin I 0.088 H* (0.000-0.034) ng/mL Total Protein (6.3-8.2) g/dL Albumin (3.5-5.0) g/dL TSH (0.465-4.680) mIU/L Urine Color Yellow Urine Appearance Clear (Clear) Urine pH 7.0 (5.0-8.0) Ur Specific [place] 1.006 (1.001-1.035) Urine Protein Negative (Negative) Urine Glucose (UA) Negative (Negative) Urine Ketones Negative (Negative) Urine Blood Negative (Negative) Urine Nitrite Negative (Negative) Urine Bilirubin Negative (Negative) Urine Urobilinogen <2.0 (<2.0) mg/dL Ur Leukocyte Esterase Negative (Negative) Urine Opiates Screen Not Detected (NotDetected) Ur Oxycodone Screen Not Detected (NotDetected) Urine Methadone Screen Not Detected (NotDetected) Ur Propoxyphene Screen Not Detected (NotDetected) Ur Barbiturates Screen Not Detected (NotDetected) Valproic Acid ug/mL U Tricyclic Antidepress Detected H (NotDetected) Ur Phencyclidine Scrn Not Detected (NotDetected) Ur Amphetamines Screen Not Detected (NotDetected) U Methamphetamines Scrn Not Detected (NotDetected) U Benzodiazepines Scrn Not Detected (NotDetected) Urine Cocaine Screen Not Detected (NotDetected) U Marijuana (THC) Screen Detected H (NotDetected) Serum Alcohol mg/dL Critical Care Time Critical Care Time: Yes Total Critical Care Time: 35 (mins) Disposition Clinical Impression: Atrial flutter, Ischemic cardiomyopathy, Ventricular tachyarrhythmia, AICD (automatic cardioverter/defibrillator) present Disposition: ADMITTED IP TO THIS [facility] Condition: Serious Is patient prescribed a controlled substance at d/c from ED?: No Decision to Admit Reason: Admit from EC Decision Date: 03/31/19 Decision Time: 20:37
[2019-03-31 20:43] LABS: Anisocytosis (M) Present
[2019-03-31 20:48] LABS: Large Platelets Present; Polychromasia Present
[2019-03-31] MEDS: HEPARIN SOD,PORK IN 0.45% NACL 25,000 UNIT in 0.45% NACL 1 250ML.BAG IV SCH (21:42)
[2019-03-31] MEDS ORDERED: ACETAMINOPHEN TAB 500 MG TAB PO PRN (21:44)
[2019-03-31] MEDS ORDERED: TEMAZEPAM 15 MG CAP PO PRN (22:00)
[2019-03-31] MEDS ORDERED: HYDROcodone/APAP 5-325MG 1 EACH TAB PO PRN (23:00)
--- NOTE | 2019-04-01 01:16 | HP ---
HISTORY AND PHYSICAL DATE OF SERVICE: 03/31/2019. CHIEF COMPLAINT: Palpitations and pacemaker firings. HISTORY OF PRESENT ILLNESS: This 63-year-old gentleman with a past medical history of multiple medical problems including history of CHF, history of alcoholism, history of alcoholic hepatitis, history of CAD, history of CHF, hypertension, hyperlipidemia, myocardial infarction, cardiomyopathy, history of AICD, history of PTCA stenting, anxiety, depression, being followed by Dr. Bill Mari in the outpatient setting came to [facility] with complaints of palpitations and pacemaker AICD firing. The patient was found to have a possibly atrial flutter with rapid ventricular rate and subsequently rhythm turned into atrial flutter with varying block possibly and subsequently normal sinus rhythm and the patient was admitted for further evaluation and treatment. Patient is on Cardizem drip. There is no history of chest pain. No history of headache, loss of consciousness, seizures. No nausea, vomiting, diarrhea, fever, rigors or chills at this time. PAST MEDICAL HISTORY: History of CAD, CHF, COPD, hypertension, hyperlipidemia, history of cardiomyopathy. MEDICATIONS: Prior to admission: 1. Flomax 0.4 daily. 2. Multivitamins 1 p.o. daily. 3. Lopressor 25 mg p.o. b.i.d. 4. Lisinopril 5 mg p.o. daily. 5. DuoNeb q.i.d. and p.r.n. 6. Lasix 20 mg p.o. daily. 7. Breo Ellipta 1 puff b.i.d. 8. Depakote ER 500 mg p.o. b.i.d. 9. Lanoxin 125 mcg p.o. daily. 10.Pristiq ER 100 mg p.o. daily. 11.Vitamin D3 2000 daily. 12.Peridex 15 mL p.o. b.i.d. 13.Zyrtec 10 mg p.o. daily. 14.Lipitor 40 mg at bedtime. 15.Aspirin 81 mg daily. ALLERGIES: None. FAMILY HISTORY: History of bowel cancer in the family. SOCIAL HISTORY: History of alcohol and light smoking. REVIEW OF SYSTEMS: ENT: Diminished vision, diminished hearing. CARDIOVASCULAR as mentioned earlier. RESPIRATORY: As mentioned earlier. GI no nausea or vomiting. no dysuria. NERVOUS SYSTEM: No numbness or weakness. ALLERGY/IMMUNOLOGY: No asthma or hayfever. MUSCULOSKELETAL: As mentioned earlier. HEMATOLOGY/ONCOLOGY: No history of anemia. ENDOCRINE: No history of diabetes or hypothyroidism. CONSTITUTIONAL: As mentioned earlier. DERMATOLOGY: Negative. RHEUMATOLOGY negative. PSYCHIATRY as mentioned earlier. PHYSICAL EXAM: Patient is alert, oriented times three. Pulse 83, blood pressure 135/82, respiration 18, temperature 98.1, pulse ox 98% on 2 L. HEENT is conjunctivae normal. Oral mucosa moist. NECK is no jugular venous distention. No carotid bruit. No lymph node enlargement. Cardiovascular system: S1, S2 muffled. RESPIRATORY: Breath sounds diminished in the bases. A few scattered rhonchi and crackles. ABDOMEN: Soft, nontender. No mass palpable. LEGS: No edema. No swelling. NERVOUS SYSTEM: Higher functions as mentioned earlier. Moves all four limbs. No focal motor or sensory deficits. Lymphatics: No lymph nodes palpable in the neck, axillae or groin. SKIN: No ulcers. No rashes and no bleeding. JOINTS: No active deforming arthropathy. LABS: WBC 7.1, hemoglobin 15.9, sodium 134. Troponin 0.88. TSH 5.170. Drug screen is positive for THC and as well as tricyclic antidepressants, alcohol less than 10. ASSESSMENT: 1. Cardiac arrhythmia with possibly atrial flutter with rapid ventricular rate. 2. AICD firing. 3. Increased WBC. 4. Increased MCV. 5. Hyponatremia. 6. Troponin 0.0882 of indeterminate nature. 7. History of congestive heart failure with chronic systolic dysfunction, possibly. 8. History of cardiomyopathy. 9. History of coronary artery disease. 10.Chronic obstructive pulmonary disease. 11.Hypertension. 12.Hyperlipidemia. 13.History of myocardial infarction. 14.History of degenerative joint disease. 15.History of coronary artery disease stent. 16.History of degenerative joint disease. 17.History of anxiety, depression. 18.History of nicotine dependence. 19.FULL CODE. 20.History of ETOH. RECOMMENDATIONS AND DISCUSSION: In this 63-year-old gentleman who presented with multiple complex medical issues, we will monitor the patient closely, continue the current medications, management and symptomatic treatment. We will initiate IV heparin. Otherwise cardiology consultation. 2D echo with Doppler. Resume the home medications. Repeat labs. Prognosis guarded because of multiple complex medical issues. Further recommendations to follow. A copy of dictation being forwarded to Dr. Mari who is the primary physician. Discussed with the patient who understands and agrees. MMODL / IJN: [id number] /
[2019-04-01 06:52] LABS: Basophils % (A) 0 %; Eosinophils # (A) 0.3 k/uL (0-0.7); Eosinophils % (A) 3 %; HCT 42.2 % (39.0-53.0); HGB 13.9 gm/dL (13.0-17.5); Lymphocytes # (A) 1.8 k/uL (1.0-4.8); Lymphocytes % (A) 22 %; MCH 36.3 pg (25.0-35.0); MCV 110.1 fL (80.0-100.0); Macrocytosis Marked; Mean Platelet Volume 8.4; Monocytes # (A) 0.5 k/uL (0-1.0); Monocytes % (A) 6 %; Neutrophils # (A) 5.5 k/uL (1.3-7.7); Neutrophils % (A) 66 %; Platelet Count 170 k/uL (150-450); RBC 3.83 m/uL (4.30-5.90); RDW 13.1 % (11.5-15.5); WBC 8.3 k/uL (3.8-10.6)
[2019-04-01 07:23] LABS: Calcium 8.8 mg/dL (8.4-10.2); Potassium 4.5 mmol/L (3.5-5.1)
[2019-04-01] MEDS: PANTOPRAZOLE 40 MG TABLET PO SCH (08:02)
[2019-04-01] MEDS ORDERED: METOPROLOL SUCCINATE (ER) 25 MG TAB.ER.24H PO SCH (11:30)
[2019-04-01] MEDS ORDERED: DEXTROSE 5% IN WATER 100 ML with AMIODARONE 150 MG IV ONE (11:45)
[2019-04-01] MEDS: SPIRONOLACTONE 25 MG TAB PO SCH (11:59)
[2019-04-01] MEDS ORDERED: AMIODARONE 360 MG in DEXTROSE 5% IN WATER 200 ML IV ONE ×2 (12:00)
--- NOTE | 2019-04-01 13:46 | P.CRDCN ---
History of Present Illness Consult date: 04/01/19 Reason for Consult (text): Atrial fibrillation/aflutter Consult reason: atrial flutter Chief complaint: Afib/Aflutter History of present illness: HISTORY OF PRESENT ILLNESS AND PLAN: This is a 63-year-old male with extensive history including insomnia, anxiety, depression, EtOH, current 3/4 PPD smoking, alcoholic hepatitis, neuropathy, asthma/COPD, PAF (since 2015), hypertension, CHF, CAD s/p PCI to RCA, ischemic cardiomyopathy and AICD. Patient presents to ER this a.m. via EMS with onset of palpitations and multiple AICD shocks. Patient states he was home at 0400 when palpitations began and AICD began firing he then called EMS. Pt also had complaints of chest pain with associated shortness of breath during the episode. Heart rate upon EMS arrival was 210 patient was provided with 6 mg of adenosine. Patient was given 2 additional doses of adenosine without conversion. Patient currently has converted to sinus bradycardia on telemetry, heart rate 59. Patient resting comfortably in bed with no acute distress. Patient has no current complaints of chest pain, chest pressure, shortness of breath or palpitations. Pt states he follows with Dr. Cortez in the office. Patient is noncompliant with follow-up, and readily admits to noncompliance. Patient cannot remember last time his device was interrogated. Most recent generator change documented as March 2015. Device interrigated at ER and shows shock/discharging 10 times. ER to obtain device report for review. Patient currently takes no anticoagulation at home with known atrial fibrillation history. Patient states he is not sure why he is not on anticoagulation. Troponins elevated 3. Patient continues on Cardizem drip and IV heparin. Most recent echo in March 2018 shows ejection fraction of less than 20% with global hypokinesis. Patient follows with Dr. Mari, yun. Current three-quarter pack per day smoker. Last EtOH use approximately one week ago. N o DM. SIGNIFICANT PAST MEDICAL HISTORY: Insomnia, anxiety, depression, EtOH, current 3/4 PPD smoking, neuropathy, asthma/COPD, hypertension, CHF, CAD s/p PCI to RCA, ischemic cardiomyopathy and AICD. PAST SURGICAL HISTORY: See list. EKG = Aflutter, HR 163 Troponins POSITIVE x 3. 0.088/4.650/2.910 SIGNIFICANT LABORATORY VALUES: U/A WNL. TSH 5.170 Chest x-ray = No acute process Most recent echo = 03/2018 EF 20%, global hypokinesia. Atrial fibrillation noted. Most recent stress testing = None available at this time REVIEW OF SYSTEMS: CONSTITUTIONAL: Denies fever. Denies chills. EYES: Denies blurred vision. Denies blurred vision or vision changes. Denies eye pain. EARS, NOSE, MOUTH & THROAT: Denies headache. Denies sore throat. Denies ear pain Denies hemoptysis. CARDIOVASCULAR: Complains of prior chest pain. Complains of prior shortness of breath. Denies orthopnea. Denies PND. Denies palpitations. RESPIRATORY: Denies cough. Complains of prior shortness of breath. GASTROINTESTINAL: Denies abdominal pain or distention. Denies diarrhea. Denies constipation. Denies nausea. Denies vomiting. MUSCULOSKELETAL: Complains of myalgias. INTEGUMENTARY: Denies pruitis. Denies rash. ENDOCRINE: Complains of fatigue. Denies weight change. Denies polydipsia. Denies polyurina Denies heat/cold intolerance. GENITOURINARY: Denies burning, hematuria or urgency with micturation. HEMATOLOGIC: Denies history of anemia. Denies bleeding. NEUROLOGIC: Denies numbness. Denies tingling. Complains of weakness. PSYCHIATRIC: Denies anxiety. Denies depression. PHYSICAL EXAM: VITAL SIGNS: 101/66 HR 56. 100% on 2L NC. Afebrile. GENERAL: Well developed, in no acute distress. HEENT: Head is atraumatic, normocephalic. Pupils are equal, round. Extra ocular movements intact. Mucous membranes moist. Neck supple. No JVD. No carotid bruit. No thyromegaly. LUNGS: Diminished to auscultation. No wheezes, rales or rhonchi. No chest wall tenderness on palpation or with deep breathing. HEART: Regular rate and rhythm, no rubs or gallops. S1 and S2 heard. No murmur. ABDOMEN: Abdominal exam, WNL. Bowel sounds x4 quads. Soft, non-tender, without masses, organomegaly, or abdominal aorta enlargement. EXTREMITIES/VASCULAR: Extremities have easily palpable radial, femoral, dorsalis pedis and posterior tibial pulses. No cyanosis, calf tenderness. Scant BLE edema. NEUROLOGIC: Patient is awake, alert and oriented x3. No focal neurologic abnormalities. FINAL IMPRESSION: 1. AICD Discharge 2. Aflutter/Afib with RVR 3. Chest pain 4. CAD s/p PCI to RCA 5. Ischemic Cardiomyopathy PLAN: Discontinue IV Cardizem. Start amiodarone IV 150 mg bolus over one hour then start amiodarone drip over 24 hours per protocol. Start losartan 50 milligrams at bedtime. Start metoprolol tartrate 25 mg twice daily. Start Aldactone 12.5 mg daily. Continue with IV heparin for anticoagulation. Patient to echocardiogram. Will consider cardiac cath. Continue same all other medical/medication regime. Heart healthy diet. Advised on importance of compliance with follow-up, smoking and EtOH cessation. Nurse Practitioner note has been reviewed by the Physician. Signing provider agrees with the documented findings, assessment and plan of care. Past Medical History Past Medical History: Coronary Artery Disease (CAD), Heart Failure, COPD, Eye Disorder, Hyperlipidemia, Hypertension, Myocardial Infarction ([place]), Osteoarthritis (OA) Additional Past Medical History / Comment(s): Cardiomyopathy, bilateral ear tinnitis/, bilateral cataracts, sinus problems, lower leg numbness Last Myocardial Infarction Date:: 05/18/2000 History of Any Multi-Drug Resistant Organisms: None Reported Past Surgical History: AICD, Heart Catheterization, Heart Catheterization With Stent Additional Past Surgical History / Comment(s): AICD, DFTs, PCI with stenting, Rt shoulder surgery and eventually had a reverse total shoulder-has metal in this arm, R leg surgery x 3 with marco, L wrist surgery, colonoscopy Past Anesthesia/Blood Transfusion Reactions: No Reported Reaction Date of Last Stent Placement:: 2000 Type of Cardiac Device: AICD Device Placement Date:: 2005 Past Psychological History: Anxiety, Depression Smoking Status: Light tobacco smoker Past Alcohol Use History: Occasional Past Drug Use History: None Reported - Past Family History Mother Family Medical History: Cancer, Dementia Additional Family Medical History / Comment(s): She has bowel cancer. Father Family Medical History: Cancer Medications and Allergies Home Medications Medication Instructions Recorded Confirmed Type Atorvastatin [Lipitor] 40 mg PO HS 01/21/15 03/31/19 History Cholecalciferol (Vitamin D3) 2,000 unit PO DAILY 03/16/18 03/31/19 History [Vitamin D3] Furosemide [Lasix] 20 mg PO DAILY #30 tab 03/24/18 03/31/19 Rx Metoprolol Tartrate [Lopressor] 25 mg PO BID #30 tablet 03/24/18 03/31/19 Rx Fluticasone/Vilanterol [Breo 1 puff INHALATION RT-BID 08/18/18 03/31/19 History Ellipta 200-25 Mcg INH] Ipratropium-Albuterol Nebulize 3 ml INHALATION RT-BID PRN 08/18/18 03/31/19 History [Duoneb 0.5 mg-3 mg/3 ml Soln] Tamsulosin [Flomax] 0.4 mg PO HS 08/18/18 03/31/19 History Divalproex Sodium [Depakote ER] 500 mg PO BID 10/17/18 03/31/19 History Lisinopril [Prinivil] 5 mg PO DAILY 10/17/18 03/31/19 History Multivitamins, Thera [Multivitamin 1 tab PO DAILY 10/17/18 03/31/19 History (formulary)] Amitriptyline HCl 25 mg PO HS 03/31/19 03/31/19 History Gabapentin [Neurontin] 600 mg PO HS 03/31/19 03/31/19 History Allergies Allergy/AdvReac Type Severity Reaction Status Date / Time No Known Allergies Allergy Verified 03/31/19 21:56 Physical Exam Vitals: Vital Signs Temp Pulse Pulse Resp BP Pulse Ox 04/01/19 12:03 60 18 105/78 100 04/01/19 10:54 60 18 114/62 100 04/01/19 07:23 97.8 F 56 L 18 101/66 100 04/01/19 06:48 97.8 F 61 16 120/66 100 04/01/19 05:30 65 98 04/01/19 04:05 56 L 18 121/86 100 04/01/19 01:56 57 L 16 110/66 99 04/01/19 00:40 59 L 16 98/67 98 04/01/19 00:01 97.9 F 62 16 98/65 99 03/31/19 21:45 98.2 F 76 18 119/73 95 03/31/19 19:58 98.1 F 83 18 134/82 98 03/31/19 19:08 77 18 127/68 100 12/28/19 18:56 96 18 131/64 100 03/31/19 18:36 158 H 03/31/19 18:28 98.7 F 142 H 18 126/87 96 Intake and Output 03/31/19 04/01/19 04/01/19 22:59 06:59 14:59 Intake Total 28.833 Balance 28.833 Intake: Intake, IV Titration 28.833 Amount Diltiazem 125 mg In 28.833 Sodium Chloride 0.9% 100 ml @ 5 MG/HR 5 mls/hr IV .Q24H [facility] Rx#:[id number] Other: # Voids 1 Weight 74.843 kg Results 04/01/19 06:22 04/01/19 06:22 Cardiac Enzymes 03/31/19 03/31/19 04/01/19 Range/Units 18:32 18:32 00:27 AST 39 (17-59) U/L Troponin I 0.088 H* 4.650 H* (0.000-0.034) ng/mL 04/01/19 Range/Units 06:22 AST (17-59) U/L Troponin I 2.910 H* (0.000-0.034) ng/mL Coagulation 03/31/19 04/01/19 Range/Units 18:32 03:05 PT 10.6 (9.0-12.0) sec APTT 24.3 75.4 H (22.0-30.0) sec CBC 03/31/19 04/01/19 Range/Units 18:32 06:22 WBC 11.1 H 8.3 (3.8-10.6) k/uL RBC 4.23 L 3.83 L (4.30-5.90) m/uL Hgb 15.9 13.9 (13.0-17.5) gm/dL Hct 46.4 42.2 (39.0-53.0) % Plt Count 213 170 (150-450) k/uL Comprehensive Metabolic Panel 03/31/19 04/01/19 Range/Units 18:32 06:22 Sodium 134 L 138 (137-145) mmol/L Potassium 4.2 4.5 (3.5-5.1) mmol/L Chloride 101 109 H (98-107) mmol/L Carbon Dioxide 22 23 (22-30) mmol/L BUN 11 14 (9-20) mg/dL Creatinine 1.13 1.02 (0.66-1.25) mg/dL Glucose 104 H 99 (74-99) mg/dL Calcium 9.6 8.8 (8.4-10.2) mg/dL AST 39 (17-59) U/L ALT 14 (4-49) U/L Alkaline Phosphatase 111 (38-126) U/L Total Protein 7.7 (6.3-8.2) g/dL Albumin 4.3 (3.5-5.0) g/dL Current Medications Generic Name Dose Route Start Last Admin Trade Name Freq PRN Reason Stop Dose Admin Acetaminophen 500 mg 03/31/19 21:44 Tylenol Tab PO Q6HR PRN Fever and/ or Pain Hydrocodone Bitart/Acetaminophen 1 each 03/31/19 23:00 [place] 5-325 PO Q6HR PRN Pain Alprazolam 0.25 mg 03/31/19 22:00 Xanax PO TID PRN Anxiety Heparin Sodium (Porcine) 0 unit 03/31/19 20:37 Heparin IV PER PROTOCOL PRN Low PTT Protocol Heparin Sodium/Sodium Chloride 250 mls @ 8.981 mls/hr 03/31/19 20:45 03/31/19 21:42 25,000 unit/ Sodium Chloride IV 12 units/kg/hr .Q24H [facility] 8.981 mls/hr Administration Protocol 12 UNITS/KG/HR Amiodarone HCl 360 mg/ 200 mls @ 33.333 mls/hr 04/01/19 12:00 Dextrose/Water IV 04/01/19 17:59 .Q6H ONE Protocol 1 MG/MIN Amiodarone HCl 300 mg/ 250 mls @ 25 mls/hr 04/01/19 18:00 Dextrose/Water IV 04/02/19 11:59 .Q10H [facility] Protocol 0.5 MG/MIN Losartan Potassium 50 mg 04/01/19 21:00 Cozaar PO HS [facility] Metoprolol Tartrate 25 mg 04/01/19 21:00 Lopressor PO BID [facility] Naloxone HCl 0.2 mg 03/31/19 20:37 Narcan IV Q2M PRN Opioid Reversal Pantoprazole Sodium 40 mg 04/01/19 07:30 04/01/19 08:02 Protonix PO 40 mg AC-BRKFST [facility] Administration Spironolactone 12.5 mg 04/01/19 11:30 04/01/19 11:59 Aldactone PO 12.5 mg DAILY [facility] Administration Temazepam 15 mg 03/31/19 22:00 Restoril PO HS PRN Insomnia Intake and Output 03/31/19 04/01/19 04/01/19 22:59 06:59 14:59 Intake Total 28.833 Balance 28.833 Intake: Intake, IV Titration 28.833 Amount Diltiazem 125 mg In 28.833 Sodium Chloride 0.9% 100 ml @ 5 MG/HR 5 mls/hr IV .Q24H [facility] Rx#:[id number] Other: # Voids 1 Weight 74.843 kg 04/01/19 06:22 04/01/19 06:22
[2019-04-01 14:00] LABS: Poikilocytosis (M) Present
[2019-04-01] MEDS ORDERED: IPRATROPIUM-ALBUTEROL 3 ML NEB INHALATION PRN (17:44)
[2019-04-01] MEDS: MULTIVITAMINS, THERA 1 EACH TAB PO SCH (18:02)
[2019-04-01] MEDS: ASPIRIN 81 MG PO SCH (18:02)
[2019-04-01] MEDS: AMIODARONE 300 MG in DEXTROSE 5% IN WATER 250 ML IV SCH ×2 (19:29)
--- NOTE | 2019-04-01 20:17 | PN ---
PROGRESS NOTE DATE OF SERVICE: 04/01/2019 This 63-year-old gentleman who was admitted with palpitation, also had pacemaker firing prior to admission. The patient is being closely monitor. Recurrent atrial flutter or fibrillation is being considered. No chest pain. No palpitations. No fever. Patient possibly developed acute non ST elevation myocardial infarction also. EXAM: Alert and oriented x3. Pulse 60, blood pressure 131/74, respirations 16, temperature 97.9, pulse ox 100% on room air skin: HEENT: Conjunctivae normal. Oral mucosa moist. NECK: No jugular venous distention. No lymph node enlargement. CARDIOVASCULAR: S1, S2. RESPIRATORY: Diminished breath sounds at the bases. Bilateral scattered rhonchi and crackles. ABDOMEN: Soft, nontender. LEGS: No swelling. NERVOUS SYSTEM: No focal deficits. LABS: WBC 8.2, hemoglobin 13.9. Otherwise, sodium is 138, marked macrocytosis present. Troponins are 4.650 and 2.910. ASSESSMENT: 1. Cardiac arrhythmia with possibly atrial flutter paroxysmal with rapid ventricular rate. 2. Troponin 4.650, rule out possible acute ttr-OC-zwgipci-elevation myocardial infarction. 3. AICD firing. 4. Increased WBC. 5. Increased MCV. 6. Hyponatremia. 7. History of congestive heart failure with chronic systolic dysfunction. 8. History of cardiomyopathy. 9. History of coronary artery disease. 10.History of chronic obstructive pulmonary disease. 11.Hypertension. 12.Hyperlipidemia. 13.History of myocardial infarction. 14.History of degenerative joint disease. 15.History of coronary artery disease, stent. 16.History of anxiety, depression. 17.History of nicotine dependence. 18.Positive THC. 19.FULL CODE. RECOMMENDATIONS AND DISCUSSION: I recommend to continue current medications, continue to monitor, symptomatic treatment, cardiology evaluation. I would recommend antiplatelet agents, beta blockers, continue to monitor. A 2D echo with Doppler also will be ordered. Otherwise, repeat labs. Guarded prognosis because of multiple complex medical issues. Further recommendations to follow. PAST MEDICAL HISTORY: Reviewed. REVIEW OF SYSTEMS: CARDIOVASCULAR SYSTEM: As mentioned earlier. RESPIRATORY: As mentioned earlier. GI: No nausea. : No dysuria. NERVOUS SYSTEM: No numbness or weakness. CURRENT MEDICATIONS: 1. Tylenol p.r.n. 2. [place] 5 mg. 3. Xanax 0.5 t.i.d. 4. Amiodarone drip. 5. Heparin. 6. Losartan. 7. Lopressor 25 mg p.o. b.i.d. 8. Protonix. 9. Aldactone. 10.Restoril. MMAPRIL / IJN: [id number] /
[2019-04-01] MEDS: SYMBICORT 160-4.5 MCG INHALER INHALATION SCH (20:35)
[2019-04-01] MEDS: DIVALPROEX ER 500 MG TAB.ER.24H PO SCH (21:14)
[2019-04-01] MEDS: ATORVASTATIN 40 MG TAB PO SCH (21:14)
[2019-04-01] MEDS: AMITRIPTYLINE HCL 25 MG TAB PO SCH (21:14)
[2019-04-01] MEDS: GABAPENTIN 300 MG CAP PO SCH (21:14)
[2019-04-01] MEDS: METOPROLOL TARTRATE 25 MG TAB PO SCH (21:15)
[2019-04-01] MEDS: TAMSULOSIN 0.4 MG CAP.ER.24H PO SCH (21:15)
[2019-04-01] MEDS: LOSARTAN 50 MG TAB PO SCH (21:15)
[2019-04-01] MEDS: HEPARIN SOD,PORK IN 0.45% NACL 25,000 UNIT in 0.45% NACL 1 250ML.BAG IV SCH (23:13)
[2019-04-02] MEDS: ALPRAZolam 0.25 MG TAB PO PRN ×3 (03:45→22:30)
[2019-04-02 06:33] LABS: Basophils % (A) 0 %; Eosinophils # (A) 0.2 k/uL (0-0.7); Eosinophils % (A) 2 %; HCT 41.4 % (39.0-53.0); HGB 13.6 gm/dL (13.0-17.5); Lymphocytes # (A) 1.9 k/uL (1.0-4.8); Lymphocytes % (A) 24 %; MCH 37.4 pg (25.0-35.0); MCHC 32.8 g/dL (31.0-37.0); Macrocytosis Marked; Mean Platelet Volume 8.4; Monocytes # (A) 0.5 k/uL (0-1.0); Monocytes % (A) 6 %; Neutrophils # (A) 5.4 k/uL (1.3-7.7); Neutrophils % (A) 66 %; Platelet Count 166 k/uL (150-450); RBC 3.64 m/uL (4.30-5.90); RDW 13.1 % (11.5-15.5); WBC 8.2 k/uL (3.8-10.6)
[2019-04-02] MEDS: AMIODARONE 300 MG in DEXTROSE 5% IN WATER 250 ML IV SCH ×2 (06:33)
[2019-04-02] MEDS: PANTOPRAZOLE 40 MG TABLET PO SCH (06:33)
[2019-04-02 06:34] LABS: MCV 113.8 fL (80.0-100.0)
[2019-04-02 07:18] LABS: Calcium 9.1 mg/dL (8.4-10.2); Potassium 4.6 mmol/L (3.5-5.1)
[2019-04-02] MEDS: SYMBICORT 160-4.5 MCG INHALER INHALATION SCH ×2 (07:33→19:01)
[2019-04-02] MEDS: ASPIRIN 81 MG PO SCH (08:08)
[2019-04-02] MEDS: DIVALPROEX ER 500 MG TAB.ER.24H PO SCH ×2 (08:08→19:59)
[2019-04-02] MEDS: MULTIVITAMINS, THERA 1 EACH TAB PO SCH (08:08)
[2019-04-02] MEDS: FUROSEMIDE 20 MG TAB PO SCH (08:08)
[2019-04-02] MEDS: CHOLECALCIFEROL 1,000 UNIT TAB PO SCH (08:08)
[2019-04-02] MEDS: METOPROLOL TARTRATE 25 MG TAB PO SCH ×2 (08:08→19:58)
[2019-04-02] MEDS: SPIRONOLACTONE 25 MG TAB PO SCH (08:08)
--- NOTE | 2019-04-02 11:37 | ECHOF ---
Referral Reason:chf MEASUREMENTS -------- HEIGHT: 175.3 cm WEIGHT: 75.3 kg BP: 108/62 RVIDd: 3.8 cm (< 3.3) IVSd: 0.9 cm (0.6 - 1.1) LVIDd: 6.0 cm (3.9 - 5.3) LVPWd: 1.1 cm (0.6 - 1.1) IVSs: 0.8 cm LVIDs: 5.6 cm LVPWs: 1.2 cm LAESV Index (A-L): 37.23 ml/m Ao Diam: 2.8 cm (2.0 - 3.7) AV Cusp: 1.8 cm (1.5 - 2.6) LA Diam: 4.6 cm (2.7 - 3.8) MV EXCURSION: 14.991 mm (> 18.000) MV EF SLOPE: 130 mm/s (70 - 150) EPSS: 2.4 cm MV E [place]: 0.68 m/s MV DecT: 185 ms MV A [place]: 0.40 m/s MV E/A Ratio: 1.70 RAP: 5.00 mmHg RVSP: 47.57 mmHg FINDINGS -------- Sinus rhythm. Pacerwire seen in RV and RA. This was a technically difficult study with suboptimal apical views. The left ventricle is mildly dilated. Left ventricular wall thickness is normal. There is severe global hypokinesis of LV . Overall left ventricular systolic function is severely impaired with, an EF < 20%. Increased Lap Grade II Diastolic Dysfunction. The right ventricle is mildly enlarged. LA is moderately dilated 34-39 ml/m2 The right atrium is mildly enlarged. Electronic pacemaker lead seen in the right atrial cavity. 5.0mg of Lumason was utilized for enhancement of images Interatrial and interventricular septum intact. There is mild aortic valve sclerosis. Mild mitral annular calcification present. Mild mitral regurgitation is present. Moderate tricuspid regurgitation present. There is moderate pulmonary hypertension. The right ankit tricular systolic pressure, as measured by Doppler, is 47.57mmHg. Trace/mild (physiologic) pulmonic regurgitation. The aortic root size is normal. IVC Not well visulized. There is no pericardial effusion. CONCLUSIONS -------- 1. Sinus rhythm. 2. Pacerwire seen in RV and RA. 3. This was a technically difficult study with suboptimal apical views. 4. The left ventricle is mildly dilated. 5. Left ventricular wall thickness is normal. 6. There is severe global hypokinesis of LV . 7. Overall left ventricular systolic function is severely impaired with, an EF < 20%. 8. Increased Lap Grade II Diastolic Dysfunction. 9. The right ventricle is mildly enlarged. 10. LA is moderately dilated 34-39 ml/m2 11. The right atrium is mildly enlarged. 12. Electronic pacemaker lead seen in the right atrial cavity. 13. 5.0mg of Lumason was utilized for enhancement of images 14. There is mild aortic valve sclerosis. 15. Mild mitral annular calcification present. 16. Mild mitral regurgitation is present. 17. Moderate tricuspid regurgitation present. 18. There is moderate pulmonary hypertension. 19. The right ventricular systolic pressure, as measured by Doppler, is 47.57mmHg. 20. Trace/mild (physiologic) pulmonic regurgitation. 21. There is no pericardial effusion. [employer] MANAGER: Jennifer Mccann RDCS
--- NOTE | 2019-04-02 14:19 | P.PN ---
Subjective Progress Note Date: 04/02/19 this is a 63-year-old gentleman with history of anxiety, depression, prior EtOH use, nicotine dependence, alcoholic hepatitis, neuropathy, asthma and COPD,coronary artery disease with prior stenting, ischemic neuropathy with prior AICD. He initially presented to the hospital after experiencing 9 shocks from his AICD the patient also states that he has significant chest discomfort and palpitations. Heart rate on EMS arrival was 210, patient was given 3 doses of adenosine without conversion. Patient was seen in consultation by Dr. Anamaria Barrow yesterday. According to the documentation from the consult dictated yesterday, the patient's device was interrogated in the ER and showed discharge of 10 times, we do not have a copy of this in our waiting for that from [employer] right now.his blood pressure this morning is 124/50 with a heart rate in the 70s, 96% on room air.White blood cell count 8.2, hemoglobin 13.6, platelet count 166. Sodium 136, potassium 4.6, BUN 19, creatinine 1.1.troponins 0.08, 4.6, 2.9.echocardiogram with Doppler study revealed an ejection fraction of less than 20%. The initial EKG on presentation here. To be a typical atrial flutter with rapid ventricular response. This morning the patient is currently in a normal sinus rhythm. We will start the patient on IV amiodarone. We will also review the interrogation to see what the underlying rhythm was at that time.I pressure 124/58 with a heart rate of 70, 96% on room air.White blood cell count 8.2, hemoglobin 13.6, platelet count 166. Sodium 136, potassium 4.6, BUN 19 and creatinine 1.1. Objective - Vital Signs Vital signs: Vital Signs Temp 97.9 F 04/02/19 11:12 Pulse 72 04/02/19 11:12 Resp 18 04/02/19 11:12 BP 124/58 04/02/19 11:12 Pulse Ox 96 04/02/19 11:12 Intake & Output 04/01/19 04/02/19 04/02/19 18:59 06:59 18:59 Intake Total 225 1199.165 720 Output Total 950 Balance 225 249.165 720 Weight 74.843 kg 75.5 kg Intake: Intake, IV Titration 479.165 Amount Amiodarone 300 mg In 250 Dextrose 5% in Water 250 ml @ 0.5 MG/MIN 25 mls/hr IV .Q10H [facility] Rx#: [id number] Heparin Sod,Pork in 0.45% 229.165 NaCl 25,000 unit In 0.45 % NaCl 1 250ml.bag @ 12 UNITS/KG/HR 8.981 mls/hr IV .Q24H [facility] Rx#: [id number] Oral 225 720 720 Output: Urine 950 - Exam PHYSICAL EXAMINATION: GENERAL:63-year-old gentleman in no acute distress at the time of my examination HEENT: Head is atraumatic, normocephalic. Pupils equal, round. Sclera anicteric. Conjunctiva are clear. Mucous membranes of the mouth are moist. Neck is supple. There is no elevated jugular venous pressure.no carotid bruit is heard. HEART EXAMINATION: [Heart S1, S2 normal. No murmur or gallop heard.] CHEST EXAMINATION:lungs reveal diminished air entry bilaterally ABDOMEN: [ Soft, nontender. Bowel sounds are heard. No organomegaly noted]. EXTREMITIES:[ Doppler to 1+ peripheral pulses with no evidence of peripheral edema and no calf tenderness noted].patient does have a significant black ulceration noted to the second toe on his left foot. NEUROLOGIC [patient is awake, alert and oriented 3.] . - Labs CBC & Chem 7: 04/02/19 05:50 04/02/19 05:50 Labs: Abnormal Lab Results - Last 24 Hours (Table) 04/01/19 04/02/19 04/02/19 Range/Units 20:50 05:50 05:50 RBC 3.64 L (4.30-5.90) m/uL MCV 113.8 H (80.0-100.0) fL MCH 37.4 H (25.0-35.0) pg Macrocytosis Marked A APTT 51.7 H (22.0-30.0) sec Sodium 136 L (137-145) mmol/L Chloride 108 H (98-107) mmol/L Carbon Dioxide 20 L (22-30) mmol/L Glucose 133 H (74-99) mg/dL 04/02/19 Range/Units 05:50 RBC (4.30-5.90) m/uL MCV (80.0-100.0) fL MCH (25.0-35.0) pg Macrocytosis APTT 59.2 H (22.0-30.0) sec Sodium (137-145) mmol/L Chloride (98-107) mmol/L Carbon Dioxide (22-30) mmol/L Glucose (74-99) mg/dL Assessment and Plan Plan: assessment and plan #1 AICD discharge, patient apparently had 10 discharges from his AICD, we will review the interrogation to assess the underlying rhythm #2 typical atrial flutter with rapid ventricular response, currently in normal s inus rhythm #3 chest pain,troponins 0.08, 4.6, 2.9, adjusting possible non-Q-wave [place]. Troponin abnormality could also be secondary to AICD discharge #4 ischemic cardio myopathy #5 coronary artery disease with prior RCA stenting #6 hyperlipidemia #7 hypertension #8 nicotine dependence #9 COPD #10 paroxysmal atrial fibrillation #11 depression Plan We will start the patient on IV amiodarone today, we will also request a vascular study to assess circulation and the patient's lower extremities. Re view the interrogation of the AICD. Further recommendations to follow. DNP note has been reviewed, I agree with a documented findings and plan of care. Patient was seen and examined.
[2019-04-02] MEDS: AMIODARONE 200 MG TAB PO SCH ×2 (17:07→22:30)
[2019-04-02] MEDS: AMITRIPTYLINE HCL 25 MG TAB PO SCH (19:58)
[2019-04-02] MEDS: ATORVASTATIN 40 MG TAB PO SCH (19:58)
[2019-04-02] MEDS: LOSARTAN 50 MG TAB PO SCH (19:59)
[2019-04-02] MEDS: TAMSULOSIN 0.4 MG CAP.ER.24H PO SCH (19:59)
[2019-04-02] MEDS: GABAPENTIN 300 MG CAP PO SCH (19:59)
[2019-04-02] MEDS: HEPARIN SOD,PORK IN 0.45% NACL 25,000 UNIT in 0.45% NACL 1 250ML.BAG IV SCH (22:03)
--- NOTE | 2019-04-02 23:47 | PN ---
PROGRESS NOTE DATE OF SERVICE: 04/02/2019 This 63-year-old gentleman who was admitted with cardiac arrhythmia is being closely monitored. No chest pain. No palpitations. No fever. Cardiology is following the patient closely. A 2D echo with Doppler which was seen by Cardiology showed ejection fraction less than 20%, showing significant cardiomyopathy. Atypical atrial flutter with rapid ventricular response was noted, possible acute non-Q-wave myocardial infarction also considered at this time. Patient being closely monitored. PAST MEDICAL HISTORY: Reviewed. REVIEW OF SYSTEMS: Cardiovascular system: As mentioned earlier. RESPIRATORY: As mentioned earlier. NERVOUS SYSTEM: No numbness or weakness. CURRENT MEDICATIONS ARE: Reviewed and include: 1. Tylenol 500 mg q.6h p.r.n. 2. [place] 5 mg q.6h p.r.n. 3. DuoNeb q.i.d. and p.r.n. 4. Cordarone 200 mg p.o. t.i.d. 5. Elavil 25 mg at bedtime. 6. Aspirin 81 mg. 7. Lipitor 40 mg q.h.s. 8. Symbicort 160/4.5 two puffs b.i.d. 9. Cholecalciferol. 10.Depakote ER 500 mg p.o. b.i.d. 11.Lasix 20 mg p.o. daily. 12.Neurontin 600 mg q.h.s. 13.Heparin. 14.Lopressor 25 mg p.o. b.i.d. 15.Insulin. 16.Narcan. 17.Protonix 40 mg daily. 18.Aldactone 12.5 mg. 19.Flomax 0.4. 20.Restoril 50 mg q.h.s. p.r.n. PHYSICAL EXAM: Patient is alert and oriented x3. Pulse is 60. Blood pressure 129/62, respiration 18, temp 97.9, pulse ox 97% on room air. Conjunctivae normal. Oral mucosa moist. Neck is no jugular venous distention. No carotid bruit. No lymph node enlargement. Cardiovascular system: S1, S2 muffled. RESPIRATORY: Breath sounds diminished in the bases. A few scattered rhonchi and crackles. ABDOMEN: Soft, nontender. No mass palpable. LEGS: No edema. No swelling. Some ulceration in the dorsum of the left foot present. Nervous system: No focal deficits. LAB STUDIES: WBC 8.2, hemoglobin 13.2, MCV 113.8. Otherwise, APTT noted. Troponin is noted. ASSESSMENT: 1. Cardiac arrhythmia, possibly atrial flutter with paroxysmal with rapid ventricular rate. 2. Troponin 4.650 possible acute unx-QZ-rwwqyyd-elevation myocardial infarction. 3. Severe cardiomyopathy, possibly ischemic. Ejection fraction less than 20%. 4. Congestive heart failure with chronic systolic dysfunction. 5. AICD firing. 6. Increased WBC. 7. Increased MCV. 8. Hyponatremia. 9. History of cardiomyopathy. 10.History of coronary artery disease. 11.Chronic obstructive pulmonary disease. 12.Hypertension. 13.Hyperlipidemia. 14.History of myocardial infarction. 15.History of degenerative joint disease. 16.History of coronary artery disease/stent. 17.History of anxiety, depression. 18.History of nicotine dependence. 19.History of THC. 20.Rule out peripheral vascular disease. 21.FULL CODE. RECOMMENDATIONS AND DISCUSSION: Recommend to continue current medications, management and symptomatic treatment. The patient has ejection fraction has worsened at this time. We will continue to monitor. Patient also had elevated troponins. Cardiology is recommending IV amiodarone. AICD interrogation. Overall prognosis guarded because of multiple complex medical issues as listed above. Further recommendations to follow. I have recommended repeat labs in the morning and continue to monitor. Prognosis guarded. Further recommendations to follow. MMODL / IJN: [id number] /
[2019-04-03] MEDS: HEPARIN SOD,PORK IN 0.45% NACL 25,000 UNIT in 0.45% NACL 1 250ML.BAG IV SCH (04:38)
[2019-04-03] MEDS: PANTOPRAZOLE 40 MG TABLET PO SCH (06:17)
[2019-04-03 06:32] LABS: Basophils % (A) 0 %; Eosinophils # (A) 0.2 k/uL (0-0.7); Eosinophils % (A) 2 %; HCT 40.7 % (39.0-53.0); HGB 13.6 gm/dL (13.0-17.5); Lymphocytes # (A) 1.8 k/uL (1.0-4.8); Lymphocytes % (A) 19 %; MCH 37.3 pg (25.0-35.0); MCHC 33.3 g/dL (31.0-37.0); Macrocytosis Marked; Mean Platelet Volume 8.8; Monocytes # (A) 0.5 k/uL (0-1.0); Monocytes % (A) 6 %; Neutrophils # (A) 6.8 k/uL (1.3-7.7); Neutrophils % (A) 71 %; Platelet Count 135 k/uL (150-450); RBC 3.64 m/uL (4.30-5.90); RDW 12.9 % (11.5-15.5); WBC 9.5 k/uL (3.8-10.6)
[2019-04-03 06:35] LABS: MCV 111.9 fL (80.0-100.0)
[2019-04-03 07:23] LABS: Calcium 9.3 mg/dL (8.4-10.2); Potassium 4.7 mmol/L (3.5-5.1)
[2019-04-03] MEDS: SYMBICORT 160-4.5 MCG INHALER INHALATION SCH ×2 (09:31→20:17)
[2019-04-03] MEDS: SPIRONOLACTONE 25 MG TAB PO SCH (09:40)
[2019-04-03] MEDS: FUROSEMIDE 20 MG TAB PO SCH (09:40)
[2019-04-03] MEDS: MULTIVITAMINS, THERA 1 EACH TAB PO SCH (09:40)
[2019-04-03] MEDS: METOPROLOL TARTRATE 25 MG TAB PO SCH ×2 (09:40→20:10)
[2019-04-03] MEDS: AMIODARONE 200 MG TAB PO SCH ×3 (09:40→22:49)
[2019-04-03] MEDS: DIVALPROEX ER 500 MG TAB.ER.24H PO SCH ×2 (09:40→20:10)
[2019-04-03] MEDS: ASPIRIN 81 MG PO SCH (09:40)
[2019-04-03] MEDS: CHOLECALCIFEROL 1,000 UNIT TAB PO SCH (09:41)
[2019-04-03] MEDS: APIXABAN 5 MG TAB PO SCH ×2 (12:27→20:10)
--- NOTE | 2019-04-03 12:44 | P.PN ---
Subjective Progress Note Date: 04/03/19 this is a 63-year-old gentleman with history of anxiety, depression, prior EtOH use, nicotine dependence, alcoholic hepatitis, neuropathy, asthma and COPD,coronary artery disease with prior stenting, ischemic neuropathy with prior AICD. He initially presented to the hospital after experiencing 9 shocks from his AICD the patient also states that he has significant chest discomfort and palpitations. Heart rate on EMS arrival was 210, patient was given 3 doses of adenosine without conversion. Patient was seen in consultation by Dr. Anamaria Barrow yesterday. According to the documentation from the consult dictated yesterday, the patient's device was interrogated in the ER and showed discharge of 10 times, we do not have a copy of this in our waiting for that from [facility] right now.his blood pressure this morning is 124/50 with a heart rate in the 70s, 96% on room air.White blood cell count 8.2, hemoglobin 13.6, platelet count 166. Sodium 136, potassium 4.6, BUN 19, creatinine 1.1.troponins 0.08, 4.6, 2.9.echocardiogram with Doppler study revealed an ejection fraction of less than 20%. The initial EKG on presentation here. To be a typical atrial flutter with rapid ventricular response. This morning the patient is currently in a normal sinus rhythm. We will start the patient on IV amiodarone. We will also review the interrogation to see what the underlying rhythm was at that time.I pressure 124/58 with a heart rate of 70, 96% on room air.White blood cell count 8.2, hemoglobin 13.6, platelet count 166. Sodium 136, potassium 4.6, BUN 19 and creatinine 1.1. 04/03/2019 patient was seen and examined this morning, overall doing well. Continues at this time to be on IV heparin, we will discontinue the IV heparin and initiate him on Eliquis today. From our perspective he may be able to be discharged home once cleared by primary and we will make him a follow-up appointment in the office to see Dr. Cortez. Blood pressure 130/60 with a heart rate in the 60s, currently in normal sinus rhythm. Objective - Vital Signs Vital signs: Vital Signs Temp 98.0 F 04/03/19 08:00 Pulse 63 04/03/19 08:00 Resp 18 04/03/19 08:00 BP 136/73 04/03/19 08:00 Pulse Ox 99 04/03/19 08:00 Intake & Output 04/02/19 04/03/19 04/03/19 18:59 06:59 18:59 Intake Total 960 260 360 Output Total 400 650 Balance 960 -140 -290 Weight 76.8 kg Intake: IV 10 Invasive Line 1 10 Intake, IV Titration 250 Amount Heparin Sod,Pork in 0.45% 250 NaCl 25,000 unit In 0.45 % NaCl 1 250ml.bag @ 12 UNITS/KG/HR 8.981 mls/hr IV .Q24H VICTORIA Rx#: [id number] Oral 960 360 Output: Urine 400 650 Other: Voiding Method Urinal # Voids 1 1 # Bowel Movements 1 - Exam PHYSICAL EXAMINATION: GENERAL:63-year-old gentleman in no acute distress at the time of my examination HEENT: Head is atraumatic, normocephalic. Pupils equal, round. Sclera anicteric. Conjunctiva are clear. Mucous membranes of the mouth are moist. Neck is supple. There is no elevated jugular venous pressure.no carotid bruit is heard. HEART EXAMINATION: [Heart S1, S2 normal. No murmur or gallop heard.] CHEST EXAMINATION:lungs reveal diminished air entry bilaterally ABDOMEN: [ Soft, nontender. Bowel sounds are heard. No organomegaly noted]. EXTREMITIES:[ Doppler to 1+ peripheral pulses with no evidence of peripheral edema and no calf tenderness noted].patient does have a significant black ulceration noted to the second toe on his left foot. NEUROLOGIC [patient is awake, alert and oriented 3.] . - Labs CBC & Chem 7: 04/03/19 05:51 04/03/19 05:51 Labs: Abnormal Lab Results - Last 24 Hours (Table) 04/03/19 04/03/19 04/03/19 Range/Units 05:51 05:51 05:51 RBC 3.64 L (4.30-5.90) m/uL MCV 111.9 H (80.0-100.0) fL MCH 37.3 H (25.0-35.0) pg Plt Count 135 L (150-450) k/uL Macrocytosis Marked A APTT 41.9 H (22.0-30.0) sec Sodium 135 L (137-145) mmol/L Carbon Dioxide 20 L (22-30) mmol/L Glucose 103 H (74-99) mg/dL 04/03/19 Range/Units 11:05 RBC (4.30-5.90) m/uL MCV (80.0-100.0) fL MCH (25.0-35.0) pg Plt Count (150-450) k/uL Macrocytosis APTT 41.7 H (22.0-30.0) sec Sodium (137-145) mmol/L Carbon Dioxide (22-30) mmol/L Glucose (74-99) mg/dL Assessment and Plan Plan: assessment and plan #1 AICD discharge, patient apparently had 10 discharges from his AICD, we will review the interrogation to assess the underlying rhythm #2 typical atrial flutter with rapid ventricular response, currently in normal sinus rhythm #3 chest pain,troponins 0.08, 4.6, 2.9, adjusting possible non-Q-wave [place]. Troponin abnormality could also be secondary to AICD discharge #4 ischemic cardio myopathy #5 coronary artery disease with prior RCA stenting #6 hyperlipidemia #7 hypertension #8 nicotine dependence #9 COPD #10 paroxysmal atrial fibrillation #11 depression Plan We will continue the patient on oral amiodarone, discontinue the IV heparin and start the patient on Eliquis today. From our perspective he may be able to be discharged home today, we'll make him a follow-up appointment to see Dr. Cortez in the office post discharge. DNP note has been reviewed, I agree with a documented findings and plan of care. Patient was seen and examined.
[2019-04-03] MEDS: AMITRIPTYLINE HCL 25 MG TAB PO SCH (20:10)
[2019-04-03] MEDS: LOSARTAN 50 MG TAB PO SCH (20:10)
[2019-04-03] MEDS: ATORVASTATIN 40 MG TAB PO SCH (20:10)
[2019-04-03] MEDS: GABAPENTIN 300 MG CAP PO SCH (20:10)
[2019-04-03] MEDS: TAMSULOSIN 0.4 MG CAP.ER.24H PO SCH (20:11)
--- NOTE | 2019-04-03 21:57 | PN ---
PROGRESS NOTE DATE OF SERVICE: 04/03/2019 This 63-year-old gentleman who was admitted with significant cardiac arrhythmia is being closely monitored at this time. The patient had a 2D echo with Doppler which showed ejection fraction less than 20%. Cardiology has evaluated him and recommended Eliquis and to stop heparin. Atrial arrhythmia has been also noted. Oral amiodarone has been initiated. No chest pain. No palpitations. No fever. PHYSICAL EXAMINATION: Alert, oriented x3. Pulse 60, blood pressure 102/62, respiration 14, temperature 97.2, pulse ox 98% on room air. HEENT: Conjunctivae normal. NECK: No jugular venous distention. CARDIOVASCULAR SYSTEM: S1, S2 muffled. RESPIRATORY SYSTEM: Breath sounds diminished at the bases. A few scattered rhonchi. ABDOMEN: Soft, non-tender. LEGS: No edema. No swelling. NERVOUS SYSTEM: No focal deficit. LABS: WBC 9.2, hemoglobin 13.6. Sodium 135. ASSESSMENT: 1. Cardiac arrhythmia, possibly atrial flutter, with a rapid ventricular rate. 2. Troponin 4.650; possible acute znf-TE-fdnyhsf-elevation myocardial infarction or type 2 myocardial infarction or secondary to arrhythmia. 3. Severe cardiomyopathy with possible ischemia, ejection fraction less than 20%. 4. Status post automated implantable cardioverter defibrillator discharge. 5. Congestive heart failure with chronic systolic dysfunction. 6. Increased white count. 7. Increased mean corpuscular volume. 8. Hyponatremia. 9. History of cardiomyopathy. 10.History of coronary artery disease. 11.Chronic obstructive pulmonary disease. 12.Hypertension. 13.Hyperlipidemia. 14.History of myocardial infarction. 15.History of degenerative joint disease. 16.History of coronary artery disease, stent. 17.History of anxiety, depression. 18.History of nicotine dependence. 19.History of tetrahydrocannabinol. 20.Rule out peripheral vascular disease. 21.FULL CODE. RECOMMENDATIONS AND DISCUSSION: I recommend to continue current medications, continue with the monitoring, symptomatic treatment. Otherwise, continue with antiplatelet agents. Continue with amiodarone. Continue with Eliquis. Guarded prognosis because of multiple complex medical issues. Further recommendations to follow. MMODL / IJN: [id number] /
[2019-04-03] MEDS: ALPRAZolam 0.25 MG TAB PO PRN (22:49)
[2019-04-04 06:13] LABS: Basophils % (A) 0 %; Eosinophils # (A) 0.3 k/uL (0-0.7); Eosinophils % (A) 2 %; HCT 42.1 % (39.0-53.0); HGB 14.3 gm/dL (13.0-17.5); Lymphocytes # (A) 2.5 k/uL (1.0-4.8); Lymphocytes % (A) 21 %; MCH 37.2 pg (25.0-35.0); MCV 109.7 fL (80.0-100.0); Macrocytosis Marked; Mean Platelet Volume 8.8; Monocytes # (A) 0.8 k/uL (0-1.0); Monocytes % (A) 6 %; Neutrophils # (A) 8.2 k/uL (1.3-7.7); Neutrophils % (A) 68 %; Platelet Count 191 k/uL (150-450); RBC 3.84 m/uL (4.30-5.90); WBC 12.2 k/uL (3.8-10.6)
[2019-04-04 06:24] LABS: Calcium 9.8 mg/dL (8.4-10.2); Potassium 4.4 mmol/L (3.5-5.1)
[2019-04-04] MEDS: PANTOPRAZOLE 40 MG TABLET PO SCH (06:39)
[2019-04-04] MEDS: SYMBICORT 160-4.5 MCG INHALER INHALATION SCH (08:41)
[2019-04-04] MEDS: SPIRONOLACTONE 25 MG TAB PO SCH (10:06)
[2019-04-04] MEDS: APIXABAN 5 MG TAB PO SCH (10:07)
[2019-04-04] MEDS: MULTIVITAMINS, THERA 1 EACH TAB PO SCH (10:07)
[2019-04-04] MEDS: AMIODARONE 200 MG TAB PO SCH (10:07)
[2019-04-04] MEDS: CHOLECALCIFEROL 1,000 UNIT TAB PO SCH (10:07)
[2019-04-04] MEDS: ASPIRIN 81 MG PO SCH (10:07)
[2019-04-04] MEDS: DIVALPROEX ER 500 MG TAB.ER.24H PO SCH (10:07)
[2019-04-04] MEDS: FUROSEMIDE 20 MG TAB PO SCH (10:07)
[2019-04-04] MEDS: METOPROLOL TARTRATE 25 MG TAB PO SCH (10:07)
[2019-04-04] MEDS: ALPRAZolam 0.25 MG TAB PO PRN (10:14)
[2019-04-04 11:26] VITALS: BP 123/63; PULSE 66; RESP 16; TEMP 97.9
--- NOTE | 2019-04-04 12:47 | P.PN ---
Subjective Patient is resting comfortably at the edge of the bed sitting up No shortness of breath no dizziness lightheadedness He remains in atrial fibrillation He was admitted with multiple ICD shocks secondary to A. fib with RVR Twelve-lead ECG shows a rapid atrial tachycardia with atrial cycle length of about 350 ms with RVR at 163 beats a minute Upright P waves in V1 and negatively oriented P waves in the inferior leads White count elevated 12,000 hemoglobin 14.3, BUN 25 creatinine 1.36 On examination his heart rate is between 60-80 beats a minute he is afebrile blood pressure 123/63 mmHg Breath sounds are reduced bilaterally no rhonchi no crackles Heart sounds are regular Abdomen soft Extended is warm no edema Impression Known cardiac myopathy Status post ICD implantation A. fib with RVR with it up nicely shocks currently on apixaban and oral amiodarone and beta blockers Suggest May continue amiodarone short-term, would reduce the dose to 200 mg by mouth daily and then further reduce to 100 mg by mouth daily in the next month or 2 Check TSH Maximize beta blockers Consider PVI for A. fib/atrial tachycardia with RVR along with atrial tachycardia ablation (combination cryoablation and RF ablation) as an outpatient Discussed with the patient May go home from a cardiac standpoint and follow-up with with Dr. Cortez Objective - Vital Signs Vital signs: Vital Signs Temp 97.9 F 04/04/19 11:21 Pulse 66 04/04/19 11:21 Resp 16 04/04/19 11:21 BP 123/63 04/04/19 11:21 Pulse Ox 100 04/04/19 11:21 Intake & Output 04/03/19 04/04/19 04/04/19 18:59 06:59 18:59 Intake Total 1080 360 Output Total 650 Balance 430 360 Weight 76.1 kg Intake: Oral 1080 360 Output: Urine 650 Other: Voiding Method Urinal # Voids 1 4 - Labs CBC & Chem 7: 04/04/19 05:41 04/04/19 05:41 Labs: Abnormal Lab Results - Last 24 Hours (Table) 04/04/19 04/04/19 Range/Units 05:41 05:41 WBC 12.2 H (3.8-10.6) k/uL RBC 3.84 L (4.30-5.90) m/uL MCV 109.7 H (80.0-100.0) fL MCH 37.2 H (25.0-35.0) pg Neutrophils # 8.2 H (1.3-7.7) k/uL Macrocytosis Marked A Sodium 134 L (137-145) mmol/L BUN 25 H (9-20) mg/dL Creatinine 1.36 H (0.66-1.25) mg/dL
[2019-04-04 14:52] LABS: T4, Free (Free Thyroxine) 1.23 ng/dL (0.78-2.19)
--- NOTE | 2019-04-05 10:47 | DS ---
DISCHARGE SUMMARY DATE OF SERVICE: 04/04/2019 FINAL DIAGNOSES: 1. Cardiac arrhythmia, possible atrial flutter with rapid ventricular rate. 2. Troponin 4.650 possibly type 2 myocardial infarction or secondary to arrhythmia. 3. Severe cardiomyopathy with possible ischemic cardiomyopathy, ejection fraction less than 20%. 4. Status post automated implantable cardioverter-defibrillator discharge. 5. Congestive heart failure with chronic systolic dysfunction. 6. Increased WBC. 7. Increased MCV. 8. Hyponatremia. 9. History of cardiomyopathy. 10.History of coronary artery disease. 11.Chronic obstructive pulmonary disease. 12.Hypertension. 13.Hyperlipidemia. 14.Myocardial infarction. 15.History of degenerative joint disease. 16.History of coronary artery disease, stent. 17.History of anxiety, depression. 18.History of nicotine dependence. 19.History of THC. 20.Rule out peripheral vascular disease. 21.FULL CODE. DISCHARGE DISPOSITION: The patient will be discharged in stable condition with guarded prognosis. HISTORY OF PRESENT ILLNESS: This 63-year-old gentleman with a past medical history of multiple medical problems admitted with cardiac arrhythmia. The patient also was treated with multiple antiarrhythmic agents and Cardiology saw the patient. Patient improved significantly. Two-D echo as above. Dr. Cifuentes has seen the patient and recommended the patient to be followed up in the outpatient setting with continued amiodarone. Otherwise, consider atrial tachycardia ablation also. On exam, vitals are stable. CARDIOVASCULAR: S1, S2 muffled. ABDOMEN: Soft. NERVOUS SYSTEM: No focal deficit. DISCHARGE ADVICE: 1. Diet is cardiac. 2. Activity limited until followup. 3. Follow up with Dr. Mari in 2 to 3 days. 4. Follow up with Cardiology, Dr. Cifuentes, as recommended. Medications are as follows: 1. Amitriptyline 25 mg at bedtime. 2. Fluticasone, Vilanterol, Breo Ellipta, 1 puff daily. 3. Depakote 500 mg p.o. b.i.d. 4. DuoNeb q.i.d. and p.r.n. 5. Flomax 0.4 at bedtime. 6. Lipitor 40 mg at bedtime. 7. Multivitamins one p.o. daily. 8. Neurontin 600 mg at bedtime. 9. Vitamin D3, 2000 daily. 10.Aldactone 12.5 mg p.o. daily. 11.Aspirin 81 mg p.o. daily. 12.Cozaar 50 mg at bedtime. 13.Eliquis 5 mg p.o. b.i.d. 14.Lasix 20 mg p.o. daily. 15.Lopressor 25 mg p.o. b.i.d. 16.Amiodarone per Cardiology. Once again the patient will be discharged in a stable condition in guarded prognosis. MMODL / IJN: [id number] /
== END 2019-04-04 14:40 | disposition home or self-care (01) | DRG 281 ==
LOC: EC 18:24 → 3SCARD 20:39
PROVIDERS: ADMIT Hospitalist; ATTEND Hospitalist
DX: I48.3 Typical atrial flutter (principal); I21.A1 Myocardial infarction type 2; E87.1 Hypo-osmolality and hyponatremia; I50.22 Chronic systolic (congestive) heart failure; I25.2 Old myocardial infarction; E78.5 Hyperlipidemia, unspecified; F17.210 Nicotine dependence, cigarettes, uncomplicated; F32.9 Major depressive disorder, single episode, unspecified; I11.0 Hypertensive heart disease with heart failure; I25.10 Atherosclerotic heart disease of native coronary artery without angina pectoris; I25.5 Ischemic cardiomyopathy; I47.1 Supraventricular tachycardia; I48.0 Paroxysmal atrial fibrillation; J44.9 Chronic obstructive pulmonary disease, unspecified; Z79.01 Long term (current) use of anticoagulants; Z79.82 Long term (current) use of aspirin; Z79.899 Other long term (current) drug therapy; Z91.19 Patient's noncompliance with other medical treatment and regimen; Z95.5 Presence of coronary angioplasty implant and graft; Z95.810 Presence of automatic (implantable) cardiac defibrillator; G47.00 Insomnia, unspecified; F10.21 Alcohol dependence, in remission; F41.9 Anxiety disorder, unspecified; M19.90 Unspecified osteoarthritis, unspecified site; D72.829 Elevated white blood cell count, unspecified
CPT/HCPCS: 36415; 71046; 80048; 80053; 80164; 80306; 80320; 81003; 82550; 83735; 84439; 84443; 84484; 85025; 85610; 85730; 92960; 93005; 93306; 93923; 94640; 94760; 96361; 96365; 96366; 96367; 96376; 99291

== ENCOUNTER 2021-07-02 01:49 | Observation (INO) | payer MEDICARE, OTHER ==
--- NOTE | 2021-07-02 04:00 | ED ---
Weakness HPI - General Chief complaint: Weakness Stated complaint: Chest Pain Time Seen by Provider: 07/02/21 01:53 Source: patient Mode of arrival: EMS Limitations: no limitations - History of Present Illness Initial comments: This patient is a 65-year-old man who is transferred here from [facility]. The patient had gone there tonight related to some shortness of breath and some generalized weakness. The patient states that he had been having a difficult time getting back up after he had went over. He states that the shortness of breath is been going on since April. He was having cough for months but this cleared up a couple of weeks ago. At the other hospital, the patient had workup that revealed he had a troponin of 0.054. He was found to have bilateral pleural effusions though greater on the right side. The patient also had a CTA performed to rule out PE and this only revealed the effusions. When I interview the patient, he is not having any pains tonight. MD Complaint: generalized weakness -: month(s) Location: generalized Severity scale (1-10): 0 Consistency: constant Improves with: none Worsens with: none Associated Symptoms: denies other symptoms - Related Data Home Medications Medication Instructions Recorded Confirmed Atorvastatin [Lipitor] 40 mg PO HS 01/21/15 03/31/19 Cholecalciferol (Vitamin D3) 2,000 unit PO DAILY 03/16/18 03/31/19 [Vitamin D3] Fluticasone/Vilanterol [Breo 1 puff INHALATION RT-BID 08/18/18 03/31/19 Ellipta 200-25 Mcg Inhaler] Ipratropium-Albuterol Nebulize 3 ml INHALATION RT-BID PRN 08/18/18 03/31/19 [Duoneb 0.5 mg-3 mg/3 ml Soln] Tamsulosin [Flomax] 0.4 mg PO HS 08/18/18 03/31/19 Divalproex Sodium [Depakote ER] 500 mg PO BID 10/17/18 03/31/19 Multivitamins, Thera [Multivitamin 1 tab PO DAILY 10/17/18 03/31/19 (formulary)] Amitriptyline HCl 25 mg PO HS 03/31/19 03/31/19 Gabapentin [Neurontin] 600 mg PO HS 03/31/19 03/31/19 Previous Rx's Medication Instructions Recorded Furosemide [Lasix] 20 mg PO DAILY #30 tab 03/24/18 Metoprolol Tartrate [Lopressor] 25 mg PO BID #30 tablet 03/24/18 Apixaban [Eliquis] 5 mg PO BID #60 tab 04/04/19 Aspirin 81 mg PO DAILY #30 chew 04/04/19 Losartan [Cozaar] 50 mg PO HS #30 tab 04/04/19 Spironolactone [Aldactone] 12.5 mg PO DAILY #30 tab 04/04/19 Allergies Allergy/AdvReac Type Severity Reaction Status Date / Time No Known Allergies Allergy Verified 03/31/19 21:56 Review of Systems ROS Statement: Those systems with pertinent positive or pertinent negative responses have been documented in the HPI. ROS Other: All systems not noted in ROS Statement are negative. Constitutional: Denies: fever, chills Respiratory: Reports: as per HPI, cough, dyspnea Cardiovascular: Denies: chest pain, palpitations Gastrointestinal: Denies: abdominal pain, nausea, vomiting, diarrhea Genitourinary: Denies: dysuria, hematuria Musculoskeletal: Denies: back pain Skin: Denies: rash Neurological: Denies: headache, weakness Past Medical History Past Medical History: Coronary Artery Disease (CAD), Heart Failure, COPD, Eye Disorder, Hyperlipidemia, Hypertension, Myocardial Infarction (IA), Ost eoarthritis (OA) Additional Past Medical History / Comment(s): Cardiomyopathy, bilateral ear tinnitis/, bilateral cataracts, sinus problems, lower leg numbness Last Myocardial Infarction Date:: 05/18/2000 History of Any Multi-Drug Resistant Organisms: None Reported Past Surgical History: AICD, Heart Catheterization, Heart Catheterization With Stent Additional Past Surgical History / Comment(s): AICD, DFTs, PCI with stenting, Rt shoulder surgery and eventually had a reverse total shoulder-has metal in this arm, R leg surgery x 3 with marco, L wrist surgery, colonoscopy Past Anesthesia/Blood Transfusion Reactions: No Reported Reaction Date of Last Stent Placement:: 2000 Type of Cardiac Device: AICD Device Placement Date:: 2005 Past Psychological History: Anxiety, Depression Past Alcohol Use History: Occasional Past Drug Use History: None Reported - Past Family History Mother Family Medical History: Cancer, Dementia Additional Family Medical History / Comment(s): She has bowel cancer. Father Family Medical History: Cancer General Exam General appearance: alert, in no apparent distress Head exam: Present: atraumatic, normocephalic Eye exam: Present: normal appearance. Absent: scleral icterus, conjunctival injection Neck exam: Present: normal inspection, full ROM Respiratory exam: Present: rales (Bases), decreased breath sounds (Right base), other (Dullness to percussion at the right lower field). Absent: respiratory distress, wheezes, rhonchi, stridor Cardiovascular Exam: Present: regular rate, normal rhythm, normal heart sounds. Absent: systolic murmur, diastolic murmur, rubs, gallop GI/Abdominal exam: Present: soft. Absent: distended, tenderness, guarding, rebound, rigid, mass Extremities exam: Present: normal inspection, normal capillary refill. Absent: pedal edema, calf tenderness Back exam: Present: normal inspection Neurological exam: Present: alert Skin exam: Present: warm, dry, intact, normal color. Absent: rash Course Vital Signs 07/02/21 07/02/21 07/02/21 02:00 03:09 03:39 Temperature 97.9 F Pulse Rate 106 H 90 90 Pulse Rate [ Bilateral Radial] Respiratory 18 18 22 Rate Blood Pressure 137/94 128/90 124/88 O2 Sat by Pulse 100 98 97 Oximetry 07/02/21 03:41 Temperature Pulse Rate Pulse Rate [ 90 Bilateral Radial] Respiratory Rate Blood Pressure O2 Sat by Pulse Oximetry EKG Findings - EKG Comments: EKG Findings:: Old septal infarct. - EKG Results: EKG: interpreted by ERMD, sinus rhythm (Rate 100 bpm) - Blocks, Glen, Hypertrophy, ST Abn: AV and intraventricular conduction: right bundle branch block (fixed/intermittent, complete/incomplete) QRS axis and voltage: left axis deviation (-30 to -90) Medical Decision Making - Medical Decision Making Patient is 65-year-old man transferred here from [facility] after he had gone there in been found to have mild elevation of his troponin. Patient also with right pleural effusion. He had been started on IV heparin, patient states that he does take his eliquis as directed and so this is held. Patient denying any chest symptoms here. Disposition Clinical Impression: Pleural effusion, Elevated troponin I level Disposition: ADMITTED IP TO THIS HOSP Condition: Fair Is patient prescribed a controlled substance at d/c from ED?: No Referrals: None,Stated [Primary Care Provider] - 1-2 days
[2021-07-02] MEDS ORDERED: NITROGLYCERIN SL TABS 0.4 MG TAB SUBLINGUAL PRN (04:29)
--- NOTE | 2021-07-02 08:12 | XR ---
EXAMINATION TYPE: XR chest 2V DATE OF EXAM: 07/02/2021 COMPARISON: X-ray dated 03/31/2019 HISTORY: Pleural effusion TECHNIQUE: Frontal and lateral views of the chest are obtained. FINDINGS: Moderate right-sided pleural effusion with adjacent increased lung density/atelectasis. Congested braulio ateral pulmonary vasculature with increased cardiac diameter which may suggest pulmonary edema, possi lindsay secondary to congestive heart failure, please correlate clinically. Left chest wall single lead pacemaker, unchanged in position. Aortic atherosclerotic calcifications. No sizable left-sided pleural effusion. No definite pneumothorax. Unchanged right glenohumeral arthro plasty. Degenerative changes of the thoracic spine. IMPRESSION: Right-sided pleural effusion with pulmonary vascular congestion suggestive of acute pulmonary edema, associated infection is less likely yet cannot be excluded, please correlate clinically.
--- NOTE | 2021-07-02 09:25 | US ---
EXAMINATION TYPE: US chest DATE OF EXAM: 07/02/2021 COMPARISON: NONE CLINICAL HISTORY: Right pleural effusion. TECHNIQUE: Targeted ultrasound of the posterior lower bilateral hemithoraces EXAM MEASUREMENTS: Right Pleural Effusion pocket size: 12.4 cm Right skin surface to fluid distance: 2.9 cm Left Pleural Effusion pocket size: No fluid seen. Right side marked for possible thoracentesis outside the dept. Left side not marked for possible thoracentesis outside the dept. Pulmonologists are able to review the images in the patient?s EMR. IMPRESSIONS: Right-sided pleural effusion as described above.
[2021-07-02] MEDS ORDERED: FUROSEMIDE 40 MG TAB PO SCH (10:20)
--- NOTE | 2021-07-02 10:23 | P.HPIM ---
History of Present Illness This is a pleasant 65 years old male with past medical history of Coronary Artery Disease status post stent), Heart Failure, COPD, Hyperlipidemia, Hypertension, Osteoarthritis , bilateral ear tinnitis/, bilateral cataracts, lower leg numbness, status post AICD. Atrial fibrillation on Eliquis at home. He has no PCP but follow up with sail repair person Dr. edwards Patient was sent from [facility] after he presented there for chest pain. Patient states that is been complaining of from dyspnea for the last 3 months which was gradually getting worse. Yesterday he was working on his motor home when he got more short of breath and he has to lie on the ground for about half an hour before he could not get up. He denies chest pain however his been complaining of from cough and phlegm for the last few days. He denies abdominal pain or nausea vomiting. No dysuria or urgency. No headache or dizziness. No weakness or numbness. He smokes about 5-7 cigarettes per day and he was counseled to quit agree but he declines nicotine patch, he drinks alcohol about 3 times per week but denies illicit drugs. He denies signs and symptoms of depression, delusions or hallucinations. He is hemodynamically stable and saturating 98 % on 2 L oxygen via nasal cannula. Currently he is kept on aspirin 325 mg by mouth daily in the emergency room Cardiology and pulmonary services were consulted Patient denies depressive symptoms or suicidal ideation, no hallucination or delusions. Records from [facility] reviewed EKG showing sinus tachycardia at 100 with right bundle branch block and QTC [address] T changes Chest x-ray showing CHF and right pleural effusion with right lower lobe infiltrate. D-dimer is elevated and CTA of the chest showing no pulmonary embolism, moderate right pleural effusion Covid test and influenza A and B were negative Elevated troponin 0.05 with reference range up to 0.03. Alcohol level was elevated 49.1 WBC is 9.7, hemoglobin 13.8, platelet count 173, sodium 142, potassium 4.2, BUN 16, creatinine 1.0, calcium 9.4, glucose 95. High d-dimer 2.4. INR 1.2. ProBNP is 8410. Review of Systems Review of systems CONSTITUTIONAL: No fever, no malaise, no fatigue. HEENT: No recent visual problems or hearing problems. Denied any sore throat. CARDIOVASCULAR: No orthaopnea, PND, no palpitations, no syncope. PULMONARY: No chest wall tenderness, no hemoptysis. GASTROINTESTINAL: No diarrhea, no nausea, no vomiting, no abdominal pain. Normoactive bowel sounds. NEUROLOGICAL: No headaches, no weakness, no numbness. HEMATOLOGICAL: Denies any bleeding or petechiae. GENITOURINARY: Denies any burning micturition, frequency, or urgency. MUSCULOSKELETAL/RHEUMATOLOGICAL: Denies any joint pain, swelling, or any muscle pain. ENDOCRINE: Denies any polyuria or polydipsia. Past Medical History Past Medical History: Coronary Artery Disease (CAD), Heart Failure, COPD, Eye Disorder, Hyperlipidemia, Hypertension, Myocardial Infarction ([place]), Osteoarthritis ([place]) Additional Past Medical History / Comment(s): Cardiomyopathy, bilateral ear tinnitis/, bilateral cataracts, sinus problems, lower leg numbness Last Myocardial Infarction Date:: 05/18/2000 History of Any Multi-Drug Resistant Organisms: None Reported Past Surgical History: AICD, Heart Catheterization, Heart Catheterization With Stent Additional Past Surgical History / Comment(s): AICD, DFTs, PCI with stenting, Rt shoulder surgery and eventually had a reverse total shoulder-has metal in this arm, R leg surgery x 3 with marco, L wrist surgery, colonoscopy Past Anesthesia/Blood Transfusion Reactions: No Reported Reaction Date of Last Stent Placement:: 2000 Type of Cardiac Device: AICD Device Placement Date:: 2005 Past Psychological History: Anxiety, Depression Past Alcohol Use History: Occasional Past Drug Use History: None Reported - Past Family History Mother Family Medical History: Cancer, Dementia Additional Family Medical History / Comment(s): She has bowel cancer. Father Family Medical History: Cancer Medications and Allergies Home Medications Medication Instructions Recorded Confirmed Type Atorvastatin [Lipitor] 40 mg PO DAILY 01/21/15 07/02/21 History Apixaban [Eliquis] 5 mg PO BID #60 tab 04/04/19 07/02/21 Rx ALPRAZolam [Xanax] 1 mg PO DIRECTED 07/02/21 07/02/21 History Amiodarone HCl [Pacerone] 50 mg PO DAILY 07/02/21 07/02/21 History Ascorbic Acid [Vitamin C] 1,000 mg PO DAILY 07/02/21 07/02/21 History Cholecalciferol (Vitamin D3) 75 mcg PO DAILY 07/02/21 07/02/21 History [Vitamin D3 (3000 Iu)] Cyanocobalamin (Vitamin B-12) 1,000 mcg PO DAILY 07/02/21 07/02/21 History [Vitamin B-12] Losartan [Cozaar] 50 mg PO DAILY 07/02/21 07/02/21 History Allergies Allergy/AdvReac Type Severity Reaction Status Date / Time No Known Allergies Allergy Verified 07/02/21 07:30 Physical Exam Vitals: Vital Signs Temp Pulse Pulse Resp BP Pulse Ox 07/02/21 06:22 84 18 124/78 98 07/02/21 05:22 90 18 157/103 97 07/02/21 04:46 84 18 131/83 97 07/02/21 03:41 90 07/02/21 03:39 90 22 124/88 97 07/02/21 03:09 90 18 128/90 98 07/02/21 02:00 97.9 F 106 H 18 137/94 100 Intake and Output 07/01/21 07/01/21 07/02/21 14:59 22:59 06:59 Other: Weight 68.039 kg GENERAL: The patient is alert and oriented x3, not in any acute distress. Well developed, well nourished. HEENT: Pupils are round and equally reacting to light. EOMI. No scleral icterus. No conjunctival pallor. Normocephalic, atraumatic. No pharyngeal erythema. No thyromegaly. CARDIOVASCULAR: S1 and S2 present. No murmurs, rubs, or gallops. PULMONARY: Chest is clear to auscultation, no wheezing or crackles. ABDOMEN: Soft, nontender, nondistended, normoactive bowel sounds. No palpable organomegaly. MUSCULOSKELETAL: No joint swelling or deformity. EXTREMITIES: No cyanosis, clubbing, or pedal edema. NEUROLOGICAL: Gross neurological examination did not reveal any focal deficits. SKIN: No rashes. no petechiae. Results Labs: Abnormal Lab Results - Last 24 Hours (Table) 07/02/21 Range/Units 02:44 Troponin I 0.126 H* (0.000-0.034) ng/mL Assessment and Plan Assessment: Chest pain with elevated troponin Bilateral pleural effusion History of coronary artery disease status post stenting 3 Hypertension Hyperlipidemia Paroxysmal atrial fibrillation on Eliquis at home. Chronic systolic failure Status post AICD History of osteoarthritis History of anxiety and depression, not in active tissue Plan: This is a pleasant 65 years old male who presents with chest pain, elevated troponin and pleural effusion Continue with aspirin Resume Eliquis Cardiology and pulmonary team on the case Labs and medication were reviewed.. Continue same treatment. Continue with symptomatic treatment. Resume home medication. Monitor lytes and vitals. DVT and GI prophylaxis. Further recommendationsas per clinical course of the patient DVT prophylaxis: Eliquis GI Prophylaxis: Pepcid PT/OT: Pending Prognosis is guarded
[2021-07-02] MEDS: THIAMINE 100 MG TAB PO SCH (11:07)
--- NOTE | 2021-07-02 11:57 | P.CNPUL ---
History of Present Illness Consult date: 07/02/21 Requesting physician: Quincy Spann Reason for consult: dyspnea, COPD, hypoxemia, pleural effusion, abnormal CXR/CT Chief complaint: Shortness of breath. History of present illness: Pulmonary consult dated 07/02/2021. 65-year-old male Who was transferred down from [facility] because of shortness of breath. He's had shortness of breath for some time, maybe 2 or 3 weeks, maybe even longer than that. In addition, and some generalized weakness. I had seen the patient in the past for COPD but has not seen him recently. I asked him to his family doctor was, and he stated that he did not have one. The patient apparently takes amiodarone, L a course, losartan, and Lipitor. The patient apparently was found to have a pleural effusion bilaterally. The CTA, ruled out pulmonary embolism. The patient does continue to smoke. We did ultrasounds of the chest. There is no fluid seen on the left. On the right side, there was a large right pleural effusion, but the pocket site of 12.4 cm. There is limited lab data from this hospital including a troponin that was 0.126, and then 0.252. EKG showed sinus tachycardia, and a right bundle branch block pattern. Review of Systems REVIEW OF SYSTEMS: CONSTITUTIONAL: Weakness. NEUROLOGIC: [ Negative.] HEENT: [ Negative.] CARDIAC: [Negative.] PULMONARY: Shortness of breath. GI: [Negative.] : [Negative.] RHEUMATOLOGIC: [ Negative.] IMMUNOLOGIC: [ Negative.] ENDOCRINE: [Negative. ] DERMATOLOGIC: [Negative.] Past Medical History Past Medical History: Coronary Artery Disease (CAD), Heart Failure, COPD, Eye Disorder, Hyperlipidemia, Hypertension, Myocardial Infarction ([place]), Osteoarthritis (OA) Additional Past Medical History / Comment(s): Cardiomyopathy, bilateral ear tinnitis/, bilateral cataracts, sinus problems, lower leg numbness Last Myocardial Infarction Date:: 05/18/2000 History of Any Multi-Drug Resistant Organisms: None Reported Past Surgical History: AICD, Heart Catheterization, Heart Catheterization With Stent Additional Past Surgical History / Comment(s): AICD, DFTs, PCI with stenting, Rt shoulder surgery and eventually had a reverse total shoulder-has metal in this arm, R leg surgery x 3 with marco, L wrist surgery, colonoscopy Past Anesthesia/Blood Transfusion Reactions: No Reported Reaction Date of Last Stent Placement:: 2000 Type of Cardiac Device: AICD Device Placement Date:: 2005 Smoking Status: Current every day smoker - Past Family History Mother Family Medical History: Cancer, Dementia Additional Family Medical History / Comment(s): She has bowel cancer. Father Family Medical History: Cancer Additional Family Medical History / Comment(s): Father survived colon cancer but from lung cancer. Medications and Allergies Home Medications Medication Instructions Recorded Confirmed Type Atorvastatin [Lipitor] 40 mg PO DAILY 01/21/15 07/02/21 History Apixaban [Eliquis] 5 mg PO BID #60 tab 04/04/19 07/02/21 Rx ALPRAZolam [Xanax] 1 mg PO DIRECTED 07/02/21 07/02/21 History Amiodarone HCl [Pacerone] 50 mg PO DAILY 07/02/21 07/02/21 History Ascorbic Acid [Vitamin C] 1,000 mg PO DAILY 07/02/21 07/02/21 History Cholecalciferol (Vitamin D3) 75 mcg PO DAILY 07/02/21 07/02/21 History [Vitamin D3 (3000 Iu)] Cyanocobalamin (Vitamin B-12) 1,000 mcg PO DAILY 07/02/21 07/02/21 History [Vitamin B-12] Losartan [Cozaar] 50 mg PO DAILY 07/02/21 07/02/21 History Allergies Allergy/AdvReac Type Severity Reaction Status Date / Time No Known Allergies Allergy Verified 07/02/21 07:30 Physical Exam Osteopathic Statement: *. No significant issues noted on an osteopathic structural exam other than those noted in the History and Physical/Consult. Vitals: Vital Signs Temp Pulse Pulse Resp BP Pulse Ox 07/02/21 10:00 86 18 121/75 98 07/02/21 06:22 84 18 124/78 98 07/02/21 05:22 90 18 157/103 97 07/02/21 04:46 84 18 131/83 97 07/02/21 03:41 90 07/02/21 03:39 90 22 124/88 97 07/02/21 03:09 90 18 128/90 98 07/02/21 02:00 97.9 F 106 H 18 137/94 100 Intake and Output 07/01/21 07/02/21 07/02/21 22:59 06:59 14:59 Other: Weight 68.039 kg 68.039 kg No acute distress, oriented 3. Mildly tachypnea. The patient does have some conversational dyspnea. 2 L saturation is 98%. HEENT examination is grossly unremarkable. Neck supple. Full range of motion. No adenopathy thyromegaly or neck vein distention. Cardiovascular examination reveals regular rhythm rate. S1-S2 normal. No S3 or S4. No discernible murmur noted. Heart rate 86 bpm. Lungs reveal bilateral mild to moderate rhonchi. Crackles at the right lung base. Dullness at the right lung base. No wheezes. Breath sounds mostly clear on the left. Abdomen soft bowel sounds are heard. No masses or tenderness. Extremities are intact. No cyanosis clubbing or edema. Skin is without rash or lesion. Neurologic examination is brief but nonfocal. Results - Laboratory Findings Abnormal lab findings: Abnormal Labs 07/02/21 07/02/21 02:44 07:42 Troponin I 0.126 H* 0.252 H* - Diagnostic Findings Chest x-ray: image reviewed Assessment and Plan Assessment: Shortness of breath, likely multifactorial, in part related to CHF, right-sided pleural effusion, and COPD exacerbation. History of ongoing tobacco use with nicotine addiction. History of CAD, status post stent placement. History of hyperlipidemia. History of hypertension. Status post AICD placement. History of chronic atrial fibrillation. Plan: Plan dated 07/02/2021. The patient's blood thinner will be held. We'll plan on doing a thoracentesis on him tomorrow on the right side. No additional recommendations are made. The patient does continue to smoke. He is counseled about the importance of smoking cessation. If not or ready done, we will add some updrafts tend regimen. His prognosis is clearly guarded. We will continue to follow the patient make recommendations where appropriate. Time with Patient: Greater than 30
[2021-07-02] MEDS ORDERED: HEPARIN SODIUM 1,000 UN/ML (10ML VL) IV PRN (13:05)
[2021-07-02] MEDS: ASPIRIN 81 MG PO SCH (14:06)
[2021-07-02] MEDS: FUROSEMIDE 10 MG/ML 4 ML VIAL IV SCH ×2 (14:07→20:16)
[2021-07-02 14:21] LABS: Basophils % (A) 1 %; Eosinophils % (A) 1 %; HCT 41.9 % (39.0-53.0); HGB 13.2 gm/dL (13.0-17.5); Hypochromasia Slight; Lymphocytes # (A) 0.9 k/uL (1.0-4.8); Lymphocytes % (A) 14 %; MCH 36.3 pg (25.0-35.0); MCHC 31.4 g/dL (31.0-37.0); MCV 115.5 fL (80.0-100.0); Macrocytosis Marked; Mean Platelet Volume 9.2; Monocytes # (A) 0.3 k/uL (0-1.0); Monocytes % (A) 4 %; Neutrophils # (A) 5.3 k/uL (1.3-7.7); Neutrophils % (A) 81 %; Platelet Count 135 k/uL (150-450); RBC 3.63 m/uL (4.30-5.90); RDW 13.8 % (11.5-15.5); WBC 6.6 k/uL (3.8-10.6)
[2021-07-02 14:31] LABS: Calcium 8.7 mg/dL (8.4-10.2); INR 1.4 (<1.2); Partial Thromboplastin Time 29.6 sec (22.0-30.0); Potassium 4.2 mmol/L (3.5-5.1); Prothrombin Time 14.2 sec (9.0-12.0)
--- NOTE | 2021-07-02 14:37 | P.CRDCN ---
History of Present Illness History of present illness: HISTORY OF PRESENTING ILLNESS This is a pleasant 65-year-old male past medical history significant for non- compliance, coronary artery disease status post PCI to the distal RCA, proximal RCA, proximal LAD in 05/2000, ischemic cardiomyopathy with an EF of less than 20%, status post single-chamber ICD placement 2005, dyslipidemia, hypertension, chronic nicotine dependence, daily alcohol use, congestive heart failure, COPD, paroxysmal atrial fibrillation on Eliquis. He used to follow with Dr. Cortez the office has not been followed up since 2019.We have been asked to see in consultation for elevated troponin. Patient presents emergency department after being transferred from [place] due to worsening shortness of breath. Over the past 3 months patient endorses exertional dyspnea, symptoms of orthopnea and PND. He states over the past 3 months or shortness of breath with activity has progressively gotten worse. Yesterday patient states that he was outside working on the waterline in his motor home, he states he bent down and had sudden onset shortness of breath, he states that he lowered himself to the ground and was to make him short of breath to stand. EMS was called and patient was initially brought to [facility]. Patient states he has been non-compliant with medications for about 3 months, he ran out of his diuretics, beta pau, and others. He states he has not been able to get prescribed xanax and has been getting Xanax on the street and states hes taking 1mg TID. He drinks 5 vodka drinks per week. Smokes 7 cigarettes a day. At [place], EKG revealed sinus rhythm, right bundle branch block, heart rate 114. Labs, troponin 0.035, 0.054, d-dimer 2.48, sodium 142, potassium 4.2, BUN 16, serum creatinine 1.0 CT chest report revealed no pulmonary embolism, large right pleural effusion, small left pleural effusion DIAGNOSTICS EKG reveals sinus tachycardia, heart rate 100, right bundle branch block, left axis devation Echocardiogram revealed EF of less than 20%, increased G2 diastolic dysfunction, mild mitral regurgitation, tricuspid regurgitation, pulmonary hypertension, RVSP 47 mmHg Chest x-ray revealed right-sided pleural effusion with pulmonary vascular congestion suggestive of acute pulmonary edema. Telemetry tracings indicate sinus tachycardia HR 100 Laboratory reviewed, troponin 0.12, 0.25, 0.2, sodium 135, potassium 4.2, BUN 21 , serum creatinine 1.1, INR 1.4 REVIEW OF SYSTEMS At the time of my exam: CONSTITUTIONAL: Denies fever or chills. CARDIOVASCULAR: Denies chest pain, shortness of breath, orthopnea, PND or palpitations. RESPIRATORY: Denies cough. GASTROINTESTINAL: Denies abdominal pain, diarrhea, constipation, nausea or vomiting. MUSCULOSKELETAL: Denies myalgias. NEUROLOGIC: Denies numbness, tingling, headache or weakness. ENDOCRINE: Denies fatigue, weight change, polydipsia or polyurina. GENITOURINARY: Denies burning, hematuria or urgency with micturation. HEMATOLOGIC: Denies history of anemia or bleeding. PHYSICAL EXAMINATION Blood pressure 132/82, heart rate 80, oxygen saturation 100% on 4 L nasal can nula CONSTITUTIONAL: No apparent distress. HEENT: Head is normocephalic. Pupils are equal, round. Sclerae anicteric. Mucous membranes of the mouth are moist. CHEST EXAMINATION: Lungs crackles bilaterally to auscultation. No chest wall tenderness is noted on palpation or with deep breathing. HEART EXAMINATION: Regular rate and rhythm. S1, S2 heard. Systolic ejection murmur noted. ABDOMEN: Soft, nontender. Positive bowel sounds. EXTREMITIES: 2+ peripheral pulses, no lower extremity edema and no calf tenderness. SKIN: warm, dry NEUROLOGIC EXAMINATION: Patient is awake, alert and oriented x3. ASSESSMENT Acute on chronic heart failure with reduced ejection fraction Right pleural effusion Elevated troponin Coronary artery disease status post PCI to the distal RCA, proximal RCA, proximal LAD in 05/2000 Ischemic cardiomyopathy with an EF of less than 20% Status post single-chamber ICD placement 2005 Dyslipidemia Hypertension Chronic nicotine dependence Daily alcohol use COPD Paroxysmal atrial fibrillation on Eliquis outpatient PLAN Start IV lasix 40mg BID Monitor I/os, daily weights, renal function and electrolytes IV heparin drip Obtain 2D echocardiogram and doppler study to assess cardiac structure and function. Continue aspirin, statin, losartan and beta pau Smoking and alcohol cessation discussed and highly recommended. Further recommendations based on course and evaluation by Dr. Ruano Thank you kindly for this consultation. Nurse practitioner note has been reviewed by physician. Signing provider agrees with the documented findings, assessment, and plan of care. Past Medical History Past Medical History: Coronary Artery Disease (CAD), Heart Failure, COPD, Eye Disorder, Hyperlipidemia, Hypertension, Myocardial Infarction ([place]), Osteoarthritis (OA) Additional Past Medical History / Comment(s): Cardiomyopathy, bilateral ear tinnitis/, bilateral cataracts, sinus problems, lower leg numbness Last Myocardial Infarction Date:: 05/18/2000 History of Any Multi-Drug Resistant Organisms: None Reported Past Surgical History: AICD, Heart Catheterization, Heart Catheterization With Stent Additional Past Surgical History / Comment(s): AICD, DFTs, PCI with stenting, Rt shoulder surgery and eventually had a reverse total shoulder-has metal in this arm, R leg surgery x 3 with marco, L wrist surgery, colonoscopy Past Anesthesia/Blood Transfusion Reactions: No Reported Reaction Date of Last Stent Placement:: 2000 Type of Cardiac Device: AICD Device Placement Date:: 2005 Smoking Status: Current every day smoker - Past Family History Mother Family Medical History: Cancer, Dementia Additional Family Medical History / Comment(s): She has bowel cancer. Father Family Medical History: Cancer Additional Family Medical History / Comment(s): Father survived colon cancer but from lung cancer. Medications and Allergies Home Medications Medication Instructions Recorded Confirmed Type Atorvastatin [Lipitor] 40 mg PO DAILY 01/21/15 07/02/21 History Apixaban [Eliquis] 5 mg PO BID #60 tab 04/04/19 07/02/21 Rx ALPRAZolam [Xanax] 1 mg PO DIRECTED 07/02/21 07/02/21 History Amiodarone HCl [Pacerone] 50 mg PO DAILY 07/02/21 07/02/21 History Ascorbic Acid [Vitamin C] 1,000 mg PO DAILY 07/02/21 07/02/21 History Cholecalciferol (Vitamin D3) 75 mcg PO DAILY 07/02/21 07/02/21 History [Vitamin D3 (3000 Iu)] Cyanocobalamin (Vitamin B-12) 1,000 mcg PO DAILY 07/02/21 07/02/21 History [Vitamin B-12] Losartan [Cozaar] 50 mg PO DAILY 07/02/21 07/02/21 History Allergies Allergy/AdvReac Type Severity Reaction Status Date / Time No Known Allergies Allergy Verified 07/02/21 07:30 Physical Exam Vitals: Vital Signs Temp Pulse Pulse Resp BP Pulse Ox 07/02/21 10:00 86 18 121/75 98 07/02/21 06:22 84 18 124/78 98 07/02/21 05:22 90 18 157/103 97 07/02/21 04:46 84 18 131/83 97 07/02/21 03:41 90 07/02/21 03:39 90 22 124/88 97 07/02/21 03:09 90 18 128/90 98 07/02/21 02:00 97.9 F 106 H 18 137/94 100 Intake and Output 07/01/21 07/02/21 07/02/21 22:59 06:59 14:59 Other: Weight 68.039 kg 68.039 kg Results 07/02/21 14:05 Cardiac Enzymes 07/02/21 07/02/21 07/02/21 Range/Units 02:44 07:42 10:39 Troponin I 0.126 H* 0.252 H* 0.225 H* (0.000-0.034) ng/mL Current Medications Generic Name Dose Route Start Last Admin Trade Name Freq PRN Reason Stop Dose Admin Amiodarone HCl 50 mg 07/03/21 09:00 Amiodarone 50 Mg Tab PO DAILY [facility] Atorvastatin Calcium 40 mg 07/03/21 09:00 Atorvastatin 40 Mg Tab PO DAILY [facility] Losartan Potassium 50 mg 07/03/21 09:00 Losartan 50 Mg Tab PO DAILY [facility] Nitroglycerin 0.4 mg 07/02/21 04:29 Nitroglycerin Sl Tabs 0.4 Mg Tab SUBLINGUAL Q5M PRN Chest Pain Thiamine HCl 100 mg 07/02/21 10:30 07/02/21 11:07 Thiamine 100 Mg Tab PO 100 mg DAILY [facility] Administration Intake and Output 07/01/21 07/02/21 07/02/21 22:59 06:59 14:59 Other: Weight 68.039 kg 68.039 kg Patient Weight 07/03/21 06:59 Weight 68.039 kg
[2021-07-02] MEDS: HEPARIN SOD,PORK IN 0.45% NACL 25,000 UNIT in 0.45% NACL 1 250ML.BAG IV SCH (14:38)
[2021-07-02] MEDS ORDERED: LORazepam 2 MG/ML INJ IV PRN ×3 (16:20)
[2021-07-02] MEDS ORDERED: APIXABAN 5 MG TAB PO SCH (21:00)
--- NOTE | 2021-07-03 07:44 | ECHOF ---
Referral Reason: MEASUREMENTS -------- HEIGHT: 175.3 cm WEIGHT: 68.0 kg BP: 121/75 RVIDd: 4.0 cm (< 3.3) IVSd: 0.9 cm (0.6 - 1.1) LVIDd: 5.9 cm (3.9 - 5.3) LVPWd: 1.2 cm (0.6 - 1.1) IVSs: 1.0 cm LVIDs: 5.4 cm LVPWs: 1.5 cm LAESV Index (A-L): 32.86 ml/m Ao Diam: 2.8 cm (2.0 - 3.7) AV Cusp: 1.8 cm (1.5 - 2.6) LA Diam: 5.2 cm (2.7 - 3.8) MV EXCURSION: 15.279 mm (> 18.000) MV EF SLOPE: 95 mm/s (70 - 150) EPSS: 2.4 cm RAP: 5.00 mmHg RVSP: 57.24 mmHg FINDINGS -------- Sinus rhythm. This was a technically adequate study. The left ventricle is mildly dilated. Left ventricular wall thickness is normal. There is severe global hypokinesis of LV . Overall left ventricular systolic function is severely impaired with, an EF < 20%. The right ventricle is moderately enlarged. LA is midly dilated 29-33ml/m2. The right atrial size is normal. Electronic pacemaker lead seen in the right atrial cavity. 5.0mg of Lumason was utilized for enhancement of images Interatrial and interventricular septum intact. There is no evidence of aortic regurgitation. There is no evidence of aortic stenosis. Moderate mitral regurgitation is present. Moderate to severe tricuspid regurgitation present. There is moderate to severe pulmonary hypertens ion. The right ventricular systolic pressure, as measured by Doppler, is 57.24mmHg. There is no pulmonic regurgitation present. The aortic root size is normal. The inferior vena cava is mildly dilated. There is no pericardial effusion. CONCLUSIONS -------- 1. The left ventricle is mildly dilated. 2. Left ventricular wall thickness is normal. 3. There is severe global hypokinesis of LV . 4. Overall left ventricular systolic function is severely impaired with, an EF < 20%. 5. The right ventricle is moderately enlarged. 6. Moderate mitral regurgitation is present. 7. Moderate to severe tricuspid regurgitation present. 8. There is moderate to severe pulmonary hypertension. 9. The right ventricular systolic pressure, as measured by Doppler, is 57.24mmHg. 10. The inferior vena cava is mildly dilated. PROGRAMMER ANALYST: Jennifer Mccann RDCS
[2021-07-03] MEDS ORDERED: ASPIRIN 325 MG TAB PO SCH (09:00)
[2021-07-03] MEDS: ATORVASTATIN 40 MG TAB PO SCH (09:13)
[2021-07-03] MEDS: ASPIRIN 81 MG PO SCH (09:13)
[2021-07-03] MEDS: THIAMINE 100 MG TAB PO SCH (09:13)
[2021-07-03] MEDS: FUROSEMIDE 10 MG/ML 4 ML VIAL IV SCH ×2 (09:13→20:57)
[2021-07-03] MEDS: METOPROLOL SUCCINATE (ER) 25 MG TAB.ER.24H PO SCH (09:13)
[2021-07-03] MEDS: LOSARTAN 50 MG TAB PO SCH (09:13)
[2021-07-03] MEDS: AMIODARONE 50 MG TAB PO SCH (09:14)
[2021-07-03 10:25] LABS: Basophils % (A) 0 %; Eosinophils # (A) 0.1 k/uL (0-0.7); Eosinophils % (A) 1 %; HCT 41.1 % (39.0-53.0); Hypochromasia Slight; Lymphocytes # (A) 1.2 k/uL (1.0-4.8); Lymphocytes % (A) 15 %; MCH 36.5 pg (25.0-35.0); MCHC 31.6 g/dL (31.0-37.0); Macrocytosis Marked; Mean Platelet Volume 9.5; Monocytes # (A) 0.4 k/uL (0-1.0); Monocytes % (A) 5 %; Neutrophils # (A) 5.8 k/uL (1.3-7.7); Neutrophils % (A) 77 %; Platelet Count 149 k/uL (150-450); RBC 3.55 m/uL (4.30-5.90); RDW 13.7 % (11.5-15.5); WBC 7.6 k/uL (3.8-10.6)
[2021-07-03 10:40] LABS: MCV 115.6 fL (80.0-100.0)
[2021-07-03 10:46] LABS: Calcium 8.2 mg/dL (8.4-10.2); Magnesium 1.6 mg/dL (1.6-2.3); Potassium 3.7 mmol/L (3.5-5.1)
[2021-07-03 11:45] VITALS: BMI 22.1
[2021-07-03 12:48] LABS: INR 1.3 (<1.2); Partial Thromboplastin Time 59.1 sec (22.0-30.0); Prothrombin Time 13.1 sec (9.0-12.0)
[2021-07-03] MEDS: HEPARIN SOD,PORK IN 0.45% NACL 25,000 UNIT in 0.45% NACL 1 250ML.BAG IV SCH (12:50)
--- NOTE | 2021-07-03 12:59 | P.PN ---
Subjective Progress Note Date: 07/03/21 Principal diagnosis: Shortness of breath. Pulmonary consult dated 07/02/2021. 65-year-old male Who was transferred down from [facility] because of shortness of breath. He's had shortness of breath for some time, maybe 2 or 3 weeks, maybe even longer than that. In addition, and some generalized weakness. I had seen the patient in the past for COPD but has not seen him recently. I asked him to his family doctor was, and he stated that he did not have one. The patient apparently takes amiodarone, L a course, losartan, and Lipitor. The patient apparently was found to have a pleural effusion bilaterally. The CTA, ruled out pulmonary embolism. The patient does continue to smoke. We did ultrasounds of the chest. There is no fluid seen on the left. On the right side, there was a large right pleural effusion, but the pocket site of 12.4 cm. There is limited lab data from this hospital including a troponin that was 0.126, and then 0.252. EKG showed sinus tachycardia, and a right bundle branch block pattern. Progress note dated 07/03/2021. 65-year-old male we saw in the emergency department yesterday. He came in from the outside hospital complaining of shortness of breath. He was found have a significant right-sided pleural effusion. The ultrasound showed a greater than 10 cm pocket. We are planning to do a right-sided thoracentesis today, but the patient refuses. CTA, ruled out a pulmonary embolism. The patient states that his feeling much better. White count 7.6, hemoglobin 13, hematocrit 41.1, and platelet count 149,000. PT 13.1 PTT is 59.1. Sodium 132, potassium 3.7, chlorides 102, CO2 22, BUN 31, creatinine 1.10. Objective - Vital Signs Vital signs: Vital Signs Temp 97.8 F 07/03/21 12:00 Pulse 68 07/03/21 12:00 Resp 17 07/03/21 12:00 BP 88/55 07/03/21 12:00 Pulse Ox 96 07/03/21 12:00 Intake & Output 07/02/21 07/03/21 07/03/21 18:59 06:59 18:59 Intake Total 118 69.605 Output Total 775 850 Balance -657 -780.395 Weight 68.039 kg 68.039 kg Intake: IV 10 Invasive Line 2 10 Intake, IV Titration 59.605 Amount Heparin Sod,Pork in 0.45% 59.605 NaCl 25,000 unit In 0.45 % NaCl 1 250ml.bag @ 12 UNITS/KG/HR 8.165 mls/hr IV .Q24H [facility] Rx#: [id number] Oral 118 Output: Urine 775 850 Other: Voiding Method Urinal Urinal - Exam No acute distress, oriented 3. Mildly tachypnea. The patient does have some conversational dyspnea. 2 L saturation is 96%. HEENT examination is grossly unremarkable. Neck supple. Full range of motion. No adenopathy thyromegaly or neck vein distention. Cardiovascular examination reveals regular rhythm rate. S1-S2 normal. No S3 or S4. No discernible murmur noted. Heart rate 68 bpm. Lungs reveal bilateral mild to moderate rhonchi. Crackles at the right lung base. Dullness at the right lung base. No wheezes. Breath sounds mostly clear on the left. Abdomen soft bowel sounds are heard. No masses or tenderness. Extremities are intact. No cyanosis clubbing or edema. Skin is without rash or lesion. Neurologic examination is brief but nonfocal. - Labs CBC & Chem 7: 07/03/21 08:37 07/03/21 08:37 Labs: Abnormal Lab Results - Last 24 Hours (Table) 07/02/21 07/02/21 07/02/21 Range/Units 14:05 14:05 14:05 RBC 3.63 L (4.30-5.90) m/uL MCV 115.5 H (80.0-100.0) fL MCH 36.3 H (25.0-35.0) pg Plt Count 135 L (150-450) k/uL Lymphocytes # 0.9 L (1.0-4.8) k/uL Macrocytosis Marked A PT 14.2 H (9.0-12.0) sec INR 1.4 H (<1.2) APTT (22.0-30.0) sec Sodium 135 L (137-145) mmol/L Carbon Dioxide 21 L (22-30) mmol/L BUN 21 H (9-20) mg/dL Glucose 59 L (74-99) mg/dL Calcium (8.4-10.2) mg/dL 07/02/21 07/03/21 07/03/21 Range/Units 20:34 08:37 08:37 RBC 3.55 L (4.30-5.90) m/uL MCV 115.6 H (80.0-100.0) fL MCH 36.5 H (25.0-35.0) pg Plt Count 149 L (150-450) k/uL Lymphocytes # (1.0-4.8) k/uL Macrocytosis Marked A PT (9.0-12.0) sec INR (<1.2) APTT 50.8 H (22.0-30.0) sec Sodium 132 L (137-145) mmol/L Carbon Dioxide (22-30) mmol/L BUN 31 H (9-20) mg/dL Glucose 128 H (74-99) mg/dL Calcium 8.2 L (8.4-10.2) mg/dL 07/03/21 Range/Units 12:15 RBC (4.30-5.90) m/uL MCV (80.0-100.0) fL MCH (25.0-35.0) pg Plt Count (150-450) k/uL Lymphocytes # (1.0-4.8) k/uL Macrocytosis PT 13.1 H (9.0-12.0) sec INR 1.3 H (<1.2) APTT 59.1 H (22.0-30.0) sec Sodium (137-145) mmol/L Carbon Dioxide (22-30) mmol/L BUN (9-20) mg/dL Glucose (74-99) mg/dL Calcium (8.4-10.2) mg/dL Assessment and Plan Assessment: Shortness of breath, likely multifactorial, in part related to CHF, right-sided pleural effusion, and COPD exacerbation. Large right-sided pleural effusion, patient refuses thoracentesis. History of ongoing tobacco use with nicotine addiction. History of CAD, status post stent placement. History of hyperlipidemia. History of hypertension. Status post AICD placement. History of chronic atrial fibrillation. Plan: Plan dated 07/02/2021. The patient's blood thinner will be held. We'll plan on doing a thoracentesis on him tomorrow on the right side. No additional recommendations are made. The patient does continue to smoke. He is counseled about the importance of smoking cessation. If not or ready done, we will add some updrafts tend regimen. His prognosis is clearly guarded. We will continue to follow the patient make recommendations where appropriate. Plan dated 07/03/2021. The plan was to do a right-sided thoracentesis today. The patient was placed on IV heparin per cardiology. That will be stopped, and the thoracentesis will be done 2 hours afterwards. The patient currently refuses a thoracentesis. The patient is on 2 L. He states that he's feeling much improved. The patient was counseled about importance of smoking cessation. Labs, x-rays, and medications are all reviewed. Time with Patient: Less than 30
--- NOTE | 2021-07-03 13:49 | P.PN ---
Subjective Progress Note Date: 07/03/21 HISTORY OF PRESENT ILLNESS: This is a pleasant 65-year-old male past medical history significant for non- compliance, coronary artery disease status post PCI to the distal RCA, proximal RCA, proximal LAD in 05/2000, ischemic cardiomyopathy with an EF of less than 20%, status post single-chamber ICD placement 2005, dyslipidemia, hypertension, chronic nicotine dependence, daily alcohol use, congestive heart failure, COPD, paroxysmal atrial fibrillation on Eliquis. He used to follow with Dr. Cortez the office has not been followed up since 2019.We have been asked to see in cons ultation for elevated troponin. Patient presents emergency department after being transferred from [place] due to worsening shortness of breath. Over the past 3 months patient endorses exertional dyspnea, symptoms of orthopnea and PND. He states over the past 3 months or shortness of breath with activity has progressively gotten worse. Yesterday patient states that he was outside working on the waterline in his motor home, he states he bent down and had sudden onset shortness of breath, he states that he lowered himself to the ground and was to make him short of breath to stand. EMS was called and patient was initially brought to [facility]. Patient states he has been non-compliant with medications for about 3 months, he ran out of his diuretics, beta pau, and others. He states he has not been able to get prescribed xanax and has been getting Xanax on the street and states hes taking 1mg TID. He drinks 5 vodka drinks per week. Smokes 7 cigarettes a day. At [place], EKG revealed sinus rhythm, right bundle branch block, heart rate 114. Labs, troponin 0.035, 0.054, d-dimer 2.48, sodium 142, potassium 4.2, BUN 16, serum creatinine 1.0 CT chest report revealed no pulmonary embolism, large right pleural effusion, small left pleural effusion DIAGNOSTICS EKG reveals sinus tachycardia, heart rate 100, right bundle branch block, left axis devation Echocardiogram revealed EF of less than 20%, increased G2 diastolic dysfunction, mild mitral regurgitation, tricuspid regurgitation, pulmonary hypertension, RVSP 47 mmHg Chest x-ray revealed right-sided pleural effusion with pulmonary vascular congestion suggestive of acute pulmonary edema. Telemetry tracings indicate sinus tachycardia HR 100 Laboratory reviewed, troponin 0.12, 0.25, 0.2, sodium 135, potassium 4.2, BUN 21, serum creatinine 1.1, INR 1.4 07/03/2021 Patient examined at the bedside. Patient is very lethargic and difficult to wake up. He has been receiving IV Ativan. He remains on IV lasix. Patient refused to have thoracentesis performed today. Echocardiogram revealed ejection fraction less than 20%, severe global hypokinesis of LV, moderate MR, moderate to severe TR, and moderate to severe pulmonary hypertension. PHYSICAL EXAM: VITAL SIGNS: Reviewed. GENERAL: Well-developed in no acute distress. NECK: Supple. No JVD or thyromegaly LUNGS: Respirations even and unlabored. Lungs diminished with bibasilar rales. HEART: Regular rate and rhythm. S1 and S2 heard. Systolic murmur noted. EXTREMITIES: Normal range of motion. No clubbing or cyanosis. Peripheral pulses intact. No lower extremity edema ASSESSMENT: Acute on chronic heart failure with reduced ejection fraction Right pleural effusion Elevated troponin Coronary artery disease status post PCI to the distal RCA, proximal RCA, proximal LAD in 05/2000 Ischemic cardiomyopathy with an EF of less than 20% Status post single-chamber ICD placement 2005 Dyslipidemia Hypertension Chronic nicotine dependence Daily alcohol use COPD Paroxysmal atrial fibrillation on Eliquis outpatient PLAN: Continue current cardiac medications Discontinue IV heparin Resume Eliquis Continue IV lasix Monitor kidney function Further recommendations pending patient course Nurse practitioner note has been reviewed by physician. Signing provider agrees with the documented findings, assessment, and plan of care. Objective - Vital Signs Vital signs: Vital Signs Temp 97.8 F 07/03/21 12:00 Pulse 68 07/03/21 12:00 Resp 17 07/03/21 12:00 BP 88/55 07/03/21 12:00 Pulse Ox 96 07/03/21 12:00 Intake & Output 07/02/21 07/03/21 07/03/21 18:59 06:59 18:59 Intake Total 118 69.605 Output Total 775 850 Balance -657 -780.395 Weight 68.039 kg 68.039 kg Intake: IV 10 Invasive Line 2 10 Intake, IV Titration 59.605 Amount Heparin Sod,Pork in 0.45% 59.605 NaCl 25,000 unit In 0.45 % NaCl 1 250ml.bag @ 12 UNITS/KG/HR 8.165 mls/hr IV .Q24H [facility] Rx#: [id number] Oral 118 Output: Urine 775 850 Other: Voiding Method Urinal Urinal - Labs CBC & Chem 7: 07/03/21 08:37 07/03/21 08:37 Labs: Abnormal Lab Results - Last 24 Hours (Table) 07/02/21 07/02/21 07/02/21 Range/Units 14:05 14:05 14:05 RBC 3.63 L (4.30-5.90) m/uL MCV 115.5 H (80.0-100.0) fL MCH 36.3 H (25.0-35.0) pg Plt Count 135 L (150-450) k/uL Lymphocytes # 0.9 L (1.0-4.8) k/uL Macrocytosis Marked A PT 14.2 H (9.0-12.0) sec INR 1.4 H (<1.2) APTT (22.0-30.0) sec Sodium 135 L (137-145) mmol/L Carbon Dioxide 21 L (22-30) mmol/L BUN 21 H (9-20) mg/dL Glucose 59 L (74-99) mg/dL Calcium (8.4-10.2) mg/dL 07/02/21 07/03/21 07/03/21 Range/Units 20:34 08:37 08:37 RBC 3.55 L (4.30-5.90) m/uL MCV 115.6 H (80.0-100.0) fL MCH 36.5 H (25.0-35.0) pg Plt Count 149 L (150-450) k/uL Lymphocytes # (1.0-4.8) k/uL Macrocytosis Marked A PT (9.0-12.0) sec INR (<1.2) APTT 50.8 H (22.0-30.0) sec Sodium 132 L (137-145) mmol/L Carbon Dioxide (22-30) mmol/L BUN 31 H (9-20) mg/dL Glucose 128 H (74-99) mg/dL Calcium 8.2 L (8.4-10.2) mg/dL 07/03/21 Range/Units 12:15 RBC (4.30-5.90) m/uL MCV (80.0-100.0) fL MCH (25.0-35.0) pg Plt Count (150-450) k/uL Lymphocytes # (1.0-4.8) k/uL Macrocytosis PT 13.1 H (9.0-12.0) sec INR 1.3 H (<1.2) APTT 59.1 H (22.0-30.0) sec Sodium (137-145) mmol/L Carbon Dioxide (22-30) mmol/L BUN (9-20) mg/dL Glucose (74-99) mg/dL Calcium (8.4-10.2) mg/dL
[2021-07-03 16:14] LABS: Chol/HDL Ratio 2.19 Ratio; LDL Cholesterol,Calculated 42.6 mg/dL (0.0-131.0)
[2021-07-03] MEDS: APIXABAN 5 MG TAB PO SCH (20:56)
[2021-07-03] MEDS: ALPRAZolam 1 MG TAB PO PRN (20:56)
[2021-07-04 08:02] LABS: Calcium 8.3 mg/dL (8.4-10.2); Potassium 3.9 mmol/L (3.5-5.1)
[2021-07-04] MEDS: APIXABAN 5 MG TAB PO SCH (09:15)
[2021-07-04] MEDS: ATORVASTATIN 40 MG TAB PO SCH (09:16)
[2021-07-04] MEDS: METOPROLOL SUCCINATE (ER) 25 MG TAB.ER.24H PO SCH (09:16)
[2021-07-04] MEDS: FUROSEMIDE 10 MG/ML 4 ML VIAL IV SCH (09:16)
[2021-07-04] MEDS: THIAMINE 100 MG TAB PO SCH (09:16)
[2021-07-04] MEDS: LOSARTAN 50 MG TAB PO SCH (09:16)
[2021-07-04] MEDS: ASPIRIN 81 MG PO SCH (09:16)
[2021-07-04] MEDS: AMIODARONE 50 MG TAB PO SCH (09:16)
[2021-07-04] MEDS: ALPRAZolam 1 MG TAB PO PRN ×2 (09:17→15:34)
--- NOTE | 2021-07-04 13:24 | P.PN ---
Subjective Progress Note Date: 07/03/21 Principal diagnosis: Acute Exacerbation CHF Elevated Troponin Bilateral Pleural Effusion 65 years old male with past medical history of Coronary Artery Disease status post stent), Heart Failure, COPD, Hyperlipidemia, Hypertension, Osteoarthritis , bilateral ear tinnitis/, bilateral cataracts, lower leg numbness, status post AICD. Atrial fibrillation on Eliquis at home. He has no PCP but follow up with remotely operated vehicle Dr. edwards Patient was sent from [facility] after he presented there for chest pain. Patient states that is been complaining of from dyspnea for the last 3 months which was gradually getting worse. Yesterday he was working on his motor home when he got more short of breath and he has to lie on the ground for about half an hour before he could not get up. He denies chest pain however his been complaining of from cough and phlegm for the last few days. He denies abdominal pain or nausea vomiting. No dysuria or urgency. No headache or dizziness. No weakness or numbness. He smokes about 5-7 cigarettes per day and he was counseled to quit agree but he declines nicotine patch, he drinks alcohol about 3 times per week but denies illicit drugs. He denies signs and symptoms of depression, delusions or hallucinations. He is hemodynamically stable and saturating 98 % on 2 L oxygen via nasal cannula. Currently he is kept on aspirin 325 mg by mouth daily in the emergency room Cardiology and pulmonary services were consulted Patient denies depressive symptoms or suicidal ideation, no hallucination or delusions. Objective - Vital Signs Vital signs: Vital Signs Temp 98.2 F 07/03/21 08:00 Pulse 87 07/03/21 08:00 Resp 18 07/03/21 08:00 BP 121/79 07/03/21 08:00 Pulse Ox 100 07/03/21 08:00 Intake & Output 07/02/21 07/03/21 07/03/21 18:59 06:59 18:59 Intake Total 118 69.605 Output Total 775 850 Balance -657 -780.395 Weight 68.039 kg Intake: IV 10 Invasive Line 2 10 Intake, IV Titration 59.605 Amount Heparin Sod,Pork in 0.45% 59.605 NaCl 25,000 unit In 0.45 % NaCl 1 250ml.bag @ 12 UNITS/KG/HR 8.165 mls/hr IV .Q24H [facility] Rx#: [id number] Oral 118 Output: Urine 775 850 Other: Voiding Method Urinal Urinal - Exam GENERAL: The patient is alert and oriented x3, not in any acute distress. Well developed, well nourished. HEENT: Pupils are round and equally reacting to light. EOMI. No scleral icterus. No conjunctival pallor. Normocephalic, atraumatic. No pharyngeal erythema. No thyromegaly. CARDIOVASCULAR: S1 and S2 present. No murmurs, rubs, or gallops. PULMONARY: Chest is clear to auscultation, no wheezing or crackles. ABDOMEN: Soft, nontender, nondistended, normoactive bowel sounds. No palpable organomegaly. MUSCULOSKELETAL: No joint swelling or deformity. EXTREMITIES: No cyanosis, clubbing, or pedal edema. NEUROLOGICAL: Gross neurological examination did not reveal any focal deficits. SKIN: No rashes. no petechiae. - Labs CBC & Chem 7: 07/03/21 08:37 07/04/21 07:31 Labs: Abnormal Lab Results - Last 24 Hours (Table) 07/02/21 07/02/21 07/02/21 Range/Units 10:39 14:05 14:05 RBC 3.63 L (4.30-5.90) m/uL MCV 115.5 H (80.0-100.0) fL MCH 36.3 H (25.0-35.0) pg Plt Count 135 L (150-450) k/uL Lymphocytes # 0.9 L (1.0-4.8) k/uL Macrocytosis Marked A PT 14.2 H (9.0-12.0) sec INR 1.4 H (<1.2) APTT (22.0-30.0) sec Sodium (137-145) mmol/L Carbon Dioxide (22-30) mmol/L BUN (9-20) mg/dL Glucose (74-99) mg/dL Calcium (8.4-10.2) mg/dL Troponin I 0.225 H* (0.000-0.034) ng/mL 07/02/21 07/02/21 07/03/21 Range/Units 14:05 20:34 08:37 RBC 3.55 L (4.30-5.90) m/uL MCV 115.6 H (80.0-100.0) fL MCH 36.5 H (25.0-35.0) pg Plt Count 149 L (150-450) k/uL Lymphocytes # (1.0-4.8) k/uL Macrocytosis Marked A PT (9.0-12.0) sec INR (<1.2) APTT 50.8 H (22.0-30.0) sec Sodium 135 L (137-145) mmol/L Carbon Dioxide 21 L (22-30) mmol/L BUN 21 H (9-20) mg/dL Glucose 59 L (74-99) mg/dL Calcium (8.4-10.2) mg/dL Troponin I (0.000-0.034) ng/mL 07/03/21 Range/Units 08:37 RBC (4.30-5.90) m/uL MCV (80.0-100.0) fL MCH (25.0-35.0) pg Plt Count (150-450) k/uL Lymphocytes # (1.0-4.8) k/uL Macrocytosis PT (9.0-12.0) sec INR (<1.2) APTT (22.0-30.0) sec Sodium 132 L (137-145) mmol/L Carbon Dioxide (22-30) mmol/L BUN 31 H (9-20) mg/dL Glucose 128 H (74-99) mg/dL Calcium 8.2 L (8.4-10.2) mg/dL Troponin I (0.000-0.034) ng/mL Assessment and Plan Assessment: Chest pain with elevated troponin Bilateral pleural effusion History of coronary artery disease status post stenting 3 Hypertension Hyperlipidemia Paroxysmal atrial fibrillation on Eliquis at home. Chronic systolic failure Status post AICD History of osteoarthritis History of anxiety and depression, not in active tissue Continue with aspirin Resume Eliquis Cardiology and pulmonary team on the case Labs and medication were reviewed.. Continue same treatment. Continue with symptomatic treatment. Resume home medication. Monitor lytes and vitals. DVT and GI prophylaxis. Further recommendationsas per clinical course of the patient DVT prophylaxis: Eliquis GI Prophylaxis: Pepcid PT/OT: Pending Prognosis is guarded
[2021-07-04 14:25] VITALS: BP 92/54; PULSE 63; RESP 17; TEMP 97.8
--- NOTE | 2021-07-04 15:41 | P.PN ---
Subjective Progress Note Date: 07/04/21 65-year-old male Who was transferred down from [facility] because of shortness of breath. He's had shortness of breath for some time, maybe 2 or 3 weeks, maybe even longer than that. In addition, and some generalized weakness. I had seen the patient in the past for COPD but has not seen him recently. I asked him to his family doctor was, and he stated that he did not have one. The patient apparently takes amiodarone, L a course, losartan, and Lipitor. The patient apparently was found to have a pleural effusion bilaterally. The CTA, ruled out pulmonary embolism. The patient does continue to smoke. We did ultrasounds of the chest. There is no fluid seen on the left. On the right si de, there was a large right pleural effusion, but the pocket site of 12.4 cm. There is limited lab data from this hospital including a troponin that was 0.126, and then 0.252. EKG showed sinus tachycardia, and a right bundle branch block pattern. Progress note dated 07/03/2021. 65-year-old male we saw in the emergency department yesterday. He came in from the outside hospital complaining of shortness of breath. He was found have a significant right-sided pleural effusion. The ultrasound showed a greater than 10 cm pocket. We are planning to do a right-sided thoracentesis today, but the patient refuses. CTA, ruled out a pulmonary embolism. The patient states that his feeling much better. White count 7.6, hemoglobin 13, hematocrit 41.1, and platelet count 149,000. PT 13.1 PTT is 59.1. Sodium 132, potassium 3.7, chlorides 102, CO2 22, BUN 31, creatinine 1.10. The patient was seen today 07/04/2021 in follow-up on the regular medical floor. He is currently sitting up in bed. Awake and alert in no acute distress. He is maintaining O2 saturations in the mid 90s on room air. No worsening shortness of breath, cough or congestion. No significant dyspnea on exertion. The patient had declined to undergo thoracentesis. Sodium 132. Potassium 3.9. BUN 37. Creatinine 1.20. Glucose 100. He is continued on IV diuretics. Remains in a negative 1.4 L balance. Anticoagulated with Eliquis. Objective - Vital Signs Vital signs: Vital Signs Temp 97.8 F 07/04/21 14:21 Pulse 63 07/04/21 14:21 Resp 17 07/04/21 14:21 BP 92/54 07/04/21 14:21 Pulse Ox 96 07/04/21 14:21 Intake & Output 07/03/21 07/04/21 07/04/21 18:59 06:59 18:59 Intake Total 480 Output Total 600 300 700 Balance -600 -300 -220 Weight 68.039 kg 65.7 kg Intake: Oral 480 Output: Urine 600 300 700 Other: Voiding Method Urinal Urinal Urinal - Exam GENERAL EXAM: Alert, frail, appears older than stated age, male patient, on room air comfortable in no apparent distress. HEAD: Normocephalic. EYES: Normal reaction of pupils, equal size. NOSE: Clear with pink turbinates. THROAT: No erythema or exudates. NECK: No masses, no JVD. CHEST: No chest wall deformity. LUNGS: Equal air entry with crackles in the bilateral bases right greater than left, diminished. CVS: S1 and S2 normal with no audible murmur, regular rhythm. ABDOMEN: No hepatosplenomegaly, normal bowel sounds, no guarding or rigidity. SPINE: No scoliosis or deformity SKIN: No rashes CENTRAL NERVOUS SYSTEM: No focal deficits, tone is normal in all 4 extremities. EXTREMITIES: There is no peripheral edema. No clubbing, no cyanosis. Peripheral pulses are intact. - Labs CBC & Chem 7: 07/03/21 08:37 07/04/21 07:31 Labs: Abnormal Lab Results - Last 24 Hours (Table) 07/04/21 Range/Units 07:31 Sodium 132 L (137-145) mmol/L BUN 37 H (9-20) mg/dL Glucose 100 H (74-99) mg/dL Calcium 8.3 L (8.4-10.2) mg/dL Assessment and Plan Assessment: 1 Shortness of breath, likely multifactorial, in part related to CHF, right- sided pleural effusion, and COPD exacerbation. 2 Large right-sided pleural effusion, patient refuses thoracentesis. 3 History of ongoing tobacco use with nicotine addiction. 4 History of CAD, status post stent placement. 5 History of hyperlipidemia. 6 History of hypertension. 7 Status post AICD placement. 8 History of chronic atrial fibrillation. Plan: The patient was seen and evaluated Stable and on room air Declined thoracentesis of the right pleural effusion Anxious to go home Follow up in the office in 1-2 weeks' I have personally seen and examined the patient, performed the documentation and the assessment and plan as written. Number of minutes spent on the visit: 10
--- NOTE | 2021-07-05 13:42 | P.DS ---
Providers Date of admission: 07/03/21 12:01 Expected date of discharge: 07/04/21 Attending physician: Quincy Spann Consults: 07/02/21 04:29 Consult Physician Routine Consulting Provider: Jonh Onofre Consult Reason/Comments: pleural effusion Do you want consulting provider notified?: Yes Consult Physician Routine Consulting Provider: Fadia Cortez Consult Reason/Comments: Your patient. Minimally elevated troponin I. Do you want consulting provider notified?: Yes Primary care physician: Stated None Hospital Course: Final diagnosis Chest pain with elevated troponin Bilateral pleural effusion History of coronary artery disease status post stenting 3 Hypertension Hyperlipidemia Paroxysmal atrial fibrillation on Eliquis at home. Chronic systolic congestive heart failure Status post AICD History of osteoarthritis History of anxiety and depression, not in active tissue Discharge disposition Patient is leaving AGAINST MEDICAL ADVICE. Risks versus benefits were explained and patient was provided with documents to sign for leaving AGAINST MEDICAL ADVICE. Patient will follow-up with Dr. Husain in the outpatient setting upon discharge. Patient encouraged to avoid EtOH. Total time taken is greater than 35 minutes. Hospital course This is a 65-year-old male who was recently admitted from [facility] for chest pain and was sent here with worsening dyspnea and further evaluation by cardiology and pulmonary. Patient was maintained on IV Lasix and possible thoracentesis was discussed although patient refused. Patient also reports to drinking daily and maintained on CIWA protocol. Patient encouraged to remain hospitalized until cleared by cardiology and pulmonary although patient reported he had an appointment to attend to later this afternoon. Patient encouraged to avoid alcohol intake and strongly encouraged to follow-up with primary care provider along with cardiology and pulmonary and the outpatient setting. Discussed with the patient about calling the 911 reporting to the nearest emergency department with any worsening symptoms. Currently no reports of chest pain, shortness of breath, or palpitations. Patient is afebrile. No reports of nausea or vomiting and patient is tolerating diet. Patient will be eating AGAINST MEDICAL ADVICE today Physical exam: GENERAL: The patient is alert and oriented x3, not in any acute distress. Well developed, well nourished. HEENT: Pupils are round and equally reacting to light. EOMI. No scleral icterus. No conjunctival pallor. Normocephalic, atraumatic. No pharyngeal erythema. No thyromegaly. CARDIOVASCULAR: S1 and S2 present. No murmurs, rubs, or gallops. PULMONARY: Chest is clear to auscultation, no wheezing or crackles. ABDOMEN: Soft, nontender, nondistended, normoactive bowel sounds. No palpable organomegaly. MUSCULOSKELETAL: No joint swelling or deformity. EXTREMITIES: No cyanosis, clubbing, or pedal edema. NEUROLOGICAL: Gross neurological examination did not reveal any focal deficits. SKIN: No rashes. no petechiae. Please refer to medication reconciliation sheet for a list of medications. The impression and plan of care has been dictated by Mis Jeffers, Nurse Practitioner as directed. Dr. Nury MD I have performed a history and examination and MDM of this patient, discussed the same with the dictator, and agree with the dictator's assessment and plan as written ,documented as a scribe. Based on total visit time, I have performed more than 50% of the visit. Patient Condition at Discharge: Fair Plan - Discharge Summary Discharge Rx Participant: No New Discharge Prescriptions: New Aspirin 81 mg PO DAILY #30 Metoprolol Succinate (ER) [Toprol XL] 25 mg PO DAILY #30 Furosemide [Lasix] 40 mg PO BID 30 Days #60 tablet Nitroglycerin Sl Tabs [Nitrostat] 0.4 mg SUBLINGUAL Q5M PRN #30 tab PRN Reason: Chest Pain Thiamine [Vitamin B-1] 100 mg PO DAILY #30 tab Continue Atorvastatin [Lipitor] 40 mg PO DAILY Apixaban [Eliquis] 5 mg PO BID #60 tab Cyanocobalamin (Vitamin B-12) [Vitamin B-12] 1,000 mcg PO DAILY Cholecalciferol (Vitamin D3) [Vitamin D3 (3000 Iu)] 75 mcg PO DAILY ALPRAZolam [Xanax] 1 mg PO DIRECTED Ascorbic Acid [Vitamin C] 1,000 mg PO DAILY Amiodarone HCl [Pacerone] 50 mg PO DAILY Losartan [Cozaar] 50 mg PO DAILY Albuterol Inhaler [Ventolin Hfa Inhaler] 1 - 2 puff INHALATION Q4-6H PRN PRN Reason: Shortness Of Breath Discharge Medication List Atorvastatin [Lipitor] 40 mg PO DAILY 01/21/15 [History] Apixaban [Eliquis] 5 mg PO BID #60 tab 04/04/19 [Rx] ALPRAZolam [Xanax] 1 mg PO DIRECTED 07/02/21 [History] Amiodarone HCl [Pacerone] 50 mg PO DAILY 07/02/21 [History] Ascorbic Acid [Vitamin C] 1,000 mg PO DAILY 07/02/21 [History] Cholecalciferol (Vitamin D3) [Vitamin D3 (3000 Iu)] 75 mcg PO DAILY 07/02/21 [ History] Cyanocobalamin (Vitamin B-12) [Vitamin B-12] 1,000 mcg PO DAILY 07/02/21 [History] Losartan [Cozaar] 50 mg PO DAILY 07/02/21 [History] Albuterol Inhaler [Ventolin Hfa Inhaler] 1 - 2 puff INHALATION Q4-6H PRN 07/03/21 [History] Aspirin 81 mg PO DAILY #30 07/04/21 [Rx] Furosemide [Lasix] 40 mg PO BID 30 Days #60 tablet 07/04/21 [Rx] Metoprolol Succinate (ER) [Toprol XL] 25 mg PO DAILY #30 07/04/21 [Rx] Nitroglycerin Sl Tabs [Nitrostat] 0.4 mg SUBLINGUAL Q5M PRN #30 tab 07/04/21 [Rx] Thiamine [Vitamin B-1] 100 mg PO DAILY #30 tab 07/04/21 [Rx] Follow up Appointment(s)/Referral(s): Akash Husain MD [REFERRING] - 1 Week Ambulatory/Diagnostic Orders: Basic Metabolic Panel [LAB.AMB] Time Frame: 3 Days, Location: None Selected Activity/Diet/Wound Care/Special Instructions: Activity Limited until follow-up Establish and follow up with primary care provider Follow-up pulmonary outpatient Follow-up cardiology outpatient Continue taking medications as prescribed Recommend repeat labs in 2-3 days to monitor kidney functions Avoid tobacco and alcohol use Discharge/Stand Alone Forms: AA Meetings [place], Who Do I Call?, Community Resources, Outpatient Counseling, Personal Press And Blow Machine Tender Discharge Disposition: HOME SELF-CARE
--- NOTE | 2021-07-07 10:33 | CDI ---
Documentation Clarification Form Date: 07/07/2021 10:25:23 AM From: Joaquin Lima Admit Date: 07/03/2021 12:01:00 PM Patient Name: Yash Land Visit Number: [id number] Discharge Date: 07/04/2021 03:32:00 PM ATTENTION: The Clinical Documentation Specialists (CDI) and [facility] Coding Staff appreciate your assistance in clarifying documentation. Please respond to the clarification below the line at the bottom and electronically sign. The CDI & [facility] Coding staff will review the response and follow-up if needed. Please note: Queries are made part of the Legal Health Record. If you have any questions, please contact the author of this message via ITS. Dr. Quincy Spann Conflicting documentation has been found in the medical record. As attending physician, please provide clarification. Progress note 4 indicates acute on chronic systolic CHF Discharge summary indicates chronic systolic CHF History/Risk Factors: R pleural effusion, hx of systolic CHF Clinical Indicators: troponin .05, BNP 8410 Treatment: IV Lasix. Thoracentesis declined by patient Please clarify which diagnosis is most appropriate: [ ] chronic systolic CHF [ ] acute on chronic Systolic CHF [ ] Other (please specify) [ ] Unable to determine NOT MY DOCUMENTATION MTDD
--- NOTE | 2021-07-15 11:28 | CDI ---
Documentation Clarification Form Date: 07/15/2021 11:14:02 AM From: Joaquin Lima Admit Date: 07/03/2021 12:01:00 PM Patient Name: Yash Land Visit Number: [id number] Discharge Date: 07/04/2021 03:32:00 PM ATTENTION: The Clinical Documentation Specialists (CDI) and [facility] Coding Staff appreciate your assistance in clarifying documentation. Please respond to the clarification below the line at the bottom and electronically sign. The CDI & [facility] Coding staff will review the response and follow-up if needed. Please note: Queries are made part of the Legal Health Record. If you have any questions, please contact the author of this message via ITS. Dr. Gaviota Arrington Conflicting documentation has been found in the medical record. As attending physician, please provide clarification. Dr Quincy Leigh stated it was not his documentation so did not answer our query to him. Discharge summary states chronic systolic CHF. Progress note 07/03 states acute on chronic systolic CHF. History/Risk Factors: pleural effusion, history of systolic CHF Clinical Indicators: SOB Treatment: IV Lasix. Patient declined thoracentesis Please clarify which diagnosis is most appropriate: [ ] chronic systolic CHF [ x ] acute on chronic systolic CHF [ ] Other (please specify) [ ] Unable to determine MTDD
== END 2021-07-04 15:32 | disposition home or self-care (01) ==
LOC: EC 01:49 → 3SCARD 04:29 → INTOOBSV 07-03 12:01 → OBSVTOIN 07-03 12:01 → UNDODISIN 07-04 15:32
PROVIDERS: ADMIT Hospitalist; ATTEND Hospitalist
DX: R07.89 Other chest pain (principal); I11.0 Hypertensive heart disease with heart failure; I50.23 Acute on chronic systolic (congestive) heart failure; J90 Pleural effusion, not elsewhere classified; I25.10 Atherosclerotic heart disease of native coronary artery without angina pectoris; E78.5 Hyperlipidemia, unspecified; I48.0 Paroxysmal atrial fibrillation; M19.90 Unspecified osteoarthritis, unspecified site; F41.9 Anxiety disorder, unspecified; I08.1 Rheumatic disorders of both mitral and tricuspid valves; F32.A Depression, unspecified; J44.1 Chronic obstructive pulmonary disease with (acute) exacerbation; T50.2X6A Underdosing of carbonic-anhydrase inhibitors, benzothiadiazides and other diuretics, initial encounter; T42.4X6A Underdosing of benzodiazepines, initial encounter; F17.210 Nicotine dependence, cigarettes, uncomplicated; R00.0 Tachycardia, unspecified; I27.20 Pulmonary hypertension, unspecified; I25.5 Ischemic cardiomyopathy; R20.0 Anesthesia of skin; H93.13 Tinnitus, bilateral; I25.2 Old myocardial infarction; Z91.14 Patient's other noncompliance with medication regimen; I45.2 Bifascicular block; R09.02 Hypoxemia; R77.8 Other specified abnormalities of plasma proteins; Z20.822 Contact with and (suspected) exposure to COVID-19; Z95.810 Presence of automatic (implantable) cardiac defibrillator; Z95.5 Presence of coronary angioplasty implant and graft; Z53.29 Procedure and treatment not carried out because of patient's decision for other reasons; Z71.9 Counseling, unspecified; Z71.6 Tobacco abuse counseling; Z79.899 Other long term (current) drug therapy; Z79.01 Long term (current) use of anticoagulants; Z79.82 Long term (current) use of aspirin; Z81.8 Family history of other mental and behavioral disorders; Z80.0 Family history of malignant neoplasm of digestive organs; Z80.1 Family history of malignant neoplasm of trachea, bronchus and lung
CPT/HCPCS: 96376 ×3; 96366 ×2; 96375 ×2; 96365; 99285; 36415; 93005; 93306; 80061; 80048 ×3; 83735; 84484; 85025 ×2; 85610 ×2; 85730 ×2; 71046; 76604; G0378 ×3; J2060; J1940 ×3; Q9950; J1644; 96374

== ENCOUNTER 2023-03-01 04:32 | Inpatient (IN) | payer MEDICARE, OTHER ==
--- NOTE | 2023-03-01 04:49 | ED ---
General Adult HPI - General Stated complaint: sob Time Seen by Provider: 03/01/23 04:40 Source: patient, EMS Mode of arrival: EMS - History of Present Illness Initial comments: Yash is a 67-year-old gentleman with extensive past medical history who is brought to the ER today by ambulance from his home. Per EMS they found the patient is home shivering he had only his face heater for heat. Visit her at the home reported the patient appeared quite ill seem like he couldn't catch his breath. Patient did report feeling short of breath. He states that he has been weak for approximately 2 months duration, having trouble walking requiring assistance. Patient states he's had a cough for about 2 weeks that won't go away. Today was just too weak and unwell so ambulance was called. - Related Data Home Medications Medication Instructions Recorded Confirmed Atorvastatin [Lipitor] 40 mg PO DAILY 01/21/15 07/02/21 ALPRAZolam [Xanax] 1 mg PO DIRECTED 07/02/21 07/02/21 Amiodarone HCl [Pacerone] 50 mg PO DAILY 07/02/21 07/02/21 Ascorbic Acid [Vitamin C] 1,000 mg PO DAILY 07/02/21 07/02/21 Cholecalciferol (Vitamin D3) 75 mcg PO DAILY 07/02/21 07/02/21 [Vitamin D3 (3000 Iu)] Cyanocobalamin (Vitamin B-12) 1,000 mcg PO DAILY 07/02/21 07/02/21 [Vitamin B-12] Losartan [Cozaar] 50 mg PO DAILY 07/02/21 07/02/21 Albuterol Inhaler [Ventolin Hfa 1 - 2 puff INHALATION Q4-6H PRN 07/03/21 07/03/21 Inhaler] Previous Rx's Medication Instructions Recorded Apixaban [Eliquis] 5 mg PO BID #60 tab 04/04/19 Aspirin 81 mg PO DAILY #30 07/04/21 Furosemide [Lasix] 40 mg PO BID 30 Days #60 tablet 07/04/21 Metoprolol Succinate (ER) [Toprol 25 mg PO DAILY #30 07/04/21 XL] Nitroglycerin Sl Tabs [Nitrostat] 0.4 mg SUBLINGUAL Q5M PRN #30 tab 07/04/21 Thiamine [Vitamin B-1] 100 mg PO DAILY #30 tab 07/04/21 Allergies Allergy/AdvReac Type Severity Reaction Status Date / Time No Known Allergies Allergy Verified 07/02/21 07:30 Review of Systems ROS Statement: Those systems with pertinent positive or pertinent negative responses have been documented in the HPI. ROS Other: All systems not noted in ROS Statement are negative. Past Medical History Past Medical History: Coronary Artery Disease (CAD), Heart Failure, COPD, Eye Disorder, Hyperlipidemia, Hypertension, Myocardial Infarction (AK), Osteoarthritis (OA) Additional Past Medical History / Comment(s): Cardiomyopathy, bilateral ear tinnitis/, bilateral cataracts, sinus problems, lower leg numbness Last Myocardial Infarction Date:: 05/18/2000 History of Any Multi-Drug Resistant Organisms: None Reported Past Surgical History: AICD, Heart Catheterization, Heart Catheterization With Stent Additional Past Surgical History / Comment(s): AICD, DFTs, PCI with stenting, Rt shoulder surgery and eventually had a reverse total shoulder-has metal in this arm, R leg surgery x 3 with marco, L wrist surgery, colonoscopy Past Anesthesia/Blood Transfusion Reactions: No Reported Reaction Date of Last Stent Placement:: 2000 Type of Cardiac Device: AICD Device Placement Date:: 2005 Past Psychological History: Anxiety, Depression Smoking Status: Current every day smoker - Past Family History Mother Family Medical History: Cancer, Dementia Additional Family Medical History / Comment(s): She has bowel cancer. Father Family Medical History: Cancer Additional Family Medical History / Comment(s): Father survived colon cancer but from lung cancer. General Exam Limitations: no limitations General appearance: alert, cachectic, other (Ill appearing) Head exam: Present: atraumatic, normocephalic Eye exam: Present: PERRL ENT exam: Present: mucous membranes dry Respiratory exam: Present: wheezes. Absent: respiratory distress Cardiovascular Exam: Present: regular rate, normal rhythm GI/Abdominal exam: Present: soft. Absent: distended, tenderness, guarding, rebound, rigid Extremities exam: Present: pedal edema. Absent: normal capillary refill (Extremities are cold to the touch) Neurological exam: Present: alert, oriented X3, other (tremors) Course Vital Signs 03/01/23 04:35 Temperature 97.9 F Pulse Rate 69 Respiratory 20 Rate Blood Pressure 121/65 O2 Sat by Pulse 96 Oximetry EKG Findings - EKG Comments: EKG Findings:: EKG interpreted by me, EKG obtained due to complaint of shortness of breath, EKG obtained at 4:47 AM, rate is 69 rhythm is sinus with the rightward axis an intraventricular conduction delay, PA is 198 QRS is 163 QTc is 437 there is no obvious ST elevations or depressions or evidence of acute ischemia or infarction. Previous EKG had similar morphology. - EKG Results: EKG: interpreted by MANAN Medical Decision Making - Medical Decision Making Was pt. sent in by a medical professional or institution (, PA, ELECTRICAL EQUIPMENT ASSEMBLER, urgent care, hospital, or [place] health care facility...) When possible be specific @ -No Did you speak to anyone other than the patient for history (EMS, parent, family, police, friend...)? What history was obtained from this source @ -EMS Did you review nursing and triage notes (agree or disagree)? Why? @ -I reviewed and agree with nursing and triage notes Were old charts reviewed (outside hosp., previous admission, EMS record, old EKG, old radiological studies, urgent care reports/EKG's, [place] health care facility records)? Report findings @ -No old charts were reviewed Differential Diagnosis (chest pain, altered mental status, abdominal pain women, abdominal pain men, vaginal bleeding, weakness, fever, dyspnea, syncope, headache, dizziness, GI bleed, back pain, seizure, CVA, palpatations, mental health)? @ -Differential Weakness: Hypoglycemia, shock, sepsis, hyponatremia, anemia, infection, AK, ETOH, adverse medicine reaction, overdose, stroke, this is not meant to be an all-inclusive list. Differential Dyspnea: Coronary syndrome, arrhythmia, tamponade, asthma, COPD, pulmonary embolism, pneumonia, pneumothorax, pulmonary effusion, anaphylaxis, diabetic ketoacidosis, flailed chest, pulmonary contusion, diaphragmatic rupture, anemia, neuromuscular, this is not meant to be an all-inclusive list. EKG interpreted by me (3pts min.). @ -As above X-rays interpreted by me (1pt min.). @ -Right pleural effusion, cardiomegaly, AICD in place, no pneumothorax CT interpreted by me (1pt min.). @ [None don] U/S interpreted by me (1pt. min.). @ [None don] What testing was considered but not performed or refused? (CT, X-rays, U/S, labs)? Why? @ [Non] What meds were considered but not given or refused? Why? @ [Non] Did you discuss the management of the patient with other professionals (professionals i.e. , PA, ELECTRICAL EQUIPMENT ASSEMBLER, lab, RT, psych nurse, rn social work, cost accountant, teacher, command center officer, nurse outreach case manager)? Give summary @ [N] Was smoking cessation discussed for >3mins.? @ Yes Was critical care preformed (if so, how long)? @ [N] Were there social determinants of health that impacted care today? How? (Homelessness, low income, unemployed, alcoholism, drug addiction, transportation, low edu. Level, literacy, decrease access to med. care, nursing home, rehab)? @ [N] Was there de-escalation of care discussed even if they declined (Discuss DNR or withdrawal of care, Hospice)? DNR status @ [N] What co-morbidities impacted this encounter? (DM, HTN, Smoking, COPD, CAD, Cancer, CVA, ARF, Chemo, Hep., AIDS, mental health diagnosis, sleep apnea, morbid obesity)? @ Hypertension, smoking, COPD, CAD Was patient admitted / discharged? Hospital course, mention meds given and route, prescriptions, significant lab abnormalities, going to OR and other pertinent info. @ Admit The patient was seen and evaluated immediately upon arrival in the emergency department. Patient was noted to be frail and cachectic appearing, he has new worsening lower extremity edema EMS reports they assisted him and putting on his shoes which was very difficult due to the edema. Patient reports he hasn't been able to walk he's had generalized weakness. On initial evaluation patient was cold to the touch, EMS reports he had only space heater in his house and is quite cold in his home. Given patient's appearance septic workup was initiated as well as thyroid studies. Chest x-ray reveals a large right-sided pleural effusion Labs with macrocytic anemia, metabolic acidosis Given the patient's multiple comorbidities, generalized weakness and inability to care for himself, COPD exacerbation, pleural effusions and concern that the patient is not capable of caring for himself at home given that he didn't have a [place] heat and was told on arrival was patient should be admitted to this hospital for further evaluation and social work consult. ] Undiagnosed new problem with uncertain prognosis? @ [N] Drug Therapy requiring intensive monitoring for toxicity (Heparin, Nitro, Insulin, Cardizem)? @ [N] Were any procedures done? @ [N] Diagnosis/symptom? @ CHF Acute, or Chronic, or Acute on Chronic? @ Acute on chronic] Uncomplicated (without systemic symptoms) or Complicated (systemic symptoms)? @ Complicated] Side effects of treatment? @ [N] Exacerbation, Progression, or Severe Exacerbation? @ Exacerbation Diagnosis/symptom? @ -COPD Acute, or Chronic, or Acute on Chronic? @ -On chronic Uncomplicated (without systemic symptoms) or Complicated (systemic symptoms)? @ -Complicated Side effects of treatment? @ -none Exacerbation, Progression, or Severe Exacerbation] @ -Exacerbation Poses a threat to life or bodily function? @ -no] Poses a threat to life or bodily function? How? (Chest pain, [place], AK, pneumonia, PE, COPD, DKA, ARF, appy, cholecystitis, CVA, Diverticulitis, Homicidal, Suicidal, threat to staff... and all critical care pts) @ Yes Diagnosis/symptom? @ -Macrocytic anemia Acute, or Chronic, or Acute on Chronic? @ -Chronic Uncomplicated (without systemic symptoms) or Complicated (systemic symptoms)? @ -default Side effects of treatment? @ -none Exacerbation, Progression, or Severe Exacerbation] @ -no Poses a threat to life or bodily function? @ -no] - Lab Data Result diagrams: 03/01/23 04:45 03/01/23 04:45 Lab Results 03/01/23 03/01/23 03/01/23 Range/Units 04:45 04:45 04:45 WBC 6.5 (3.8-10.6) k/uL RBC 3.40 L (4.30-5.90) m/uL Hgb 13.0 (13.0-17.5) gm/dL Hct 38.9 L (39.0-53.0) % MCV 114.3 H (80.0-100.0) fL MCH 38.2 H (25.0-35.0) pg MCHC 33.4 (31.0-37.0) g/dL RDW 13.7 (11.5-15.5) % Plt Count 112 L (150-450) k/uL MPV 9.4 Macrocytosis Marked A PT 12.8 H (10.0-12.5) sec INR 1.2 H (<1.2) APTT 25.4 (22.0-30.0) sec VBG pH (7.31-7.41) VBG pCO2 (37-51) mmHg VBG HCO3 (24-28) mmol/L Sodium 141 (137-145) mmol/L Potassium 4.3 (3.5-5.1) mmol/L Chloride 105 (98-107) mmol/L Carbon Dioxide 25 (22-30) mmol/L Anion Gap 11 mmol/L BUN 24 H (9-20) mg/dL Creatinine 0.83 (0.66-1.25) mg/dL Est GFR (CKD-EPI)AfAm >90 (>60 ml/min/1.73 sqM) Est GFR (CKD-EPI)NonAf >90 (>60 ml/min/1.73 sqM) Glucose 105 H (74-99) mg/dL Plasma Lactic Acid Farshad (0.7-2.0) mmol/L Calcium 8.8 (8.4-10.2) mg/dL Total Bilirubin 1.3 (0.2-1.3) mg/dL AST 47 (17-59) U/L ALT 17 (4-49) U/L Alkaline Phosphatase 104 (38-126) U/L Creatine Kinase 106 (55-170) U/L Troponin I (0.000-0.034) ng/mL Total Protein 7.1 (6.3-8.2) g/dL Albumin 3.6 (3.5-5.0) g/dL TSH 9.290 H (0.465-4.680) mIU/L Influenza Type A (PCR) (Not Detectd) Influenza Type B (PCR) (Not Detectd) RSV (PCR) (Not Detectd) SARS-CoV-2 (PCR) (Not Detectd) 03/01/23 03/01/23 03/01/23 Range/Units 04:45 04:45 04:45 WBC (3.8-10.6) k/uL RBC (4.30-5.90) m/uL Hgb (13.0-17.5) gm/dL Hct (39.0-53.0) % MCV (80.0-100.0) fL MCH (25.0-35.0) pg MCHC (31.0-37.0) g/dL RDW (11.5-15.5) % Plt Count (150-450) k/uL MPV Macrocytosis PT (10.0-12.5) sec INR (<1.2) APTT (22.0-30.0) sec VBG pH 7.28 L (7.31-7.41) VBG pCO2 60 H (37-51) mmHg VBG HCO3 28 (24-28) mmol/L Sodium (137-145) mmol/L Potassium (3.5-5.1) mmol/L Chloride (98-107) mmol/L Carbon Dioxide (22-30) mmol/L Anion Gap mmol/L BUN (9-20) mg/dL Creatinine (0.66-1.25) mg/dL Est GFR (CKD-EPI)AfAm (>60 ml/min/1.73 sqM) Est GFR (CKD-EPI)NonAf (>60 ml/min/1.73 sqM) Glucose (74-99) mg/dL Plasma Lactic Acid Farshad 1.7 (0.7-2.0) mmol/L Calcium (8.4-10.2) mg/dL Total Bilirubin (0.2-1.3) mg/dL AST (17-59) U/L ALT (4-49) U/L Alkaline Phosphatase (38-126) U/L Creatine Kinase (55-170) U/L Troponin I (0.000-0.034) ng/mL Total Protein (6.3-8.2) g/dL Albumin (3.5-5.0) g/dL TSH (0.465-4.680) mIU/L Influenza Type A (PCR) Not Detected (Not Detectd) Influenza Type B (PCR) Not Detected (Not Detectd) RSV (PCR) Not Detected (Not Detectd) SARS-CoV-2 (PCR) Not Detected (Not Detectd) 03/01/23 Range/Units 04:45 WBC (3.8-10.6) k/uL RBC (4.30-5.90) m/uL Hgb (13.0-17.5) gm/dL Hct (39.0-53.0) % MCV (80.0-100.0) fL MCH (25.0-35.0) pg MCHC (31.0-37.0) g/dL RDW (11.5-15.5) % Plt Count (150-450) k/uL MPV Macrocytosis PT (10.0-12.5) sec INR (<1.2) APTT (22.0-30.0) sec VBG pH (7.31-7.41) VBG pCO2 (37-51) mmHg VBG HCO3 (24-28) mmol/L Sodium (137-145) mmol/L Potassium (3.5-5.1) mmol/L Chloride (98-107) mmol/L Carbon Dioxide (22-30) mmol/L Anion Gap mmol/L BUN (9-20) mg/dL Creatinine (0.66-1.25) mg/dL Est GFR (CKD-EPI)AfAm (>60 ml/min/1.73 sqM) Est GFR (CKD-EPI)NonAf (>60 ml/min/1.73 sqM) Glucose (74-99) mg/dL Plasma Lactic Acid Farshad (0.7-2.0) mmol/L Calcium (8.4-10.2) mg/dL Total Bilirubin (0.2-1.3) mg/dL AST (17-59) U/L ALT (4-49) U/L Alkaline Phosphatase (38-126) U/L Creatine Kinase (55-170) U/L Troponin I <0.012 (0.000-0.034) ng/mL Total Protein (6.3-8.2) g/dL Albumin (3.5-5.0) g/dL TSH (0.465-4.680) mIU/L Influenza Type A (PCR) (Not Detectd) Influenza Type B (PCR) (Not Detectd) RSV (PCR) (Not Detectd) SARS-CoV-2 (PCR) (Not Detectd) Disposition Clinical Impression: Macrocytic anemia, CHF exacerbation, Generalized weakness Disposition: ADMITTED IP TO THIS [facility] Condition: Serious Referrals: Saran Adler MD [Primary Care Provider] - 1-2 days
[2023-03-01] MEDS: SODIUM CHLORIDE 0.9% 500 ML 500 ML IV SCH ×2 (04:55→05:19)
[2023-03-01 05:08] LABS: Basophils % (A) 1 %; Eosinophils # (A) 0.8 k/uL (0-0.7); Eosinophils % (A) 12 %; HCT 38.9 % (39.0-53.0); Lymphocytes # (A) 2.3 k/uL (1.0-4.8); Lymphocytes % (A) 36 %; MCH 38.2 pg (25.0-35.0); MCHC 33.4 g/dL (31.0-37.0); MCV 114.3 fL (80.0-100.0); Macrocytosis Marked; Mean Platelet Volume 9.4; Monocytes # (A) 0.5 k/uL (0-1.0); Monocytes % (A) 8 %; Neutrophils # (A) 2.7 k/uL (1.3-7.7); Neutrophils % (A) 42 %; Platelet Count 112 k/uL (150-450); RDW 13.7 % (11.5-15.5); WBC 6.5 k/uL (3.8-10.6)
[2023-03-01 05:13] LABS: VBG PH 7.28 (7.31-7.41)
[2023-03-01 05:17] LABS: ALT 17 U/L (4-49); AST 47 U/L (17-59); African American GFR (CKD) >90 (>60 ml/min/1.73 sqM); Albumin 3.6 g/dL (3.5-5.0); Alkaline Phosphatase 104 U/L (38-126); Anion Gap 11 mmol/L; Blood Urea Nitrogen 24 mg/dL (9-20); Calcium 8.8 mg/dL (8.4-10.2); Carbon Dioxide 25 mmol/L (22-30); Chloride 105 mmol/L (98-107); Creatine Kinase 106 U/L (55-170); Glucose 105 mg/dL (74-99); INR 1.2 (<1.2); Non-African American GFR(CKD) >90 (>60 ml/min/1.73 sqM); Partial Thromboplastin Time 25.4 sec (22.0-30.0); Potassium 4.3 mmol/L (3.5-5.1); Prothrombin Time 12.8 sec (10.0-12.5); Sodium 141 mmol/L (137-145); Total Bilirubin 1.3 mg/dL (0.2-1.3); Total Protein 7.1 g/dL (6.3-8.2)
[2023-03-01] MEDS ORDERED: NALOXONE 0.4 MG/ML 1 ML VIAL IV PRN (06:33)
[2023-03-01 07:02] LABS: Anisocytosis (M) Present
[2023-03-01 07:48] LABS: T4, Free (Free Thyroxine) 2.86 ng/dL (0.78-2.19)
--- NOTE | 2023-03-01 08:09 | XR ---
EXAM: XR Chest, 2 Views CLINICAL HISTORY: ITS.REASON XR Reason: Fever TECHNIQUE: Frontal and lateral views of the chest. COMPARISON: 07/02/21 FINDINGS: Lungs: See below. Pleural space: Small to moderate right pleural effusion with adjacent lower lobe airspace opacity. No pneumothorax. Heart: Prominent cardiomegaly, stable. Cardiac pacemaker redemonstrated. Mediastinum: Normal mediastinal contour. Bones/joints: Stable hardware of the right humerus. IMPRESSION: Small to moderate right pleural effusion with adjacent lower lobe airspace opacity. Correlation for acute infection and follow-up to resolution recommended.
[2023-03-01 11:20] LABS: Appearance,Urine Clear (Clear); Bilirubin,Urine Negative (Negative); Blood,Urine Small (Negative); Color,Urine Yellow; Glucose,Urine (UA) Negative (Negative); Hyaline Casts,Urine 5 /lpf (0-2); Ketones,Urine Negative (Negative); Leukocyte Esterase,Urine Negative (Negative); Mucus,Urine Occasional /hpf; Nitrite,Urine Negative (Negative); Protein,Urine Trace (Negative); RBC,Urine 22 /hpf (0-5); Specific Gravity,Urine 1.025 (1.001-1.035); WBC,Urine 2 /hpf (0-5)
[2023-03-01] MEDS ORDERED: IPRATROPIUM-ALBUTEROL 3 ML NEB INHALATION PRN (12:17)
[2023-03-01] MEDS ORDERED: methylPREDNISolone SOD SUCCI 40 MG/ML 1 ML VIAL IV SCH (12:30)
--- NOTE | 2023-03-01 12:42 | P.HPIM ---
History of Present Illness Patient is 59-year-old pleasant male came in with complaints of shortness of breath and orthopnea, patient does have history of condition or failure chronic systolic dysfunction with EF of around 10-15%, patient does have history of coronary artery disease ischemic cardiomyopathy along with alcoholic myopathy continues to drink alcohol but cut down the alcohol, patient can use to smoke half a pack of cigarettes a day. Patient does have COPD doesn't use any oxygen at home presently requiring 4 L of oxygen patient does have increased swelling in bilateral lower extremities chest x-ray showed pleural effusion on the right side. BNP is not available. Patient denied any cough doesn't have any leukocytosis. is not available at this time. REVIEW OF SYSTEMS: CONSTITUTIONAL: No fever, no malaise, no fatigue. HEENT: No recent visual problems or hearing problems. Denied any sore throat. CARDIOVASCULAR: No chest pain, no palpitations, no syncope. PULMONARY: no hemoptysis. GASTROINTESTINAL: No diarrhea, no nausea, no vomiting, no abdominal pain. NEUROLOGICAL: No headaches, no weakness, no numbness. HEMATOLOGICAL: Denies any bleeding or petechiae. GENITOURINARY: Denies any burning micturition, frequency, or urgency. MUSCULOSKELETAL/RHEUMATOLOGICAL: Denies any joint pain, swelling, or any muscle pain. ENDOCRINE: Denies any polyuria or polydipsia. The rest of the 14-point review of systems is negative. PHYSICAL EXAMINATION: GENERAL: The patient is alert and oriented x3, not in any acute distress. Thin built female HEENT: Pupils are round and equally reacting to light. EOMI. No scleral icterus. No conjunctival pallor. Normocephalic, atraumatic. No pharyngeal erythema. No thyromegaly. CARDIOVASCULAR: S1 and S2 present. No murmurs, rubs, or gallops. PULMONARY: Expiratory wheezing on exam no crackles were appreciated no rhonchi. ABDOMEN: Soft, nontender, nondistended, normoactive bowel sounds. No palpable organomegaly. MUSCULOSKELETAL: No joint swelling or deformity. EXTREMITIES: No cyanosis, clubbing, patient does have 2+ pitting pedal edema extending up to the midshin area. NEUROLOGICAL: Gross neurological examination did not reveal any focal deficits. SKIN: No rashes. Assessment and plan -Acute hypoxic as well as hypercapnic respiratory failure secondary to congestive heart failure exacerbation and COPD exacerbation respiratory, patient was started on systemic steroids for COPD as well as IV Lasix for CHF exacerbations pulmonology oncology will be consulted will obtain a procrastinating level: BNP level patient clinically doesn't appear to have pneumonia at this time. -COPD with acute exacerbation -Congestive heart failure chronic systolic dysfunction with acute exacerbation patient has an AICD in place counseling regarding smoking cessation was provided -Coronary artery disease with stents in the past -Alcohol abuse history she will be monitored for alcohol withdrawal but patient is not on CIWA protocol -Macrocytic anemia secondary to alcohol use will obtain a B12 and folate levels as well. -Hyperlipidemia -Hypertension -Atrial fibrillation proximal presently rate controlled continue with the amiodarone and Eliquis DVT prophylaxis: On anticoagulation as mentioned above Past Medical History Past Medical History: Coronary Artery Disease (CAD), Heart Failure, COPD, Eye Disorder, Hyperlipidemia, Hypertension, Myocardial Infarction ([place]), Osteoarthritis (OA) Additional Past Medical History / Comment(s): Cardiomyopathy, bilateral ear tinnitis/, bilateral cataracts, sinus problems, lower leg numbness Last Myocardial Infarction Date:: 05/18/2000 History of Any Multi-Drug Resistant Organisms: None Reported Past Surgical History: AICD, Heart Catheterization, Heart Catheterization With Stent Additional Past Surgical History / Comment(s): AICD, DFTs, PCI with stenting, Rt shoulder surgery and eventually had a reverse total shoulder-has metal in this arm, R leg surgery x 3 with marco, L wrist surgery, colonoscopy Past Anesthesia/Blood Transfusion Reactions: No Reported Reaction Date of Last Stent Placement:: 2000 Type of Cardiac Device: AICD Device Placement Date:: 2005 Past Psychological History: Anxiety, Depression Smoking Status: Current every day smoker - Past Family History Mother Family Medical History: Cancer, Dementia Additional Family Medical History / Comment(s): She has bowel cancer. Father Family Medical History: Cancer Additional Family Medical History / Comment(s): Father survived colon cancer but from lung cancer. Medications and Allergies Home Medications Medication Instructions Recorded Confirmed Type Atorvastatin [Lipitor] 40 mg PO DAILY 01/21/15 03/01/23 History Losartan [Cozaar] 50 mg PO HS 07/02/21 03/01/23 History Amiodarone [Cordarone] 200 mg PO DAILY 03/01/23 03/01/23 History Apixaban [Eliquis] 5 mg PO HS 03/01/23 03/01/23 History Divalproex Sodium [Depakote] 500 mg PO BID 03/01/23 03/01/23 History Fluticasone/Vilanterol [Breo 1 puff INHALATION RT-HS 03/01/23 03/01/23 History Ellipta 200-25 Mcg Inhaler] Furosemide [Lasix] 40 mg PO DAILY 03/01/23 03/01/23 History Spironolactone 12.5 mg PO DAILY 03/01/23 03/01/23 History carvediloL [Coreg] 12.5 mg PO BID 03/01/23 03/01/23 History Allergies Allergy/AdvReac Type Severity Reaction Status Date / Time No Known Allergies Allergy Verified 03/01/23 08:10 Physical Exam Vitals: Vital Signs Temp Pulse Resp BP Pulse Ox 03/01/23 11:51 65 16 118/61 96 03/01/23 10:00 65 16 124/68 98 03/01/23 07:51 98 F 65 16 126/79 94 L 03/01/23 06:23 98.5 F 64 16 112/65 98 03/01/23 04:49 67 20 121/65 98 03/01/23 04:35 97.9 F 69 20 121/65 96 Intake and Output 02/28/23 03/01/23 03/01/23 22:59 06:59 14:59 Other: Weight 67.585 kg Results CBC & Chem 7: 03/01/23 04:45 03/01/23 04:45 Labs: Abnormal Lab Results - Last 24 Hours (Table) 03/01/23 03/01/23 03/01/23 Range/Units 04:45 04:45 04:45 RBC 3.40 L (4.30-5.90) m/uL Hct 38.9 L (39.0-53.0) % MCV 114.3 H (80.0-100.0) fL MCH 38.2 H (25.0-35.0) pg Plt Count 112 L (150-450) k/uL Eosinophils # 0.8 H (0-0.7) k/uL Macrocytosis Marked A PT 12.8 H (10.0-12.5) sec INR 1.2 H (<1.2) VBG pH (7.31-7.41) VBG pCO2 (37-51) mmHg BUN (9-20) mg/dL Glucose (74-99) mg/dL TSH (0.465-4.680) mIU/L Free T4 (0.78-2.19) ng/dL Urine Protein Trace H (Negative) Urine Blood Small H (Negative) Urine RBC 22 H (0-5) /hpf Hyaline Casts 5 H (0-2) /lpf Urine Mucus Occasional H (None) /hpf 03/01/23 03/01/23 Range/Units 04:45 04:45 RBC (4.30-5.90) m/uL Hct (39.0-53.0) % MCV (80.0-100.0) fL MCH (25.0-35.0) pg Plt Count (150-450) k/uL Eosinophils # (0-0.7) k/uL Macrocytosis PT (10.0-12.5) sec INR (<1.2) VBG pH 7.28 L (7.31-7.41) VBG pCO2 60 H (37-51) mmHg BUN 24 H (9-20) mg/dL Glucose 105 H (74-99) mg/dL TSH 9.290 H (0.465-4.680) mIU/L Free T4 2.86 H (0.78-2.19) ng/dL Urine Protein (Negative) Urine Blood (Negative) Urine RBC (0-5) /hpf Hyaline Casts (0-2) /lpf Urine Mucus (None) /hpf
[2023-03-01] MEDS: INSULIN ASPART (NovoLOG) 100 UNIT/ML VIAL SQ SCH ×3 (12:49→22:29)
[2023-03-01 12:50] LABS: Glucose,Whole Blood 110 mg/dL (70-110)
[2023-03-01] MEDS: FAMOTIDINE 20 MG TAB PO SCH ×2 (13:01→22:42)
[2023-03-01] MEDS: FUROSEMIDE 10 MG/ML 4 ML VIAL IV SCH ×2 (13:01→22:42)
[2023-03-01] MEDS: AMIODARONE 200 MG TAB PO SCH (13:01)
[2023-03-01] MEDS: IPRATROPIUM-ALBUTEROL 3 ML NEB INHALATION SCH ×2 (15:24→20:01)
--- NOTE | 2023-03-01 15:54 | P.CNPUL ---
History of Present Illness Consult date: 03/01/23 Requesting physician: Saran Adler Reason for consult: dyspnea, COPD, pleural effusion, abnormal CXR/CT Chief complaint: Shortness of breath, and lower extremity weakness. History of present illness: Pulmonary consult dated 03/01/2023. 67-year-old male who was seen in the emergency department, on March 01. He was brought into the emergency room, by EMS. The patient's primary care phy hildaian is Dr. Adler. The patient has a history of coronary disease, CHF, COPD, hyperlipidemia, hypertension, myocardial infarction, osteoarthritis, cardiomyopathy, previous heart catheterization with stent, and AICD placement. The patient states that he came into the ER, because he was very short of breath. He also complained of weakness in his lower extremities, and he could not stand up. He apparently has not been feeling well for at least a couple weeks, and maybe even longer. He is seen in the emergency department, room #4. He is currently on 4 L of oxygen. He's not receiving any IV fluids. His BMP was elevated at 8250. Also his TSH was elevated suggesting hypothyroidism. He does not take thyroid medication. White count 6.5, hemoglobin 13, hematocrit 38.9, with a platelet count of 112,000. Venous blood gases show pCO2 of 60, and a pH is 7.28. Sodium 141, potassium 4.3, chlorides 105, CO2 25, BUN 24, and creatinine 0.83. Glucose is 105. N-terminal proBNP is 8250. TSH is 9.290. Urine shows 22 RBCs and a small amount of blood. Chest x-ray shows a small to moderate right-sided pleural effusion with adjacent lower lobe airspace opacities/atelectasis. Review of Systems REVIEW OF SYSTEMS: CONSTITUTIONAL: Weakness. NEUROLOGIC: [ Negative.] HEENT: [ Negative.] CARDIAC: [Negative.] PULMONARY: Shortness of breath. GI: [Negative.] : [Negative.] RHEUMATOLOGIC: [ Negative.] IMMUNOLOGIC: [ Negative.] ENDOCRINE: [Negative. ] DERMATOLOGIC: [Negative.] Past Medical History Past Medical History: Coronary Artery Disease (CAD), Heart Failure, COPD, Eye Disorder, Hyperlipidemia, Hypertension, Myocardial Infarction ([place]), Osteoarthritis (OA) Additional Past Medical History / Comment(s): Cardiomyopathy, bilateral ear tinnitis/, bilateral cataracts, sinus problems, lower leg numbness Last Myocardial Infarction Date:: 05/18/2000 History of Any Multi-Drug Resistant Organisms: None Reported Past Surgical History: AICD, Heart Catheterization, Heart Catheterization With Stent Additional Past Surgical History / Comment(s): AICD, DFTs, PCI with stenting, Rt shoulder surgery and eventually had a reverse total shoulder-has metal in this arm, R leg surgery x 3 with marco, L wrist surgery, colonoscopy Past Anesthesia/Blood Transfusion Reactions: No Reported Reaction Date of Last Stent Placement:: 2000 Type of Cardiac Device: AICD Device Placement Date:: 2005 Past Psychological History: Anxiety, Depression Smoking Status: Current every day smoker - Past Family History Mother Family Medical History: Cancer, Dementia Additional Family Medical History / Comment(s): She has bowel cancer. Father Family Medical History: Cancer Additional Family Medical History / Comment(s): Father survived colon cancer but from lung cancer. Medications and Allergies Home Medications Medication Instructions Recorded Confirmed Type Atorvastatin [Lipitor] 40 mg PO DAILY 01/21/15 03/01/23 History Losartan [Cozaar] 50 mg PO HS 07/02/21 03/01/23 History Amiodarone [Cordarone] 200 mg PO DAILY 03/01/23 03/01/23 History Apixaban [Eliquis] 5 mg PO HS 03/01/23 03/01/23 History Divalproex Sodium [Depakote] 500 mg PO BID 03/01/23 03/01/23 History Fluticasone/Vilanterol [Breo 1 puff INHALATION RT-HS 03/01/23 03/01/23 History Ellipta 200-25 Mcg Inhaler] Furosemide [Lasix] 40 mg PO DAILY 03/01/23 03/01/23 History Spironolactone 12.5 mg PO DAILY 03/01/23 03/01/23 History carvediloL [Coreg] 12.5 mg PO BID 03/01/23 03/01/23 History Allergies Allergy/AdvReac Type Severity Reaction Status Date / Time No Known Allergies Allergy Verified 03/01/23 08:10 Physical Exam Osteopathic Statement: *. No significant issues noted on an osteopathic struc tural exam other than those noted in the History and Physical/Consult. Vitals: Vital Signs Temp Pulse Resp BP Pulse Ox 03/01/23 15:31 77 18 03/01/23 15:24 77 20 03/01/23 15:00 58 L 18 133/106 96 03/01/23 14:00 58 L 18 119/98 96 03/01/23 13:00 59 L 18 85/70 98 03/01/23 12:00 61 24 123/71 96 03/01/23 11:51 65 16 118/61 96 03/01/23 10:00 65 16 124/68 98 03/01/23 07:51 98 F 65 16 126/79 94 L 03/01/23 06:23 98.5 F 64 16 112/65 98 03/01/23 04:49 67 20 121/65 98 03/01/23 04:35 97.9 F 69 20 121/65 96 Intake and Output 03/01/23 03/01/23 03/01/23 06:59 14:59 22:59 Other: Weight 67.585 kg No acute distress, oriented 3. Currently on 4 L of oxygen. No conversational dyspnea or use of accessory muscles. HEENT examination is grossly unremarkable. Neck supple. Full range of motion. No adenopathy thyromegaly or neck vein distention. Cardiovascular examination reveals regular rhythm rate. S1-S2 normal. No S3 or S4. No discernible murmur noted. Heart rate is 77 bpm. Lungs reveal scattered rhonchi and crackles. Breath sounds are equal bilaterally. 4 L saturation is 96%. Dullness at the right lung base. Abdomen soft bowel sounds are heard. No masses or tenderness. Extremities are intact. No cyanosis clubbing or edema. Skin is without rash or lesion. Neurologic examination is brief but nonfocal. Results - Laboratory Findings CBC and BMP: 03/01/23 04:45 03/01/23 04:45 PT/INR, D-dimer PT 12.8 sec (10.0-12.5) H 03/01/23 04:45 INR 1.2 (<1.2) H 03/01/23 04:45 Abnormal lab findings: Abnormal Labs 03/01/23 03/01/23 03/01/23 04:45 04:45 04:45 RBC 3.40 L Hct 38.9 L MCV 114.3 H MCH 38.2 H Plt Count 112 L Eosinophils # 0.8 H Macrocytosis Marked A PT 12.8 H INR 1.2 H VBG pH VBG pCO2 BUN Glucose TSH Free T4 Urine Protein Trace H Urine Blood Small H Urine RBC 22 H Hyaline Casts 5 H Urine Mucus Occasional H 03/01/23 03/01/23 04:45 04:45 RBC Hct MCV MCH Plt Count Eosinophils # Macrocytosis PT INR VBG pH 7.28 L VBG pCO2 60 H BUN 24 H Glucose 105 H TSH 9.290 H Free T4 2.86 H Urine Protein Urine Blood Urine RBC Hyaline Casts Urine Mucus - Diagnostic Findings Chest x-ray: image reviewed Assessment and Plan Assessment: Shortness of breath, likely multifactorial, in part related to COPD exacerbation, CHF, and right-sided pleural effusion. Acute hypoxemic respiratory failure, secondary to above. History of congestive heart failure/cardiomyopathy. History of COPD from previous and ongoing tobacco use. History of CAD with previous stent placement. Prior history of myocardial infarction. History of hyperlipidemia. History of hypertension. History of AICD placement. History of atrial fibrillation. Probable hypothyroidism. History of osteoarthritis. Ongoing tobacco use with nicotine addiction. Plan: Plan dated 03/01/2023. The patient is seen in the emergency department, room 4. The patient will be placed on appropriate bronchodilators, and corticosteroids. The patient will need an ultrasound of the right posterior chest. Additional recommendations and suggestions are forthcoming. The patient is encouraged to stop smoking. The patient's N-terminal proBNP is 8250. The patient should also be placed on Synthroid. We will continue to F\follow make recommendations along the way. Prognosis is guarded. Time with Patient: Greater than 30
--- NOTE | 2023-03-01 16:27 | US ---
EXAMINATION TYPE: US chest DATE OF EXAM: 03/01/2023 COMPARISON: XR 03/01/2023 CLINICAL INDICATION: Male, 67 years old with history of right pleural effusion; Right pleural effusio n. TECHNIQUE: Targeted ultrasound of the posterior lower right hemithorax EXAM MEASUREMENTS: Right Pleural Effusion pocket size: 10.3 cm Right skin surface to fluid distance: 2.3 cm Right side MARKED for possible thoracentesis outside the dept. Pulmonologists are able to review the images in the patient?s EMR. IMPRESSIONS: As above
[2023-03-01 18:52] LABS: Glucose,Whole Blood 219 mg/dL (70-110)
[2023-03-01] MEDS: methylPREDNISolone SOD SUCCI 125 MG/2 ML VIAL IV SCH (18:59)
[2023-03-01] MEDS: carvediloL 12.5 MG TAB PO SCH (18:59)
[2023-03-01] MEDS: SYMBICORT 160-4.5 MCG INHALER INHALATION SCH (20:01)
[2023-03-01] MEDS ORDERED: LOSARTAN 50 MG TAB PO SCH (21:00)
[2023-03-01 22:26] LABS: Glucose,Whole Blood 200 mg/dL (70-110)
[2023-03-01] MEDS: DIVALPROEX 500 MG TABLET.DR PO SCH (22:42)
[2023-03-02] MEDS: methylPREDNISolone SOD SUCCI 125 MG/2 ML VIAL IV SCH ×4 (00:32→18:47)
[2023-03-02 06:52] LABS: Glucose,Whole Blood 209 mg/dL (70-110)
[2023-03-02] MEDS: INSULIN ASPART (NovoLOG) 100 UNIT/ML VIAL SQ SCH ×5 (06:59→20:33)
[2023-03-02] MEDS: carvediloL 12.5 MG TAB PO SCH ×2 (06:59→18:47)
[2023-03-02] MEDS: SYMBICORT 160-4.5 MCG INHALER INHALATION SCH ×2 (07:58→19:56)
[2023-03-02] MEDS: IPRATROPIUM-ALBUTEROL 3 ML NEB INHALATION SCH ×4 (07:58→19:56)
[2023-03-02] MEDS: SPIRONOLACTONE 25 MG TAB PO SCH (08:52)
[2023-03-02] MEDS: FAMOTIDINE 20 MG TAB PO SCH ×2 (08:52→20:33)
[2023-03-02] MEDS: FUROSEMIDE 10 MG/ML 4 ML VIAL IV SCH ×2 (08:52→20:33)
[2023-03-02] MEDS: AMIODARONE 200 MG TAB PO SCH (08:52)
[2023-03-02] MEDS: DIVALPROEX 500 MG TABLET.DR PO SCH ×2 (08:53→20:33)
[2023-03-02] MEDS: ATORVASTATIN 40 MG TAB PO SCH (08:53)
[2023-03-02 09:02] LABS: Glucose,Whole Blood 282 mg/dL (70-110)
--- NOTE | 2023-03-02 09:19 | P.CRDCN ---
History of Present Illness Consult date: 03/02/23 Consult reason: congestive heart failure History of present illness: History of present illness: This is a 67-year-old male previously seen by Dr. Cortez in 2019 with past medical history of AICD, persistent atrial fibrillation, ischemic cardiomyopathy with EF of 35 or less, coronary artery disease status post stents, hypertension, hyperlipidemia, smoking history, noncompliance. We have been asked to evaluate the patient for heart failure. Patient states that he presented to the hospital due to difficulty in breathing and also because he could not walk and no strength in his legs. Weakness has been going on for the past 3 months. He does not follow with any document review attorney and his AICD has not been interrogated since 2019. The patient is an active smoker. He has history of alcohol abuse but denies drinking recently. No drug use. Patient is seen today in the emergency center waiting for a bed on the observation unit. Patient has been started on IV Lasix 40 mg every 12 hours. Patient is also followed by pulmonary medicine. EKG sinus rhythm intraventricular conduction delay, right axis deviation. Ventricular rate of 69 bpm. Chest x-ray: Small to moderate right pleural effusion with adjacent lower lobe airspace opacities. Correlate for acute infection follow-up to resolution. Chest ultrasound revealed right pleural effusion pocket of 10.3 cm and marked. WBC 6.5, hemoglobin 13, platelet count 112. INR 1.2. Venous pH 7.28, pCO2 60 and bicarb 28. I's were normal. BUN 24 creatinine 0.83. Blood sugar 200. Lactic acid 1.7. Liver function tests are normal. Troponin negative 1. ProBNP 8250. TSH 9.29 and free T4 2 0.8. Home cardiac medications: Amiodarone 200 mg daily, eliquis 5 mg at bedtime, Lipitor 40 mg daily, Coreg 12.5 mg twice daily, Lasix 40 mg daily, losartan 50 mg at bedtime, Aldactone 12.5 mg daily Cardiac catheterization PCI 2000: Stent in the distal RCA, stent in the proximal LAD, stent in the proximal RCA. Review Of Systems: At the time of my evaluation: Constitutional: No fever, no chills. + weakness. EENT: No headache. No dizziness. Lungs: + shortness of breath, cough, no sputum production. No wheezing. Cardiovascular: No chest pain, no lower extremity edema. No palpitations. No paroxysmal nocturnal dyspnea. No orthopnea. No lightheadedness or dizziness. No syncopal episodes. Abdominal: No abdominal pain. No nausea, vomiting. Musculoskeletal: No myalgias. + muscle weakness Integumentary: No wounds. No rash. No unusual bruising. Neurologic: No aphasia. No facial droop. No change in mentation. Physical examination: Gen: This is a 67 year old disheveled-appearing male resting on ER stretcher, in no acute respiratory distress noted. VS: reviewed HEENT: Head is atraumatic, normocephalic. Pupils equal, round. Sclerae is anicteric. NECK: Supple. No JVD. . LUNGS: Clear to auscultation. No wheezes or rhonchi. No intercostal retractions. HEART: Regular rate and rhythm. 2/6 systolic murmur at the apex. ABDOMEN: Soft No tenderness. EXTREMITIES: No pedal edema. No calf tenderness. NEUROLOGICAL: Patient is awake, alert and oriented x3. Assessment: Acute hypoxic respiratory failure secondary to combination of COPD exacerbation, CHF, right-sided pleural effusion Acute on chronic systolic heart failure Coronary artery disease with previous stenting Ischemic cardiomyopathy with known EF of 35 or less with AICD Hypertension Hyperlipidemia Bicytopenia Thyroid disorder History of noncompliance Plan: Resume patient's home cardiac medications with the following changes: Increased frequency of eliquis to twice daily Continue IV Lasix 40 mg every 12 hours Monitor I&O, daily weights, electrolytes and renal function [facility] [employer] Obtain 2-D echocardiogram and Doppler study to assess cardiac structure and function Further recommendations to follow based upon clinical course Thank you kindly for this consultation. Nurse practitioner note has been reviewed, I agree with documented findings and plan of care. Patient was seen and examined. Past Medical History Past Medical History: Coronary Artery Disease (CAD), Heart Failure, COPD, Eye Disorder, Hyperlipidemia, Hypertension, Myocardial Infarction ([place]), Osteoarthritis ([place]) Additional Past Medical History / Comment(s): Cardiomyopathy, bilateral ear tinnitis/, bilateral cataracts, sinus problems, lower leg numbness Last Myocardial Infarction Date:: 05/18/2000 History of Any Multi-Drug Resistant Organisms: None Reported Past Surgical History: AICD, Heart Catheterization, Heart Catheterization With Stent Additional Past Surgical History / Comment(s): AICD, DFTs, PCI with stenting, Rt shoulder surgery and eventually had a reverse total shoulder-has metal in this arm, R leg surgery x 3 with marco, L wrist surgery, colonoscopy Past Anesthesia/Blood Transfusion Reactions: No Reported Reaction Date of Last Stent Placement:: 2000 Type of Cardiac Device: AICD Device Placement Date:: 2005 Past Psychological History: Anxiety, Depression Smoking Status: Current every day smoker - Past Family History Mother Family Medical History: Cancer, Dementia Additional Family Medical History / Comment(s): She has bowel cancer. Father Family Medical History: Cancer Additional Family Medical History / Comment(s): Father survived colon cancer but from lung cancer. Medications and Allergies Home Medications Medication Instructions Recorded Confirmed Type Atorvastatin [Lipitor] 40 mg PO DAILY 01/21/15 03/01/23 History Losartan [Cozaar] 50 mg PO HS 07/02/21 03/01/23 History Amiodarone [Cordarone] 200 mg PO DAILY 03/01/23 03/01/23 History Apixaban [Eliquis] 5 mg PO HS 03/01/23 03/01/23 History Divalproex Sodium [Depakote] 500 mg PO BID 03/01/23 03/01/23 History Fluticasone/Vilanterol [Breo 1 puff INHALATION RT-HS 03/01/23 03/01/23 History Ellipta 200-25 Mcg Inhaler] Furosemide [Lasix] 40 mg PO DAILY 03/01/23 03/01/23 History Spironolactone 12.5 mg PO DAILY 03/01/23 03/01/23 History carvediloL [Coreg] 12.5 mg PO BID 03/01/23 03/01/23 History Allergies Allergy/AdvReac Type Severity Reaction Status Date / Time No Known Allergies Allergy Verified 03/01/23 08:10 Physical Exam Vitals: Vital Signs Temp Pulse Pulse Resp BP BP Pulse Ox 03/02/23 07:35 98.1 F 55 L 16 103/66 95 03/02/23 02:24 46 L 16 93/57 91 L 03/02/23 02:00 46 L 03/01/23 22:15 97.1 F L 51 L 16 102/40 95 03/01/23 21:11 65 18 106/60 03/01/23 20:18 62 03/01/23 20:02 72 11/28/23 20:00 51 L 03/01/23 15:31 77 18 03/01/23 15:24 77 20 03/01/23 15:00 58 L 18 133/106 96 03/01/23 14:00 58 L 18 119/98 96 03/01/23 13:00 59 L 18 85/70 98 03/01/23 12:00 61 24 123/71 96 03/01/23 11:51 65 16 118/61 96 03/01/23 10:00 65 16 124/68 98 Intake and Output 03/01/23 03/02/23 03/02/23 22:59 06:59 14:59 Output Total 175 1050 Balance -175 -1050 Output: Urine 175 1050 Other: Voiding Method Urinal Urinal # Voids 1 1 Results 03/01/23 04:45 03/01/23 04:45 Current Medications Generic Name Dose Route Start Last Admin Trade Name Freq PRN Reason Stop Dose Admin Albuterol/Ipratropium 3 ml 03/01/23 12:17 Ipratropium-Albuterol 3 Ml Neb INHALATION RT-QID PRN Shortness Of Breath Or Wheezing Albuterol/Ipratropium 3 ml 03/01/23 16:00 03/02/23 07:58 Ipratropium-Albuterol 3 Ml Neb INHALATION 3 ml RT-QID VICTORIA Administration Amiodarone HCl 200 mg 03/01/23 13:00 03/01/23 13:01 Amiodarone 200 Mg Tab PO 200 mg DAILY VICTORIA Administration Apixaban 5 mg 03/01/23 21:00 Apixaban 5 Mg Tab PO HS [facility] Protocol Atorvastatin Calcium 40 mg 03/02/23 09:00 Atorvastatin 40 Mg Tab PO DAILY VICTORIA Budesonide/Formoterol Fumarate 2 puff 03/01/23 20:00 03/02/23 07:58 Symbicort 160-4.5 Mcg Inhaler INHALATION 2 puff RT-BID VICTORIA Administration Carvedilol 12.5 mg 03/01/23 17:30 03/02/23 06:59 Carvedilol 12.5 Mg Tab PO 12.5 mg BID-W/MEALS VICTORIA Administration Divalproex Sodium 500 mg 03/01/23 21:00 03/01/23 22:42 Divalproex 500 Mg Tablet.Dr PO 500 mg BID VICTORIA Administration Famotidine 20 mg 03/01/23 12:30 03/01/23 22:42 Famotidine 20 Mg Tab PO 20 mg BID VICTORIA Administration Furosemide 40 mg 03/01/23 12:30 03/01/23 22:42 Furosemide 10 Mg/Ml 4 Ml Vial IV 40 mg Q12HR VICTORIA Administration Insulin Aspart 0 unit 03/01/23 12:30 03/02/23 06:59 Insulin Aspart (Novolog) 100 Unit/Ml Vial SQ Not Given ACHS VICTORIA Protocol Methylprednisolone Sodium Succinate 60 mg 03/01/23 18:00 03/02/23 06:58 Methylprednisolone Sod Succi 125 Mg/2 Ml Vial IV 60 mg Q6HR VICTORIA Administration Naloxone HCl 0.2 mg 03/01/23 06:33 Naloxone 0.4 Mg/Ml 1 Ml Vial IV Q2M PRN Opioid Reversal Spironolactone 12.5 mg 03/02/23 09:00 Spironolactone 25 Mg Tab PO DAILY VICTORIA Intake and Output 03/01/23 03/02/23 03/02/23 22:59 06:59 14:59 Output Total 175 1050 Balance -175 -1050 Output: Urine 175 1050 Other: Voiding Method Urinal Urinal # Voids 1 1 03/01/23 04:45 03/01/23 04:45
[2023-03-02] MEDS ORDERED: APIXABAN 5 MG TAB PO SCH ×2 (09:30→21:00)
[2023-03-02] MEDS ORDERED: DEXTROSE 50% SYRINGE 50 ML IVP PRN ×2 (10:20)
[2023-03-02 11:00] LABS: Glucose,Whole Blood 276 mg/dL (70-110)
[2023-03-02 11:06] LABS: African American GFR (CKD) 67 (>60 ml/min/1.73 sqM); Anion Gap 11 mmol/L; Blood Urea Nitrogen 32 mg/dL (9-20); Carbon Dioxide 26 mmol/L (22-30); Chloride 96 mmol/L (98-107); Glucose 224 mg/dL (74-99); Non-African American GFR(CKD) 58 (>60 ml/min/1.73 sqM); Potassium 3.3 mmol/L (3.5-5.1); Sodium 133 mmol/L (137-145)
--- NOTE | 2023-03-02 12:06 | P.PN ---
Subjective Progress Note Date: 03/02/23 67-year-old male who was seen in the emergency department, on March 01. He was brought into the emergency room, by EMS. The patient's primary care physician is Dr. Adler. The patient has a history of coronary disease, CHF, COPD, hyperlipidemia, hypertension, myocardial infarction, osteoarthritis, cardiomyopathy, previous heart catheterization with stent, and AICD placement. The patient states that he came into the ER, because he was very short of breath. He also complained of weakness in his lower extremities, and he could not stand up. He apparently has not been feeling well for at least a couple weeks, and maybe even longer. He is seen in the emergency department, room #4. He is currently on 4 L of oxygen. He's not receiving any IV fluids. His BMP was elevated at 8250. Also his TSH was elevated suggesting hypothyroidism. He does not take thyroid medication. White count 6.5, hemoglobin 13, hematocrit 38.9, with a platelet count of 112,000. Venous blood gases show pCO2 of 60, and a pH is 7.28. Sodium 141, potassium 4.3, chlorides 105, CO2 25, BUN 24, and creatinine 0.83. Glucose is 105. N-terminal proBNP is 8250. TSH is 9.290. Urine shows 22 RBCs and a small amount of blood. Chest x-ray shows a small to moderate right-sided pleural effusion with adjacent lower lobe airspace opacities/atelectasis. The patient is seen today 03/02/2023 in follow-up in the emergency department room. He is currently sitting up in the stretcher. Awake and alert in no acute distress. Breathing a bit easier today compared to yesterday. He is maintaining O2 saturations in the 90s on room air. Ultrasound of the right chest did reveal a 10.3 cm pocket. Sodium 133. Potassium 3.3. Bicarb 26. BUN 32. Creatinine 1.27. Glucose 227. Calcium 8.0. He is continued on DuoNeb inhalations, Symbicort. He's been initiated on IV Lasix. Currently in a -1.2 L balance. Anticoagulated with Eliquis. Objective - Vital Signs Vital signs: Vital Signs Temp 98.1 F 03/02/23 07:35 Pulse 82 03/02/23 11:50 Resp 16 03/02/23 07:35 BP 103/66 11/29/23 07:35 Pulse Ox 95 03/02/23 07:35 FiO2 Intake & Output 03/01/23 03/02/23 03/02/23 18:59 06:59 18:59 Output Total 1225 Balance -1225 Output: Urine 1225 Other: Voiding Method Urinal # Voids 1 - Exam GENERAL EXAM: Alert, disheveled, frail, 67-year-old male, comfortable in no apparent distress. HEAD: Normocephalic. EYES: Normal reaction of pupils, equal size. NOSE: Clear with pink turbinates. THROAT: No erythema or exudates. NECK: No masses, no JVD. CHEST: No chest wall deformity. LUNGS: Equal air entry with crackles in the right lung base, diminished. CVS: S1 and S2 normal with no audible murmur, regular rhythm. ABDOMEN: No hepatosplenomegaly, normal bowel sounds, no guarding or rigidity. SPINE: No scoliosis or deformity SKIN: No rashes CENTRAL NERVOUS SYSTEM: No focal deficits, tone is normal in all 4 extremities. EXTREMITIES: There is no peripheral edema. No clubbing, no cyanosis. Peripheral pulses are intact. - Labs CBC & Chem 7: 03/01/23 04:45 03/02/23 10:27 Labs: Abnormal Lab Results - Last 24 Hours (Table) 03/01/23 03/01/23 03/02/23 Range/Units 18:50 22:24 06:51 Sodium (137-145) mmol/L Potassium (3.5-5.1) mmol/L Chloride (98-107) mmol/L BUN (9-20) mg/dL Creatinine (0.66-1.25) mg/dL Glucose (74-99) mg/dL POC Glucose (mg/dL) 219 H 200 H 209 H (70-110) mg/dL Calcium (8.4-10.2) mg/dL 03/02/23 03/02/23 03/02/23 Range/Units 09:00 10:27 10:58 Sodium 133 L (137-145) mmol/L Potassium 3.3 L (3.5-5.1) mmol/L Chloride 96 L (98-107) mmol/L BUN 32 H (9-20) mg/dL Creatinine 1.27 H (0.66-1.25) mg/dL Glucose 224 H (74-99) mg/dL POC Glucose (mg/dL) 282 H 276 H (70-110) mg/dL Calcium 8.0 L (8.4-10.2) mg/dL Assessment and Plan Assessment: Shortness of breath, likely multifactorial, in part related to COPD exacerbation, CHF, and right-sided pleural effusion. Acute hypoxemic respiratory failure, secondary to above. History of congestive heart failure/cardiomyopathy. History of COPD from previous and ongoing tobacco use. History of CAD with previous stent placement. Prior history of myocardial infarction. History of hyperlipidemia. History of hypertension. History of AICD placement. History of atrial fibrillation. Probable hypothyroidism. History of osteoarthritis. Ongoing tobacco use with nicotine addiction. Plan: The patient was seen and evaluated Ultrasound of the chest, labs and medications reviewed We'll plan for thoracentesis tomorrow Hold Eliquis today Continue bronchodilators, steroids Continue diuretics We will continue to follow I have personally seen and examined the patient, performed the documentation and the assessment and plan as written. Number of minutes spent on the visit: 10.
[2023-03-02] MEDS: INSULIN DETEMIR (LEVEMIR) 100 UNIT/ML SYR SQ SCH (13:01)
[2023-03-02 13:10] LABS: Glucose,Whole Blood 186 mg/dL (70-110)
[2023-03-02 16:35] LABS: Glucose,Whole Blood 133 mg/dL (70-110)
[2023-03-02] MEDS ORDERED: INSULIN ASPART (NovoLOG) 100 UNIT/ML VIAL SQ SCH (17:30)
--- NOTE | 2023-03-02 17:39 | CA ---
Transthoracic Echo Report Name: Yash Land Age: 67 Gender: M : 1955 Exam Date: 03/02/2023 09:55 Exam Location: [facility] Ht (in): 69 Wt (lb): 149 Ordering Physician: Delores Zarate Attending/Referring Phys: [id number], Tessa Ep Specialist Jennifer Mccann RDCS Procedure CPT: Indications: LVF Cardiac Hx: Technical Quality: Technically difficult study Contrast 1: Definity Total Dose (mL): 2 Contrast 2: Total Dose (mL): MEASUREMENTS (Male / Female) Normal Values 2D ECHO LV Diastolic Diameter PLAX 6.0 cm 4.2 - 5.9 / 3.9 - 5.3 cm LV Systolic Diameter PLAX 4.8 cm IVS Diastolic Thickness 1.0 cm 0.6 - 1.0 / 0.6 - 0.9 cm LVPW Diastolic Thickness 1.1 cm 0.6 - 1.0 / 0.6 - 0.9 cm LV Relative Wall Thickness 0.3 RV Internal Dim ED PLAX 4.1 cm LA Volume 79.5 cm??? 18 - 58 / 22 - 52 cm??? LA Volume Index 43.9 cm???/m??? 16 - 28 cm???/m??? M-MODE Aortic Root Diameter MM 2.8 cm LA Systolic Diameter MM 5.4 cm LA Ao Ratio MM 1.9 AV Cusp Separation MM 1.7 cm DOPPLER AV Peak Velocity 131.0 cm/s AV Peak Gradient 6.9 mmHg AV Mean Velocity 81.3 cm/s AV Mean Gradient 3.1 mmHg AV Velocity Time Integral 26.6 cm LVOT Peak Velocity 114.6 cm/s LVOT Peak Gradient 5.3 mmHg LVOT Velocity Time Integral 20.6 cm MV Area PHT 4.7 cm??? Mitral E Point Velocity 102.1 cm/s Mitral A Point Velocity 1.7 cm/s Mitral E to A Ratio 60.7 MV Deceleration Time 161.0 ms TR Peak Velocity 281.1 cm/s TR Peak Gradient 31.6 mmHg Right Ventricular Systolic Press 34.1 mmHg FINDINGS Left Ventricle Left ventricular wall thickness normal. Severely reduced global left ventricular systolic function. Moderate left ventricular dilatation. Left ventricular ejection fraction is estimated at 20-25 %. Right Ventricle Mild right ventricular dilatation. Mild pulmonary hypertension. Right Atrium Right atrium not well visualized. Left Atrium Severely increased left atrial volume. Mildly increased left atrial area. Mitral Valve Structurally normal mitral valve. Mild mitral annular calcification. Mild mitral regurgitation. Aortic Valve Trileaflet aortic valve. No aortic stenosis. No aortic regurgitation. Aortic valve sclerosis. Tricuspid Valve Structurally normal tricuspid valve. Ozib-sp-vdxoggif tricuspid regurgitation. Pulmonic Valve Structurally normal pulmonic valve. Pericardium No pericardial effusion. Aorta Normal size aortic root and proximal ascending aorta. CONCLUSIONS Severe LV systolic dysfunction Previewed by: Dr. Gerard Jacobs MD (Electronically Signed) Final Date: 02 March 2023 17:38
[2023-03-02 20:11] LABS: Glucose,Whole Blood 162 mg/dL (70-110)
[2023-03-02 21:31] LABS: Glucose,Whole Blood 227 mg/dL (70-110)
--- NOTE | 2023-03-02 22:40 | P.PN ---
Subjective Progress Note Date: 03/02/23 Patient is 59-year-old pleasant male came in with complaints of shortness of breath and orthopnea, patient does have history of condition or failure chronic systolic dysfunction with EF of around 10-15%, patient does have history of coronary artery disease ischemic cardiomyopathy along with alcoholic myopathy continues to drink alcohol but cut down the alcohol, patient can use to smoke half a pack of cigarettes a day. Patient does have COPD doesn't use any oxygen at home presently requiring 4 L of oxygen patient does have increased swelling in bilateral lower extremities chest x-ray showed pleural effusion on the right side. BNP is not available. Patient denied any cough doesn't have any leukocy tosis. is not available at this time. 03/02/2023 Patient is evaluated in the ER pending bed on the medical floor. He reports improvement in his shortness of breath. He continues on IV lasix Q12 and is diuresing well. Chest ultrasound reveals 10 cm right sided pleural effusion and patient is being considered for thoracentesis. Echocardiogram reveals EF 20-25%. Mild to moderate TR. REVIEW OF SYSTEMS: CONSTITUTIONAL: No fever, no malaise, no fatigue. HEENT: No recent visual problems or hearing problems. Denied any sore throat. CARDIOVASCULAR: No chest pain, no palpitations, no syncope. PULMONARY: no hemoptysis. Reports shortness of breath. GASTROINTESTINAL: No diarrhea, no nausea, no vomiting, no abdominal pain. NEUROLOGICAL: No headaches, no weakness, no numbness. PHYSICAL EXAMINATION: GENERAL: The patient is alert and oriented x3, not in any acute distress. Thin built female HEENT: Pupils are round and equally reacting to light. EOMI. No scleral icterus. No conjunctival pallor. Normocephalic, atraumatic. No pharyngeal erythema. No thyromegaly. CARDIOVASCULAR: S1 and S2 present. No murmurs, rubs, or gallops. PULMONARY: Expiratory wheezing on exam no crackles were appreciated no rhonchi. ABDOMEN: Soft, nontender, nondistended, normoactive bowel sounds. No palpable o rganomegaly. MUSCULOSKELETAL: No joint swelling or deformity. EXTREMITIES: No cyanosis, clubbing, patient does have 2+ pitting pedal edema extending up to the midshin area. NEUROLOGICAL: Gross neurological examination did not reveal any focal deficits. SKIN: No rashes. Assessment and plan -Acute hypoxic as well as hypercapnic respiratory failure secondary to congestive heart failure exacerbation and COPD exacerbation respiratory, patient was started on systemic steroids for COPD as well as IV Lasix for CHF exacerbations pulmonology and cardiology consulted. Procalcitonin level is normal. -COPD with acute exacerbation -Congestive heart failure chronic systolic dysfunction with acute exacerbation -Ischemic cardiomyopathy EF 25% patient has an AICD -Steroid induced hyperglycemia. 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 -Hyperlipidemia -Hypertension -Atrial fibrillation proximal presently rate controlled continue with the amiodarone and Eliquis -Chronic nicotine counseling provided on smoking cessation -Thyroid disorder with elevated TSH and T4 recommend to follow up levels -Medical noncompliance -Generalized weakness and medical debility PT/OT will be consulted for evaluation DVT prophylaxis: On anticoagulation as mentioned above which is currently being held at this time for procedure. Gi prophylaxis: Pepcid Repeat labs in the AM. Continue supportive care. Eliquis on hold. The impression and plan of care has been dictated by Delfina Tracy Nurse Practitioner as directed. Dr. Nury MD I have performed a history and physical examination and medical decision making of this patient, discussed the same with the dictator, and agree with the dictators assessment and plan as written, documented as a scribe. Based on total visit time, I have performed more than 50% of this visit. Objective - Vital Signs Vital signs: Vital Signs Temp 98.0 F 03/02/23 19:17 Pulse 52 L 03/02/23 20:09 Resp 18 03/02/23 19:17 BP 99/56 03/02/23 19:17 Pulse Ox 96 03/02/23 19:17 FiO2 Intake & Output 03/02/23 03/02/23 03/03/23 06:59 18:59 06:59 Output Total 1225 Balance -1225 Weight 67.585 kg Output: Urine 1225 Other: Voiding Method Urinal Urinal # Voids 1 1 - Labs CBC & Chem 7: 03/01/23 04:45 03/02/23 10:27 Labs: Abnormal Lab Results - Last 24 Hours (Table) 03/01/23 03/02/23 03/02/23 Range/Units 04:45 06:51 09:00 Sodium (137-145) mmol/L Potassium (3.5-5.1) mmol/L Chloride (98-107) mmol/L BUN (9-20) mg/dL Creatinine (0.66-1.25) mg/dL Glucose (74-99) mg/dL POC Glucose (mg/dL) 209 H 282 H (70-110) mg/dL Calcium (8.4-10.2) mg/dL Vitamin B12 1173.0 H (200.0-944.0) pg/mL 03/02/23 03/02/23 03/02/23 Range/Units 10:27 10:58 13:00 Sodium 133 L (137-145) mmol/L Potassium 3.3 L (3.5-5.1) mmol/L Chloride 96 L (98-107) mmol/L BUN 32 H (9-20) mg/dL Creatinine 1.27 H (0.66-1.25) mg/dL Glucose 224 H (74-99) mg/dL POC Glucose (mg/dL) 276 H 186 H (70-110) mg/dL Calcium 8.0 L (8.4-10.2) mg/dL Vitamin B12 (200.0-944.0) pg/mL 03/02/23 03/02/23 03/02/23 Range/Units 16:31 20:10 21:30 Sodium (137-145) mmol/L Potassium (3.5-5.1) mmol/L Chloride (98-107) mmol/L BUN (9-20) mg/dL Creatinine (0.66-1.25) mg/dL Glucose (74-99) mg/dL POC Glucose (mg/dL) 133 H 162 H 227 H (70-110) mg/dL Calcium (8.4-10.2) mg/dL Vitamin B12 (200.0-944.0) pg/mL Microbiology - Last 24 Hours (Table) 03/01/23 04:45 Blood Culture - Preliminary Blood 03/01/23 04:30 Blood Culture - Preliminary Blood Assessment and Plan Time with Patient: Less than 30
[2023-03-03] MEDS: methylPREDNISolone SOD SUCCI 125 MG/2 ML VIAL IV SCH ×5 (00:30→23:13)
[2023-03-03 06:06] LABS: Glucose,Whole Blood 142 mg/dL (70-110)
[2023-03-03] MEDS: INSULIN ASPART (NovoLOG) 100 UNIT/ML VIAL SQ SCH ×4 (06:10→20:44)
[2023-03-03] MEDS: carvediloL 12.5 MG TAB PO SCH ×2 (06:25→18:08)
[2023-03-03] MEDS: AMIODARONE 200 MG TAB PO SCH ×2 (08:33→20:43)
[2023-03-03] MEDS: FAMOTIDINE 20 MG TAB PO SCH ×2 (08:33→20:43)
[2023-03-03] MEDS: SPIRONOLACTONE 25 MG TAB PO SCH (08:33)
[2023-03-03] MEDS: FUROSEMIDE 10 MG/ML 4 ML VIAL IV SCH ×2 (08:34→20:43)
[2023-03-03] MEDS: DIVALPROEX 500 MG TABLET.DR PO SCH ×2 (08:34→20:43)
[2023-03-03] MEDS: ATORVASTATIN 40 MG TAB PO SCH (08:34)
[2023-03-03] MEDS: SYMBICORT 160-4.5 MCG INHALER INHALATION SCH ×2 (08:50→19:40)
[2023-03-03] MEDS: IPRATROPIUM-ALBUTEROL 3 ML NEB INHALATION SCH ×4 (08:50→19:40)
--- NOTE | 2023-03-03 08:51 | XR ---
EXAMINATION TYPE: XR chest 2V DATE OF EXAM: 03/03/2023 COMPARISON: 03/01/2023 HISTORY: Shortness of breath TECHNIQUE: Frontal and lateral views of the chest are obtained. FINDINGS: Scattered senescent parenchymal changes noted. Hyperinflation compatible with COPD. Right basilar atelectasis and/or infiltrate with pleural effusion slightly improved. The left lung is clear. No evidence for pneumothorax. Heart size is stable. Mediastinal structures are stable and grossly unremarkable. No evidence for hilar prominence. Degenerative changes dorsal spine. IMPRESSION: 1. Right basilar atelectasis and/or infiltrate with pleural effusion slightly improved. The left lung is clear. No evidence for pneumothorax.
[2023-03-03 09:10] LABS: ALT 12 U/L (10-49); AST 24 U/L (14-35); Albumin 2.9 g/dL (3.8-4.9); Albumin/Globulin Ratio 1.21 Ratio (1.60-3.17); Alkaline Phosphatase 82 U/L (41-126); BUN/Creat Ratio 27.73 Ratio (12.00-20.00); Blood Urea Nitrogen 30.5 mg/dL (9.0-27.0); Calcium 8.1 mg/dL (8.7-10.3); Carbon Dioxide 28.1 mmol/L (21.6-31.8); Chloride 95 mmol/L (96-109); Globulin 2.4 g/dL (1.6-3.3); Glucose 130 mg/dL (70-110); Magnesium 1.5 mg/dL (1.5-2.4); Potassium 3.2 mmol/L (3.5-5.5); Sodium 135 mmol/L (135-145); Total Bilirubin 0.8 mg/dL (0.3-1.2); Total Protein 5.3 g/dL (6.2-8.2)
--- NOTE | 2023-03-03 09:15 | P.PN ---
Subjective Progress Note Date: 03/03/23 67-year-old male who was seen in the emergency department, on March 01. He was brought into the emergency room, by EMS. The patient's primary care physician is Dr. Adler. The patient has a history of coronary disease, CHF, COPD, hyperlipidemia, hypertension, myocardial infarction, osteoarthritis, cardiomyopathy, previous heart catheterization with stent, and AICD placement. The patient states that he came into the ER, because he was very short of breath. He also complained of weakness in his lower extremities, and he could not stand up. He apparently has not been feeling well for at least a couple weeks, and maybe even longer. He is seen in the emergency department, room #4. He is currently on 4 L of oxygen. He's not receiving any IV fluids. His BMP was elevated at 8250. Also his TSH was elevated suggesting hypothyroidism. He does not take thyroid medication. White count 6.5, hemoglobin 13, hematocrit 38.9, with a platelet count of 112,000. Venous blood gases show pCO2 of 60, and a pH is 7.28. Sodium 141, potassium 4.3, chlorides 105, CO2 25, BUN 24, and creatinine 0.83. Glucose is 105. N-terminal proBNP is 8250. TSH is 9.290. Urine shows 22 RBCs and a small amount of blood. Chest x-ray shows a small to moderate right-sided pleural effusion with adjacent lower lobe airspace opacities/atelectasis. The patient is seen today 03/02/2023 in follow-up in the emergency department room. He is currently sitting up in the stretcher. Awake and alert in no acute distress. Breathing a bit easier today compared to yesterday. He is maintaining O2 saturations in the 90s on room air. Ultrasound of the right chest did reveal a 10.3 cm pocket. Sodium 133. Potassium 3.3. Bicarb 26. BUN 32. Creatinine 1.27. Glucose 227. Calcium 8.0. He is continued on DuoNeb inhalations, Symbicort. He's been initiated on IV Lasix. Currently in a -1.2 L balance. Anticoagulated with Eliquis. The patient is seen today 03/03/2023 in follow-up on the regular medical floor. The patient is resting comfortably in bed. Awake and alert in no acute distress. Maintaining good O2 saturations in the mid 90s on room air. He's been afebrile. Hemodynamically stable. He did undergo a right-sided thoracentesis this morning with 1,450 MLS of straw-colored fluid removed. Sent for analysis and cytology. Tolerated the procedure well. Follow-up chest x-ray reveals some right basilar atelectasis with improved pleural effusion. Left lung is clear. No evidence of pneumothorax. Echocardiogram reveals severely reduced global left ventricular systolic function. Ejection fraction of 20-25%. Blood cultures reveal no growth. Blood glucose 142. His Eliquis will be resumed. Objective - Vital Signs Vital signs: Vital Signs Temp 98.0 F 03/03/23 00:30 Pulse 54 L 03/03/23 00:30 Resp 18 03/03/23 00:30 BP 107/61 03/03/23 00:30 Pulse Ox 96 03/03/23 08:50 FiO2 Intake & Output 03/02/23 03/03/23 03/03/23 18:59 06:59 18:59 Output Total 1025 Balance -1025 Weight 67.585 kg Output: Urine 1025 Other: Voiding Method Urinal # Voids 1 - Exam GENERAL EXAM: Alert, disheveled, frail, 67-year-old male, on room air, comfortable in no apparent distress. HEAD: Normocephalic. EYES: Normal reaction of pupils, equal size. NOSE: Clear with pink turbinates. THROAT: No erythema or exudates. NECK: No masses, no JVD. CHEST: No chest wall deformity. LUNGS: Equal air entry with crackles in the right lung base, diminished. CVS: S1 and S2 normal with no audible murmur, regular rhythm. ABDOMEN: No hepatosplenomegaly, normal bowel sounds, no guarding or rigidity. SPINE: No scoliosis or deformity SKIN: No rashes CENTRAL NERVOUS SYSTEM: No focal deficits, tone is normal in all 4 extremities. EXTREMITIES: There is no peripheral edema. No clubbing, no cyanosis. Peripheral pulses are intact. - Labs CBC & Chem 7: 03/01/23 04:45 03/02/23 10:27 Labs: Abnormal Lab Results - Last 24 Hours (Table) 03/01/23 03/02/23 03/02/23 Range/Units 04:45 10:27 10:58 Sodium 133 L (137-145) mmol/L Potassium 3.3 L (3.5-5.1) mmol/L Chloride 96 L (98-107) mmol/L BUN 32 H (9-20) mg/dL Creatinine 1.27 H (0.66-1.25) mg/dL Glucose 224 H (74-99) mg/dL POC Glucose (mg/dL) 276 H (70-110) mg/dL Calcium 8.0 L (8.4-10.2) mg/dL Vitamin B12 1173.0 H (200.0-944.0) pg/mL 03/02/23 03/02/23 03/02/23 Range/Units 13:00 16:31 20:10 Sodium (137-145) mmol/L Potassium (3.5-5.1) mmol/L Chloride (98-107) mmol/L BUN (9-20) mg/dL Creatinine (0.66-1.25) mg/dL Glucose (74-99) mg/dL POC Glucose (mg/dL) 186 H 133 H 162 H (70-110) mg/dL Calcium (8.4-10.2) mg/dL Vitamin B12 (200.0-944.0) pg/mL 03/02/23 03/03/23 Range/Units 21:30 06:04 Sodium (137-145) mmol/L Potassium (3.5-5.1) mmol/L Chloride (98-107) mmol/L BUN (9-20) mg/dL Creatinine (0.66-1.25) mg/dL Glucose (74-99) mg/dL POC Glucose (mg/dL) 227 H 142 H (70-110) mg/dL Calcium (8.4-10.2) mg/dL Vitamin B12 (200.0-944.0) pg/mL Microbiology - Last 24 Hours (Table) 03/01/23 04:45 Blood Culture - Preliminary Blood 03/01/23 04:30 Blood Culture - Preliminary Blood Assessment and Plan Assessment: Shortness of breath, likely multifactorial, in part related to COPD exacerbation, CHF, and right-sided pleural effusion. There is post right-sided thoracentesis today 03/03/2023 with 1450 ML's of straw-colored fluid removed. Fluid analysis and cytology are pending. Acute hypoxemic respiratory failure, secondary to above. History of congestive heart failure/cardiomyopathy. Echocardiogram reveals severely impaired left ventricular systolic function with ejection fraction 20- 25% History of COPD from previous and ongoing tobacco use. History of CAD with previous stent placement. Prior history of myocardial infarction. History of hyperlipidemia. History of hypertension. History of AICD placement. History of atrial fibrillation. Probable hypothyroidism. History of osteoarthritis. Ongoing tobacco use with nicotine addiction. Plan: The patient was seen and evaluated Chest x-ray, echocardiogram, labs and medications reviewed Thoracentesis performed on the right chest today Resume Eliquis today Continue bronchodilators, steroids Continue diuretics We will continue to follow This patient was seen independently by the nurse practitioner I have personally seen and examined the patient, performed the documentation and the assessment and plan as written. Number of minutes spent on the visit: 22.
[2023-03-03 09:20] LABS: Basophils # (A) 0 X 10*3/uL (0.00-0.10); Basophils % (A) 0 %; Eosinophils # (A) 0 X 10*3/uL (0.04-0.35); Eosinophils % (A) 0 %; HCT 28.7 % (39.6-50.0); HGB 9.9 g/dL (13.0-17.0); Immature Platelet Fraction 10.5 % (1.1-6.1); Lymphocytes # (A) 0.52 X 10*3/uL (0.90-5.00); Lymphocytes % (A) 7.5 %; MCH 36.9 pg (27.0-32.0); MCHC 34.5 g/dL (32.0-37.0); MCV 107.1 FL (80.0-97.0); Macrocytosis (M) 2+; Mean Platelet Volume 11.3 FL (9.5-12.2); Monocytes # (A) 0.21 X 10*3/uL (0.20-1.00); NRBC Per 100 WBC 0 X 10*3/uL (0.00-0.01); Neutrophils # (A) 6.14 X 10*3/uL (1.80-7.70); Neutrophils % (A) 88.9 %; Platelet Count 62 X 10*3/uL (140-440); RBC 2.68 X 10*6/uL (4.40-5.60); RDW 14.7 % (11.5-14.5); WBC 6.91 X 10*3/uL (4.50-10.00)
[2023-03-03] MEDS: INSULIN DETEMIR (LEVEMIR) 100 UNIT/ML SYR SQ SCH (10:43)
--- NOTE | 2023-03-03 11:17 | PCN ---
PROCEDURE NOTE PROCEDURE PERFORMED: Right-sided thoracentesis. PREOPERATIVE DIAGNOSES: 1. Large right pleural effusion. 2. Shortness of breath. POSTOPERATIVE DIAGNOSES: 1. Large right pleural effusion. 2. Shortness of breath. OPERATORS: 1. Dr. Onofre. 2. Dr. Vazquez. There were informed consent and universal time-out. DESCRIPTION OF PROCEDURE: INDICATIONS: Large right pleural effusion and shortness of breath. A time-out was completed verifying correct patient, procedure, site, positioning , and implant(s) or special equipment if applicable. Ultrasound guidance was used and appropriate fluid pocket was identified and marked. Patient was positioned, prepped and draped in usual sterile fashion. Lidocaine was used to anesthetize the area. A Thoracentesis catheter was introduced into the pleural space and fluid was removed. Blood loss was none. The right posterior chest was marked by ultrasound. 1450 mL of yellow fluid was removed from the right pleural space. The patient tolerated the procedure well. There was no immediate complication. A chest x-ray was ordered. The fluid will be sent for analysis including cytology, microbiology, and chemistry. We will also do a CBC and differential on the fluid. Again, the patient tolerated the procedure well without any complications or problems. MMODL / IJN: [id number] /
[2023-03-03 11:43] LABS: Glucose,Whole Blood 175 mg/dL (70-110)
--- NOTE | 2023-03-03 12:58 | P.PN ---
Subjective Progress Note Date: 03/03/23 History of present illness: This is a 67-year-old male previously seen by Dr. Cortez in [address] [facility] history of AICD, persistent atrial fibrillation, ischemic cardiomyopathy with EF of 35 or less, coronary artery disease status post stents, hypertension, hyperlipidemia, smoking history, noncompliance. We have been asked to evaluate the patient for heart failure. Patient states that he presented to the hospital due to difficulty in breathing and also because he could not walk and no strengt h in his legs. Weakness has been going on for the past 3 months. He does not follow with any emergency operator and his AICD has not been interrogated since 2019. The patient is an active smoker. He has history of alcohol abuse but denies drinking recently. No drug use. Patient is seen today in the emergency center waiting for a bed on the observation unit. Patient has been started on IV Lasix 40 mg every 12 hours. Patient is also followed by pulmonary medicine. EKG sinus rhythm intraventricular conduction delay, right axis deviation. Ventricular rate of 69 bpm. Chest x-ray: Small to moderate right pleural effusion with adjacent lower lobe airspace opacities. Correlate for acute infection follow-up to resolution. Chest ultrasound revealed right pleural effusion pocket of 10.3 cm and marked. WBC 6.5, hemoglobin 13, platelet count 112. INR 1.2. Venous pH 7.28, pCO2 60 and bicarb 28. I's were normal. BUN 24 creatinine 0.83. Blood sugar 200. Lactic acid 1.7. Liver function tests are normal. Troponin negative 1. ProBNP 8250. TSH 9.29 and free T4 2 0.8. Home cardiac medications: Amiodarone 200 mg daily, eliquis 5 mg at bedtime, Lipitor 40 mg daily, Coreg 12.5 mg twice daily, Lasix 40 mg daily, losartan 50 mg at bedtime, Aldactone 12.5 mg daily Cardiac catheterization PCI 2000: Stent in the distal RCA, stent in the proximal LAD, stent in the proximal RCA. 03/03 Patient is seen today on the observation unit. Blood pressure 107/61, pulse ox 94% on room air, afebrile. Echocardiogram reveals EF of 20-25%. Patient appears to be in a negative fluid balance. AICD was interrogated and found to have runs of V. tach and ventricular pacing. Patient is status post thor acentesis on the right side with removal of 1450 ML's yellow fluid. Physical examination: Gen: This is a 67 year old disheveled-appearing male resting in no acute respiratory distress. VS: reviewed HEENT: Head is atraumatic, normocephalic. Pupils equal, round. Sclerae is anicteric. NECK: Supple. No JVD. . LUNGS: Clear to auscultation. No wheezes or rhonchi. No intercostal retractions. HEART: Regular rate and rhythm. 2/6 systolic murmur at the apex. ABDOMEN: Soft No tenderness. EXTREMITIES: No pedal edema. No calf tenderness. NEUROLOGICAL: Patient is awake, alert and oriented x3. Assessment: Acute hypoxic respiratory failure secondary to combination of COPD exacerbation, CHF, right-sided pleural effusion Acute on chronic systolic heart failure Coronary artery disease with previous stenting Ischemic cardiomyopathy with known EF of 35 or less with AICD Hypertension Hyperlipidemia Bicytopenia Thyroid disorder History of noncompliance Plan: Continue patient's current home cardiac medications Continue IV Lasix 40 mg every 12 hours Monitor I&O, daily weights, electrolytes and renal function Further recommendations to follow based upon clinical course Nurse practitioner note has been reviewed, I agree with documented findings and plan of care. Patient was seen and examined. Objective - Vital Signs Vital signs: Vital Signs Temp 98.0 F 03/03/23 00:30 Pulse 54 L 03/03/23 00:30 Resp 18 03/03/23 00:30 BP 107/61 03/03/23 00:30 Pulse Ox 94 L 03/03/23 00:30 FiO2 Intake & Output 03/02/23 03/03/23 03/03/23 18:59 06:59 18:59 Output Total 1025 Balance -1025 Weight 67.585 kg Output: Urine 1025 Other: Voiding Method Urinal # Voids 1 - Labs CBC & Chem 7: 03/03/23 04:49 03/03/23 04:49 Labs: Abnormal Lab Results - Last 24 Hours (Table) 03/01/23 03/02/23 03/02/23 Range/Units 04:45 09:00 10:27 Sodium 133 L (137-145) mmol/L Potassium 3.3 L (3.5-5.1) mmol/L Chloride 96 L (98-107) mmol/L BUN 32 H (9-20) mg/dL Creatinine 1.27 H (0.66-1.25) mg/dL Glucose 224 H (74-99) mg/dL POC Glucose (mg/dL) 282 H (70-110) mg/dL Calcium 8.0 L (8.4-10.2) mg/dL Vitamin B12 1173.0 H (200.0-944.0) pg/mL 03/02/23 03/02/23 03/02/23 Range/Units 10:58 13:00 16:31 Sodium (137-145) mmol/L Potassium (3.5-5.1) mmol/L Chloride (98-107) mmol/L BUN (9-20) mg/dL Creatinine (0.66-1.25) mg/dL Glucose (74-99) mg/dL POC Glucose (mg/dL) 276 H 186 H 133 H (70-110) mg/dL Calcium (8.4-10.2) mg/dL Vitamin B12 (200.0-944.0) pg/mL 03/02/23 03/02/23 03/03/23 Range/Units 20:10 21:30 06:04 Sodium (137-145) mmol/L Potassium (3.5-5.1) mmol/L Chloride (98-107) mmol/L BUN (9-20) mg/dL Creatinine (0.66-1.25) mg/dL Glucose (74-99) mg/dL POC Glucose (mg/dL) 162 H 227 H 142 H (70-110) mg/dL Calcium (8.4-10.2) mg/dL Vitamin B12 (200.0-944.0) pg/mL Microbiology - Last 24 Hours (Table) 03/01/23 04:45 Blood Culture - Preliminary Blood 03/01/23 04:30 Blood Culture - Preliminary Blood
[2023-03-03 17:17] LABS: Glucose,Whole Blood 189 mg/dL (70-110)
[2023-03-03 20:41] LABS: Glucose,Whole Blood 159 mg/dL (70-110)
[2023-03-03] MEDS: APIXABAN 5 MG TAB PO SCH (20:43)
[2023-03-04 03:44] LABS: Glucose, BF Source Pleural fluid; Glucose, Body Fluid 140 mg/dL; LDH, Body Fluid Source Pleural fluid; T. Protein, Body Fluid Source Pleural fluid; Total Protein, Body Fluid 2510 mg/dL
[2023-03-04 05:28] LABS: Appearance,BF Clear (Clear)
[2023-03-04 06:16] LABS: Glucose,Whole Blood 172 mg/dL (70-110)
[2023-03-04] MEDS: INSULIN ASPART (NovoLOG) 100 UNIT/ML VIAL SQ SCH ×4 (06:29→21:43)
[2023-03-04] MEDS: methylPREDNISolone SOD SUCCI 125 MG/2 ML VIAL IV SCH ×4 (06:29→23:33)
[2023-03-04] MEDS: INSULIN DETEMIR (LEVEMIR) 100 UNIT/ML SYR SQ SCH (06:29)
[2023-03-04] MEDS: carvediloL 12.5 MG TAB PO SCH (06:29)
[2023-03-04 07:56] LABS: Basophils % (A) 1 %; Eosinophils % (A) 0 %; HCT 33.5 % (39.0-53.0); HGB 11.5 gm/dL (13.0-17.5); Lymphocytes # (A) 0.4 k/uL (1.0-4.8); Lymphocytes % (A) 5 %; MCH 37.9 pg (25.0-35.0); MCHC 34.2 g/dL (31.0-37.0); Macrocytosis Marked; Mean Platelet Volume 10.1; Monocytes # (A) 0.2 k/uL (0-1.0); Monocytes % (A) 3 %; Neutrophils # (A) 6.1 k/uL (1.3-7.7); Neutrophils % (A) 90 %; RBC 3.02 m/uL (4.30-5.90); RDW 13.7 % (11.5-15.5); WBC 6.8 k/uL (3.8-10.6)
[2023-03-04 08:12] LABS: Platelet Count 60 k/uL (150-450)
[2023-03-04] MEDS: FUROSEMIDE 10 MG/ML 4 ML VIAL IV SCH (08:21)
[2023-03-04] MEDS: AMIODARONE 200 MG TAB PO SCH ×2 (08:21→20:13)
[2023-03-04] MEDS: ATORVASTATIN 40 MG TAB PO SCH (08:21)
[2023-03-04] MEDS: SPIRONOLACTONE 25 MG TAB PO SCH (08:22)
[2023-03-04] MEDS: APIXABAN 5 MG TAB PO SCH ×2 (08:22→20:13)
[2023-03-04] MEDS: DIVALPROEX 500 MG TABLET.DR PO SCH ×2 (08:22→20:13)
[2023-03-04] MEDS: IPRATROPIUM-ALBUTEROL 3 ML NEB INHALATION SCH ×4 (08:31→21:09)
[2023-03-04] MEDS: SYMBICORT 160-4.5 MCG INHALER INHALATION SCH ×2 (08:31→21:09)
[2023-03-04 08:39] LABS: African American GFR (CKD) 66 (>60 ml/min/1.73 sqM); Anion Gap 10 mmol/L; Blood Urea Nitrogen 42 mg/dL (9-20); Calcium 7.7 mg/dL (8.4-10.2); Carbon Dioxide 29 mmol/L (22-30); Chloride 94 mmol/L (98-107); Glucose 140 mg/dL (74-99); Magnesium 1.5 mg/dL (1.6-2.3); Non-African American GFR(CKD) 57 (>60 ml/min/1.73 sqM); Sodium 133 mmol/L (137-145)
[2023-03-04] MEDS ORDERED: POTASSIUM CHLORIDE ER 20 MEQ TAB.ER PO STA (08:52)
--- NOTE | 2023-03-04 08:52 | P.PN ---
Subjective Progress Note Date: 03/03/23 Patient is 59-year-old pleasant male came in with complaints of shortness of breath and orthopnea, patient does have history of condition or failure chronic systolic dysfunction with EF of around 10-15%, patient does have history of coronary artery disease ischemic cardiomyopathy along with alcoholic myopathy continues to drink alcohol but cut down the alcohol, patient can use to smoke half a pack of cigarettes a day. Patient does have COPD doesn't use any oxygen at home presently requiring 4 L of oxygen patient does have increased swelling in bilateral lower extremities chest x-ray showed pleural effusion on the right side. BNP is not available. Patient denied any cough doesn't have any leukocy tosis. is not available at this time. 03/02/2023 Patient is evaluated in the ER pending bed on the medical floor. He reports improvement in his shortness of breath. He continues on IV lasix Q12 and is diuresing well. Chest ultrasound reveals 10 cm right sided pleural effusion and patient is being considered for thoracentesis. Echocardiogram reveals EF 20-25%. Mild to moderate TR. 03/03/2023 Patient monitored on medical floor. Repeats breathing has improved today did undergo thoracentesis this morning performed at bedside by pulmonary with 1450 ml of fluid removed on the right side. Post procedure chest xray reveals right basilar atelectassis and or infiltrate with pleural effusion slightly improved. Left lung is clear. No pneumothorax. Patient also reports significant weakness states he is unable to ambulate without assistance. REVIEW OF SYSTEMS: CONSTITUTIONAL: No fever, no malaise, no fatigue. HEENT: No recent visual problems or hearing problems. Denied any sore throat. CARDIOVASCULAR: No chest pain, no palpitations, no syncope. PULMONARY: no hemoptysis. Reports shortness of breath. GASTROINTESTINAL: No diarrhea, no nausea, no vomiting, no abdominal pain. NEUROLOGICAL: No headaches,Reports generalized weakness. no numbness. PHYSICAL EXAMINATION: GENERAL: The patient is alert and oriented x3, not in any acute distress. Thin built female HEENT: Pupils are round and equally reacting to light. EOMI. No scleral icterus. No conjunctival pallor. Normocephalic, atraumatic. No pharyngeal erythema. No thyromegaly. CARDIOVASCULAR: S1 and S2 present. No murmurs, rubs, or gallops. PULMONARY: Expiratory wheezing on exam no crackles were appreciated no rhonchi. ABDOMEN: Soft, nontender, nondistended, normoactive bowel sounds. No palpable organomegaly. MUSCULOSKELETAL: No joint swelling or deformity. EXTREMITIES: No cyanosis, clubbing, patient does have 2+ pitting pedal edema extending up to the midshin area. NEUROLOGICAL: Gross neurological examination did not reveal any focal deficits. SKIN: No rashes. Assessment and plan -Acute hypoxic as well as hypercapnic respiratory failure secondary to congestive heart failure exacerbation and COPD exacerbation respiratory, patient was started on systemic steroids for COPD as well as IV Lasix for CHF [facility] pulmonology and cardiology consulted. Procalcitonin level is normal. -large right pleural effusion due to acute CHF s/p thoracentesis on the right with 1450 ml of fluid removed -COPD with acute exacerbation -Congestive heart failure chronic systolic dysfunction with acute exacerbation -Ischemic cardiomyopathy EF 25% patient has an AICD -Steroid induced hyperglycemia. 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 -Hyperlipidemia -Hypertension -Atrial fibrillation proximal presently rate controlled continue with the amio guanakoone and Eliqucollin -Chronic nicotine counseling provided on smoking cessation -Thyroid disorder with elevated TSH and T4 recommend to follow up levels -Medical noncompliance -Generalized weakness and medical debility PT/OT will be consulted for evaluation DVT prophylaxis: On anticoagulation as mentioned above which is currently being held at this time for procedure. can be resumed post procedure. Gi prophylaxis: Pepcid Repeat labs in the AM. Continue supportive care. Eliquis on hold. The impression and plan of care has been dictated by Delfina Tracy Nurse Practitioner as directed. Dr. Nury MD I have performed a history and physical examination and medical decision making of this patient, discussed the same with the dictator, and agree with the dictators assessment and plan as written, documented as a scribe. Based on total visit time, I have performed more than 50% of this visit. Objective - Vital Signs Vital signs: Vital Signs Temp 98.3 F 03/04/23 02:39 Pulse 61 03/04/23 02:39 Resp 15 03/04/23 02:39 BP 101/52 03/04/23 02:39 Pulse Ox 95 03/04/23 02:39 FiO2 Intake & Output 03/03/23 03/03/23 03/04/23 06:59 18:59 06:59 Intake Total 118 Output Total 1025 200 Balance -5 -82 Intake: Oral 118 Output: Urine 1025 200 Other: Voiding Method Urinal Urinal Urinal # Voids 3 - Labs CBC & Chem 7: 03/04/23 06:53 03/04/23 06:53 Labs: Abnormal Lab Results - Last 24 Hours (Table) 03/03/23 03/03/23 03/03/23 Range/Units 04:49 04:49 06:04 RBC 2.68 L (4.40-5.60) X 10*6/uL Hgb 9.9 L (13.0-17.0) g/dL Hct 28.7 L (39.6-50.0) % MCV 107.1 H (80.0-97.0) FL MCH 36.9 H (27.0-32.0) pg RDW 14.7 H (11.5-14.5) % Plt Count 62 L (140-440) X 10*3/uL Lymphocytes # 0.52 L (0.90-5.00) X 10*3/uL Eosinophils # 0 L (0.04-0.35) X 10*3/uL Immature Plt Fraction 10.5 H (1.1-6.1) % Macrocytosis (manual) 2+ A Potassium 3.2 L (3.5-5.5) mmol/L Chloride 95 L (96-109) mmol/L BUN 30.5 H (9.0-27.0) mg/dL BUN/Creatinine Ratio 27.73 H (12.00-20.00) Ratio Glucose 130 H (70-110) mg/dL POC Glucose (mg/dL) 142 H (70-110) mg/dL Calcium 8.1 L (8.7-10.3) mg/dL Total Protein 5.3 L (6.2-8.2) g/dL Albumin 2.9 L (3.8-4.9) g/dL Albumin/Globulin Ratio 1.21 L (1.60-3.17) Ratio 03/03/23 03/03/23 03/03/23 Range/Units 11:40 17:14 20:37 RBC (4.40-5.60) X 10*6/uL Hgb (13.0-17.0) g/dL Hct (39.6-50.0) % MCV (80.0-97.0) FL MCH (27.0-32.0) pg RDW (11.5-14.5) % Plt Count (140-440) X 10*3/uL Lymphocytes # (0.90-5.00) X 10*3/uL Eosinophils # (0.04-0.35) X 10*3/uL Immature Plt Fraction (1.1-6.1) % Macrocytosis (manual) Potassium (3.5-5.5) mmol/L Chloride (96-109) mmol/L BUN (9.0-27.0) mg/dL BUN/Creatinine Ratio (12.00-20.00) Ratio Glucose (70-110) mg/dL POC Glucose (mg/dL) 175 H 189 H 159 H (70-110) mg/dL Calcium (8.7-10.3) mg/dL Total Protein (6.2-8.2) g/dL Albumin (3.8-4.9) g/dL Albumin/Globulin Ratio (1.60-3.17) Ratio Microbiology - Last 24 Hours (Table) 03/01/23 04:45 Blood Culture - Preliminary Blood 03/01/23 04:30 Blood Culture - Preliminary Blood Assessment and Plan Time with Patient: Less than 30
--- NOTE | 2023-03-04 08:54 | P.PN ---
Subjective Progress Note Date: 03/04/23 History of present illness: This is a 67-year-old male previously seen by Dr. Cortez in 2019 with past [facility] history of AICD, persistent atrial fibrillation, ischemic cardiomyopathy with EF of 35 or less, coronary artery disease status post stents, hypertension, hyperlipidemia, smoking history, noncompliance. We have been asked to evaluate the patient for heart failure. Patient states that he presented to the hospital due to difficulty in breathing and also because he could not walk and no strengt h in his legs. Weakness has been going on for the past 3 months. He does not follow with any bleach analyst and his AICD has not been interrogated since 2019. The patient is an active smoker. He has history of alcohol abuse but denies drinking recently. No drug use. Patient is seen today in the emergency center waiting for a bed on the observation unit. Patient has been started on IV Lasix 40 mg every 12 hours. Patient is also followed by pulmonary medicine. EKG sinus rhythm intraventricular conduction delay, right axis deviation. Ventricular rate of 69 bpm. Chest x-ray: Small to moderate right pleural effusion with adjacent lower lobe airspace opacities. Correlate for acute infection follow-up to resolution. Chest ultrasound revealed right pleural effusion pocket of 10.3 cm and marked. WBC 6.5, hemoglobin 13, platelet count 112. INR 1.2. Venous pH 7.28, pCO2 60 and bicarb 28. I's were normal. BUN 24 creatinine 0.83. Blood sugar 200. Lactic acid 1.7. Liver function tests are normal. Troponin negative 1. ProBNP 8250. TSH 9.29 and free T4 2 0.8. Home cardiac medications: Amiodarone 200 mg daily, eliquis 5 mg at bedtime, Lipitor 40 mg daily, Coreg 12.5 mg twice daily, Lasix 40 mg daily, losartan 50 mg at bedtime, Aldactone 12.5 mg daily Cardiac catheterization PCI 2000: Stent in the distal RCA, stent in the proximal LAD, stent in the proximal RCA. 03/03 Patient is seen today on the observation unit. Blood pressure 107/61, pulse ox 94% on room air, afebrile. Echocardiogram reveals EF of 20-25%. Patient appears to be in a negative fluid balance. AICD was interrogated and found to have runs of V. tach and ventricular pacing. Patient is status post thor acentesis on the right side with removal of 1450 ML's yellow fluid. 03/04 Patient is seen today in the observation unit. He states he is feeling a little bit better but feels extremely tired patient states he is only ambulating to the bathroom. He is maintained on IV Lasix 40 mg every 12 hours. Patient was not resumed on losartan on admission due to hypotension. We'll plan to resume this now. Systolic blood pressure running between 88 and 101. Pulse ox 94% on room air, heart rate between 50s and 70s. Repeat blood work reveals hemoglobin 11.5, potassium 3, BUN 42 creatinine 1.29. Physical examination: Gen: This is a 67 year old disheveled-appearing male resting in no acute respiratory distress. VS: reviewed HEENT: Head is atraumatic, normocephalic. Pupils equal, round. Sclerae is anicteric. NECK: Supple. No JVD. . LUNGS: Clear to auscultation. No wheezes or rhonchi. No intercostal retractions. HEART: Regular rate and rhythm. 2/6 systolic murmur at the apex. ABDOMEN: Soft No tenderness. EXTREMITIES: No pedal edema. No calf tenderness. NEUROLOGICAL: Patient is awake, alert and oriented x3. Assessment: Acute hypoxic respiratory failure secondary to combination of COPD exacerbation, CHF, right-sided pleural effusion Acute on chronic systolic heart failure Right-sided pleural effusion status post thoracentesis Coronary artery disease with previous stenting Ischemic cardiomyopathy with known EF of 35 or less with AICD Hypertension Hyperlipidemia Bicytopenia Ventricular tachycardia Thyroid disorder History of noncompliance Plan: Continue patient's current home cardiac medications Transition IV Lasix to oral Resume patient on losartan 12.5 mg daily with parameters Continued increased dose of amiodarone 400 mg twice daily for 3-4 days and then decrease to 200 mg twice daily. Monitor I&O, daily weights, electrolytes and renal function Further recommendations to follow based upon clinical course Nurse practitioner note has been reviewed, I agree with documented findings and plan of care. Patient was seen and examined. Objective - Vital Signs Vital signs: Vital Signs Temp 98.3 F 03/04/23 02:39 Pulse 61 03/04/23 02:39 Resp 15 03/04/23 02:39 BP 101/52 03/04/23 02:39 Pulse Ox 95 03/04/23 02:39 FiO2 Intake & Output 11/30/23 12/01/23 12/01/23 18:59 06:59 18:59 Intake Total 118 Output Total 200 Balance -82 Intake: Oral 118 Output: Urine 200 Other: Voiding Method Urinal Urinal # Voids 3 - Labs CBC & Chem 7: 03/04/23 06:53 03/04/23 06:53 Labs: Abnormal Lab Results - Last 24 Hours (Table) 03/03/23 03/03/23 03/03/23 Range/Units 04:49 04:49 11:40 RBC 2.68 L (4.40-5.60) X 10*6/uL Hgb 9.9 L (13.0-17.0) g/dL Hct 28.7 L (39.6-50.0) % MCV 107.1 H (80.0-97.0) FL MCH 36.9 H (27.0-32.0) pg RDW 14.7 H (11.5-14.5) % Plt Count 62 L (140-440) X 10*3/uL Lymphocytes # 0.52 L (0.90-5.00) X 10*3/uL Eosinophils # 0 L (0.04-0.35) X 10*3/uL Immature Plt Fraction 10.5 H (1.1-6.1) % Macrocytosis (manual) 2+ A Potassium 3.2 L (3.5-5.5) mmol/L Chloride 95 L (96-109) mmol/L BUN 30.5 H (9.0-27.0) mg/dL BUN/Creatinine Ratio 27.73 H (12.00-20.00) Ratio Glucose 130 H (70-110) mg/dL POC Glucose (mg/dL) 175 H (70-110) mg/dL Calcium 8.1 L (8.7-10.3) mg/dL Total Protein 5.3 L (6.2-8.2) g/dL Albumin 2.9 L (3.8-4.9) g/dL Albumin/Globulin Ratio 1.21 L (1.60-3.17) Ratio 03/03/23 03/03/23 03/04/23 Range/Units 17:14 20:37 06:15 RBC (4.40-5.60) X 10*6/uL Hgb (13.0-17.0) g/dL Hct (39.6-50.0) % MCV (80.0-97.0) FL MCH (27.0-32.0) pg RDW (11.5-14.5) % Plt Count (140-440) X 10*3/uL Lymphocytes # (0.90-5.00) X 10*3/uL Eosinophils # (0.04-0.35) X 10*3/uL Immature Plt Fraction (1.1-6.1) % Macrocytosis (manual) Potassium (3.5-5.5) mmol/L Chloride (96-109) mmol/L BUN (9.0-27.0) mg/dL BUN/Creatinine Ratio (12.00-20.00) Ratio Glucose (70-110) mg/dL POC Glucose (mg/dL) 189 H 159 H 172 H (70-110) mg/dL Calcium (8.7-10.3) mg/dL Total Protein (6.2-8.2) g/dL Albumin (3.8-4.9) g/dL Albumin/Globulin Ratio (1.60-3.17) Ratio Microbiology - Last 24 Hours (Table) 03/01/23 04:45 Blood Culture - Preliminary Blood 03/01/23 04:30 Blood Culture - Preliminary Blood
[2023-03-04 11:03] LABS: Poikilocytosis (M) Present
[2023-03-04] MEDS: FAMOTIDINE 20 MG TAB PO SCH ×2 (11:44→20:13)
[2023-03-04] MEDS: FUROSEMIDE 40 MG TAB PO SCH ×2 (11:44→16:22)
[2023-03-04] MEDS: LOSARTAN 25 MG TAB PO SCH (11:45)
[2023-03-04 12:10] LABS: Glucose,Whole Blood 130 mg/dL (70-110)
[2023-03-04] MEDS ORDERED: Magnesium Replacement Protocol 1 EACH MISC MISCELLANE PRN (12:26)
[2023-03-04] MEDS ORDERED: POTASSIUM CHLORIDE ER 20 MEQ TAB.ER PO ONE (12:45)
[2023-03-04] MEDS: MAGNESIUM SULFATE-D5W PMX 1 GM in DEXTROSE/WATER 1 100ML.BAG IVPB SCH ×2 (13:03→15:13)
--- NOTE | 2023-03-04 13:49 | P.PN ---
Subjective Progress Note Date: 03/04/23 67-year-old male who was seen in the emergency department, on March 01. He was brought into the emergency room, by EMS. The patient's primary care physician is Dr. Adler. The patient has a history of coronary disease, CHF, COPD, hyperlipidemia, hypertension, myocardial infarction, osteoarthritis, cardiomyopathy, previous heart catheterization with stent, and AICD placement. The patient states that he came into the ER, because he was very short of breath. He also complained of weakness in his lower extremities, and he could not stand up. He apparently has not been feeling well for at least a couple weeks, and maybe even longer. He is seen in the emergency department, room #4. He is currently on 4 L of oxygen. He's not receiving any IV fluids. His BMP was elevated at 8250. Also his TSH was elevated suggesting hypothyroidism. He does not take thyroid medication. White count 6.5, hemoglobin 13, hematocrit 38.9, with a platelet count of 112,000. Venous blood gases show pCO2 of 60, and a pH is 7.28. Sodium 141, potassium 4.3, chlorides 105, CO2 25, BUN 24, and creatinine 0.83. Glucose is 105. N-terminal proBNP is 8250. TSH is 9.290. Urine shows 22 RBCs and a small amount of blood. Chest x-ray shows a small to moderate right-sided pleural effusion with adjacent lower lobe airspace opacities/atelectasis. The patient is seen today 03/02/2023 in follow-up in the emergency department room. He is currently sitting up in the stretcher. Awake and alert in no acute distress. Breathing a bit easier today compared to yesterday. He is maintaining O2 saturations in the 90s on room air. Ultrasound of the right chest did reveal a 10.3 cm pocket. Sodium 133. Potassium 3.3. Bicarb 26. BUN 32. Creatinine 1.27. Glucose 227. Calcium 8.0. He is continued on DuoNeb inhalations, Symbicort. He's been initiated on IV Lasix. Currently in a -1.2 L balance. Anticoagulated with Eliquis. The patient is seen today 03/03/2023 in follow-up on the regular medical floor. The patient is resting comfortably in bed. Awake and alert in no acute distress. Maintaining good O2 saturations in the mid 90s on room air. He's been afebrile. Hemodynamically stable. He did undergo a right-sided thoracentesis this morning with 1,450 MLS of straw-colored fluid removed. Sent for analysis and cytology. Tolerated the procedure well. Follow-up chest x-ray reveals some right basilar atelectasis with improved pleural effusion. Left lung is clear. No evidence of pneumothorax. Echocardiogram reveals severely reduced global left ventricular systolic function. Ejection fraction of 20-25%. Blood cultures reveal no growth. Blood glucose 142. His Eliquis will be resumed. The patient is seen today 03/04/2023 in follow-up on the regular medical floor. He is awake and alert in no acute distress. Sitting up in bed. Continues to maintain good O2 saturations in the 90s on room air. White count 6.8. Hemoglobin 11.5. Platelets 60,000. Sodium 133. Potassium 3.0. Bicarb 29. BUN 42. Creatinine 1.29. Glucose 140. He is continued on DuoNeb inhalations, Symbicort, Solu-Medrol. Remains on oral diuretics. Anticoagulated with Eliquis. Pleural fluid cytology pending. Fluid analysis is transudate. Protein 2.5. LDH 110. Objective - Vital Signs Vital signs: Vital Signs Temp 97.8 F 03/04/23 08:00 Pulse 68 03/04/23 12:28 Resp 18 03/04/23 08:00 BP 88/50 03/04/23 08:00 Pulse Ox 94 L 03/04/23 08:32 FiO2 21 03/04/23 08:32 Intake & Output 03/03/23 03/04/23 03/04/23 18:59 06:59 18:59 Intake Total 118 Output Total 200 200 Balance -82 -200 Intake: Oral 118 Output: Urine 200 200 Other: Voiding Method Urinal Urinal Urinal # Voids 3 3 - Exam GENERAL EXAM: Alert, cachectic, 67-year-old male, appears older than stated age, on room air, comfortable in no apparent distress. HEAD: Normocephalic. EYES: Normal reaction of pupils, equal size. NOSE: Clear with pink turbinates. THROAT: No erythema or exudates. NECK: No masses, no JVD. CHEST: No chest wall deformity. LUNGS: Equal air entry with crackles in the right lung base, diminished. CVS: S1 and S2 normal with no audible murmur, regular rhythm. ABDOMEN: No hepatosplenomegaly, normal bowel sounds, no guarding or rigidity. SPINE: No scoliosis or deformity SKIN: No rashes CENTRAL NERVOUS SYSTEM: No focal deficits, tone is normal in all 4 extremities. EXTREMITIES: There is no peripheral edema. No clubbing, no cyanosis. Periph eral pulses are intact. - Labs CBC & Chem 7: 03/04/23 06:53 03/04/23 06:53 Labs: Abnormal Lab Results - Last 24 Hours (Table) 03/03/23 03/03/23 03/04/23 Range/Units 17:14 20:37 06:15 RBC (4.30-5.90) m/uL Hgb (13.0-17.5) gm/dL Hct (39.0-53.0) % MCV (80.0-100.0) fL MCH (25.0-35.0) pg Plt Count (150-450) k/uL Lymphocytes # (1.0-4.8) k/uL Macrocytosis Sodium (137-145) mmol/L Potassium (3.5-5.1) mmol/L Chloride (98-107) mmol/L BUN (9-20) mg/dL Creatinine (0.66-1.25) mg/dL Glucose (74-99) mg/dL POC Glucose (mg/dL) 189 H 159 H 172 H (70-110) mg/dL Calcium (8.4-10.2) mg/dL Magnesium (1.6-2.3) mg/dL 03/04/23 03/04/23 03/04/23 Range/Units 06:53 06:53 12:06 RBC 3.02 L (4.30-5.90) m/uL Hgb 11.5 L (13.0-17.5) gm/dL Hct 33.5 L (39.0-53.0) % MCV 111.0 H (80.0-100.0) fL MCH 37.9 H (25.0-35.0) pg Plt Count 60 L (150-450) k/uL Lymphocytes # 0.4 L (1.0-4.8) k/uL Macrocytosis Marked A Sodium 133 L (137-145) mmol/L Potassium 3.0 L (3.5-5.1) mmol/L Chloride 94 L (98-107) mmol/L BUN 42 H (9-20) mg/dL Creatinine 1.29 H (0.66-1.25) mg/dL Glucose 140 H (74-99) mg/dL POC Glucose (mg/dL) 130 H (70-110) mg/dL Calcium 7.7 L (8.4-10.2) mg/dL Magnesium 1.5 L (1.6-2.3) mg/dL Microbiology - Last 24 Hours (Table) 03/01/23 04:45 Blood Culture - Preliminary Blood 03/01/23 04:30 Blood Culture - Preliminary Blood Assessment and Plan Assessment: Shortness of breath, likely multifactorial, in part related to COPD exacerbation, CHF, and right-sided pleural effusion. There is post right-sided thoracentesis today 03/03/2023 with 1450 ML's of straw-colored fluid removed. Fluid analysis reveals a transudate with a protein of 2.5 and an LDH of 110. Cytology are pending. Acute hypoxemic respiratory failure, secondary to above. Improved and on room air History of congestive heart failure/cardiomyopathy. Echocardiogram reveals severely impaired left ventricular systolic function with ejection fraction 20- 25% History of COPD from previous and ongoing tobacco use. History of CAD with previous stent placement. Prior history of myocardial infarction. History of hyperlipidemia. History of hypertension. History of AICD placement. History of atrial fibrillation. Probable hypothyroidism. History of osteoarthritis. Ongoing tobacco use with nicotine addiction. Plan: The patient was seen and evaluated Labs and medications reviewed Stable and on room air Continue bronchodilators, steroids Continue diuretics We will continue to follow This patient was seen independently by the nurse practitioner I have personally seen and examined the patient, performed the documentation and the assessment and plan as written. Number of minutes spent on the visit: 24.
--- NOTE | 2023-03-04 16:25 | P.PN ---
Subjective Progress Note Date: 03/04/23 Patient is 59-year-old pleasant male came in with complaints of shortness of breath and orthopnea, patient does have history of condition or failure chronic systolic dysfunction with EF of around 10-15%, patient does have history of coronary artery disease ischemic cardiomyopathy along with alcoholic myopathy continues to drink alcohol but cut down the alcohol, patient can use to smoke half a pack of cigarettes a day. Patient does have COPD doesn't use any oxygen at home presently requiring 4 L of oxygen patient does have increased swelling in bilateral lower extremities chest x-ray showed pleural effusion on the right side. BNP is not available. Patient denied any cough doesn't have any leukocy tosis. is not available at this time. 03/02/2023 Patient is evaluated in the ER pending bed on the medical floor. He reports improvement in his shortness of breath. He continues on IV lasix Q12 and is diuresing well. Chest ultrasound reveals 10 cm right sided pleural effusion and patient is being considered for thoracentesis. Echocardiogram reveals EF 20-25%. Mild to moderate TR. 03/03/2023 Patient monitored on medical floor. Repeats breathing has improved today did undergo thoracentesis this morning performed at bedside by pulmonary with 1450 ml of fluid removed on the right side. Post procedure chest xray reveals right basilar atelectassis and or infiltrate with pleural effusion slightly improved. Left lung is clear. No pneumothorax. Patient also reports significant weakness states he is unable to ambulate without assistance. 03/04/2023 Patient sitting up in bed. Status post thoracentesis. Has improvement in breathing today. His main complaint is his neuropathy. He sees pain management for this. Sodium 133, potassium 3.0, BUN 42, creatinine 1.29. Magnesium 1.5. REVIEW OF SYSTEMS: CONSTITUTIONAL: No fever, no malaise, no fatigue. HEENT: No recent visual problems or hearing problems. Denied any sore throat. CARDIOVASCULAR: No chest pain, no palpitations, no syncope. PULMONARY: no hemoptysis. Reports shortness of breath. GASTROINTESTINAL: No diarrhea, no nausea, no vomiting, no abdominal pain. NEUROLOGICAL: No headaches,Reports generalized weakness. no numbness. PHYSICAL EXAMINATION: GENERAL: The patient is alert and oriented x3, not in any acute distress. Thin built female HEENT: Pupils are round and equally reacting to light. EOMI. No scleral icterus. No conjunctival pallor. Normocephalic, atraumatic. No pharyngeal erythema. No thyromegaly. CARDIOVASCULAR: S1 and S2 present. No murmurs, rubs, or gallops. PULMONARY: Expiratory wheezing on exam no crackles were appreciated no rhonchi. ABDOMEN: Soft, nontender, nondistended, normoactive bowel sounds. No palpable organomegaly. MUSCULOSKELETAL: No joint swelling or deformity. EXTREMITIES: No cyanosis, clubbing, patient does have 2+ pitting pedal edema extending up to the midshin area. NEUROLOGICAL: Gross neurological examination did not reveal any focal deficits. SKIN: No rashes. Assessment and plan -Acute hypoxic as well as hypercapnic respiratory failure secondary to congestive heart failure exacerbation and COPD exacerbation respiratory, patient was started on systemic steroids for COPD as well as IV Lasix for CHF exacerbations pulmonology and cardiology consulted. Procalcitonin level is normal. Patients blood pressure on the lower side lasix is switched to oral. Recommending to hold today due to increased creatinine. -large right pleural effusion due to acute CHF s/p thoracentesis on the right with 1450 ml of fluid removed -COPD with acute exacerbation -Congestive heart failure chronic systolic dysfunction with acute exacerbation -Ischemic cardiomyopathy EF 25% patient has an AICD -Steroid induced hyperglycemia. 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 -Hyperlipidemia -Hypertension -Atrial fibrillation proximal presently rate controlled continue with the amiodarone and Eliquis -Chronic nicotine counseling provided on smoking cessation -Thyroid disorder with elevated TSH and T4 recommend to follow up levels -Medical noncompliance -Generalized weakness and medical debility PT/OT will be consulted for evaluation -Peripheral neuropathy patient will be started on cymbalta and also lyrics for this. He is pending Pt/Ot consultation. DVT prophylaxis:Eliquis Gi prophylaxis: Pepcid Repeat labs in the AM. Continue supportive care. The impression and plan of care has been dictated by Delfina Tracy, Nurse Practitioner as directed. Dr. Nury MD I have performed a history and physical examination and medical decision making of this patient, discussed the same with the dictator, and agree with the dictators assessment and plan as written, documented as a scribe. Based on total visit time, I have performed more than 50% of this visit. Objective - Vital Signs Vital signs: Vital Signs Temp 97.8 F 03/04/23 08:00 Pulse 68 03/04/23 08:45 Resp 18 03/04/23 08:00 BP 88/50 03/04/23 08:00 Pulse Ox 94 L 03/04/23 08:32 FiO2 21 03/04/23 08:32 Intake & Output 03/03/23 03/04/23 03/04/23 18:59 06:59 18:59 Intake Total 118 Output Total 200 Balance -82 Intake: Oral 118 Output: Urine 200 Other: Voiding Method Urinal Urinal # Voids 3 - Labs CBC & Chem 7: 03/04/23 06:53 03/04/23 06:53 Labs: Abnormal Lab Results - Last 24 Hours (Table) 03/03/23 03/03/23 03/03/23 Range/Units 04:49 04:49 11:40 RBC 2.68 L (4.40-5.60) X 10*6/uL Hgb 9.9 L (13.0-17.0) g/dL Hct 28.7 L (39.6-50.0) % MCV 107.1 H (80.0-97.0) FL MCH 36.9 H (27.0-32.0) pg RDW 14.7 H (11.5-14.5) % Plt Count 62 L (140-440) X 10*3/uL Lymphocytes # 0.52 L (0.90-5.00) X 10*3/uL Eosinophils # 0 L (0.04-0.35) X 10*3/uL Immature Plt Fraction 10.5 H (1.1-6.1) % Macrocytosis Macrocytosis (manual) 2+ A Sodium (137-145) mmol/L Potassium 3.2 L (3.5-5.5) mmol/L Chloride 95 L (96-109) mmol/L BUN 30.5 H (9.0-27.0) mg/dL Creatinine (0.66-1.25) mg/dL BUN/Creatinine Ratio 27.73 H (12.00-20.00) Ratio Glucose 130 H (70-110) mg/dL POC Glucose (mg/dL) 175 H (70-110) mg/dL Calcium 8.1 L (8.7-10.3) mg/dL Magnesium (1.6-2.3) mg/dL Total Protein 5.3 L (6.2-8.2) g/dL Albumin 2.9 L (3.8-4.9) g/dL Albumin/Globulin Ratio 1.21 L (1.60-3.17) Ratio 03/03/23 03/03/23 03/04/23 Range/Units 17:14 20:37 06:15 RBC (4.40-5.60) X 10*6/uL Hgb (13.0-17.0) g/dL Hct (39.6-50.0) % MCV (80.0-97.0) FL MCH (27.0-32.0) pg RDW (11.5-14.5) % Plt Count (140-440) X 10*3/uL Lymphocytes # (0.90-5.00) X 10*3/uL Eosinophils # (0.04-0.35) X 10*3/uL Immature Plt Fraction (1.1-6.1) % Macrocytosis Macrocytosis (manual) Sodium (137-145) mmol/L Potassium (3.5-5.5) mmol/L Chloride (96-109) mmol/L BUN (9.0-27.0) mg/dL Creatinine (0.66-1.25) mg/dL BUN/Creatinine Ratio (12.00-20.00) Ratio Glucose (70-110) mg/dL POC Glucose (mg/dL) 189 H 159 H 172 H (70-110) mg/dL Calcium (8.7-10.3) mg/dL Magnesium (1.6-2.3) mg/dL Total Protein (6.2-8.2) g/dL Albumin (3.8-4.9) g/dL Albumin/Globulin Ratio (1.60-3.17) Ratio 03/04/23 03/04/23 Range/Units 06:53 06:53 RBC 3.02 L (4.40-5.60) X 10*6/uL Hgb 11.5 L (13.0-17.0) g/dL Hct 33.5 L (39.6-50.0) % MCV 111.0 H (80.0-97.0) FL MCH 37.9 H (27.0-32.0) pg RDW (11.5-14.5) % Plt Count 60 L (140-440) X 10*3/uL Lymphocytes # (0.90-5.00) X 10*3/uL Eosinophils # (0.04-0.35) X 10*3/uL Immature Plt Fraction (1.1-6.1) % Macrocytosis Marked A Macrocytosis (manual) Sodium 133 L (137-145) mmol/L Potassium 3.0 L (3.5-5.5) mmol/L Chloride 94 L (96-109) mmol/L BUN 42 H (9.0-27.0) mg/dL Creatinine 1.29 H (0.66-1.25) mg/dL BUN/Creatinine Ratio (12.00-20.00) Ratio Glucose 140 H (70-110) mg/dL POC Glucose (mg/dL) (70-110) mg/dL Calcium 7.7 L (8.7-10.3) mg/dL Magnesium 1.5 L (1.6-2.3) mg/dL Total Protein (6.2-8.2) g/dL Albumin (3.8-4.9) g/dL Albumin/Globulin Ratio (1.60-3.17) Ratio Microbiology - Last 24 Hours (Table) 03/01/23 04:45 Blood Culture - Preliminary Blood 03/01/23 04:30 Blood Culture - Preliminary Blood Assessment and Plan Time with Patient: Less than 30
[2023-03-04 17:31] LABS: Glucose,Whole Blood 174 mg/dL (70-110)
[2023-03-04] MEDS: carvediloL 6.25 MG TAB PO SCH (17:43)
[2023-03-04] MEDS: DULoxetine HCL 30 MG CAPSULE.DR PO SCH (18:05)
[2023-03-04] MEDS: PREGABALIN 50 MG CAP PO SCH (20:13)
[2023-03-04 21:22] LABS: Glucose,Whole Blood 142 mg/dL (70-110)
[2023-03-05] MEDS: carvediloL 6.25 MG TAB PO SCH ×2 (05:29→17:47)
[2023-03-05] MEDS: methylPREDNISolone SOD SUCCI 125 MG/2 ML VIAL IV SCH (05:29)
[2023-03-05 06:38] LABS: Glucose,Whole Blood 155 mg/dL (70-110)
[2023-03-05] MEDS: INSULIN DETEMIR (LEVEMIR) 100 UNIT/ML SYR SQ SCH (06:40)
[2023-03-05] MEDS: INSULIN ASPART (NovoLOG) 100 UNIT/ML VIAL SQ SCH ×4 (06:40→21:07)
[2023-03-05] MEDS: IPRATROPIUM-ALBUTEROL 3 ML NEB INHALATION SCH ×4 (08:39→18:33)
[2023-03-05] MEDS: SYMBICORT 160-4.5 MCG INHALER INHALATION SCH ×2 (08:39→18:33)
[2023-03-05] MEDS: LOSARTAN 25 MG TAB PO SCH (09:15)
[2023-03-05] MEDS: predniSONE 10 MG TAB PO SCH (09:15)
[2023-03-05] MEDS: AMIODARONE 200 MG TAB PO SCH ×2 (09:16→20:45)
[2023-03-05] MEDS: FAMOTIDINE 20 MG TAB PO SCH ×2 (09:16→20:45)
[2023-03-05] MEDS: ATORVASTATIN 40 MG TAB PO SCH (09:16)
[2023-03-05] MEDS: DIVALPROEX 500 MG TABLET.DR PO SCH ×2 (09:16→20:45)
[2023-03-05] MEDS: SPIRONOLACTONE 25 MG TAB PO SCH (09:17)
[2023-03-05] MEDS: APIXABAN 5 MG TAB PO SCH ×2 (09:17→20:45)
[2023-03-05] MEDS: PREGABALIN 50 MG CAP PO SCH ×2 (09:17→20:45)
[2023-03-05] MEDS: DULoxetine HCL 30 MG CAPSULE.DR PO SCH (09:20)
[2023-03-05 09:52] LABS: BUN/Creat Ratio 37.25 Ratio (12.00-20.00); Blood Urea Nitrogen 44.7 mg/dL (9.0-27.0); Carbon Dioxide 30.5 mmol/L (21.6-31.8); Chloride 95 mmol/L (96-109); Glucose 141 mg/dL (70-110); Potassium 4.1 mmol/L (3.5-5.5); Sodium 136 mmol/L (135-145)
--- NOTE | 2023-03-05 11:06 | P.PN ---
Subjective Progress Note Date: 03/05/23 67-year-old male who was seen in the emergency department, on March 01. He was brought into the emergency room, by EMS. The patient's primary care physician is Dr. Adler. The patient has a history of coronary disease, CHF, COPD, hyperlipidemia, hypertension, myocardial infarction, osteoarthritis, cardiomyopathy, previous heart catheterization with stent, and AICD placement. The patient states that he came into the ER, because he was very short of breath. He also complained of weakness in his lower extremities, and he could not stand up. He apparently has not been feeling well for at least a couple weeks, and maybe even longer. He is seen in the emergency department, room #4. He is currently on 4 L of oxygen. He's not receiving any IV fluids. His BMP was elevated at 8250. Also his TSH was elevated suggesting hypothyroidism. He does not take thyroid medication. White count 6.5, hemoglobin 13, hematocrit 38.9, with a platelet count of 112,000. Venous blood gases show pCO2 of 60, and a pH is 7.28. Sodium 141, potassium 4.3, chlorides 105, CO2 25, BUN 24, and creatinine 0.83. Glucose is 105. N-terminal proBNP is 8250. TSH is 9.290. Urine shows 22 RBCs and a small amount of blood. Chest x-ray shows a small to moderate right-sided pleural effusion with adjacent lower lobe airspace opacities/atelectasis. The patient is seen today 03/02/2023 in follow-up in the emergency department room. He is currently sitting up in the stretcher. Awake and alert in no acute distress. Breathing a bit easier today compared to yesterday. He is maintaining O2 saturations in the 90s on room air. Ultrasound of the right chest did reveal a 10.3 cm pocket. Sodium 133. Potassium 3.3. Bicarb 26. BUN 32. Creatinine 1.27. Glucose 227. Calcium 8.0. He is continued on DuoNeb inhalations, Symbicort. He's been initiated on IV Lasix. Currently in a -1.2 L balance. Anticoagulated with Eliquis. The patient is seen today 03/03/2023 in follow-up on the regular medical floor. The patient is resting comfortably in bed. Awake and alert in no acute distress. Maintaining good O2 saturations in the mid 90s on room air. He's been afebrile. Hemodynamically stable. He did undergo a right-sided thoracentesis this morning with 1,450 MLS of straw-colored fluid removed. Sent for analysis and cytology. Tolerated the procedure well. Follow-up chest x-ray reveals some right basilar atelectasis with improved pleural effusion. Left lung is clear. No evidence of pneumothorax. Echocardiogram reveals severely reduced global left ventricular systolic function. Ejection fraction of 20-25%. Blood cultures reveal no growth. Blood glucose 142. His Eliquis will be resumed. The patient is seen today 03/04/2023 in follow-up on the regular medical floor. He is awake and alert in no acute distress. Sitting up in bed. Continues to maintain good O2 saturations in the 90s on room air. White count 6.8. Hemoglobin 11.5. Platelets 60,000. Sodium 133. Potassium 3.0. Bicarb 29. BUN 42. Creatinine 1.29. Glucose 140. He is continued on DuoNeb inhalations, Symbicort, Solu-Medrol. Remains on oral diuretics. Anticoagulated with Eliquis. Pleural fluid cytology pending. Fluid analysis is transudate. Protein 2.5. LDH 110. The patient is seen today 03/05/2023 in follow-up on the regular medical floor. He is awake and alert in no acute distress. Sitting up in bed. Maintaining O2 saturations in the 90s on room air. He denies any worsening shortness of br eath, cough or congestion. Denies any chest discomfort. He is continued on DuoNeb inhalations, Symbicort, Solu-Medrol. He remains on amiodarone. Anticoagulated with Eliquis. Sodium 136. Potassium 4.1. Bicarb 30. BUN 45. Creatinine 1.2. Glucose 141. Objective - Vital Signs Vital signs: Vital Signs Temp 97.7 F 03/05/23 07:53 Pulse 56 L 03/05/23 08:52 Resp 18 03/05/23 07:53 BP 108/56 03/05/23 07:53 Pulse Ox 95 03/05/23 07:53 FiO2 21 03/04/23 08:32 Intake & Output 03/04/23 03/05/23 03/05/23 18:59 06:59 18:59 Intake Total 118 240 Output Total 200 1500 Balance -82 -1500 240 Intake: Oral 118 240 Output: Urine 200 1500 Other: Voiding Method Urinal Urinal # Voids 3 - Exam GENERAL EXAM: Alert, cachectic, pleasant 67-year-old male, on room air, comfortable in no apparent distress. HEAD: Normocephalic. EYES: Normal reaction of pupils, equal size. NOSE: Clear with pink turbinates. THROAT: No erythema or exudates. NECK: No masses, no JVD. CHEST: No chest wall deformity. LUNGS: Equal air entry with crackles in the right lung base, diminished. CVS: S1 and S2 normal with no audible murmur, regular rhythm. ABDOMEN: No hepatosplenomegaly, normal bowel sounds, no guarding or rigidity. SPINE: No scoliosis or deformity SKIN: No rashes CENTRAL NERVOUS SYSTEM: No focal deficits, tone is normal in all 4 extremities. EXTREMITIES: There is no peripheral edema. No clubbing, no cyanosis. Peripheral pulses are intact. - Labs CBC & Chem 7: 03/04/23 06:53 03/05/23 06:18 Labs: Abnormal Lab Results - Last 24 Hours (Table) 03/04/23 03/04/23 03/04/23 Range/Units 06:53 12:06 17:20 Lymphocytes # 0.4 L (1.0-4.8) k/uL Chloride (96-109) mmol/L BUN (9.0-27.0) mg/dL BUN/Creatinine Ratio (12.00-20.00) Ratio Glucose (70-110) mg/dL POC Glucose (mg/dL) 130 H 174 H (70-110) mg/dL Calcium (8.7-10.3) mg/dL 03/04/23 03/05/23 03/05/23 Range/Units 21:21 06:18 06:36 Lymphocytes # (1.0-4.8) k/uL Chloride 95 L (96-109) mmol/L BUN 44.7 H (9.0-27.0) mg/dL BUN/Creatinine Ratio 37.25 H (12.00-20.00) Ratio Glucose 141 H (70-110) mg/dL POC Glucose (mg/dL) 142 H 155 H (70-110) mg/dL Calcium 8.0 L (8.7-10.3) mg/dL Microbiology - Last 24 Hours (Table) 03/03/23 08:15 Gram Stain - Preliminary Pleural Fluid Body Fluid Culture - Preliminary 03/03/23 08:15 Acid Fast Bacilli Smear - Preliminary Pleural Fluid 03/01/23 04:45 Blood Culture - Preliminary Blood 03/01/23 04:30 Blood Culture - Preliminary Blood Assessment and Plan Assessment: Shortness of breath, likely multifactorial, in part related to COPD exacerbation, CHF, and right-sided pleural effusion. There is post right-sided thoracentesis today 03/03/2023 with 1450 ML's of straw-colored fluid removed. Fluid analysis reveals a transudate with a protein of 2.5 and an LDH of 110. Cytology still pending. Acute hypoxemic respiratory failure, secondary to above. Improved and on room air History of congestive heart failure/cardiomyopathy. Echocardiogram reveals severely impaired left ventricular systolic function with ejection fraction 20- 25% History of COPD from previous and ongoing tobacco use. History of CAD with previous stent placement. Prior history of myocardial infarction. History of hyperlipidemia. History of hypertension. History of AICD placement. History of atrial fibrillation. Probable hypothyroidism. History of osteoarthritis. Ongoing tobacco use with nicotine addiction. Plan: The patient was seen and evaluated Labs and medications reviewed Stable and on room air Continue bronchodilators Discontinue Solu-Medrol Initiate a prednisone taper Anticoagulated with Eliquis We will continue to follow Social work helping with placement post discharge This patient was seen independently by the nurse practitioner I have personally seen and examined the patient, performed the documentation and the assessment and plan as written. Number of minutes spent on the visit: 23.
[2023-03-05 11:43] LABS: Glucose,Whole Blood 301 mg/dL (70-110)
--- NOTE | 2023-03-05 12:08 | P.PN ---
Subjective Progress Note Date: 03/05/23 History of present illness: This is a 67-year-old male previously seen by Dr. Cortez in 2019 with past [facility] history of AICD, persistent atrial fibrillation, ischemic cardiomyopathy with EF of 35 or less, coronary artery disease status post stents, hypertension, hyperlipidemia, smoking history, noncompliance. We have been asked to evaluate the patient for heart failure. Patient states that he presented to the hospital due to difficulty in breathing and also because he could not walk and no strengt h in his legs. Weakness has been going on for the past 3 months. He does not follow with any news reporter and his AICD has not been interrogated since 2019. The patient is an active smoker. He has history of alcohol abuse but denies drinking recently. No drug use. Patient is seen today in the emergency center waiting for a bed on the observation unit. Patient has been started on IV Lasix 40 mg every 12 hours. Patient is also followed by pulmonary medicine. EKG sinus rhythm intraventricular conduction delay, right axis deviation. Ventricular rate of 69 bpm. Chest x-ray: Small to moderate right pleural effusion with adjacent lower lobe airspace opacities. Correlate for acute infection follow-up to resolution. Chest ultrasound revealed right pleural effusion pocket of 10.3 cm and marked. WBC 6.5, hemoglobin 13, platelet count 112. INR 1.2. Venous pH 7.28, pCO2 60 and bicarb 28. I's were normal. BUN 24 creatinine 0.83. Blood sugar 200. Lactic acid 1.7. Liver function tests are normal. Troponin negative 1. ProBNP 8250. TSH 9.29 and free T4 2 0.8. Home cardiac medications: Amiodarone 200 mg daily, eliquis 5 mg at bedtime, Lipitor 40 mg daily, Coreg 12.5 mg twice daily, Lasix 40 mg daily, losartan 50 mg at bedtime, Aldactone 12.5 mg daily Cardiac catheterization PCI 2000: Stent in the distal RCA, stent in the proximal LAD, stent in the proximal RCA. 03/03 Patient is seen today on the observation unit. Blood pressure 107/61, pulse ox 94% on room air, afebrile. Echocardiogram reveals EF of 20-25%. Patient appears to be in a negative fluid balance. AICD was interrogated and found to have runs of V. tach and ventricular pacing. Patient is status post thor acentesis on the right side with removal of 1450 ML's yellow fluid. 03/04 Patient is seen today in the observation unit. He states he is feeling a little bit better but feels extremely tired patient states he is only ambulating to the bathroom. He is maintained on IV Lasix 40 mg every 12 hours. Patient was not resumed on losartan on admission due to hypotension. We'll plan to resume this now. Systolic blood pressure running between 88 and 101. Pulse ox 94% on room air, heart rate between 50s and 70s. Repeat blood work reveals hemoglobin 11.5, potassium 3, BUN 42 creatinine 1.29. 03/05/23 Patient is seen and examined at bedside the same. We'll transition him from IV to oral medications today. Patient's kidney function has stayed stable over last 48 hours. Physical examination: Gen: This is a 67 year old disheveled-appearing male resting in no acute respiratory distress. VS: reviewed HEENT: Head is atraumatic, normocephalic. Pupils equal, round. Sclerae is anicteric. NECK: Supple. No JVD. . LUNGS: Clear to auscultation. No wheezes or rhonchi. No intercostal retractions. HEART: Regular rate and rhythm. 2/6 systolic murmur at the apex. ABDOMEN: Soft No tenderness. EXTREMITIES: No pedal edema. No calf tenderness. NEUROLOGICAL: Patient is awake, alert and oriented x3. Assessment: Acute hypoxic respiratory failure secondary to combination of COPD exacerbation, CHF, right-sided pleural effusion Acute on chronic systolic heart failure Right-sided pleural effusion status post thoracentesis Coronary artery disease with previous stenting Ischemic cardiomyopathy with known EF of 35 or less with AICD Hypertension Hyperlipidemia Bicytopenia Ventricular tachycardia Thyroid disorder History of noncompliance Plan: Start torsemide 20 mg daily. Discharge home on torsemide Resume losartan 12.5 mg daily with parameters Continued increased dose of amiodarone 400 mg twice daily for 3 days and then decrease to 200 mg twice daily. Patient is not on beta pau due to low resting heart Patient is optimized from cardiac vessel standpoint. Patient is cleared to rishi holloway from cardiac standpoint to outpatient follow-up with his primary news reporter Monitor I&O, daily weights, electrolytes and renal function Objective - Vital Signs Vital signs: Vital Signs Temp 97.7 F 03/05/23 07:53 Pulse 52 L 03/05/23 12:03 Resp 18 03/05/23 07:53 BP 108/56 03/05/23 07:53 Pulse Ox 95 03/05/23 07:53 FiO2 21 03/04/23 08:32 Intake & Output 03/04/23 03/05/23 03/05/23 18:59 06:59 18:59 Intake Total 118 240 Output Total 200 1500 Balance -82 -1500 240 Intake: Oral 118 240 Output: Urine 200 1500 Other: Voiding Method Urinal Urinal # Voids 3 - Labs CBC & Chem 7: 03/04/23 06:53 03/05/23 06:18 Labs: Abnormal Lab Results - Last 24 Hours (Table) 03/04/23 03/04/23 03/04/23 Range/Units 12:06 17:20 21:21 Chloride (96-109) mmol/L BUN (9.0-27.0) mg/dL BUN/Creatinine Ratio (12.00-20.00) Ratio Glucose (70-110) mg/dL POC Glucose (mg/dL) 130 H 174 H 142 H (70-110) mg/dL Calcium (8.7-10.3) mg/dL 03/05/23 03/05/23 03/05/23 Range/Units 06:18 06:36 11:38 Chloride 95 L (96-109) mmol/L BUN 44.7 H (9.0-27.0) mg/dL BUN/Creatinine Ratio 37.25 H (12.00-20.00) Ratio Glucose 141 H (70-110) mg/dL POC Glucose (mg/dL) 155 H 301 H (70-110) mg/dL Calcium 8.0 L (8.7-10.3) mg/dL Microbiology - Last 24 Hours (Table) 03/03/23 08:15 Gram Stain - Preliminary Pleural Fluid Body Fluid Culture - Preliminary 03/03/23 08:15 Acid Fast Bacilli Smear - Preliminary Pleural Fluid 03/01/23 04:45 Blood Culture - Preliminary Blood 03/01/23 04:30 Blood Culture - Preliminary Blood
[2023-03-05] MEDS: TORSEMIDE 20 MG TAB PO SCH (12:18)
--- NOTE | 2023-03-05 12:24 | P.PN ---
Subjective Progress Note Date: 03/05/23 Patient is 59-year-old pleasant male came in with complaints of shortness of breath and orthopnea, patient does have history of condition or failure chronic systolic dysfunction with EF of around 10-15%, patient does have history of coronary artery disease ischemic cardiomyopathy along with alcoholic myopathy continues to drink alcohol but cut down the alcohol, patient can use to smoke half a pack of cigarettes a day. Patient does have COPD doesn't use any oxygen at home presently requiring 4 L of oxygen patient does have increased swelling in bilateral lower extremities chest x-ray showed pleural effusion on the right side. BNP is not available. Patient denied any cough doesn't have any leukocy tosis. is not available at this time. 03/02/2023 Patient is evaluated in the ER pending bed on the medical floor. He reports improvement in his shortness of breath. He continues on IV lasix Q12 and is diuresing well. Chest ultrasound reveals 10 cm right sided pleural effusion and patient is being considered for thoracentesis. Echocardiogram reveals EF 20-25%. Mild to moderate TR. 03/03/2023 Patient monitored on medical floor. Repeats breathing has improved today did undergo thoracentesis this morning performed at bedside by pulmonary with 1450 ml of fluid removed on the right side. Post procedure chest xray reveals right basilar atelectassis and or infiltrate with pleural effusion slightly improved. Left lung is clear. No pneumothorax. Patient also reports significant weakness states he is unable to ambulate without assistance. 03/04/2023 Patient sitting up in bed. Status post thoracentesis. Has improvement in breathing today. His main complaint is his neuropathy. He sees pain management for this. Sodium 133, potassium 3.0, BUN 42, creatinine 1.29. Magnesium 1.5. 03/05/2023 Patient is evaluated today sitting up in bed. Breathing better than yesterday remains on nasal cannula 2L of oxygen. He was started on lyrica and cymbalta for this neuropathy he has improvement in symptoms minimally today. we will continue this medications. Patient is being followed closely by pulmonary being started on oral prednisone taper. REVIEW OF SYSTEMS: CONSTITUTIONAL: No fever, no malaise, no fatigue. HEENT: No recent visual problems or hearing problems. Denied any sore throat. CARDIOVASCULAR: No chest pain, no palpitations, no syncope. PULMONARY: no hemoptysis. Reports shortness of breath. GASTROINTESTINAL: No diarrhea, no nausea, no vomiting, no abdominal pain. NEUROLOGICAL: No headaches,Reports generalized weakness. no numbness. PHYSICAL EXAMINATION: GENERAL: The patient is alert and oriented x3, not in any acute distress. Thin built female HEENT: Pupils are round and equally reacting to light. EOMI. No scleral icterus. No conjunctival pallor. Normocephalic, atraumatic. No pharyngeal erythema. No thyromegaly. CARDIOVASCULAR: S1 and S2 present. No murmurs, rubs, or gallops. PULMONARY: Expiratory wheezing on exam no crackles were appreciated no rhonchi. ABDOMEN: Soft, nontender, nondistended, normoactive bowel sounds. No palpable organomegaly. MUSCULOSKELETAL: No joint swelling or deformity. EXTREMITIES: No cyanosis, clubbing, patient does have 2+ pitting pedal edema extending up to the midshin area. NEUROLOGICAL: Gross neurological examination did not reveal any focal deficits. SKIN: No rashes. Assessment and plan -Acute hypoxic as well as hypercapnic respiratory failure secondary to congestive heart failure exacerbation and COPD exacerbation respiratory, patient was started on systemic steroids for COPD as well as IV Lasix for CHF exacerb ations pulmonology and cardiology consulted. Procalcitonin level is normal. Patients blood pressure on the lower side lasix is switched to oral. Recommending to hold today due to increased creatinine. -large right pleural effusion due to acute CHF s/p thoracentesis on the right with 1450 ml of fluid removed -COPD with acute exacerbation -Congestive heart failure chronic systolic dysfunction with acute exacerbation -Ischemic cardiomyopathy EF 25% patient has an AICD -Steroid induced hyperglycemia. 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 -Hyperlipidemia -Hypertension -Atrial fibrillation proximal presently rate controlled continue with the amiodarone and Eliquis -Chronic nicotine counseling provided on smoking cessation -Thyroid disorder with elevated TSH and T4 recommend to follow up levels -Medical noncompliance -Generalized weakness and medical debility PT/OT will be consulted for evaluation -Peripheral neuropathy patient will be started on cymbalta and also lyrics for this. He is pending Pt/Ot consultation. DVT prophylaxis:Eliquis Gi prophylaxis: Pepcid Repeat labs in the AM. Continue supportive care. Patient can be resumed on oral lasix tomorrow. Patient has been started on oral steroid taper. Patient will be monitored overnight and likely discharge home tomorrow. He is undecided about rehab. The impression and plan of care has been dictated by Delfina Tracy, Nurse Practitioner as directed. Dr. Nury MD I have performed a history and physical examination and medical decision making of this patient, discussed the same with the dictator, and agree with the dictators assessment and plan as written, documented as a scribe. Based on total visit time, I have performed more than 50% of this visit. Objective - Vital Signs Vital signs: Vital Signs Temp 97.7 F 03/05/23 07:53 Pulse 52 L 03/05/23 12:03 Resp 18 03/05/23 07:53 BP 108/56 03/05/23 07:53 Pulse Ox 95 03/05/23 07:53 FiO2 21 03/04/23 08:32 Intake & Output 03/04/23 03/05/23 03/05/23 18:59 06:59 18:59 Intake Total 118 240 Output Total 200 1500 Balance -82 -1500 240 Intake: Oral 118 240 Output: Urine 200 1500 Other: Voiding Method Urinal Urinal # Voids 3 - Labs CBC & Chem 7: 03/04/23 06:53 03/05/23 06:18 Labs: Abnormal Lab Results - Last 24 Hours (Table) 03/04/23 03/04/23 03/05/23 Range/Units 17:20 21:21 06:18 Chloride 95 L (96-109) mmol/L BUN 44.7 H (9.0-27.0) mg/dL BUN/Creatinine Ratio 37.25 H (12.00-20.00) Ratio Glucose 141 H (70-110) mg/dL POC Glucose (mg/dL) 174 H 142 H (70-110) mg/dL Calcium 8.0 L (8.7-10.3) mg/dL 03/05/23 03/05/23 Range/Units 06:36 11:38 Chloride (96-109) mmol/L BUN (9.0-27.0) mg/dL BUN/Creatinine Ratio (12.00-20.00) Ratio Glucose (70-110) mg/dL POC Glucose (mg/dL) 155 H 301 H (70-110) mg/dL Calcium (8.7-10.3) mg/dL Microbiology - Last 24 Hours (Table) 03/03/23 08:15 Gram Stain - Preliminary Pleural Fluid Body Fluid Culture - Preliminary 03/03/23 08:15 Acid Fast Bacilli Smear - Preliminary Pleural Fluid 03/01/23 04:45 Blood Culture - Preliminary Blood 03/01/23 04:30 Blood Culture - Preliminary Blood Assessment and Plan Time with Patient: Less than 30
[2023-03-05 17:37] LABS: Glucose,Whole Blood 106 mg/dL (70-110)
[2023-03-05 21:03] LABS: Glucose,Whole Blood 290 mg/dL (70-110)
[2023-03-06] MEDS: carvediloL 6.25 MG TAB PO SCH (05:56)
[2023-03-06 06:22] LABS: Glucose,Whole Blood 133 mg/dL (70-110)
[2023-03-06] MEDS: INSULIN ASPART (NovoLOG) 100 UNIT/ML VIAL SQ SCH ×4 (06:25→20:46)
[2023-03-06] MEDS: INSULIN DETEMIR (LEVEMIR) 100 UNIT/ML SYR SQ SCH (06:26)
[2023-03-06] MEDS: IPRATROPIUM-ALBUTEROL 3 ML NEB INHALATION SCH ×4 (08:19→19:34)
[2023-03-06] MEDS: SYMBICORT 160-4.5 MCG INHALER INHALATION SCH ×2 (08:20→19:34)
[2023-03-06] MEDS: predniSONE 10 MG TAB PO SCH (09:04)
[2023-03-06] MEDS: FAMOTIDINE 20 MG TAB PO SCH ×2 (09:04→20:46)
[2023-03-06] MEDS: LOSARTAN 25 MG TAB PO SCH (09:04)
[2023-03-06] MEDS: DULoxetine HCL 30 MG CAPSULE.DR PO SCH (09:05)
[2023-03-06] MEDS: PREGABALIN 50 MG CAP PO SCH ×2 (09:05→20:46)
[2023-03-06] MEDS: TORSEMIDE 20 MG TAB PO SCH (09:05)
[2023-03-06] MEDS: AMIODARONE 200 MG TAB PO SCH ×2 (09:05→20:46)
[2023-03-06] MEDS: SPIRONOLACTONE 25 MG TAB PO SCH (09:05)
[2023-03-06] MEDS: APIXABAN 5 MG TAB PO SCH ×2 (09:05→20:46)
[2023-03-06] MEDS: ATORVASTATIN 40 MG TAB PO SCH (09:05)
[2023-03-06] MEDS: DIVALPROEX 500 MG TABLET.DR PO SCH ×2 (09:06→20:46)
[2023-03-06 10:52] LABS: African American GFR (CKD) 77 (>60 ml/min/1.73 sqM); Anion Gap 8 mmol/L; Blood Urea Nitrogen 51 mg/dL (9-20); Calcium 7.2 mg/dL (8.4-10.2); Carbon Dioxide 36 mmol/L (22-30); Chloride 89 mmol/L (98-107); Glucose 98 mg/dL (74-99); Non-African American GFR(CKD) 67 (>60 ml/min/1.73 sqM); Potassium 2.9 mmol/L (3.5-5.1); Sodium 133 mmol/L (137-145)
--- NOTE | 2023-03-06 11:11 | P.PN ---
Subjective Progress Note Date: 03/06/23 67-year-old male who was seen in the emergency department, on March 01. He was brought into the emergency room, by EMS. The patient's primary care physician is Dr. Adler. The patient has a history of coronary disease, CHF, COPD, hyperlipidemia, hypertension, myocardial infarction, osteoarthritis, cardiomyopathy, previous heart catheterization with stent, and AICD placement. The patient states that he came into the ER, because he was very short of breath. He also complained of weakness in his lower extremities, and he could not stand up. He apparently has not been feeling well for at least a couple weeks, and maybe even longer. He is seen in the emergency department, room #4. He is currently on 4 L of oxygen. He's not receiving any IV fluids. His BMP was elevated at 8250. Also his TSH was elevated suggesting hypothyroidism. He does not take thyroid medication. White count 6.5, hemoglobin 13, hematocrit 38.9, with a platelet count of 112,000. Venous blood gases show pCO2 of 60, and a pH is 7.28. Sodium 141, potassium 4.3, chlorides 105, CO2 25, BUN 24, and creatinine 0.83. Glucose is 105. N-terminal proBNP is 8250. TSH is 9.290. Urine shows 22 RBCs and a small amount of blood. Chest x-ray shows a small to moderate right-sided pleural effusion with adjacent lower lobe airspace opacities/atelectasis. The patient is seen today 03/02/2023 in follow-up in the emergency department room. He is currently sitting up in the stretcher. Awake and alert in no acute distress. Breathing a bit easier today compared to yesterday. He is maintaining O2 saturations in the 90s on room air. Ultrasound of the right chest did reveal a 10.3 cm pocket. Sodium 133. Potassium 3.3. Bicarb 26. BUN 32. Creatinine 1.27. Glucose 227. Calcium 8.0. He is continued on DuoNeb inhalations, Symbicort. He's been initiated on IV Lasix. Currently in a -1.2 L balance. Anticoagulated with Eliquis. The patient is seen today 03/03/2023 in follow-up on the regular medical floor. The patient is resting comfortably in bed. Awake and alert in no acute distress. Maintaining good O2 saturations in the mid 90s on room air. He's been afebrile. Hemodynamically stable. He did undergo a right-sided thoracentesis this morning with 1,450 MLS of straw-colored fluid removed. Sent for analysis and cytology. Tolerated the procedure well. Follow-up chest x-ray reveals some right basilar atelectasis with improved pleural effusion. Left lung is clear. No evidence of pneumothorax. Echocardiogram reveals severely reduced global left ventricular systolic function. Ejection fraction of 20-25%. Blood cultures reveal no growth. Blood glucose 142. His Eliquis will be resumed. The patient is seen today 03/04/2023 in follow-up on the regular medical floor. He is awake and alert in no acute distress. Sitting up in bed. Continues to maintain good O2 saturations in the 90s on room air. White count 6.8. Hemoglobin 11.5. Platelets 60,000. Sodium 133. Potassium 3.0. Bicarb 29. BUN 42. Creatinine 1.29. Glucose 140. He is continued on DuoNeb inhalations, Symbicort, Solu-Medrol. Remains on oral diuretics. Anticoagulated with Eliquis. Pleural fluid cytology pending. Fluid analysis is transudate. Protein 2.5. LDH 110. The patient is seen today 03/05/2023 in follow-up on the regular medical floor. He is awake and alert in no acute distress. Sitting up in bed. Maintaining O2 saturations in the 90s on room air. He denies any worsening shortness of br eath, cough or congestion. Denies any chest discomfort. He is continued on DuoNeb inhalations, Symbicort, Solu-Medrol. He remains on amiodarone. Anticoagulated with Eliquis. Sodium 136. Potassium 4.1. Bicarb 30. BUN 45. Creatinine 1.2. Glucose 141. The patient is seen today 03/06/2023 in follow-up on the regular medical floor. He is resting comfortably in bed. Awake and alert in no acute distress. Maintaining O2 saturations in the 90s on liters per minute per nasal cannula. He is afebrile. Hemodynamically stable. Blood cultures reveal no growth. Pleural fluid cultures revealed no growth. Cytology still pending. Sodium 133. Potassium 2.9. Bicarb 36. BUN 51. Creatinine 1.13. Glucose 98. Remains on DuoNeb inhalations, Symbicort, prednisone taper. Remains on oral diuretics. Anticoagulated with Eliquis. Objective - Vital Signs Vital signs: Vital Signs Temp 98.1 F 03/06/23 07:56 Pulse 52 L 03/06/23 08:29 Resp 18 03/06/23 07:56 BP 102/53 03/06/23 07:56 Pulse Ox 96 03/06/23 07:56 FiO2 21 03/04/23 08:32 Intake & Output 03/05/23 03/06/23 03/06/23 18:59 06:59 18:59 Intake Total 360 120 Output Total 800 Balance 360 -800 120 Intake: Oral 360 120 Output: Urine 800 Other: Voiding Method Urinal # Voids 0 0 - Exam GENERAL EXAM: Alert, cachectic 67-year-old male, on 2 L nasal cannula, c omfortable in no apparent distress. HEAD: Normocephalic. EYES: Normal reaction of pupils, equal size. NOSE: Clear with pink turbinates. THROAT: No erythema or exudates. NECK: No masses, no JVD. CHEST: No chest wall deformity. LUNGS: Equal air entry with crackles in the right lung base, diminished. CVS: S1 and S2 normal with no audible murmur, regular rhythm. ABDOMEN: No hepatosplenomegaly, normal bowel sounds, no guarding or rigidity. SPINE: No scoliosis or deformity SKIN: No rashes CENTRAL NERVOUS SYSTEM: No focal deficits, tone is normal in all 4 extremities. EXTREMITIES: There is no peripheral edema. No clubbing, no cyanosis. Peripheral pulses are intact. - Labs CBC & Chem 7: 03/04/23 06:53 03/06/23 08:49 Labs: Abnormal Lab Results - Last 24 Hours (Table) 03/05/23 03/05/23 03/06/23 Range/Units 11:38 21:02 06:21 Sodium (137-145) mmol/L Potassium (3.5-5.1) mmol/L Chloride (98-107) mmol/L Carbon Dioxide (22-30) mmol/L BUN (9-20) mg/dL POC Glucose (mg/dL) 301 H 290 H 133 H (70-110) mg/dL Calcium (8.4-10.2) mg/dL 12/03/23 Range/Units 08:49 Sodium 133 L (137-145) mmol/L Potassium 2.9 L (3.5-5.1) mmol/L Chloride 89 L (98-107) mmol/L Carbon Dioxide 36 H (22-30) mmol/L BUN 51 H (9-20) mg/dL POC Glucose (mg/dL) (70-110) mg/dL Calcium 7.2 L (8.4-10.2) mg/dL Microbiology - Last 24 Hours (Table) 03/03/23 08:15 Gram Stain - Preliminary Pleural Fluid Body Fluid Culture - Preliminary Assessment and Plan Assessment: Shortness of breath, likely multifactorial, in part related to COPD exacerbation, CHF, and right-sided pleural effusion. There is post right-sided thoracentesis today 03/03/2023 with 1450 ML's of straw-colored fluid removed. Fluid analysis reveals a transudate with a protein of 2.5 and an LDH of 110. Cytology still pending. Acute hypoxemic respiratory failure, secondary to above. Improved. History of congestive heart failure/cardiomyopathy. Echocardiogram reveals severely impaired left ventricular systolic function with ejection fraction 20- 25% History of COPD from previous and ongoing tobacco use. History of CAD with previous stent placement. Prior history of myocardial infarction. History of hyperlipidemia. History of hypertension. History of AICD placement. History of atrial fibrillation. Probable hypothyroidism. History of osteoarthritis. Ongoing tobacco use with nicotine addiction. Plan: The patient was seen and evaluated Labs and medications reviewed Potassium being replaced Continue bronchodilators Continue prednisone taper Anticoagulated with Eliquis Discharge planning in place This patient was seen independently by the nurse practitioner I have personally seen and examined the patient, performed the documentation and the assessment and plan as written. Number of minutes spent on the visit: 22.
[2023-03-06] MEDS: POTASSIUM CHLORIDE ER 20 MEQ TAB.ER PO SCH ×2 (11:14→14:38)
--- NOTE | 2023-03-06 11:22 | P.PN ---
Subjective Progress Note Date: 03/06/23 Patient is 59-year-old pleasant male came in with complaints of shortness of breath and orthopnea, patient does have history of condition or failure chronic systolic dysfunction with EF of around 10-15%, patient does have history of coronary artery disease ischemic cardiomyopathy along with alcoholic myopathy continues to drink alcohol but cut down the alcohol, patient can use to smoke half a pack of cigarettes a day. Patient does have COPD doesn't use any oxygen at home presently requiring 4 L of oxygen patient does have increased swelling in bilateral lower extremities chest x-ray showed pleural effusion on the right side. BNP is not available. Patient denied any cough doesn't have any leukocy tosis. is not available at this time. 03/02/2023 Patient is evaluated in the ER pending bed on the medical floor. He reports improvement in his shortness of breath. He continues on IV lasix Q12 and is diuresing well. Chest ultrasound reveals 10 cm right sided pleural effusion and patient is being considered for thoracentesis. Echocardiogram reveals EF 20-25%. Mild to moderate TR. 03/03/2023 Patient monitored on medical floor. Repeats breathing has improved today did undergo thoracentesis this morning performed at bedside by pulmonary with 1450 ml of fluid removed on the right side. Post procedure chest xray reveals right basilar atelectassis and or infiltrate with pleural effusion slightly improved. Left lung is clear. No pneumothorax. Patient also reports significant weakness states he is unable to ambulate without assistance. 03/04/2023 Patient sitting up in bed. Status post thoracentesis. Has improvement in breathing today. His main complaint is his neuropathy. He sees pain management for this. Sodium 133, potassium 3.0, BUN 42, creatinine 1.29. Magnesium 1.5. 03/05/2023 Patient is evaluated today sitting up in bed. Breathing better than yesterday remains on nasal cannula 2L of oxygen. He was started on lyrica and cymbalta for this neuropathy he has improvement in symptoms minimally today. we will continue this medications. Patient is being followed closely by pulmonary being started on oral prednisone taper. 03/06/2023 Patient resting in bed reports that his breathing had improved since yesterday. He is on oral torsemide daily. His creatinine has improved to 1.13. He does continue on a combination of Lyrica and Cymbalta for his peripheral neuropathy he does continue to report difficulty with balance and ambulation will like to continue to see physical therapy and has considered rehab on discharge. This will need to be follow-up with the case filler tomorrow. REVIEW OF SYSTEMS: CONSTITUTIONAL: No fever, no malaise, no fatigue. HEENT: No recent visual problems or hearing problems. Denied any sore throat. CARDIOVASCULAR: No chest pain, no palpitations, no syncope. PULMONARY: no hemoptysis. Reports shortness of breath. GASTROINTESTINAL: No diarrhea, no nausea, no vomiting, no abdominal pain. NEUROLOGICAL: No headaches,Reports generalized weakness. no numbness. PHYSICAL EXAMINATION: GENERAL: The patient is alert and oriented x3, not in any acute distress. Thin built female HEENT: Pupils are round and equally reacting to light. EOMI. No scleral icterus. No conjunctival pallor. Normocephalic, atraumatic. No pharyngeal erythema. No thyromegaly. CARDIOVASCULAR: S1 and S2 present. No murmurs, rubs, or gallops. PULMONARY: Expiratory wheezing on exam no crackles were appreciated no rhonchi. ABDOMEN: Soft, nontender, nondistended, normoactive bowel sounds. No palpable organomegaly. MUSCULOSKELETAL: No joint swelling or deformity. EXTREMITIES: No cyanosis, clubbing, patient does have 2+ pitting pedal edema extending up to the midshin area. NEUROLOGICAL: Gross neurological examination did not reveal any focal deficits. SKIN: No rashes. Assessment and plan -Acute hypoxic as well as hypercapnic respiratory failure secondary to congestive heart failure exacerbation and COPD exacerbation respiratory, patient was started on systemic steroids for COPD as well as IV Lasix for CHF exacerbation. Procalcitonin level is normal. On oral torsemide. -large right pleural effusion due to acute CHF s/p thoracentesis on the right with 1450 ml of fluid removed -COPD with acute exacerbation -Congestive heart failure chronic systolic dysfunction with acute exacerbation -Ischemic cardiomyopathy EF 25% patient has an AICD -Steroid induced hyperglycemia. 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 -Hypokalemia from diuresis this will be supplemented with oral potassium and repeat labs tomorrow. -Hyperlipidemia -Hypertension -Atrial fibrillation proximal presently rate controlled continue with the amiodarone and Eliquis -Chronic nicotine counseling provided on smoking cessation -Thyroid disorder with elevated TSH and T4 recommend to follow up levels -Medical noncompliance -Generalized weakness and medical debility PT/OT will be consulted for evaluati on -Peripheral neuropathy patient will be started on cymbalta and also lyrics for this. He is pending Pt/Ot consultation. DVT prophylaxis:Eliquis Gi prophylaxis: Pepcid Repeat labs in the AM. Continue supportive care. Replace potassium. Patient has been started on oral steroid taper. Patient will be monitored overnight and likely discharge home tomorrow. Patient would like to go to subacute rehab this will need to followed up by the CM tomorrow on Tuesday. The impression and plan of care has been dictated by Delfina Tracy, Nurse Practitioner as directed. Dr. Nury MD I have performed a history and physical examination and medical decision making of this patient, discussed the same with the dictator, and agree with the dictators assessment and plan as written, documented as a scribe. Based on total visit time, I have performed more than 50% of this visit. Objective - Vital Signs Vital signs: Vital Signs Temp 98.1 F 03/06/23 07:56 Pulse 52 L 03/06/23 08:29 Resp 18 03/06/23 07:56 BP 102/53 03/06/23 07:56 Pulse Ox 96 03/06/23 07:56 FiO2 21 03/04/23 08:32 Intake & Output 03/05/23 03/06/23 03/06/23 18:59 06:59 18:59 Intake Total 360 120 Output Total 800 Balance 360 -800 120 Intake: Oral 360 120 Output: Urine 800 Other: Voiding Method Urinal # Voids 0 0 - Labs CBC & Chem 7: 03/04/23 06:53 03/06/23 08:49 Labs: Abnormal Lab Results - Last 24 Hours (Table) 03/05/23 03/05/23 03/06/23 Range/Units 11:38 21:02 06:21 Sodium (137-145) mmol/L Potassium (3.5-5.1) mmol/L Chloride (98-107) mmol/L Carbon Dioxide (22-30) mmol/L BUN (9-20) mg/dL POC Glucose (mg/dL) 301 H 290 H 133 H (70-110) mg/dL Calcium (8.4-10.2) mg/dL 03/06/23 Range/Units 08:49 Sodium 133 L (137-145) mmol/L Potassium 2.9 L (3.5-5.1) mmol/L Chloride 89 L (98-107) mmol/L Carbon Dioxide 36 H (22-30) mmol/L BUN 51 H (9-20) mg/dL POC Glucose (mg/dL) (70-110) mg/dL Calcium 7.2 L (8.4-10.2) mg/dL Microbiology - Last 24 Hours (Table) 03/03/23 08:15 Gram Stain - Preliminary Pleural Fluid Body Fluid Culture - Preliminary Assessment and Plan Time with Patient: Less than 30
[2023-03-06 11:45] LABS: Glucose,Whole Blood 131 mg/dL (70-110)
[2023-03-06 17:21] LABS: Glucose,Whole Blood 188 mg/dL (70-110)
--- NOTE | 2023-03-06 17:39 | P.PN ---
Subjective Progress Note Date: 03/06/23 History of present illness: This is a 67-year-old male previously seen by Dr. Cortez in 2019 with past [facility] history of AICD, persistent atrial fibrillation, ischemic cardiomyopathy with EF of 35 or less, coronary artery disease status post stents, hypertension, hyperlipidemia, smoking history, noncompliance. We have been asked to evaluate the patient for heart failure. Patient states that he presented to the hospital due to difficulty in breathing and also because he could not walk and no strengt h in his legs. Weakness has been going on for the past 3 months. He does not follow with any artificial insemination technician and his AICD has not been interrogated since 2019. The patient is an active smoker. He has history of alcohol abuse but denies drinking recently. No drug use. Patient is seen today in the emergency center waiting for a bed on the observation unit. Patient has been started on IV Lasix 40 mg every 12 hours. Patient is also followed by pulmonary medicine. EKG sinus rhythm intraventricular conduction delay, right axis deviation. Ventricular rate of 69 bpm. Chest x-ray: Small to moderate right pleural effusion with adjacent lower lobe airspace opacities. Correlate for acute infection follow-up to resolution. Chest ultrasound revealed right pleural effusion pocket of 10.3 cm and marked. WBC 6.5, hemoglobin 13, platelet count 112. INR 1.2. Venous pH 7.28, pCO2 60 and bicarb 28. I's were normal. BUN 24 creatinine 0.83. Blood sugar 200. Lactic acid 1.7. Liver function tests are normal. Troponin negative 1. ProBNP 8250. TSH 9.29 and free T4 2 0.8. Home cardiac medications: Amiodarone 200 mg daily, eliquis 5 mg at bedtime, Lipitor 40 mg daily, Coreg 12.5 mg twice daily, Lasix 40 mg daily, losartan 50 mg at bedtime, Aldactone 12.5 mg daily Cardiac catheterization PCI 2000: Stent in the distal RCA, stent in the proximal LAD, stent in the proximal RCA. 03/03 Patient is seen today on the observation unit. Blood pressure 107/61, pulse ox 94% on room air, afebrile. Echocardiogram reveals EF of 20-25%. Patient appears to be in a negative fluid balance. AICD was interrogated and found to have runs of V. tach and ventricular pacing. Patient is status post thor acentesis on the right side with removal of 1450 ML's yellow fluid. 03/04 Patient is seen today in the observation unit. He states he is feeling a little bit better but feels extremely tired patient states he is only ambulating to the bathroom. He is maintained on IV Lasix 40 mg every 12 hours. Patient was not resumed on losartan on admission due to hypotension. We'll plan to resume this now. Systolic blood pressure running between 88 and 101. Pulse ox 94% on room air, heart rate between 50s and 70s. Repeat blood work reveals hemoglobin 11.5, potassium 3, BUN 42 creatinine 1.29. 03/05/23 Patient is seen and examined at bedside the same. We'll transition him from IV to oral medications today. Patient's kidney function has stayed stable over last 48 hours. 03/06/2023 Patient appears slightly confused. He reports having some moderately hallucinations and is also appears to be more shaky and slightly off. This could be related to his steroids that he has been getting. He was also started on Cymbalta recently. Blood pressure 90/60, heart rate 50s to 60s. His echocardiogram showed an EF of 20-25% Physical examination: Gen: This is a 67 year old disheveled-appearing male resting in no acute respiratory distress. VS: reviewed HEENT: Head is atraumatic, normocephalic. Pupils equal, round. Sclerae is anicteric. NECK: Supple. No JVD. . LUNGS: Clear to auscultation. No wheezes or rhonchi. No intercostal retractions. HEART: Regular rate and rhythm. 2/6 systolic murmur at the apex. ABDOMEN: Soft No tenderness. EXTREMITIES: No pedal edema. No calf tenderness. NEUROLOGICAL: Patient is awake, alert and oriented x3. Assessment: Acute hypoxic respiratory failure secondary to combination of COPD exacerbation, CHF, right-sided pleural effusion Acute on chronic systolic heart failure Right-sided pleural effusion status post thoracentesis Coronary artery disease with previous stenting Ischemic cardiomyopathy with known EF of 35 or less with AICD. Now EF 20-25% Hypertension Hyperlipidemia Bicytopenia Ventricular tachycardia Thyroid disorder History of noncompliance Plan: Start torsemide 20 mg daily. Discharge home on torsemide Increase Aldactone to 25 mg daily. This will help his low potassium. Resume losartan 12.5 mg daily with parameters Continue amiodarone 200 mg daily. Reduce Coreg to 3.125 mg twice a day due to low resting heart rate. Because of low EF, patient needs some heart rate to maintain his blood pressure Objective - Vital Signs Vital signs: Vital Signs Temp 97.9 F 03/06/23 14:00 Pulse 46 L 03/06/23 14:00 Resp 16 03/06/23 14:00 BP 82/48 03/06/23 14:00 Pulse Ox 94 L 03/06/23 14:00 FiO2 21 03/04/23 08:32 Intake & Output 03/05/23 03/06/23 03/06/23 18:59 06:59 18:59 Intake Total 360 240 Output Total 800 400 Balance 360 -800 -160 Intake: Oral 360 240 Output: Urine 800 400 Other: Voiding Method Urinal # Voids 0 0 - Labs CBC & Chem 7: 03/04/23 06:53 03/06/23 16:26 Labs: Abnormal Lab Results - Last 24 Hours (Table) 03/05/23 03/06/23 03/06/23 Range/Units 21:02 06:21 08:49 Sodium 133 L (137-145) mmol/L Potassium 2.9 L (3.5-5.1) mmol/L Chloride 89 L (98-107) mmol/L Carbon Dioxide 36 H (22-30) mmol/L BUN 51 H (9-20) mg/dL POC Glucose (mg/dL) 290 H 133 H (70-110) mg/dL Calcium 7.2 L (8.4-10.2) mg/dL 03/06/23 03/06/23 Range/Units 11:38 17:14 Sodium (137-145) mmol/L Potassium (3.5-5.1) mmol/L Chloride (98-107) mmol/L Carbon Dioxide (22-30) mmol/L BUN (9-20) mg/dL POC Glucose (mg/dL) 131 H 188 H (70-110) mg/dL Calcium (8.4-10.2) mg/dL Microbiology - Last 24 Hours (Table) 03/01/23 04:45 Blood Culture - Final Blood 03/01/23 04:30 Blood Culture - Final Blood 03/03/23 08:15 Gram Stain - Preliminary Pleural Fluid Body Fluid Culture - Preliminary
[2023-03-06] MEDS: carvediloL 3.125 MG TAB PO SCH (18:04)
[2023-03-06 20:26] LABS: Glucose,Whole Blood 284 mg/dL (70-110)
[2023-03-06] MEDS ORDERED: SPIRONOLACTONE 25 MG TAB PO ONE (21:00)
[2023-03-07 06:16] LABS: Glucose,Whole Blood 134 mg/dL (70-110)
[2023-03-07] MEDS: carvediloL 3.125 MG TAB PO SCH (06:17)
[2023-03-07] MEDS: INSULIN ASPART (NovoLOG) 100 UNIT/ML VIAL SQ SCH ×4 (06:17→20:56)
[2023-03-07] MEDS: INSULIN DETEMIR (LEVEMIR) 100 UNIT/ML SYR SQ SCH (06:49)
[2023-03-07] MEDS: SYMBICORT 160-4.5 MCG INHALER INHALATION SCH ×2 (08:19→20:20)
[2023-03-07] MEDS: IPRATROPIUM-ALBUTEROL 3 ML NEB INHALATION SCH ×4 (08:19→20:20)
--- NOTE | 2023-03-07 08:27 | CT ---
EXAMINATION TYPE: CT brain wo con DATE OF EXAM: 03/07/2023 COMPARISON: 05/19/2015 INDICATION: fall DLP: 1214.3 mGycm, Automated exposure control for dose reduction was used. CONTRAST: None CT of the brain is performed utilizing 3 mm thick sections through the posterior fossa and 3 mm thick sections through the remaining calvarium. Study is performed within 24 hours of arrival to the hosp [facility]. No abnormal hyperdensity is present to suggest an acute intracranial hemorrhage. No mass lesion is evident. No acute infarcts are evident. Some mild periventricular white matter hypodensity is present, likely on the basis of chronic white matter ischemic changes. Ventricles and sulci are prominent for the patient age. Paranasal sinuses and mastoid air cells within the [id number] are clear. IMPRESSION: 1. Atrophy with mild stable chronic appearing periventricular white matter ischemic changes. 2. Follow-up MRI can be performed as indicated.
[2023-03-07] MEDS ORDERED: SPIRONOLACTONE 25 MG TAB PO SCH ×2 (09:00)
[2023-03-07] MEDS: LOSARTAN 25 MG TAB PO SCH (09:26)
[2023-03-07] MEDS: APIXABAN 5 MG TAB PO SCH ×2 (09:34→20:56)
[2023-03-07] MEDS: DULoxetine HCL 30 MG CAPSULE.DR PO SCH (09:34)
[2023-03-07] MEDS: AMIODARONE 200 MG TAB PO SCH ×2 (09:34→20:57)
[2023-03-07] MEDS: DIVALPROEX 500 MG TABLET.DR PO SCH ×2 (09:34→20:56)
[2023-03-07] MEDS: TORSEMIDE 20 MG TAB PO SCH (09:34)
[2023-03-07] MEDS: predniSONE 10 MG TAB PO SCH (09:34)
[2023-03-07] MEDS: PREGABALIN 50 MG CAP PO SCH ×2 (09:34→20:56)
[2023-03-07] MEDS: FAMOTIDINE 20 MG TAB PO SCH ×2 (09:34→20:56)
[2023-03-07] MEDS: ATORVASTATIN 40 MG TAB PO SCH (09:34)
[2023-03-07] MEDS: METOPROLOL TARTRATE 12.5 MG TAB PO SCH (09:34)
--- NOTE | 2023-03-07 10:44 | P.PN ---
Subjective HISTORY OF PRESENT ILLNESS: This is a 67-year-old male previously seen by Dr. Cortez in 2019 with past medical history of AICD, persistent atrial fibrillation, ischemic cardiomyopathy with EF of 35 or less, coronary artery disease status post stents, hypertension, hyperlipidemia, smoking history, noncompliance. We have been asked to evaluate the patient for heart failure. Patient states that he presented to the hospital due to difficulty in breathing and also because he could not walk and no strength in his legs. Weakness has been going on for the past 3 months. He does not follow with any mechanic and his AICD has not been interrogated since 2019. The patient is an active smoker. He has history of alcohol abuse but denies drinking recently. No drug use. Patient is seen today in the emergency center waiting for a bed on the observation unit. Patient has been started on IV Lasix 40 mg every 12 hours. Patient is also followed by pulmonary medicine. EKG sinus rhythm intraventricular conduction delay, right axis deviation. Ventricular rate of 69 bpm. Chest x-ray: Small to moderate right pleural effusion with adjacent lower lobe airspace opacities. Correlate for acute infection follow-up to resolution. Chest ultrasound revealed right pleural effusion pocket of 10.3 cm and marked. WBC 6.5, hemoglobin 13, platelet count 112. INR 1.2. Venous pH 7.28, pCO2 60 and bicarb 28. I's were normal. BUN 24 creatinine 0.83. Blood sugar 200. Lactic acid 1.7. Liver function tests are normal. Troponin negative 1. ProBNP 8250. TSH 9.29 and free T4 2 0.8. Home cardiac medications: Amiodarone 200 mg daily, eliquis 5 mg at bedtime, Lipitor 40 mg daily, Coreg 12.5 mg twice daily, Lasix 40 mg daily, losartan 50 mg at bedtime, Aldactone 12.5 mg daily Cardiac catheterization PCI 2000: Stent in the distal RCA, stent in the proximal LAD, stent in the proximal RCA. 03/03 Patient is seen today on the observation unit. Blood pressure 107/61, pulse ox 94% on room air, afebrile. Echocardiogram reveals EF of 20-25%. Patient appears to be in a negative fluid balance. AICD was interrogated and found to have runs of V. tach and ventricular pacing. Patient is status post thoracentesis on the right side with removal of 1450 ML's yellow fluid. 03/04 Patient is seen today in the observation unit. He states he is feeling a little bit better but feels extremely tired patient states he is only ambulating to the bathroom. He is maintained on IV Lasix 40 mg every 12 hours. Patient was not resumed on losartan on admission due to hypotension. We'll plan to resume this now. Systolic blood pressure running between 88 and 101. Pulse ox 94% on room air, heart rate between 50s and 70s. Repeat blood work reveals hemoglobin 11.5, potassium 3, BUN 42 creatinine 1.29. 03/05/23 Patient is seen and examined at bedside the same. We'll transition him from IV to oral medications today. Patient's kidney function has stayed stable over last 48 hours. 03/06/2023 Patient appears slightly confused. He reports having some moderately hallucinations and is also appears to be more shaky and slightly off. This could be related to his steroids that he has been getting. He was also started on Cymbalta recently. Blood pressure 90/60, heart rate 50s to 60s. His echocardiogram showed an EF of 20-25% 03/07/2023 Patient examined this morning at the bedside. Patient denies chest pain or pressure. He reports mild shortness of breath this morning. He has been transitioned to oral Demadex. Blood pressure has been running low in the 90s. However this morning his blood pressure is 82/47. The patient did sustain a fall overnight. He underwent CT of the brain which was negative for acute process. PHYSICAL EXAM: VITAL SIGNS: Reviewed. GENERAL: Well-developed in no acute distress. NECK: Supple. No JVD or thyromegaly LUNGS: Respirations even and unlabored. Lungs diminished with crackles at the bases HEART: Regular rate and rhythm. S1 and S2 heard. Systolic murmur noted EXTREMITIES: Normal range of motion. No clubbing or cyanosis. Peripheral pulses intact. No lower extremity edema ASSESSMENT: Acute hypoxic respiratory failure secondary to combination of COPD exacerbation, CHF, right-sided pleural effusion Acute on chronic systolic heart failure Right-sided pleural effusion status post thoracentesis Coronary artery disease with previous stenting Ischemic cardiomyopathy with known EF of 35% Now EF 20-25% History of AICD implantation, [employer] Hypertension Hyperlipidemia Bicytopenia Ventricular tachycardia Thyroid disorder History of noncompliance Status post fall Nicotine dependence History of alcohol abuse PLAN: Discontinue carvedilol. Begin metoprolol 12.5 mg twice a day Decrease Aldactone to 12.5 mg daily Continue to monitor blood pressure Continue additional cardiac medications Further recommendations pending patient's course Nurse practitioner note has been reviewed by physician. Signing provider agrees with the documented findings, assessment, and plan of care. Objective - Vital Signs Vital signs: Vital Signs Temp 97.5 F L 03/07/23 08:55 Pulse 59 L 03/07/23 08:55 Resp 16 03/07/23 08:55 BP 98/51 03/07/23 08:55 Pulse Ox 97 03/07/23 08:55 FiO2 21 03/04/23 08:32 Intake & Output 03/06/23 03/07/23 03/07/23 18:59 06:59 18:59 Intake Total 360 Output Total 800 400 Balance -440 -400 Intake: Oral 360 Output: Urine 800 400 Other: Voiding Method Urinal Urinal # Voids 0 - Labs CBC & Chem 7: 03/04/23 06:53 03/06/23 16:26 Labs: Abnormal Lab Results - Last 24 Hours (Table) 03/06/23 03/06/23 03/06/23 Range/Units 08:49 11:38 17:14 Sodium 133 L (137-145) mmol/L Potassium 2.9 L (3.5-5.1) mmol/L Chloride 89 L (98-107) mmol/L Carbon Dioxide 36 H (22-30) mmol/L BUN 51 H (9-20) mg/dL POC Glucose (mg/dL) 131 H 188 H (70-110) mg/dL Calcium 7.2 L (8.4-10.2) mg/dL 03/06/23 03/07/23 Range/Units 20:24 06:15 Sodium (137-145) mmol/L Potassium (3.5-5.1) mmol/L Chloride (98-107) mmol/L Carbon Dioxide (22-30) mmol/L BUN (9-20) mg/dL POC Glucose (mg/dL) 284 H 134 H (70-110) mg/dL Calcium (8.4-10.2) mg/dL Microbiology - Last 24 Hours (Table) 03/03/23 08:15 Gram Stain - Preliminary Pleural Fluid Body Fluid Culture - Preliminary 03/01/23 04:45 Blood Culture - Final Blood 03/01/23 04:30 Blood Culture - Final Blood
[2023-03-07 10:59] LABS: Blood Urea Nitrogen 43.8 mg/dL (9.0-27.0); Calcium 7.5 mg/dL (8.7-10.3); Carbon Dioxide 33.1 mmol/L (21.6-31.8); Chloride 93 mmol/L (96-109); Glucose 89 mg/dL (70-110); Potassium 3.7 mmol/L (3.5-5.5); Sodium 134 mmol/L (135-145)
[2023-03-07 12:19] LABS: Glucose,Whole Blood 121 mg/dL (70-110)
--- NOTE | 2023-03-07 16:02 | P.PN ---
Subjective Progress Note Date: 03/07/23 67-year-old male who was seen in the emergency department, on March 01. He was brought into the emergency room, by EMS. The patient's primary care physician is Dr. Adler. The patient has a history of coronary disease, CHF, COPD, hyperlipidemia, hypertension, myocardial infarction, osteoarthritis, cardiomyopathy, previous heart catheterization with stent, and AICD placement. The patient states that he came into the ER, because he was very short of breath. He also complained of weakness in his lower extremities, and he could not stand up. He apparently has not been feeling well for at least a couple weeks, and maybe even longer. He is seen in the emergency department, room #4. He is currently on 4 L of oxygen. He's not receiving any IV fluids. His BMP was elevated at 8250. Also his TSH was elevated suggesting hypothyroidism. He does not take thyroid medication. White count 6.5, hemoglobin 13, hematocrit 38.9, with a platelet count of 112,000. Venous blood gases show pCO2 of 60, and a pH is 7.28. Sodium 141, potassium 4.3, chlorides 105, CO2 25, BUN 24, and creatinine 0.83. Glucose is 105. N-terminal proBNP is 8250. TSH is 9.290. Urine shows 22 RBCs and a small amount of blood. Chest x-ray shows a small to moderate right-sided pleural effusion with adjacent lower lobe airspace opacities/atelectasis. The patient is seen today 03/02/2023 in follow-up in the emergency department room. He is currently sitting up in the stretcher. Awake and alert in no acute distress. Breathing a bit easier today compared to yesterday. He is maintaining O2 saturations in the 90s on room air. Ultrasound of the right chest did reveal a 10.3 cm pocket. Sodium 133. Potassium 3.3. Bicarb 26. BUN 32. Creatinine 1.27. Glucose 227. Calcium 8.0. He is continued on DuoNeb inhalations, Symbicort. He's been initiated on IV Lasix. Currently in a -1.2 L balance. Anticoagulated with Eliquis. The patient is seen today 03/03/2023 in follow-up on the regular medical floor. The patient is resting comfortably in bed. Awake and alert in no acute distress. Maintaining good O2 saturations in the mid 90s on room air. He's been afebrile. Hemodynamically stable. He did undergo a right-sided thoracentesis this morning with 1,450 MLS of straw-colored fluid removed. Sent for analysis and cytology. Tolerated the procedure well. Follow-up chest x-ray reveals some right basilar atelectasis with improved pleural effusion. Left lung is clear. No evidence of pneumothorax. Echocardiogram reveals severely reduced global left ventricular systolic function. Ejection fraction of 20-25%. Blood cultures reveal no growth. Blood glucose 142. His Eliquis will be resumed. The patient is seen today 03/04/2023 in follow-up on the regular medical floor. He is awake and alert in no acute distress. Sitting up in bed. Continues to maintain good O2 saturations in the 90s on room air. White count 6.8. Hemoglobin 11.5. Platelets 60,000. Sodium 133. Potassium 3.0. Bicarb 29. BUN 42. Creatinine 1.29. Glucose 140. He is continued on DuoNeb inhalations, Symbicort, Solu-Medrol. Remains on oral diuretics. Anticoagulated with Eliquis. Pleural fluid cytology pending. Fluid analysis is transudate. Protein 2.5. LDH 110. The patient is seen today 03/05/2023 in follow-up on the regular medical floor. He is awake and alert in no acute distress. Sitting up in bed. Maintaining O2 saturations in the 90s on room air. He denies any worsening shortness of b reath, cough or congestion. Denies any chest discomfort. He is continued on DuoNeb inhalations, Symbicort, Solu-Medrol. He remains on amiodarone. Anticoagulated with Eliquis. Sodium 136. Potassium 4.1. Bicarb 30. BUN 45. Creatinine 1.2. Glucose 141. The patient is seen today 03/06/2023 in follow-up on the regular medical floor. He is resting comfortably in bed. Awake and alert in no acute distress. Maintaining O2 saturations in the 90s on liters per minute per nasal cannula. He is afebrile. Hemodynamically stable. Blood cultures reveal no growth. Pleural fluid cultures revealed no growth. Cytology still pending. Sodium 133. Potassium 2.9. Bicarb 36. BUN 51. Creatinine 1.13. Glucose 98. Remains on DuoNeb inhalations, Symbicort, prednisone taper. Remains on oral diuretics. Anticoagulated with Eliquis. On 03/07/2023, I'm seeing the patient for a follow-up. Resting comfortably in bed. On and off, confused and he is quite weak and debilitated. No signs of any respiratory distress and the patient is currently on room air oxygen. No other significant events over the past 24 hours. The patient has no chest pain. Denies having any significant shortness of breath. He is a fall risk and he sustained a fall yesterday without any major injuries. Underwent a CAT scan of the brain that showed no acute intracranial abnormalities. The blood work from today shows a BUN of 43 with a creatinine of 1.2 and a sodium level is at 134 with a potassium level of 3.7. The patient is known to have CHF with impaired LV dysfunction and ejection fraction of 35%, coronary artery disease with multiple coronary stents, hypertension hyperlipidemia and he has an AICD in place. The patient has history of drug noncompliance. During this current hospital stay, the patient underwent a thoracentesis of the pleural fluid cytology is still pending and based on the low protein and LDH criteria, the patient's pleural fluid is a transudate. The most recent chest x-ray on 03/03/2023 shows some limited atelectatic changes in the right lung base. Objective - Vital Signs Vital signs: Vital Signs Temp 97.7 F 03/07/23 14:00 Pulse 53 L 03/07/23 14:00 Resp 16 03/07/23 14:00 BP 123/71 03/07/23 14:00 Pulse Ox 90 L 03/07/23 14:00 FiO2 21 03/04/23 08:32 Intake & Output 03/06/23 03/07/23 03/07/23 18:59 06:59 18:59 Intake Total 360 118 Output Total 800 400 300 Balance -440 -400 -182 Intake: Oral 360 118 Output: Urine 800 400 300 Other: Voiding Method Urinal Urinal # Voids 0 - Exam GENERAL EXAM: Alert, cachectic 67-year-old male, on room air oxygen, comfortable in no apparent distress. HEAD: Normocephalic. EYES: Normal reaction of pupils, equal size. NOSE: Clear with pink turbinates. THROAT: No erythema or exudates. NECK: No masses, no JVD. CHEST: No chest wall deformity. LUNGS: Equal air entry with crackles in the right lung base, diminished. CVS: S1 and S2 normal with no audible murmur, regular rhythm. ABDOMEN: No hepatosplenomegaly, normal bowel sounds, no guarding or rigidity. SPINE: No scoliosis or deformity SKIN: No rashes CENTRAL NERVOUS SYSTEM: No focal deficits, tone is normal in all 4 extremities. EXTREMITIES: There is no peripheral edema. No clubbing, no cyanosis. Bailey pheral pulses are intact. - Labs CBC & Chem 7: 03/04/23 06:53 03/07/23 06:50 Labs: Abnormal Lab Results - Last 24 Hours (Table) 03/06/23 03/06/23 03/07/23 Range/Units 17:14 20:24 06:15 Sodium (135-145) mmol/L Chloride (96-109) mmol/L Carbon Dioxide (21.6-31.8) mmol/L BUN (9.0-27.0) mg/dL BUN/Creatinine Ratio (12.00-20.00) Ratio POC Glucose (mg/dL) 188 H 284 H 134 H (70-110) mg/dL Calcium (8.7-10.3) mg/dL 03/07/23 03/07/23 Range/Units 06:50 12:18 Sodium 134 L (135-145) mmol/L Chloride 93 L (96-109) mmol/L Carbon Dioxide 33.1 H (21.6-31.8) mmol/L BUN 43.8 H (9.0-27.0) mg/dL BUN/Creatinine Ratio 36.50 H (12.00-20.00) Ratio POC Glucose (mg/dL) 121 H (70-110) mg/dL Calcium 7.5 L (8.7-10.3) mg/dL Microbiology - Last 24 Hours (Table) 03/03/23 08:15 Gram Stain - Preliminary Pleural Fluid Body Fluid Culture - Preliminary 03/01/23 04:45 Blood Culture - Final Blood 03/01/23 04:30 Blood Culture - Final Blood Assessment and Plan Plan: Acute decompensated CHF, improved Acute hypoxic respiratory failure, currently on room air oxygen Acute on chronic Shortness of breath, likely multifactorial, in part related to COPD exacerbation, CHF, and right-sided pleural effusion. There is post right- sided thoracentesis today 03/03/2023 with 1450 ML's of straw-colored fluid removed. Fluid analysis reveals a transudate with a protein of 2.5 and an LDH of 110. Cytology still pending. Acute hypoxemic respiratory failure, secondary to above. Improved. History of congestive heart failure/cardiomyopathy. Echocardiogram reveals severely impaired left ventricular systolic function with ejection fraction 20- 25% History of COPD from previous and ongoing tobacco use. History of CAD with previous stent placement. Prior history of myocardial infarction. History of hyperlipidemia. History of hypertension. History of AICD placement. History of atrial fibrillation. Probable hypothyroidism. History of osteoarthritis. Ongoing tobacco use with nicotine addiction. Plan: Encourage use of incentive spirometer Awaiting pleural fluid cytology Complete the prednisone burst taper Continue the updrafts Continue anticoagulation with Eliquis Continue cardiac management and the patient is currently on Aldactone 12.5 mg by mouth daily and Demadex 20 mg by mouth daily. The patient is also metoprolol 12.5 mg twice a day and amiodarone. May need subacute rehabilitation. The patient is quite weak and debilitated. High risk for falls.
[2023-03-07 17:34] LABS: Glucose,Whole Blood 174 mg/dL (70-110)
[2023-03-07 20:19] LABS: Glucose,Whole Blood 151 mg/dL (70-110)
[2023-03-08 02:31] VITALS: BP 119/73; PULSE 63; RESP 16; TEMP 97.6
[2023-03-08] MEDS: METOPROLOL TARTRATE 12.5 MG TAB PO SCH (02:34)
[2023-03-08] MEDS ORDERED: SODIUM BICARB 8.4% 50 ML SYR (1 MEQ/ML) ONE (04:13)
[2023-03-08] MEDS ORDERED: SODIUM CHLORIDE 0.9% 250 ML BAG ONE (04:13)
[2023-03-08] MEDS ORDERED: NOREPINEPHRINE 1 MG/ML 4 ML VIAL IV ONE (04:13)
[2023-03-08] MEDS ORDERED: DEXTROSE 50% SYRINGE 50 ML IVP ONE (04:13)
[2023-03-08] MEDS ORDERED: DEXTROSE 5% IN WATER 50 ML BAG ONE (04:13)
[2023-03-08] MEDS ORDERED: AMIODARONE 50 MG/ML 3 ML VIAL IV ONE (04:13)
[2023-03-08] MEDS ORDERED: EPINEPHrine 10 ML SYRINGE (0.1 MG/ML) ONE (04:13)
[2023-03-08] MEDS ORDERED: ATROPINE SULFATE 0.1 MG/ML 10ML SYRINGE ONE (04:13)
[2023-03-08 04:14] LABS: Glucose,Whole Blood 25 mg/dL (70-110)
--- NOTE | 2023-03-08 04:19 | P.PN ---
Subjective Progress Note Date: 03/07/23 Patient is 59-year-old pleasant male came in with complaints of shortness of breath and orthopnea, patient does have history of condition or failure chronic systolic dysfunction with EF of around 10-15%, patient does have history of coronary artery disease ischemic cardiomyopathy along with alcoholic myopathy continues to drink alcohol but cut down the alcohol, patient can use to smoke half a pack of cigarettes a day. Patient does have COPD doesn't use any oxygen at home presently requiring 4 L of oxygen patient does have increased swelling in bilateral lower extremities chest x-ray showed pleural effusion on the right side. BNP is not available. Patient denied any cough doesn't have any leuk ocytosis. is not available at this time. 03/02/2023 Patient is evaluated in the ER pending bed on the medical floor. He reports improvement in his shortness of breath. He continues on IV lasix Q12 and is diuresing well. Chest ultrasound reveals 10 cm right sided pleural effusion and patient is being considered for thoracentesis. Echocardiogram reveals EF 20-25%. Mild to moderate TR. 03/03/2023 Patient monitored on medical floor. Repeats breathing has improved today did undergo thoracentesis this morning performed at bedside by pulmonary with 1450 ml of fluid removed on the right side. Post procedure chest xray reveals right basilar atelectassis and or infiltrate with pleural effusion slightly improved. Left lung is clear. No pneumothorax. Patient also reports significant weakness states he is unable to ambulate without assistance. 03/04/2023 Patient sitting up in bed. Status post thoracentesis. Has improvement in breathing today. His main complaint is his neuropathy. He sees pain management for this. Sodium 133, potassium 3.0, BUN 42, creatinine 1.29. Magnesium 1.5. 03/05/2023 Patient is evaluated today sitting up in bed. Breathing better than yesterday remains on nasal cannula 2L of oxygen. He was started on lyrica and cymbalta for this neuropathy he has improvement in symptoms minimally today. we will continue this medications. Patient is being followed closely by pulmonary being started on oral prednisone taper. 03/06/2023 Patient resting in bed reports that his breathing had improved since yesterday. He is on oral torsemide daily. His creatinine has improved to 1.13. He does continue on a combination of Lyrica and Cymbalta for his peripheral neuropathy he does continue to report difficulty with balance and ambulation will like to continue to see physical therapy and has considered rehab on discharge. This will need to be follow-up with the immigration case worker tomorrow. 03/07/2023 Patient seen in follow-up today lethargic although arousable. Patient with s ignificant weakness and reports to having a fall early this morning and CT of the brain was done showing no acute process. Awaiting repeat physical therapy evaluation and further discussion with case management/social work on discharge planning. Patient would benefit from ECF for continued PT/OT therapies patient is significantly weak. Will await updated PT/OT therapy notes and further discussion with case management. Patient is currently afebrile with no reported chest pain or shortness of breath. Patient is tolerating diet and patient is very thin encouraged oral intake. REVIEW OF SYSTEMS: CONSTITUTIONAL: No fever, no malaise, no fatigue. HEENT: No recent visual problems or hearing problems. Denied any sore throat. CARDIOVASCULAR: No chest pain, no palpitations, no syncope. PULMONARY: no hemoptysis. Reports shortness of breath. GASTROINTESTINAL: No diarrhea, no nausea, no vomiting, no abdominal pain. NEUROLOGICAL: No headaches,Reports generalized weakness. no numbness. PHYSICAL EXAMINATION: GENERAL: The patient is alert and oriented x3, thin built, elderly appearing HEENT: Pupils are round and equally reacting to light. EOMI. No scleral icterus. No conjunctival pallor. Normocephalic, atraumatic. No pharyngeal erythema. No thyromegaly. CARDIOVASCULAR: S1 and S2 muffled PULMONARY: Diminished breath sounds bilaterally with a few faint Expiratory wheezes noted on exam, no crackles were appreciated no rhonchi. ABDOMEN: Soft, thin, nontender, nondistended, normoactive bowel sounds. No palpable organomegaly. MUSCULOSKELETAL: No joint swelling or deformity. EXTREMITIES: No cyanosis, clubbing, patient does have 2+ pitting pedal edema extending up to the midshin area. NEUROLOGICAL: Gross neurological examination did not reveal any focal deficits. Diffusely weak SKIN: No rashes. Assessment: -Acute hypoxic as well as hypercapnic respiratory failure secondary to congestive heart failure exacerbation and COPD exacerbation -large right pleural effusion due to acute CHF s/p thoracentesis on the right with 1450 ml of fluid removed -COPD with acute exacerbation -Congestive heart failure chronic systolic dysfunction with acute exacerbation -Ischemic cardiomyopathy EF 25% patient has an AICD -Steroid induced hyperglycemia -Coronary artery disease with stents in the past -Alcohol abuse history -Macrocytic anemia secondary to alcohol use -Hypokalemia from diuresis, improved -Hyperlipidemia -Hypertension -Atrial fibrillation proximal presently rate controlled continue with the amiodarone and Eliquis -Chronic nicotine use, smoking cessation encouraged -Thyroid disorder with elevated TSH and T4 recommend to follow up levels -Medical noncompliance -Generalized weakness and medical debility with falls -Peripheral neuropathy -DVT prophylaxis:Eliquis -Gi prophylaxis: Pepcid Plan: Patient was continued on IV Lasix and has transitioned oral torsemide Continued on systemic steroids for COPD and will continue DuoNeb treatments 4 times a day and when necessary Continue monitoring Accu-Cheks before meals and at bedtime and continue sliding scale along with long-acting Encouraged oral intake Monitor closely for any alcohol withdrawals. Currently not withdrawing Replace electrolytes per protocol Patient had a fall with significant weakness and prolonged hospitalization would benefit from rehab in case management following working on ECF as well as insurance authorization due to multiple complex medical issues, prognosis is guarded Possible discharge planning in the next 24-48 hours The impression and plan of care has been dictated by Mis Jeffers, Nurse Practitioner as directed. Dr. Zana MD I have performed a history and examination and MDM of this patient, discussed the same with the dictator, and agree with the dictator's assessment and plan as written ,documented as a scribe. Based on total visit time, I have performed more than 50% of the visit. Objective - Vital Signs Vital signs: Vital Signs Temp 97.7 F 03/07/23 14:00 Pulse 52 L 03/07/23 16:16 Resp 16 03/07/23 14:00 BP 123/71 03/07/23 14:00 Pulse Ox 90 L 03/07/23 14:00 FiO2 21 03/04/23 08:32 Intake & Output 03/06/23 03/07/23 03/07/23 18:59 06:59 18:59 Intake Total 360 118 Output Total 800 400 300 Balance -440 -400 -182 Intake: Oral 360 118 Output: Urine 800 400 300 Other: Voiding Method Urinal Urinal # Voids 0 - Labs CBC & Chem 7: 03/04/23 06:53 03/07/23 06:50 Labs: Abnormal Lab Results - Last 24 Hours (Table) 03/06/23 03/06/23 03/07/23 Range/Units 17:14 20:24 06:15 Sodium (135-145) mmol/L Chloride (96-109) mmol/L Carbon Dioxide (21.6-31.8) mmol/L BUN (9.0-27.0) mg/dL BUN/Creatinine Ratio (12.00-20.00) Ratio POC Glucose (mg/dL) 188 H 284 H 134 H (70-110) mg/dL Calcium (8.7-10.3) mg/dL 03/07/23 03/07/23 Range/Units 06:50 12:18 Sodium 134 L (135-145) mmol/L Chloride 93 L (96-109) mmol/L Carbon Dioxide 33.1 H (21.6-31.8) mmol/L BUN 43.8 H (9.0-27.0) mg/dL BUN/Creatinine Ratio 36.50 H (12.00-20.00) Ratio POC Glucose (mg/dL) 121 H (70-110) mg/dL Calcium 7.5 L (8.7-10.3) mg/dL Microbiology - Last 24 Hours (Table) 03/03/23 08:15 Gram Stain - Preliminary Pleural Fluid Body Fluid Culture - Preliminary 03/01/23 04:45 Blood Culture - Final Blood 03/01/23 04:30 Blood Culture - Final Blood
[2023-03-08 04:22] LABS: Glucose,Whole Blood 413 mg/dL (70-110)
[2023-03-08 04:51] LABS: Glucose,Whole Blood 42 mg/dL (70-110)
[2023-03-08] MEDS ORDERED: NOREPINEPHRINE 4 MG in SODIUM CHLORIDE 0.9% 250 ML IV SCH (05:00)
[2023-03-08 05:06] LABS: Glucose,Whole Blood 151 mg/dL (70-110)
--- NOTE | 2023-03-08 05:25 | P.EN ---
CODE BLUE note Activated at 0413. Arrived at the scene shortly after. Chart reviewed and the case discussed with RN in detail. The patient was admitted for COPD exacerbation had reported shortness of breath to the staff shortly before becoming unresponsive. Blood glucose was checked and was 25. ACLS protocol was initiated and patient was given dextrose IV push. A subsequent blood glucose improved to 413. The patient was primarily in PEA but was shocked once for V. fib with 150 J defibrillation. ROSC was achieved and subsequently converted to PEA. Patient was given a total of 6 epinephrine IV push, amiodarone 300 mg IV push bolus x 1 for V-tach, sodium bicarbonate IV push 1, and atropine IV push 1 for sinus bradycardia. After another period of ROSC, the patient subsequently developed asystole and was pronounced at 0522. Primary team and filter filler were notified by the RN. Please refer to the code sheet for further details. Total time spent providing critical care for this patient: 60 minutes
[2023-03-08] MEDS ORDERED: VASOPRESSIN 60 UNIT in SODIUM CHLORIDE 0.9% 150 ML IV SCH (05:30)
--- NOTE | 2023-03-08 06:51 | XR ---
EXAMINATION TYPE: XR chest 1V portable DATE OF EXAM: 03/08/2023 Comparison: 03/03/2023 Clinical History: 67-year-old male Tube placement Findings: ET tube tip just below the level of the medial clavicular heads. Left anterior chest wall AICD genera tor with right ventricular lead. Heart remains enlarged. Hyperinflation with relative abnormal lucenc ies. Worsening retrocardiac opacity. Ongoing small to moderate right pleural effusion with right basi lar opacity. Increasing left perihilar interstitial density. Partially visualized traversing right sh oulder arthroplasty. Impression: 1. ET tube tip just below the level of the medial clavicular heads, satisfactory. 2. New retrocardiac opacification may reflect new left lower lobe consolidation or significant volume loss/atelectasis. 3. Ongoing small to moderate right pleural effusion with prominent adjacent atelectasis and/or consol idation. 3. Worsening left perihilar interstitial opacities, either infiltrate or atypical interstitial edema. 4. Background COPD.
[2023-03-08] MEDS ORDERED: CHLORHEXIDINE GLUCONATE 15 ML CUP MUCOUS MEM SCH (09:00)
--- NOTE | 2023-03-09 10:10 | P.DS ---
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 Do you want consulting provider notified?: Yes Consult Physician Routine Consulting Provider: [employer] Consult Reason/Comments: CHF Do you want consulting provider notified?: Yes Primary care physician: Saran Adler Hospital Course: Preliminary cause of Chronic obstructive pulmonary disease with cardiopulmonary arrest Final diagnosis -Acute hypoxic as well as hypercapnic respiratory failure secondary to congestive heart failure exacerbation and COPD exacerbation -large right pleural effusion due to acute CHF s/p thoracentesis on the right with 1450 ml of fluid removed -COPD with acute exacerbation -Congestive heart failure chronic systolic dysfunction with acute exacerbation -Ischemic cardiomyopathy EF 25% patient has an AICD -Steroid induced hyperglycemia -Coronary artery disease with stents in the past -Alcohol abuse history -Macrocytic anemia secondary to alcohol use -Hypokalemia from diuresis, improved -Hyperlipidemia -Hypertension -Atrial fibrillation proximal presently rate controlled continue with the amiodarone and Eliquis -Chronic nicotine use, smoking cessation encouraged -Thyroid disorder with elevated TSH and T4 recommend to follow up levels -Medical noncompliance -Generalized weakness and medical debility with falls -Peripheral neuropathy -DVT prophylaxis:Eliquis -Gi prophylaxis: Pepcid Discharge disposition Patient has . According to nursing documentation time of was 05:22. Patient was a CODE BLUE after experiencing shortness of breath and per event documentation patient became unresponsive after reporting shortness of breath and ACLS protocol was initiated. Total time taken is greater than 35 minutes Hospital course This is a 67-year-old male who was recently admitted with increased shortness of breath with COPD exacerbation as well as CHF exacerbation with hypoxic respiratory failure. Patient did have a large right pleural effusion secondary to the CHF and is status post thoracentesis on the right. Patient has significant congestive heart failure history with systolic dysfunction and ischemic cardiomyopathy with a noted EF of 25% with an AICD. Patient was significantly weak and awaiting possible ECF for continued PT/OT therapy while hospitalized. Patient has an extensive alcohol abuse history and medical noncompliance with significant weakness and medical debility with recurrent falls. During the code patient underwent ACLS protocol and was in PEA and had a shock for V. fib with fluoroscopy being obtained and underwent extensive rounds of epi with continued CPR and again lost pulse continuing CPR and patient developed asystole and was pronounced at 0522 on 03/08/2023. Please refer to event note regarding CODE BLUE and other consultation notes for further HPI. Per nursing staff multiple attempts to contact family and unsuccessful. The impression and plan of care has been dictated by Mis Jeffers, Nurse Practitioner as directed. Dr. Zana MD I have performed a history and examination and MDM of this patient, discussed the same with the dictator, and agree with the dictator's assessment and plan as written ,documented as a scribe. Based on total visit time, I have performed more than 50% of the visit. Patient Condition at Discharge: Poor Plan - Discharge Summary Discharge Rx Participant: Yes New Discharge Prescriptions: No Action Atorvastatin [Lipitor] 40 mg PO DAILY Apixaban [Eliquis] 5 mg PO HS Furosemide [Lasix] 40 mg PO DAILY Amiodarone [Cordarone] 200 mg PO DAILY carvediloL [Coreg] 12.5 mg PO BID Losartan [Cozaar] 50 mg PO HS Divalproex Sodium [Depakote] 500 mg PO BID Fluticasone/Vilanterol [Breo Ellipta 200-25 Mcg Inhaler] 1 puff INHALATION RT-HS Spironolactone 12.5 mg PO DAILY Discharge Medication List Atorvastatin [Lipitor] 40 mg PO DAILY 01/21/15 [History] Losartan [Cozaar] 50 mg PO HS 07/02/21 [History] Amiodarone [Cordarone] 200 mg PO DAILY 03/01/23 [History] Apixaban [Eliquis] 5 mg PO HS 03/01/23 [History] Divalproex Sodium [Depakote] 500 mg PO BID 03/01/23 [History] Fluticasone/Vilanterol [Breo Ellipta 200-25 Mcg Inhaler] 1 puff INHALATION RT-HS 03/01/23 [History] Furosemide [Lasix] 40 mg PO DAILY 03/01/23 [History] Spironolactone 12.5 mg PO DAILY 03/01/23 [History] carvediloL [Coreg] 12.5 mg PO BID 03/01/23 [History] Follow up Appointment(s)/Referral(s): Fadia Cortez MD [STAFF PHYSICIAN] - 2 Weeks Saran Adler MD [Primary Care Provider] - 1-2 days Discharge Disposition: - Preliminary Cause of Preliminary Cause of : COPD with cardiopulmonary arrest
--- NOTE | 2023-03-11 15:46 | CDI ---
Documentation Clarification Form Date: 03/11/2023 03:29:28 PM From: Domi Cassidy RN, CCDS Email: [email or web address] Admit Date: 03/01/2023 06:34:00 AM Patient Name: Yash Land Visit Number: [id number] Discharge Date: 03/08/2023 07:55:00 AM ATTENTION: The Clinical Documentation Specialists (CDI) and [facility] Coding Staff appreciate your assistance in clarifying documentation. Please respond to the clarification below the line at the bottom and electronically sign. The CDI & [facility] Coding staff will review the response and follow-up if needed. Please note: Queries are made part of the Legal Health Record. If you have any questions, please contact the author of this message via ITS. Dr. Quincy Spann Your patient had elevated BUN/Cr levels. Based on this information and the findings below, is there an additional diagnosis that is clinically appropriate for this patient? Patient history/risk factors: CAD, CHF, COPD, HLD, [place], etoh abuse and smoker. Presented with SOB and orthopnea. Admitted with CHF exacerbation and acute respiratory failure. Clinical Indicators: 03/01-03/07 BUN: 24-32-30.5-42-51-43.8 03/01-03/07 Cr: 0.83-1.27-1.1-1.29-1.2-1.13 03/01-03/06 GFR: >90-58-57-67 03/02 Cardiology consult: "Monitor I O, daily weights, electrolytes and renal function." 03/05 IM: "Patient's kidney function has stayed stable over last 48 hours." Treatment: 1L IV bolus 0.9 NS on 03/01; Aldactone 12.5mg po 03/02-03/06; monitor labs Is there an additional diagnosis that is clinically appropriate for this patient? [x ] Acute Kidney Injury secondary to diuretic use [ ] No additional diagnosis/Not clinically significant [ ] Unable to determine [ ] Other, please specify Reference: [facility] Criteria An increase in serum creatinine by greater than or equal to 0.3 mg/dL within 48 hours; An increase in serum creatinine by greater than or equal to 1.5 times baseline, which is known or presumed to have occurred within the prior 7 days; A urine volume less than 0.5 ml/kg/h for 6 hours. When the baseline is unknown the lowest creatinine during admission assumed to be baseline MTDD
== END 2023-03-08 07:55 | disposition expired | DRG 291 ==
LOC: EC 04:32 → OBSVTOIN 06:34 → 6NMEDSUR 06:34 → 2SICU 03-08 04:31
PROVIDERS: ADMIT Hospitalist; ATTEND Hospitalist
PROC: 0W993ZZ Drainage of Right Pleural Cavity, Percutaneous Approach (ICD-10-PCS; 2023-03-03)
PROC: 5A1935Z Respiratory Ventilation, Less than 24 Consecutive Hours (ICD-10-PCS; principal; 2023-03-08)
PROC: 0BH17EZ Insertion of Endotracheal Airway into Trachea, Via Natural or Artificial Opening (ICD-10-PCS; principal; 2023-03-08)
PROC: 5A12012 Performance of Cardiac Output, Single, Manual (ICD-10-PCS; principal; 2023-03-08)
DX: I11.0 Hypertensive heart disease with heart failure (principal); I50.23 Acute on chronic systolic (congestive) heart failure; J96.01 Acute respiratory failure with hypoxia; J96.02 Acute respiratory failure with hypercapnia; I48.19 Other persistent atrial fibrillation; J44.1 Chronic obstructive pulmonary disease with (acute) exacerbation; J91.8 Pleural effusion in other conditions classified elsewhere; I47.20 Ventricular tachycardia, unspecified; E87.1 Hypo-osmolality and hyponatremia; N17.9 Acute kidney failure, unspecified; Z11.52 Encounter for screening for COVID-19; T50.2X5A Adverse effect of carbonic-anhydrase inhibitors, benzothiadiazides and other diuretics, initial encounter; R00.1 Bradycardia, unspecified; I27.20 Pulmonary hypertension, unspecified; T38.0X5A Adverse effect of glucocorticoids and synthetic analogues, initial encounter; I25.10 Atherosclerotic heart disease of native coronary artery without angina pectoris; I25.5 Ischemic cardiomyopathy; E03.9 Hypothyroidism, unspecified; F10.20 Alcohol dependence, uncomplicated; D53.9 Nutritional anemia, unspecified; I46.8 Cardiac arrest due to other underlying condition; F32.A Depression, unspecified; I25.2 Old myocardial infarction; E78.5 Hyperlipidemia, unspecified; F17.210 Nicotine dependence, cigarettes, uncomplicated; E87.6 Hypokalemia; F41.9 Anxiety disorder, unspecified; I45.9 Conduction disorder, unspecified; G62.9 Polyneuropathy, unspecified; Z71.6 Tobacco abuse counseling; Z91.199 Patient's noncompliance with other medical treatment and regimen due to unspecified reason; Z79.899 Other long term (current) drug therapy; X58.XXXA Exposure to other specified factors, initial encounter; I48.0 Paroxysmal atrial fibrillation; R29.6 Repeated falls; W19.XXXA Unspecified fall, initial encounter; Y92.230 Patient room in hospital as the place of occurrence of the external cause; Z79.01 Long term (current) use of anticoagulants; Z79.82 Long term (current) use of aspirin; Z80.1 Family history of malignant neoplasm of trachea, bronchus and lung; Z91.148 Patient's other noncompliance with medication regimen for other reason; Z91.81 History of falling; Z95.5 Presence of coronary angioplasty implant and graft; Z95.810 Presence of automatic (implantable) cardiac defibrillator; Z98.42 Cataract extraction status, left eye; Z98.41 Cataract extraction status, right eye
CPT/HCPCS: 36415; 70450; 71045; 71046; 76604; 80048; 80053; 81001; 82550; 82607; 82803; 82945; 83036; 83605; 83615; 83735; 83880; 84132; 84145; 84157; 84439; 84443; 84484; 85025; 85610; 85730; 87040; 87070; 87102; 87116; 87205; 87206; 87496; 87498; 87502; 87529; 87634; 87635; 87636; 87798; 88108; 88305; 89050; 93005; 93306; 94002; 94640; 94760; 96361; 96374; 96375; 96376; 99285